=== PATIENT | male | born 1975 | race Caucasian/White ===

== ENCOUNTER 2021-03-22 12:50 | Inpatient (IN) | payer OTHER, SELFPAY ==
[2021-03-22 13:01] VITALS: BP 116/84; PULSE 70; RESP 18; TEMP 36.8; O2SAT 96; BMI 23.6
--- NOTE | 2021-03-22 13:16 | ED_ITS ---
HPI - Psych General Chief Complaint: Psychiatric Symptoms Stated Complaint: crisis Time Seen by Provider: 03/22/21 13:16 Source: patient Mode of arrival: ambulatory Limitations: no limitations History of Present Illness MD complaint: suicidal ideation and feels depressed Onset (ago): week(s) (1) Duration: constant History of same: Yes Relieving factors: none Exacerbating factors: drug use Context: recent drug abuse and significant life stressor Associated psychiatric symptoms: depression and suicidal ideation Associated symptoms: denies other symptoms Treatments prior to arrival: none If self harm: admits thoughts of self harm Related Data Home Medications Medication Instructions Recorded Confirmed No Known Home Meds 03/22/21 03/22/21 Allergies Allergy/AdvReac Type Severity Reaction Status Date / Time trazodone Allergy Rash Verified 03/22/21 13:31 Review of Systems Review of Systems: Constitutional : No Fever, No Chills ENT/Mouth : No Ear Pain, No Nasal Congestion, No sore throat Eyes: No Eye Pain, No Swelling, No Redness Cardiovascular : No Chest Pain, No SOB Respiratory : No Cough, No Sputum, No Dyspnea Gastrointestinal : No Nausea, No Vomiting, No Diarrhea, No Hematochezia, No Melena Genitourinary : No Dysuria, No Urinary Frequency, No Hematuria Musculoskeletal : No Myalgias Skin : No Skin Lesions, No rash Neuro : No Weakness, No Numbness, No Paresthesias, No Dizziness, No Headache Psych : positive Anxiety, positive Depression, positive SI no HI Heme/Lymph: No Lymphadenopathy Endocrine : No Polyuria, No Polydipsia All other systems reviewed and are negative FOR[facility]LY [facility], [facility] Past Medical History Attestation statement: The following information was validated with the patient. Medical History Bipolar 1 disorder Depression PTSD (post-traumatic stress disorder) Surgical History S/P hernia surgery Social History Social History Alcohol intake: current Alcohol intake frequency: 3 or more drinks per day Alcohol type: beer Patient Tobacco Use Status: Current everyday Tobacco user Smoked in Last 30 Days: Yes Use of substances other than those prescribed or required for medical reasons: Yes Substance Use Type: Crack/Cocaine, Heroin and Marijuana Substance Use Frequency: Chronic Longstanding Last Used Substance: Days (ago) Advance Directives: No Advance Directives Information Provided: No Physical Exam Vital Signs: Vital Signs: Last Vital Signs Temp 97.6 F 03/22/21 13:35 Pulse 62 03/22/21 13:35 Resp 16 03/22/21 13:35 BP 129/72 03/22/21 13:35 Pulse Ox 99 03/22/21 13:35 Body Mass Index 23.6 Appearance: Alert. Oriented X3. No acute distress. Eyes: Pupils equal, round and reactive to light. ENT: Pharynx normal. Neck: Normal inspection. Neck supple. CVS: Normal heart rate and rhythm. Pulses normal. Respiratory: No respiratory distress. Breath sounds normal. Abdomen: Soft and nontender. Skin: Skin warm and dry. Normal skin color. Normal skin turgor. Extremities: No lower extremity edema. No calf ttp Neuro: Oriented X 3. No motor deficit. No sensory deficit. CN2-12 intact Psych: Pos anxiety and depression, Pos SI, withdrawn Course Course Course Narrative: Physician observation started at 406pm. Patient placed in physician observation because the patient is pending placement per [facility] for SI. At the time observation was started the patient's vitals were stable, patient is alert and oriented but slightly anxious, Neuro: nonfocal, CV RRR, Lungs clear MDM - Psych MDM Narrative Medical decision making narrative: 46 yo male with bipolar and substance abuse with SI - here with depression and SI - labs and N consult Lab Data Result diagrams: 03/22/21 14:06 03/22/21 14:06 Labs: Lab Results 03/22/21 03/22/21 03/22/21 Range/Units 13:45 13:45 14:06 WBC 10.0 (4.8-10.8) X10*3/uL RBC 4.44 L (4.60-5.80) X10*6/uL Hgb 14.0 (14.0-18.0) g/dl Hct 42.1 (42-52) % MCV 94.8 (80-98) fL MCH 31.5 (27.0-33.0) pg MCHC 33.3 (31.0-36.0) g/dl RDW 12.6 (11.0-16.0) % Plt Count 222 (160-400) X10*3/uL MPV 10.1 (9.4-12.4) fL Immature Gran % (Auto) 0.3 (0.0-0.4) % Neut % (Auto) 73.5 H (45-73) % Lymph % (Auto) 20.4 (20-40) % [place] % (Auto) 5.0 (2-11) % Eos % (Auto) 0.5 (0-4) % Baso % (Auto) 0.3 (0-2) % Lymph # (Auto) 2.1 (1.2-4.9) X10*3/uL [place] # (Auto) 0.5 (0.1-1.2) X10*3/uL Eos # (Auto) 0.1 (0.0-0.4) X10*3/uL Baso # (Auto) 0.0 (0.0-0.2) X10*3/uL Abs Immat Gran (auto) 0.03 (0.00-0.03) X10*3/uL Absolute Neuts (auto) 7.4 (2.0-8.3) X10*3/uL Absolute Nucleated RBC 0.000 (0.0-0.012) X10*3/uL Nucleated RBC % (auto) 0.0 (0.0-0.2) /100WBC Sodium (135-145) mmol/L Potassium (3.3-5.1) mmol/L Chloride (96-108) mmol/L Carbon Dioxide (22-29) mmol/L Anion Gap (12-20) BUN (9-16) mg/dL Creatinine (0.5-1.4) mg/dL Estim Creat Clear Calc Estimated GFR Random Glucose (60-115) mg/dL Calcium (8.4-10.2) mg/dL Total Bilirubin (0.0-1.0) mg/dL Direct Bilirubin (0.0-0.5) mg/dL AST (5-37) U/L ALT (0-40) U/L Alkaline Phosphatase (39-117) U/L Total Protein (6.5-8.0) g/dL Albumin (3.5-5.0) g/dL Urine Opiates Screen POSITIVE H (Not Detect) Urine Fentanyl Screen POSITIVE H (Not Detect) Ur Barbiturates Screen Not Detected (Not Detect) Ur Phencyclidine Scrn Not Detected (Not Detect) Ur Amphetamines Screen Not Detected (Not Detect) U Benzodiazepines Scrn Not Detected (Not Detect) Urine Cocaine Screen POSITIVE H (Not Detect) U Marijuana (THC) Screen POSITIVE H (Not Detect) Ethyl Alcohol mg/dL COVID-19 (WILL) Negative (Negative) COVID-19 Clin Com See Note 03/22/21 03/22/21 Range/Units 14:06 14:06 WBC (4.8-10.8) X10*3/uL RBC (4.60-5.80) X10*6/uL Hgb (14.0-18.0) g/dl Hct (42-52) % MCV (80-98) fL MCH (27.0-33.0) pg MCHC (31.0-36.0) g/dl RDW (11.0-16.0) % Plt Count (160-400) X10*3/uL MPV (9.4-12.4) fL Immature Gran % (Auto) (0.0-0.4) % Neut % (Auto) (45-73) % Lymph % (Auto) (20-40) % [place] % (Auto) (2-11) % Eos % (Auto) (0-4) % Baso % (Auto) (0-2) % Lymph # (Auto) (1.2-4.9) X10*3/uL [place] # (Auto) (0.1-1.2) X10*3/uL Eos # (Auto) (0.0-0.4) X10*3/uL Baso # (Auto) (0.0-0.2) X10*3/uL Abs Immat Gran (auto) (0.00-0.03) X10*3/uL Absolute Neuts (auto) (2.0-8.3) X10*3/uL Absolute Nucleated RBC (0.0-0.012) X10*3/uL Nucleated RBC % (auto) (0.0-0.2) /100WBC Sodium 144 (135-145) mmol/L Potassium 4.3 (3.3-5.1) mmol/L Chloride 109 H (96-108) mmol/L Carbon Dioxide 30 H (22-29) mmol/L Anion Gap 9 L (12-20) BUN 13 (9-16) mg/dL Creatinine 0.98 (0.5-1.4) mg/dL Estim Creat Clear Calc 98.2 Estimated GFR > 60 Random Glucose 105 (60-115) mg/dL Calcium 9.4 (8.4-10.2) mg/dL Total Bilirubin 0.4 (0.0-1.0) mg/dL Direct Bilirubin 0.2 (0.0-0.5) mg/dL AST 18 (5-37) U/L ALT 23 (0-40) U/L Alkaline Phosphatase 51 (39-117) U/L Total Protein 6.9 (6.5-8.0) g/dL Albumin 4.1 (3.5-5.0) g/dL Urine Opiates Screen (Not Detect) Urine Fentanyl Screen (Not Detect) Ur Barbiturates Screen (Not Detect) Ur Phencyclidine Scrn (Not Detect) Ur Amphetamines Screen (Not Detect) U Benzodiazepines Scrn (Not Detect) Urine Cocaine Screen (Not Detect) U Marijuana (THC) Screen (Not Detect) Ethyl Alcohol < 10 mg/dL COVID-19 (WILL) (Negative) COVID-19 Clin Com Discharge Plan Discharge Clinical Impression: Active substance abuse, Suicidal ideation Prescriptions: No Action No Known Home Meds RF: 0
[2021-03-22 13:35] VITALS: BP 129/72; PULSE 62; RESP 16; TEMP 36.4; O2SAT 99
[2021-03-22 14:10] LABS: COVID-19 Test Negative (Negative)
[2021-03-22 14:13] LABS: MANUAL DIFF FLAG NO
[2021-03-22 14:14] LABS: Basophils Percent Auto 0.3 % (0-2); Eosinophils Absolute Auto 0.1 X10*3/uL (0.0-0.4); Eosinophils Percent Auto 0.5 % (0-4); Hematocrit 42.1 % (42-52); Imm Gran Abs Auto 0.03 X10*3/uL (0.00-0.03); Imm Gran Pct Auto 0.3 % (0.0-0.4); Lymphocytes Absolute Auto 2.1 X10*3/uL (1.2-4.9); Lymphocytes Percent Auto 20.4 % (20-40); Mean Corpuscular HGB Conc 33.3 g/dl (31.0-36.0); Mean Corpuscular Hemoglobin 31.5 pg (27.0-33.0); Mean Corpuscular Volume 94.8 fL (80-98); Mean Platelet Volume 10.1 fL (9.4-12.4); Monocytes Absolute Auto 0.5 X10*3/uL (0.1-1.2); Neutrophils Absolute Auto 7.4 X10*3/uL (2.0-8.3); Neutrophils Percent Auto 73.5 % (45-73); Platelet Count 222 X10*3/uL (160-400); Red Blood Count 4.44 X10*6/uL (4.60-5.80); Red Cell Distribution Width 12.6 % (11.0-16.0)
[2021-03-22 14:28] LABS: Amphetamine Screen Urine Not Detected (Not Detect); Barbiturates, Urine Not Detected (Not Detect); Benzodiazepines Screen Urine Not Detected (Not Detect); Cannabinoid Screen Urine POSITIVE (Not Detect); Cocaine Screen Urine POSITIVE (Not Detect); Fentanyl, urine POSITIVE (Not Detect); Opiate Screen Urine POSITIVE (Not Detect); Phencyclidine Screen Urine Not Detected (Not Detect)
[2021-03-22 14:34] LABS: Ethanol < 10 mg/dL
[2021-03-22 14:38] LABS: Alanine Aminotransferase 23 U/L (0-40); Albumin Level 4.1 g/dL (3.5-5.0); Alkaline Phosphatase 51 U/L (39-117); Anion Gap 9 (12-20); Aspartate Amino Transferase 18 U/L (5-37); Bilirubin Direct 0.2 mg/dL (0.0-0.5); Bilirubin Total 0.4 mg/dL (0.0-1.0); Blood Urea Nitrogen 13 mg/dL (9-16); Calcium 9.4 mg/dL (8.4-10.2); Carbon Dioxide 30 mmol/L (22-29); Chloride 109 mmol/L (96-108); Creatinine Clr Calc Pharmacy 98.2; Estimated Glomerular Filt Rate > 60; Glucose Random 105 mg/dL (60-115); Potassium 4.3 mmol/L (3.3-5.1); Sodium 144 mmol/L (135-145); Total Protein 6.9 g/dL (6.5-8.0)
--- NOTE | 2021-03-22 14:47 | PHA.MEDREC ---
Pharmacy Consult ? Medication Reconciliation Pharmacy has completed the medication reconciliation. Patient reports that he does not take medications at home. Previously his last medications were filled at [facility] in December 2020. Dali Tidwell, MelvinD
--- NOTE | 2021-03-22 17:47 | ECG_ITS ---
Test Reason : MEDCLEARANCE Blood Pressure : / mmHG Vent. Rate : 065 BPM Atrial Rate : 065 BPM P-R Int : 132 ms QRS Dur : 094 ms QT Int : 402 ms P-R-T Axes : 076 080 076 degrees QTc Int : 418 ms Normal sinus rhythm Normal ECG No previous ECGs available Referred By: Diana Barth Electronically Signed By:ALEJANDRA MOODY
[2021-03-22 22:30] VITALS: BP 140/84; PULSE 65; RESP 18; TEMP 36.4
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
[2021-03-23 08:00] VITALS: BP 125/89; PULSE 88; RESP 16; TEMP 36.6; O2SAT 98
[2021-03-23] MEDS: LORazepam 1 MG TABLET PO ×4 (09:17→21:30)
--- NOTE | 2021-03-23 09:19 | PC.NURSE ---
Nils declined offers for nicotine replacement therapy on 03/23/2021.
[2021-03-23] MEDS: methADONE HCl 20 MG/2 ML ORAL.CONC 30 MG PO (09:41)
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
[2021-03-23 13:43] VITALS: BP 145/76; PULSE 62
[2021-03-23] MEDS: cloNIDine HCL 0.1 MG TABLET PO (13:43)
[2021-03-23] MEDS: Loperamide HCl 2 MG CAPSULE PO (15:29)
[2021-03-23] MEDS: Gabapentin 300 MG CAPSULE PO ×2 (15:29→21:30)
[2021-03-23 20:00] VITALS: RESP 16; TEMP 36.3; O2SAT 99
[2021-03-23 21:30] VITALS: BP 111/74; PULSE 66
[2021-03-23] MEDS: Prazosin HCL 1 MG CAPSULE PO (21:30)
[2021-03-24] MEDS: LORazepam 1 MG TABLET PO ×3 (08:37→20:46)
[2021-03-24] MEDS: Gabapentin 300 MG CAPSULE PO ×3 (08:37→20:46)
[2021-03-24] MEDS: Escitalopram Oxalate 10 MG TABLET PO (08:37)
[2021-03-24] MEDS: Miconazole 2 % Extra Thick Cr 56.7 Gm Tube 1 APPL TOPICAL ×2 (09:10→20:46)
--- NOTE | 2021-03-24 17:07 | HO.PSYCHPN ---
Subjective Subjective Date of Service: 03/25/21 Reason For Visit: depression si Interim History: pt seen on 03/24 pt lying on bed, fully under blanket; he pokes his head out to see flex o writer operator, but then recovers himself. He has little to say and answers with fw words; pt reports that he is feeling withdrawal symptoms but that it's not yet bad enough to start suboxone. He says SI remains resolved and denies medication side-effects. Gas Plant Technician met with patient again, later in day and he reported having significant w/drawal and wanted to try suboxone, understanding risks of precipitated withdrawal. Pt received 8/2mg to good effect. Review of Systems Review of Systems Pt is alert and oriented; behavior is marginally cooperative; patient under covers; full, long reyes and with adequate hygiene; mood is described as depressed and affect congruent, downcast; eye contact appropriate avoidant; Speech is soft and with few words; not pressured; psychomotor retardation present; thought process is organized and goal directed. Thought content is on getting treatment; otherwise TC relevant to pertinent topics and without any delusional content, paranoid ideations or grandiosity; denies any SI/HI. There is no evidence of perceptual disturbance. ?Patients insight and judgment appear impaired. Diagnostics Vital Signs (24Hr): Vital Signs - 24 hr 03/23/21 20:00 03/23/21 21:30 Temperature 97.4 F Pulse Rate 66 Respiratory Rate 16 Blood Pressure 111/74 Pulse Oximetry 99 Body Mass Index 23.6 Labs Results: 03/22/21 14:06 03/22/21 14:06 Medications Medications Current Medications Generic Name Dose Route Start Last Admin Trade Name Zarina PRN Reason Stop Dose Admin Acetaminophen 650 mg 03/22/21 22:00 Acetaminophen 325 Mg Tablet PO Q6H PRN Headache/Pain Mild Scale (1-3) Al Hydroxide/Mg Hydroxide 30 ml 03/22/21 22:00 Magnesium Hydrox/Alum Hydrox 30 Ml Oral.Susp PO Q6H PRN Heartburn/Nausea Buprenorphine/Naloxone 1 film 03/24/21 17:03 Buprenorphine/Naloxone 8/2 Mg Film SUBLINGUAL 03/24/21 17:04 ONCE ONE Clonidine HCl 0.1 mg 03/22/21 21:00 03/23/21 13:43 Clonidine Hcl 0.1 Mg Tablet PO 0.1 mg Q4H PRN Administration Opiate Withdrawal Protocol Cyclobenzaprine HCl 10 mg 03/23/21 15:04 Cyclobenzaprine Hcl 10 Mg Tablet PO TID PRN muscle cramps Dicyclomine HCl 10 mg 03/23/21 15:04 Dicyclomine Hcl 10 Mg Capsule PO TID PRN abdominal cramps Escitalopram Oxalate 10 mg 03/24/21 09:00 03/24/21 08:37 Escitalopram Oxalate 10 Mg Tablet PO 10 mg DAILY YI Administration Gabapentin 300 mg 03/23/21 15:00 03/24/21 14:06 Gabapentin 300 Mg Capsule PO 300 mg TID YI Administration Loperamide HCl 2 mg 03/23/21 14:49 Loperamide Hcl 2 Mg Capsule PO Q4H PRN Loose Stool Lorazepam 1 mg 03/23/21 15:00 03/24/21 14:06 Lorazepam 1 Mg Tablet PO 1 mg TID YI Administration Magnesium Hydroxide 30 ml 03/22/21 22:00 Milk Of Magnesia 30 Ml Oral.Susp PO DAILY PRN Constipation Miconazole Nitrate 1 appl 03/23/21 21:00 03/24/21 09:10 Miconazole 2 % Extra Thick Cr 56.7 Gm Tube TOPICAL 1 appl BID YI Administration Protocol Pharmacy Consult 1 each 03/22/21 13:16 Consult Rx Perform Med Rec MISCELLANE ONCE PRN Consult order Prazosin HCl 1 mg 03/23/21 21:00 03/23/21 21:30 Prazosin Hcl 1 Mg Capsule PO 1 mg BEDTIME YI Administration Protocol Quetiapine Fumarate 50 mg 03/23/21 15:02 Quetiapine Fumarate 50 Mg Tablet PO BID PRN anxiety/insomnia Allergies Allergies Allergy/AdvReac Type Severity Reaction Status Date / Time trazodone Allergy Rash Verified 03/22/21 13:31 Assessment & Plan Assessment & Plan (1) MDD (major depressive disorder), recurrent severe, without psychosis: Status: Acute Code(s): F33.2 - Major depressive disorder, recurrent severe without psychotic features (2) Chronic post-traumatic stress disorder (PTSD): Status: Acute Code(s): F43.12 - Post-traumatic stress disorder, chronic (3) Opioid dependence on agonist therapy: Status: Acute Code(s): F11.20 - Opioid dependence, uncomplicated (4) Cocaine use disorder: Status: Acute Code(s): F14.10 - Cocaine abuse, uncomplicated (5) Alcohol use disorder, moderate, in early remission, dependence: Status: Acute Code(s): F10.21 - Alcohol dependence, in remission Assessment and Plan: IMPRESSION: Patient is a 46-year-old male with history of depression, PTSD and chronic substance abuse, currently in withdrawal from alcohol cocaine and opiates who presents for worsening depression and suicidal ideation in the face of marital strife, his having left him with the kids due to his relapse.? Patient currently in opioid, alcohol and cocaine withdrawal.? Patient remains depressed but says suicidal ideation has resolved and he has hope of getting treatment and reuniting with and children.? Patient has history of doing well on citalopram and agrees to start escitalopram instead since that is what is on formulary here at the hospital.? Patient reports he has had success on Suboxone and wants to get on this medication instead of methadone since he works and Suboxone is easier to navigate with work schedule.? He agrees to stop methadone and get on Suboxone.? Patient also wants to restart prazosin for nightmares.? Patient meets criteria for MDD, PTSD; he does not report history of manic type episodes or behaviors outside of cocaine binges and though he carries a diagnosis of bipolar disorder, this seems much less likely as he has done well on an SSRI.? Will admit patient for safety, medication management and treatment for withdrawal. opioid withdrawal successfully treated with suboxone; pt off methadone SI remains resolved, but depression continues, likely worsened by withdrawal symptoms PLAN: Patient on CV Q 15 minutes checks suboxne 8/2mg one time suboxone 4/1mg prn for withdawal symptoms will start Subxone 12/3mg daily and assess whether to titrate further Ativan and gabapentin scheduled for alcohol withdrawal; will convert to taper? Discontinue methadone; once patient starts experiencing an increase in withdrawal will start Suboxone; patient educated and understands about precipitated withdrawal and agrees to this plan Start escitalopram 10 mg daily for depression and PTSD Start prazosin 1 mg at bedtime for PTSD related sleep problems/nightmares Start Seroquel p.r.n. for anxiety since patient has a history of abusing his medication to good effect Greater than 50% of the session was spent on counseling and/or coordination of care Reason for contiued inpatient stay Substantial Risk for: rapid decompensation
[2021-03-24] MEDS: Buprenorphine/Naloxone 8/2 mg FILM 1 FILM SUBLINGUAL (17:20)
[2021-03-24 20:00] VITALS: BP 128/76; PULSE 87; TEMP 37
[2021-03-24 20:46] VITALS: BP 113/79; PULSE 84
[2021-03-24] MEDS: Prazosin HCL 1 MG CAPSULE PO (20:46)
[2021-03-25 05:56] VITALS: BP 139/78; PULSE 110; RESP 18; TEMP 36.4; O2SAT 98
[2021-03-25] MEDS: Buprenorphine/Naloxone 12/3 mg FILM 1 FILM SUBLINGUAL (06:02)
[2021-03-25 08:00] VITALS: BP 115/80; PULSE 95; RESP 16
[2021-03-25] MEDS: Gabapentin 300 MG CAPSULE PO ×3 (08:14→20:13)
[2021-03-25] MEDS: LORazepam 1 MG TABLET PO ×3 (08:14→20:13)
[2021-03-25] MEDS: Escitalopram Oxalate 10 MG TABLET PO (08:15)
--- NOTE | 2021-03-25 09:27 | PC.NURSE ---
PT SIGNED A 3 DAY NOTICE 03/25 THAT IS UP ON 03/30
[2021-03-25] MEDS: Buprenorphine/Naloxone 8/2 mg FILM 1 FILM SUBLINGUAL (14:10)
[2021-03-25 14:20] VITALS: BP 125/85; PULSE 86; RESP 18
[2021-03-25 16:00] VITALS: BP 133/80; PULSE 77; TEMP 36.3
--- NOTE | 2021-03-25 16:35 | P.PNPSI_ITS ---
Subjective Subjective Date of Service: 03/27/21 Reason For Visit: depression si Interim History: pt reports feeling better; tolerating suboxone well; asks if it could be increased to 12/3mg Qam and then 8/2mg at about 2pm which is what he was taking before and says worked well; pt says this dosing helps with both addiction and chronic back pain. Butcherette agreed with plan. Pt says he has talked with and is working on reconciling. Pt says mood is better and denies any SI. He asks about Gabapentin which he says he was on in past, but travel writer explained concern about this med when combined with substance abuse and that it will be best to defer to outpt provider; pt agreed. He says he feels he'll be ready to go home by Sunday. Mental Status Exam Mental Status Exam Narrative: Pt is alert and oriented; behavior is cooperative; dressed in casual attire, full, long reyes and with adequate hygiene; mood is described as better and affect congruent, no longer downcast or tearful; eye contact appropriate; Speech is normal rate, volume and prosody and not pressured;no psychomotor agitation or retardation; thought process is organized, linear and goal directed. Thought content is on getting treatment and getting back with /kids ; otherwise TC relevant to pertinent topics and without any delusional content, paranoid ideations or grandiosity; denies any SI/HI. There is no evide nce of perceptual disturbance. ?Patients insight and judgment appear intact. Diagnostics Vital Signs (24Hr): Vital Signs - 24 hr 03/24/21 20:00 03/24/21 20:46 03/25/21 05:56 Temperature 98.6 F 97.5 F Pulse Rate 87 84 110 H Respiratory Rate 18 Blood Pressure 128/76 113/79 139/78 Pulse Oximetry 98 03/25/21 08:00 03/25/21 14:20 Temperature Pulse Rate 95 86 Respiratory Rate 16 18 Blood Pressure 115/80 125/85 Pulse Oximetry Body Mass Index 23.6 Labs Results: 03/22/21 14:06 03/22/21 14:06 Medications Medications Current Medications Generic Name Dose Route Start Last Admin Trade Name Freq PRN Reason Stop Dose Admin Acetaminophen 650 mg 03/22/21 22:00 Acetaminophen 325 Mg Tablet PO Q6H PRN Headache/Pain Mild Scale (1-3) Al Hydroxide/Mg Hydroxide 30 ml 03/22/21 22:00 Magnesium Hydrox/Alum Hydrox 30 Ml Oral.Susp PO Q6H PRN Heartburn/Nausea Buprenorphine/Naloxone 1 film 03/25/21 09:00 03/25/21 06:02 Buprenorphine/Naloxone 12/3 Mg Film SUBLINGUAL 1 film DAILY YI Administration Buprenorphine/Naloxone 1 film 03/24/21 22:00 Buprenorphine/Naloxone 4/1 Mg Film SUBLINGUAL ONCE@2200 PRN SYMPTOMS OF WITHDRAWL Buprenorphine/Naloxone 1 film 03/25/21 14:00 03/25/21 14:10 Buprenorphine/Naloxone 8/2 Mg Film SUBLINGUAL 1 film DAILY@1400 YI Administration Clonidine HCl 0.1 mg 03/22/21 21:00 03/23/21 13:43 Clonidine Hcl 0.1 Mg Tablet PO 0.1 mg Q4H PRN Administration Opiate Withdrawal Protocol Escitalopram Oxalate 10 mg 03/24/21 09:00 03/25/21 08:15 Escitalopram Oxalate 10 Mg Tablet PO 10 mg DAILY YI Administration Gabapentin 300 mg 03/23/21 15:00 03/25/21 14:09 Gabapentin 300 Mg Capsule PO 03/25/21 23:59 300 mg TID YI Administration Gabapentin 300 mg 03/26/21 09:00 Gabapentin 300 Mg Capsule PO 03/26/21 23:59 BID YI Gabapentin 300 mg 03/27/21 09:00 Gabapentin 300 Mg Capsule PO 03/28/21 23:59 DAILY [facility] Loperamide HCl 2 mg 03/23/21 14:49 Loperamide Hcl 2 Mg Capsule PO Q4H PRN Loose Stool Lorazepam 1 mg 03/23/21 15:00 03/25/21 14:09 Lorazepam 1 Mg Tablet PO 03/25/21 23:59 1 mg TID YI Administration Lorazepam 1 mg 03/26/21 21:00 Lorazepam 1 Mg Tablet PO 03/27/21 23:59 BID [facility] Lorazepam 1 mg 03/28/21 09:00 Lorazepam 1 Mg Tablet PO DAILY [facility] Magnesium Hydroxide 30 ml 03/22/21 22:00 Milk Of Magnesia 30 Ml Oral.Susp PO DAILY PRN Constipation Miconazole Nitrate 1 appl 03/23/21 21:00 03/25/21 10:34 Miconazole 2 % Extra Thick Cr 56.7 Gm Tube TOPICAL Not Given BID [facility] Protocol Pharmacy Consult 1 each 03/22/21 13:16 Consult Rx Perform Med Rec MISCELLANE ONCE PRN Consult order Prazosin HCl 1 mg 03/23/21 21:00 03/24/21 20:46 Prazosin Hcl 1 Mg Capsule PO 1 mg BEDTIME YI Administration Protocol Quetiapine Fumarate 25 mg 03/25/21 16:34 Quetiapine Fumarate 25 Mg Tablet PO BID PRN Anxiety Quetiapine Fumarate 50 mg 03/25/21 16:28 Quetiapine Fumarate 50 Mg Tablet PO BEDTIME PRN insomnia Allergies Allergies Allergy/AdvReac Type Severity Reaction Status Date / Time trazodone Allergy Rash Verified 03/22/21 13:31 Assessment & Plan Assessment & Plan (1) MDD (major depressive disorder), recurrent severe, without psychosis: Status: Acute Code(s): F33.2 - Major depressive disorder, recurrent severe without psychotic features (2) Chronic post-traumatic stress disorder (PTSD): Status: Acute Code(s): F43.12 - Post-traumatic stress disorder, chronic (3) Opioid dependence on agonist therapy: Status: Acute Code(s): F11.20 - Opioid dependence, uncomplicated (4) Cocaine use disorder: Status: Acute Code(s): F14.10 - Cocaine abuse, uncomplicated (5) Alcohol use disorder, moderate, in early remission, dependence: Status: Acute Code(s): F10.21 - Alcohol dependence, in remission Assessment and Plan: IMPRESSION: Patient is a 46-year-old male with history of depression, PTSD and chronic substance abuse, currently in withdrawal from alcohol cocaine and opiates who presents for worsening depression and suicidal ideation in the face of marital strife, his having left him with the kids due to his relapse.? Patient currently in opioid, alcohol and cocaine withdrawal.? Patient remains depressed but says suicidal ideation has resolved and he has hope of getting treatment and reuniting with and children.? Patient has history of doing well on citalopram and agrees to start escitalopram instead since that is what is on formulary here at the hospital.? Patient reports he has had success on Suboxone and wants to get on this medication instead of methadone since he works and Suboxone is easier to navigate with work schedule.? He agrees to stop methadone and get on Suboxone.? Patient also wants to restart prazosin for nightmares.? Patient meets criteria for MDD, PTSD; he does not report history of manic type episodes or behaviors outside of cocaine binges and though he carries a diagnosis of bipolar disorder, this seems much less likely as he has done well on an SSRI.? Admitted patient for safety, medication management and treatment for withdrawal. opioid withdrawal successfully treated with suboxone; pt off methadone mood better, SI resolved, no nightmares on Pazosin, feeling better PLAN: Patient on CV Q 15 minutes checks suboxone 12/3mg qAM suboxne 8/2mg at 2pm Prazosin 1mg at bed for nightmares Ativan and gabapentin tapered and will be dc'd Discontinued methadone and converted to Subxone continue escitalopram 10 mg daily for depression and PTSD continue prazosin 1 mg at bedtime for PTSD related sleep problems/nightmares continue Seroquel p.r.n. for anxiety at for insomnia; since patient has a history of using his medication to good effect Greater than 50% of the session was spent on counseling and/or coordination of care Reason for contiued inpatient stay Substantial Risk for: med/psych decompensation
[2021-03-25] MEDS: QUEtiapine Fumarate 25 MG TABLET PO (17:23)
[2021-03-25 20:00] VITALS: BP 121/73; PULSE 76; TEMP 36.7
[2021-03-25 20:13] VITALS: BP 121/73; PULSE 76
[2021-03-25] MEDS: Prazosin HCL 1 MG CAPSULE PO (20:13)
[2021-03-26] MEDS: Escitalopram Oxalate 10 MG TABLET PO (08:37)
[2021-03-26] MEDS: Gabapentin 300 MG CAPSULE PO ×2 (08:37→20:11)
[2021-03-26] MEDS: Buprenorphine/Naloxone 12/3 mg FILM 1 FILM SUBLINGUAL (08:37)
[2021-03-26] MEDS: QUEtiapine Fumarate 25 MG TABLET PO ×2 (11:52→14:57)
[2021-03-26] MEDS: Buprenorphine/Naloxone 8/2 mg FILM 1 FILM SUBLINGUAL (14:55)
[2021-03-26 19:45] VITALS: BP 127/75; PULSE 77; RESP 18; TEMP 36.7; O2SAT 96
[2021-03-26 20:11] VITALS: BP 127/75; PULSE 77
[2021-03-26] MEDS: LORazepam 1 MG TABLET PO (20:11)
[2021-03-26] MEDS: Acetaminophen 325 MG TABLET 650 MG PO (20:11)
[2021-03-26] MEDS: Prazosin HCL 1 MG CAPSULE PO (20:11)
--- NOTE | 2021-03-26 20:28 | P.PNPSI_ITS ---
Subjective Subjective Date of Service: 03/26/21 Reason For Visit: depression si Subjective Notes: Conditional Voluntary and 3 Day (03/30/21) Healthcare Proxy: No Guardianship: No Medical Problems Affecting Mental Status: No Interim History: TDN filed to on 03/30/21. Pt reports no sx, no med side effects, no current concerns. He is engaged with peers in the milieu. Medication Compliance: Yes Side effects from medications: No Attending Groups: No Review of Systems Acute medical concerns: No Medical Review of Systems: unchanged Review of Systems Psychiatric: Reports no additional psychiatric complaints Mental Status Exam Mental Status Exam Patient Appearance: Appropriate Patient Orientation: Person, Place, Time and Situation Level of Consciousness: Awake and Alert Patient Behavior: Appropriate, Talkative, Cooperative and Good Eye Contact Mood Description: Blunted Affect Description: Blunted Patient Cognition Impaired: No Ability to Follow Directions: Good Speech Pattern: Spontaneous Speech Memory Description: Intact Hallucinations: None Delusions: Not Present Thought Process: Goal Oriented Thought Content: positive for Goal Oriented and positive for Suicidal Ideation ( denies) Judgement: Fair Diagnostics Vital Signs (24Hr): Vital Signs - 24 hr 03/26/21 19:45 03/26/21 20:11 Temperature 98.1 F Pulse Rate 77 77 Respiratory Rate 18 Blood Pressure 127/75 127/75 Pulse Oximetry 96 Body Mass Index 23.6 Labs Results: 03/22/21 14:06 03/22/21 14:06 Medications Medications Current Medications Generic Name Dose Route Start Last Admin Trade Name Freq PRN Reason Stop Dose Admin Acetaminophen 650 mg 03/22/21 22:00 03/26/21 20:11 Acetaminophen 325 Mg Tablet PO 650 mg Q6H PRN Administration Headache/Pain Mild Scale (1-3) Al Hydroxide/Mg Hydroxide 30 ml 03/22/21 22:00 Magnesium Hydrox/Alum Hydrox 30 Ml Oral.Susp PO Q6H PRN Heartburn/Nausea Buprenorphine/Naloxone 1 film 03/25/21 09:00 03/26/21 08:37 Buprenorphine/Naloxone 12/3 Mg Film SUBLINGUAL 1 film DAILY YI Administration Buprenorphine/Naloxone 1 film 03/24/21 22:00 Buprenorphine/Naloxone 4/1 Mg Film SUBLINGUAL ONCE@2200 PRN SYMPTOMS OF WITHDRAWL Buprenorphine/Naloxone 1 film 03/25/21 14:00 03/26/21 14:55 Buprenorphine/Naloxone 8/2 Mg Film SUBLINGUAL 1 film DAILY@1400 YI Administration Escitalopram Oxalate 10 mg 03/24/21 09:00 03/26/21 08:37 Escitalopram Oxalate 10 Mg Tablet PO 10 mg DAILY YI Administration Gabapentin 300 mg 03/26/21 09:00 03/26/21 20:11 Gabapentin 300 Mg Capsule PO 03/26/21 23:59 300 mg BID YI Administration Gabapentin 300 mg 03/27/21 09:00 Gabapentin 300 Mg Capsule PO 03/28/21 23:59 DAILY YI Loperamide HCl 2 mg 03/23/21 14:49 Loperamide Hcl 2 Mg Capsule PO Q4H PRN Loose Stool Lorazepam 1 mg 03/26/21 21:00 03/26/21 20:11 Lorazepam 1 Mg Tablet PO 03/27/21 23:59 1 mg BID [facility] Administration Lorazepam 1 mg 03/28/21 09:00 Lorazepam 1 Mg Tablet PO DAILY YI Magnesium Hydroxide 30 ml 03/22/21 22:00 Milk Of Magnesia 30 Ml Oral.Susp PO DAILY PRN Constipation Miconazole Nitrate 1 appl 03/23/21 21:00 03/26/21 16:14 Miconazole 2 % Extra Thick Cr 56.7 Gm Tube TOPICAL Not Given BID [facility] Protocol Prazosin HCl 1 mg 03/23/21 21:00 03/26/21 20:11 Prazosin Hcl 1 Mg Capsule PO 1 mg BEDTIME [facility] Administration Protocol Quetiapine Fumarate 25 mg 03/25/21 16:34 03/26/21 14:57 Quetiapine Fumarate 25 Mg Tablet PO 25 mg BID PRN Administration Anxiety Quetiapine Fumarate 50 mg 03/25/21 16:28 Quetiapine Fumarate 50 Mg Tablet PO BEDTIME PRN insomnia Allergies Allergies Allergy/AdvReac Type Severity Reaction Status Date / Time trazodone Allergy Rash Verified 03/22/21 13:31 Assessment & Plan Assessment & Plan (1) MDD (major depressive disorder), recurrent severe, without psychosis: Status: Acute Code(s): F33.2 - Major depressive disorder, recurrent severe without psychotic features (2) Chronic post-traumatic stress disorder (PTSD): Status: Acute Code(s): F43.12 - Post-traumatic stress disorder, chronic (3) Opioid dependence on agonist therapy: Status: Acute Code(s): F11.20 - Opioid dependence, uncomplicated (4) Cocaine use disorder: Status: Acute Code(s): F14.10 - Cocaine abuse, uncomplicated (5) Alcohol use disorder, moderate, in early remission, dependence: Status: Acute Code(s): F10.21 - Alcohol dependence, in remission Assessment and Plan: IMPRESSION: Patient is a 46-year-old male with history of depression, PTSD and chronic substance abuse, currently in withdrawal from alcohol cocaine and opiates who presents for worsening depression and suicidal ideation in the face of marital strife, his having left him with the kids due to his relapse.? Patient currently in opioid, alcohol and cocaine withdrawal.? Patient remains depressed but says suicidal ideation has resolved and he has hope of getting treatment and reuniting with and children.? Patient has history of doing well on citalopram and agrees to start escitalopram instead since that is what is on formulary here at the hospital.? Patient reports he has had success on Suboxone and wants to get on this medication instead of methadone since he works and Suboxone is easier to navigate with work schedule.? He agrees to stop methadone and get on Suboxone.? Patient also wants to restart prazosin for nightmares.? Patient meets criteria for MDD, PTSD; he does not report history of manic type episodes or behaviors outside of cocaine binges and though he carries a diagnosis of bipolar disorder, this seems much less likely as he has done well on an SSRI.? Will admit patient for safety, medication management and treatment for withdrawal. opioid withdrawal successfully treated with suboxone; pt off methadone SI remains resolved, but depression continues, likely worsened by withdrawal symptoms PLAN: Patient on CV Q 15 minutes checks suboxne 8/2mg one time suboxone 4/1mg prn for withdawal symptoms will start Subxone 12/3mg daily and assess whether to titrate further Ativan and gabapentin scheduled for alcohol withdrawal; will convert to taper? Discontinue methadone; once patient starts experiencing an increase in withdrawal will start Suboxone; patient educated and understands about precipitated withdrawal and agrees to this plan Start escitalopram 10 mg daily for depression and PTSD Start prazosin 1 mg at bedtime for PTSD related sleep problems/nightmares Start Seroquel p.r.n. for anxiety since patient has a history of abusing his medication to good effect 03/26/21: Pt has signed a TDN to 03/30. Continue current plan of care. Greater than 50% of the session was spent on counseling and/or coordination of care Reason for contiued inpatient stay Substantial Risk for: inability to function and rapid decompensation
[2021-03-26] MEDS: Miconazole 2 % Extra Thick Cr 56.7 Gm Tube 1 APPL TOPICAL (20:57)
[2021-03-27 08:00] VITALS: BP 121/76; PULSE 84; TEMP 36.2; O2SAT 98
[2021-03-27] MEDS: Gabapentin 300 MG CAPSULE PO (08:12)
[2021-03-27] MEDS: Escitalopram Oxalate 10 MG TABLET PO (08:12)
[2021-03-27] MEDS: LORazepam 1 MG TABLET PO ×2 (08:12→20:04)
[2021-03-27] MEDS: Buprenorphine/Naloxone 12/3 mg FILM 1 FILM SUBLINGUAL (08:12)
[2021-03-27] MEDS: Miconazole 2 % Extra Thick Cr 56.7 Gm Tube 1 APPL TOPICAL (08:58)
[2021-03-27 12:00] VITALS: BP 122/84; PULSE 92; O2SAT 96
[2021-03-27] MEDS: QUEtiapine Fumarate 25 MG TABLET PO (13:37)
[2021-03-27] MEDS: Buprenorphine/Naloxone 8/2 mg FILM 1 FILM SUBLINGUAL (13:37)
--- NOTE | 2021-03-27 18:16 | HO.PSYCHPN ---
Subjective Subjective Date of Service: 03/27/21 Reason For Visit: depression si Interim History: Team reports pt reflecting upon events [employer]. Pt denies current issues with medications/SE. Medication Compliance: Yes Side effects from medications: No Review of Systems Acute medical concerns: No Medical Review of Systems: unchanged Review of Systems Psychiatric: Reports no additional psychiatric complaints Mental Status Exam Mental Status Exam Patient Appearance: Appropriate Patient Orientation: Person, Place, Time and Situation Level of Consciousness: Awake and Alert Patient Behavior: Appropriate, Talkative, Cooperative and Good Eye Contact Mood Description: Blunted Affect Description: Blunted Patient Cognition Impaired: No Ability to Follow Directions: Good Speech Pattern: Spontaneous Speech Memory Description: Intact Hallucinations: None Delusions: Not Present Thought Process: Goal Oriented Thought Content: positive for Goal Oriented and positive for Suicidal Ideation (denies) Judgement: Fair Diagnostics Vital Signs (24Hr): Vital Signs - 24 hr 03/26/21 19:45 03/26/21 20:11 03/27/21 08:00 Temperature 98.1 F 97.2 F Pulse Rate 77 77 84 Respiratory Rate 18 Blood Pressure 127/75 127/75 121/76 Pulse Oximetry 96 98 03/27/21 12:00 Temperature Pulse Rate 92 Respiratory Rate Blood Pressure 122/84 Pulse Oximetry 96 Body Mass Index 23.6 Labs Results: 03/22/21 14:06 03/22/21 14:06 Medications Medications Current Medications Generic Name Dose Route Start Last Admin Trade Name Freq PRN Reason Stop Dose Admin Acetaminophen 650 mg 03/22/21 22:00 03/26/21 20:11 Acetaminophen 325 Mg Tablet PO 650 mg Q6H PRN Administration Headache/Pain Mild Scale (1-3) Al Hydroxide/Mg Hydroxide 30 ml 03/22/21 22:00 Magnesium Hydrox/Alum Hydrox 30 Ml Oral.Susp PO Q6H PRN Heartburn/Nausea Buprenorphine/Naloxone 1 film 03/25/21 09:00 03/27/21 08:12 Buprenorphine/Naloxone 12/3 Mg Film SUBLINGUAL 1 film DAILY YI Administration Buprenorphine/Naloxone 1 film 03/24/21 22:00 Buprenorphine/Naloxone 4/1 Mg Film SUBLINGUAL ONCE@2200 PRN SYMPTOMS OF WITHDRAWL Buprenorphine/Naloxone 1 film 03/25/21 14:00 03/27/21 13:37 Buprenorphine/Naloxone 8/2 Mg Film SUBLINGUAL 1 film DAILY@1400 YI Administration Escitalopram Oxalate 10 mg 03/24/21 09:00 03/27/21 08:12 Escitalopram Oxalate 10 Mg Tablet PO 10 mg DAILY YI Administration Gabapentin 300 mg 03/27/21 09:00 03/27/21 08:12 Gabapentin 300 Mg Capsule PO 03/28/21 23:59 300 mg DAILY YI Administration Loperamide HCl 2 mg 03/23/21 14:49 Loperamide Hcl 2 Mg Capsule PO Q4H PRN Loose Stool Lorazepam 1 mg 03/26/21 21:00 03/27/21 08:12 Lorazepam 1 Mg Tablet PO 03/27/21 23:59 1 mg BID YI Administration Lorazepam 1 mg 03/28/21 09:00 Lorazepam 1 Mg Tablet PO DAILY YI Magnesium Hydroxide 30 ml 03/22/21 22:00 Milk Of Magnesia 30 Ml Oral.Susp PO DAILY PRN Constipation Miconazole Nitrate 1 appl 03/23/21 21:00 03/27/21 08:58 Miconazole 2 % Extra Thick Cr 56.7 Gm Tube TOPICAL 1 appl BID YI Administration Protocol Prazosin HCl 1 mg 03/23/21 21:00 03/26/21 20:11 Prazosin Hcl 1 Mg Capsule PO 1 mg BEDTIME YI Administration Protocol Quetiapine Fumarate 25 mg 03/25/21 16:34 03/27/21 13:37 Quetiapine Fumarate 25 Mg Tablet PO 25 mg BID PRN Administration Anxiety Quetiapine Fumarate 50 mg 03/25/21 16:28 Quetiapine Fumarate 50 Mg Tablet PO BEDTIME PRN insomnia Allergies Allergies Allergy/AdvReac Type Severity Reaction Status Date / Time trazodone Allergy Rash Verified 03/22/21 13:31 Assessment & Plan Assessment & Plan (1) MDD (major depressive disorder), recurrent severe, without psychosis: Status: Acute Code(s): F33.2 - Major depressive disorder, recurrent severe without psychotic features (2) Chronic post-traumatic stress disorder (PTSD): Status: Acute Code(s): F43.12 - Post-traumatic stress disorder, chronic (3) Opioid dependence on agonist therapy: Status: Acute Code(s): F11.20 - Opioid dependence, uncomplicated (4) Cocaine use disorder: Status: Acute Code(s): F14.10 - Cocaine abuse, uncomplicated (5) Alcohol use disorder, moderate, in early remission, dependence: Status: Acute Code(s): F10.21 - Alcohol dependence, in remission Assessment and Plan: IMPRESSION: Patient is a 46-year-old male with history of depression, PTSD and chronic substance abuse, currently in withdrawal from alcohol cocaine and opiates who presents for worsening depression and suicidal ideation in the face of marital strife, his having left him with the kids due to his relapse.? Patient currently in opioid, alcohol and cocaine withdrawal.? Patient remains depressed but says suicidal ideation has resolved and he has hope of getting treatment and reuniting with and children.? Patient has history of doing well on citalopram and agrees to start escitalopram instead since that is what is on formulary here at the hospital.? Patient reports he has had success on Suboxone and wants to get on this medication instead of methadone since he works and Suboxone is easier to navigate with work schedule.? He agrees to stop methadone and get on Suboxone.? Patient also wants to restart prazosin for nightmares.? Patient meets criteria for MDD, PTSD; he does not report history of manic type episodes or behaviors outside of cocaine binges and though he carries a diagnosis of bipolar disorder, this seems much less likely as he has done well on an SSRI.? Will admit patient for safety, medication management and treatment for withdrawal. opioid withdrawal successfully treated with suboxone; pt off methadone SI remains resolved, but depression continues, likely worsened by withdrawal symptoms PLAN: Patient on CV Q 15 minutes checks suboxne 8/2mg one time suboxone 4/1mg prn for withdawal symptoms will start Subxone 12/3mg daily and assess whether to titrate further Ativan and gabapentin scheduled for alcohol withdrawal; will convert to taper? Discontinue methadone; once patient starts experiencing an increase in withdrawal will start Suboxone; patient educated and understands about precipitated withdrawal and agrees to this plan Start escitalopram 10 mg daily for depression and PTSD Start prazosin 1 mg at bedtime for PTSD related sleep problems/nightmares Start Seroquel p.r.n. for anxiety since patient has a history of abusing his medication to good effect 03/26/21: Pt has signed a TDN to 03/30. Continue current plan of care. 03/27/21: Continue current plan of care. Greater than 50% of the session was spent on counseling and/or coordination of care Reason for contiued inpatient stay Substantial Risk for: rapid decompensation
[2021-03-27 20:00] VITALS: BP 125/82; PULSE 82; RESP 19
[2021-03-27 20:04] VITALS: BP 125/82; PULSE 82
[2021-03-27] MEDS: Prazosin HCL 1 MG CAPSULE PO (20:04)
[2021-03-27] MEDS: QUEtiapine Fumarate 50 MG TABLET PO (20:04)
[2021-03-28] MEDS: QUEtiapine Fumarate 25 MG TABLET PO (01:27)
[2021-03-28 08:00] VITALS: BP 129/81; PULSE 98
[2021-03-28] MEDS: LORazepam 1 MG TABLET PO (08:54)
[2021-03-28] MEDS: Escitalopram Oxalate 10 MG TABLET PO (08:54)
[2021-03-28] MEDS: Buprenorphine/Naloxone 12/3 mg FILM 1 FILM SUBLINGUAL (08:54)
[2021-03-28] MEDS: Gabapentin 300 MG CAPSULE PO (08:54)
[2021-03-28] MEDS: Acetaminophen 325 MG TABLET 650 MG PO (08:57)
[2021-03-28] MEDS: Miconazole 2 % Extra Thick Cr 56.7 Gm Tube 1 APPL TOPICAL (10:11)
--- NOTE | 2021-03-28 10:32 | PM.PSYDC ---
DS: Providers Provider Date of Service: 03/28/21 Date of admission: 03/22/21 21:00 Date of discharge: 03/28/21 Primary care physician: Unknown Physician Attending physician on admission: Loki Nelson Attending physician on discharge: Loki Nelson DS: Diagnosis Discharge Diagnosis (1) MDD (major depressive disorder), recurrent severe, without psychosis: Status: Chronic (2) Chronic post-traumatic stress disorder (PTSD): Status: Chronic (3) Opioid dependence on agonist therapy: Status: Chronic (4) Cocaine use disorder: Status: Chronic (5) Alcohol use disorder, moderate, in early remission, dependence: Status: Chronic DS: Medications Discharge Medications Home Medications: Home Medications Medication Instructions Recorded Confirmed No Known Home Meds 03/22/21 03/22/21 Mental Status Exam Mental Status Exam Narrative: Patient Appearance:?Appropriate, adequately groomed Patient Orientation:?Person, Place, Time and Situation Level of Consciousness:?Awake and Alert Patient Behavior:?Appropriate, calm, Cooperative and Good Eye Contact Mood Description:? good Affect Description:?congruent, bright Patient Cognition Impaired:?No Ability to Follow Directions:?Good Speech Pattern:?Spontaneous Speech Memory Description:?Intact Hallucinations:?None Delusions:?Not Present Thought Process:?Goal Oriented Thought Content:?on treatment, staying sober; denies any SI or HI Judgement:?Fair Data Data Completed and Pending Completed studies during hospitalization [Text1]: 03/22/21 03/22/21 03/22/21 13:45 13:45 14:06 WBC 10.0 RBC 4.44 L Hgb 14.0 Hct 42.1 MCV 94.8 MCH 31.5 MCHC 33.3 RDW 12.6 Plt Count 222 MPV 10.1 Immature Gran % (Auto) 0.3 Neut % (Auto) 73.5 H Lymph % (Auto) 20.4 [place] % (Auto) 5.0 Eos % (Auto) 0.5 Baso % (Auto) 0.3 Lymph # (Auto) 2.1 [place] # (Auto) 0.5 Eos # (Auto) 0.1 Baso # (Auto) 0.0 Abs Immat Gran (auto) 0.03 Absolute Neuts (auto) 7.4 Absolute Nucleated RBC 0.000 Nucleated RBC % (auto) 0.0 Sodium Potassium Chloride Carbon Dioxide Anion Gap BUN Creatinine Estim Creat Clear Calc Estimated GFR Random Glucose Calcium Total Bilirubin Direct Bilirubin AST ALT Alkaline Phosphatase Total Protein Albumin Urine Opiates Screen POSITIVE H Urine Fentanyl Screen POSITIVE H Ur Barbiturates Screen Not Detected Ur Phencyclidine Scrn Not Detected Ur Amphetamines Screen Not Detected U Benzodiazepines Scrn Not Detected Urine Cocaine Screen POSITIVE H U Marijuana (THC) Screen POSITIVE H Ethyl Alcohol COVID-19 (WILL) Negative COVID-19 Clin Com See Note 03/22/21 03/22/21 14:06 14:06 WBC RBC Hgb Hct MCV MCH MCHC RDW Plt Count MPV Immature Gran % (Auto) Neut % (Auto) Lymph % (Auto) [place] % (Auto) Eos % (Auto) Baso % (Auto) Lymph # (Auto) [place] # (Auto) Eos # (Auto) Baso # (Auto) Abs Immat Gran (auto) Absolute Neuts (auto) Absolute Nucleated RBC Nucleated RBC % (auto) Sodium 144 Potassium 4.3 Chloride 109 H Carbon Dioxide 30 H Anion Gap 9 L BUN 13 Creatinine 0.98 Estim Creat Clear Calc 98.2 Estimated GFR > 60 Random Glucose 105 Calcium 9.4 Total Bilirubin 0.4 Direct Bilirubin 0.2 AST 18 ALT 23 Alkaline Phosphatase 51 Total Protein 6.9 Albumin 4.1 Urine Opiates Screen Urine Fentanyl Screen Ur Barbiturates Screen Ur Phencyclidine Scrn Ur Amphetamines Screen U Benzodiazepines Scrn Urine Cocaine Screen U Marijuana (THC) Screen Ethyl Alcohol < 10 COVID-19 (WILL) COVID-19 Clin Com DS: Summary Hospital Course Hospital Course: Patient is a 46-year-old male with history of depression, PTSD and chronic substance abuse, currently in withdrawal from alcohol cocaine and opiates who presents for worsening depression and suicidal ideation in the face of marital strife, his having left him with the kids due to his relapse.? Patient admitted with opioid, alcohol and cocaine withdrawal and successfully treated with ativan, gabapentin taper; was converted from methadone to Subxone to good effect. On admission, patient reported SI had fully resolved but he was depressed and regretful. Patient was forthcoming during interview and wanted to get back on previous medications that he said had helped before which included escitalopram (being substituted for citalopram), low-dose Seroquel for insomnia and anxiety, prazosin for nightmares and as mentioned Suboxone which was dosed at 12/3 mg q.a.m. and 8/to mg to p.m. patient was irritable while in withdrawal however his mood significantly improved and affect became brighter as he emerged from withdrawal symptoms. Patient reported being in a good mood throughout the rest of his admission and was without any SI which remained fully resolved. Patient was future oriented, having reconnected and reconciled with his and kids. Patient was also able to get a job through his sister which she was looking forward to. Patient was optimistic about staying sober and felt grateful for the chance to go through treatment and address his anxiety and depression. Patient talked about getting back on gabapentin however he agreed to discuss this with his outpatient provider. Patient also shared how his chronic back pain and his history of inguinal hernia which has remained uncomfortable for years a triggers for relapse, however he hopes being on Suboxone will prevented this and will continue discuss medical issues further with his outpatient provider. Patient and social media coordinator established aftercare plan and patient agrees to engage in a partial program. By the end of admission patient remained in good mood, reporting depression resolved, anxiety under control and feeling ready to go home to his family. Patient was not in imminent risk for harm to self or others and his request for discharge honored. Time spent discussing smoking cessation with patient: 3 to 10 minutes Status at Discharge Functional status at discharge: independent ambulation Overall status at discharge: patient is back to baseline Time Spent with Patient Time attestation: Total time spent providing and/or coordinating discharge services: Discharge Plan Discharge Patient Disposition: Home, Self-Care Discharge Diagnosis: MDD, recurrent, severe w/out psychosis, in full remission Referrals: Suboxone: [facility] Outpatient Treatment Program (OTP) [Other] - 03/30/21 2:45 pm (At office/In person) [facility] [Other] - 1 Week (LEFT MESSAGE TO CALL US BACK) Therapist: Elaine Bhagat ([facility]) [Other] - 03/31/21 1:00 pm (In office/in person You must attend this appointment or your appointments for psych/meds will be canceled. ) Psych Prescriber: Ivy Romano ([facility]) [Other] - 04/27/21 9:00 am (Telehealth/Virtual, you will get a link sent to your email) Psych Prescriber: Ivy Romano ([facility]) [Other] - 05/27/21 8:30 am (*Telehealth/Virtual, you will be sent a link to your email) Discharge Medications: New prazosin 1 mg Capsule 1 mg PO BEDTIME 30 Days Qty: 30 RF: 0 escitalopram oxalate 10 mg Tablet 10 mg PO DAILY 30 Days Qty: 30 RF: 0 quetiapine 100 mg Tablet See Rx Instructions .ROUTE .COMPLEX PRN (Reason: insomnia) Qty: 60 RF: 0 miconazole nitrate [Inzo Antifungal] 2 % Cream 1 appl topical BID 7 Days Qty: 14 RF: 0 buprenorphine-naloxone [Suboxone] 8-2 mg film See Rx Instructions .ROUTE .COMPLEX Qty: 9 RF: 0 Discharge Orders: Discharge Order (Routine); Ordered 03/28/21 Ordered By: Loki Nelson Diet: regular diet Activity on Discharge: As tolerated Stand Alone Forms: Patient Portal Discharge page, Community Support Care Plan Goals: Maintain mood and safe behaviors Take medications as prescribed Continue to pursue sobriety Practice coping skills Continue with outpatient providers and reach out to them as needed ? Health Concerns: Mood stability and behaviors Sobriety Chronic back pain Plan of Treatment: Follow up with your PCP and psychiatric provider regarding above concerns Take medications as prescribed Assessment: Risk assessment at time of discharge:? Patient was interviewed prior to discharge and found to be fully oriented and without any SI or HI. Patient has insight and demonstrates good judgment in terms of wanting to pursue treatment. Patient is not in imminent risk of harm to self or others and has a safety plan that includes presenting to the closest ER or calling 911 if feeling unsafe.? Patient has been observed closely by nursing and unit staff throughout admission; patient has not engaged in any behaviors that suggest dangerousness to self or others and has demonstrated appropriate behaviors and impulse control. Discharge Date/Time: 03/28/21 13:40
[2021-03-28] MEDS: Buprenorphine/Naloxone 8/2 mg FILM 1 FILM SUBLINGUAL (13:26)
[2021-03-28] MEDS: Naloxone HCl Nasal TAKE HOME 4 MG SPRAY NOSTRILALT (13:26)
== END 2021-03-28 13:40 | disposition home or self-care (01) | DRG 751 ==
LOC: HO.ED 18:55 → HO.PM5 21:31
PROVIDERS: Admitting Provider Psychiatry & Neurology Psychiatry; Emergency Provider Emergency Medicine; Visit Provider Psychiatry & Neurology Psychiatry
DX: F33.2 Major depressive disorder, recurrent severe without psychotic features (principal); R45.851 Suicidal ideations; Z20.822 Contact with and (suspected) exposure to COVID-19; F43.12 Post-traumatic stress disorder, chronic; F11.23 Opioid dependence with withdrawal; F10.239 Alcohol dependence with withdrawal, unspecified; F14.13 Cocaine abuse, unspecified with withdrawal; F17.210 Nicotine dependence, cigarettes, uncomplicated; Z71.6 Tobacco abuse counseling; Z79.899 Other long term (current) drug therapy
CPT/HCPCS: 36415; 80048; 80076; 80307; 82077; 85025; 87635; 93005; 99285

== ENCOUNTER 2021-04-25 16:21 | Emergency (ER) | payer OTHER, SELFPAY ==
[2021-04-25 18:01] VITALS: BP 154/96; PULSE 73; RESP 18; TEMP 37.2; O2SAT 97; BMI 23.6
[2021-04-25] MEDS: Ibuprofen 600 MG TABLET PO (18:05)
--- NOTE | 2021-04-25 19:55 | ED_ITS ---
HPI - Dental/Oral General Chief complaint: Dental/Oral Stated complaint: tooth pain Time Seen by Provider: 04/25/21 19:55 Source: patient Mode of arrival: ambulatory Limitations: no limitations History of Present Illness HPI Narrative: Dental pain MD Complaint: tooth pain Teeth map: 1. Extensive decay Severity: moderate Relieving factors: nothing Exacerbating factors: nothing Context: history of dental caries Treatment prior to arrival: none Related Data Previous Rx's Medication Instructions Recorded escitalopram oxalate 10 mg tablet 10 mg PO DAILY 30 Days #30 tab 03/28/21 miconazole nitrate 2 % topical 1 appl TOPICAL BID 7 Days #14 g 03/28/21 cream (Inzo Antifungal) prazosin 1 mg capsule 1 mg PO BEDTIME 30 Days #30 cap 03/28/21 quetiapine 100 mg tablet See Rx Instructions .ROUTE 03/28/21 .COMPLEX PRN #60 tab buprenorphine 12 mg-naloxone 3 mg 1 film BUCCAL DAILY 2 Days #2 ea 03/29/21 sublingual film (Suboxone) buprenorphine 8 mg-naloxone 2 mg 1 film BUCCAL .Afternoon 2 Days #2 03/29/21 sublingual film (Suboxone) ea ibuprofen 800 mg tablet 800 mg PO Q8H PRN #30 tab 04/25/21 penicillin V potassium 500 mg 1,000 mg PO BID 10 Days #40 tab 04/25/21 tablet Allergies Allergy/AdvReac Type Severity Reaction Status Date / Time trazodone Allergy Rash Verified 03/22/21 13:31 Review of Systems Review of Systems: Constitutional: No Weight loss, No Fever, No Chills, No Night Sweats, No Fatigue, No Malaise ENT/Mouth: No Hearing loss, No Ear Pain, No Nasal Congestion, No Sinus Pain, No Hoarseness, No sore throat, No Rhinorrhea, No Swallowing Difficulty Eyes: No Eye Pain, No Swelling, No Redness, No Foreign Body, No Discharge, No Vision Changes Cardiovascular: No Chest Pain, No SOB, No Dyspnea on Exertion, No Orthopnea, No Edema, No Palpitations Respiratory: No Cough, No Sputum, No Wheezing, No Smoke Exposure, No Dyspnea Gastrointestinal: No Nausea, No Vomiting, No Diarrhea, No Constipation, No abdominal Pain, No Hematochezia, No Melena Genitourinary: no irregular bleeding, No Dysuria, No Urinary Frequency, No Hematuria, No Urinary Incontinence, No Urgency, No Flank Pain, No Urinary Flow Changes, No Hesitancy Musculoskeletal: No joint pain, No Myalgias, No Joint Swelling Skin: No Skin Lesions, No rash Neuro: No Weakness, No Numbness, No Paresthesias, No Loss of Consciousness, No Dizziness, No Headache Psych: No Social Issues Heme/Lymph: No Bruising, No Bleeding,No Lymphadenopathy Endocrine: No Polyuria, No Polydipsia, No Temperature Intolerance Yes all other systems are reviewed and are negative [facility] Past Medical History Medical History (Updated 04/26/21 @ 00:01 by Lorie Guzman) Alcohol use disorder, moderate, in early remission, dependence Bipolar 1 disorder Chronic post-traumatic stress disorder (PTSD) Cocaine use disorder Depression MDD (major depressive disorder), recurrent severe, without psychosis Opioid dependence on agonist therapy PTSD (post-traumatic stress disorder) Surgical History S/P hernia surgery Social History Social History Household Members: Family Housing: Unknown / Unable to assess Do you presently have visiting nurse or other home services: No Unable to assess alcohol history related to: Unknown Alcohol intake: current Alcohol intake frequency: 3 or more drinks per day Alcohol type: beer Patient Tobacco Use Status: Current everyday Tobacco user Tobacco use type: Cigarette Cigarette Packs Per Day: 1 Cigarettes Per Day: 20.0 Second Hand Smoke Exposure: Yes Substance Use Type: Crack/Cocaine, Marijuana, Opiates and Painkillers Advance Directives: No Advance Directives Information Provided: No service: No Sexual orientation: Straight/Heterosexual Physical Exam Vital Signs: Vital Signs: Last Vital Signs Temp 98.9 F 04/25/21 18:01 Pulse 73 04/25/21 18:01 Resp 18 04/25/21 18:01 BP 154/96 H 04/25/21 18:01 Pulse Ox 97 04/25/21 18:01 Body Mass Index 23.6 Const: General: cooperative and healthy appearing; No acute distress or intoxicated appearing Nutritional Appearance: average body habitus Orientation/consciousness: patient oriented x3 HENMT: Head: Yes normal to inspection Ears: hearing grossly normal bilaterally Eyes: General: appearance normal, both eyes and all related structures Visual Ramos: normal visual ramos by confrontation Neck: Neck: Yes normal visual inspection, No positive Brudzinski's sign, No positive Kernig's sign and No tender Thyroid: Thyroid normal Chest: Chest palpation & inspection: normal inspection of the chest Resp: Effort & Inspection: normal respiratory effort Cardio: Jugular venous distension: no JVD GI: Inspection: Yes normal to inspection Percussion: Yes normal to percussion Auscultation: normal bowel sounds : General: Yes no CVA tenderness Back/Spine/Pelvis: Back: no CVA tenderness Skin: General skin exam: no rashes or lesions noted Neuro: General: patient oriented x3 Extrem: General: Yes normal to inspection Discharge Plan Discharge Clinical Impression: Toothache Patient Disposition: Home, Self-Care Additional Instructions: Salt water gargle Throat lozenges Take medication as prescribed Return if any concerns or worsening symptoms Follow-up with dentist in the next 3-7 days Thank you Prescriptions: New penicillin V potassium 500 mg tablet 1,000 mg PO BID 10 Days Qty: 40 RF: 0 ibuprofen 800 mg tablet 800 mg PO Q8H PRN (Reason: pain) Qty: 30 RF: 0 No Action prazosin 1 mg Capsule 1 mg PO BEDTIME 30 Days Qty: 30 RF: 0 escitalopram oxalate 10 mg Tablet 10 mg PO DAILY 30 Days Qty: 30 RF: 0 quetiapine 100 mg Tablet See Rx Instructions .ROUTE .COMPLEX PRN (Reason: insomnia) Qty: 60 RF: 0 miconazole nitrate [Inzo Antifungal] 2 % Cream 1 appl topical BID 7 Days Qty: 14 RF: 0 buprenorphine-naloxone [Suboxone] 12-3 mg film 1 film buccal DAILY 2 Days Qty: 2 RF: 0 buprenorphine-naloxone [Suboxone] 8-2 mg film 1 film buccal .Afternoon 2 Days Qty: 2 RF: 0 Interventions: ED Discharge Assessment Last Done: 04/25/21 20:21 Discharge Date/Time: 04/25/21 20:23
== END 2021-04-25 20:23 | disposition home or self-care (01) ==
PROVIDERS: Emergency Provider Emergency Medicine
DX: K08.89 Other specified disorders of teeth and supporting structures (principal); F17.210 Nicotine dependence, cigarettes, uncomplicated; Z71.6 Tobacco abuse counseling; Z79.899 Other long term (current) drug therapy
CPT/HCPCS: 99283

== ENCOUNTER 2022-01-08 01:34 | Inpatient (IN) | payer OTHER, SELFPAY ==
[2022-01-08 01:48] VITALS: BP 127/78; PULSE 66; RESP 18; TEMP 37; O2SAT 98; BMI 22.7
[2022-01-08 02:24] LABS: COVID-19 Test Negative (Negative)
[2022-01-08 02:25] LABS: Alanine Aminotransferase 24 U/L (0-40); Albumin Level 4.3 g/dL (3.5-5.0); Alkaline Phosphatase 59 U/L (39-117); Anion Gap 14 (12-20); Aspartate Amino Transferase 18 U/L (5-37); Bilirubin Total 0.4 mg/dL (0.0-1.0); Blood Urea Nitrogen 15 mg/dL (9-16); Calcium 8.8 mg/dL (8.4-10.2); Carbon Dioxide 25 mmol/L (22-29); Chloride 108 mmol/L (96-108); Estimated Glomerular Filt Rate > 60; Glucose Random 95 mg/dL (60-115); Potassium 3.7 mmol/L (3.3-5.1); Sodium 143 mmol/L (135-145); Total Protein 7.5 g/dL (6.5-8.0)
--- NOTE | 2022-01-08 02:37 | PC.NURSE ---
Patient was brought in from waiting room, alert and oriented x4, per triage note patient is having self harm ideation, patient is compliant with change lead process, currently in chair in front of NS charging his GPS REGGIE downs referral completed/confirmed/pending ETA, med rec completed/pending provider's approval, will continue to monitor.
[2022-01-08 02:52] LABS: Appearance Urine CLEAR; Color Urine DK YELLOW; Glucose Urine UA NEG (NEG); Leukocyte Esterase Urine NEG (NEG); Nitrite Urine NEG (NEG); PH 5.5 (5.0-8.0); Specific Gravity - Urine >= 1.030 (1.005-1.025); Urine Blood NEG (NEG); Urine Ketones NEG (NEG); Urine Protein NEG (NEG-TRACE)
[2022-01-08 03:04] LABS: Amphetamine Screen Urine Not Detected (Not Detect); Barbiturates, Urine Not Detected (Not Detect); Benzodiazepines Screen Urine Not Detected (Not Detect); Cannabinoid Screen Urine POSITIVE (Not Detect); Cocaine Screen Urine POSITIVE (Not Detect); Fentanyl, urine POSITIVE (Not Detect); Opiate Screen Urine POSITIVE (Not Detect); Phencyclidine Screen Urine Not Detected (Not Detect)
--- NOTE | 2022-01-08 03:20 | ED_ITS ---
HPI - Psych General Chief Complaint: Psychiatric Symptoms Stated Complaint: SI/Depressed Time Seen by Provider: 01/08/22 03:17 History of Present Illness HPI Narrative: Patient is a 46-year-old male with a history of polysubstance abuse history of depression history PTSD presented today with having suicidal and homicidal thoughts. Patient decided cut himself. Patient asking for help presented to the emergency department. Admits to using cocaine. Admits to using heroin. Denies any allergies. No physical complaints. Patient denies any specific plans of how to kill himself and kill others. Related Data Home Medications Medication Instructions Recorded Confirmed buprenorphine 8 mg-naloxone 2 mg 1 film buccal TID 01/08/22 01/08/22 sublingual film (Suboxone) nicotine 7 mg/24 hr daily 1 patch topical DAILY 01/08/22 01/08/22 transdermal patch quetiapine 100 mg tablet 100 mg PO TID PRN Anxiety 01/08/22 01/08/22 Previous Rx's Medication Instructions Recorded escitalopram oxalate 10 mg tablet 10 mg PO DAILY 30 days #30 tabs 03/28/21 prazosin 1 mg capsule 1 mg PO BEDTIME 30 days #30 caps 03/28/21 ibuprofen 800 mg tablet 800 mg PO Q8H PRN pain #30 tabs 04/25/21 Allergies Allergy/AdvReac Type Severity Reaction Status Date / Time trazodone Allergy Rash Verified 03/22/21 13:31 Review of Systems Review of Systems: Positive SI and HI Yes all other systems are reviewed and are negative PMFSH Past Medical History Attestation statement: The following information was validated with the patient. Medical History Alcohol use disorder, moderate, in early remission, dependence Bipolar 1 disorder Chronic post-traumatic stress disorder (PTSD) Cocaine use disorder Depression MDD (major depressive disorder), recurrent severe, without psychosis Opioid dependence on agonist therapy PTSD (post-traumatic stress disorder) Surgical History S/P hernia surgery Social History Social History Household Members: Family Housing: Unknown / Unable to assess Do you presently have visiting nurse or other home services: No Unable to assess alcohol history related to: Unknown Alcohol intake: current Alcohol intake frequency: 3 or more drinks per day Alcohol type: beer Patient Tobacco Use Status: Current everyday Tobacco user Tobacco use type: Cigarette Cigarette Packs Per Day: 1 Cigarettes Per Day: 20.0 Second Hand Smoke Exposure: Yes Substance Use Type: Crack/Cocaine, Marijuana, Opiates and Painkillers Advance Directives: No service: No Sexual orientation: Straight/Heterosexual Physical Exam Vital Signs: Vital Signs: Last Vital Signs Temp 98.6 F 01/08/22 01:48 Pulse 66 01/08/22 01:48 Resp 18 01/08/22 01:48 BP 127/78 01/08/22 01:48 Pulse Ox 98 01/08/22 01:48 O2 Del Method 01/08/22 01:48 BMI result Body Mass Index 22.7 Appearance: Alert. Oriented X3. No acute distress. Eyes: Pupils equal, round and reactive to light. ENT: Pharynx normal. Neck: Normal inspection. Neck supple. No lymph nodes noted. No crepitus CVS: Normal heart rate and rhythm. Pulses normal. Normal S1 and S2 Respiratory: No respiratory distress. Breath sounds normal. No Wheezing. No rales Abdomen: Soft and nontender. No rigidity. No distention. good BS x4 Skin: Multiple superficial abrasion noted in the bilateral forearm. Extremities: No lower extremity edema. Neurovascular intact to all extremities. No Lacerations. No Rash Neuro: Oriented X 3. No motor deficit. No sensory deficit. Moving all extermities. No slurred speech. Cranial nerves grossly intact MDM - Psych MDM Narrative Medical decision making narrative: Positive SI, HI. Will get PH can not evaluate patient. Patient's tox screen were positive for cocaine positive for opiates. COVID test was negative. Electrolytes labs were done. In stable condition. Medical Records Attestation: I reviewed the patient's medical records. Lab Data Attestation: I reviewed the patient's lab results. Result diagrams: 01/08/22 01:54 Labs: Lab Results 01/08/22 01/08/22 01/08/22 Range/Units 01:54 02:01 02:35 Sodium 143 (135-145) mmol/L Potassium 3.7 (3.3-5.1) mmol/L Chloride 108 (96-108) mmol/L Carbon Dioxide 25 (22-29) mmol/L Anion Gap 14 (12-20) BUN 15 (9-16) mg/dL Creatinine 1.00 (0.5-1.4) mg/dL Estim Creat Clear Calc 95.0 Estimated GFR > 60 Random Glucose 95 (60-115) mg/dL Calcium 8.8 D (8.4-10.2) mg/dL Total Bilirubin 0.4 (0.0-1.0) mg/dL AST 18 (5-37) U/L ALT 24 (0-40) U/L Alkaline Phosphatase 59 (39-117) U/L Total Protein 7.5 (6.5-8.0) g/dL Albumin 4.3 (3.5-5.0) g/dL Urine Color Urine Appearance Urine pH (5.0-8.0) Ur Specific [place] (1.005-1.025) Urine Protein (NEG-TRACE) MG/DL Urine Glucose (UA) (NEG) MG/DL Urine Ketones (NEG) MG/DL Urine Blood (NEG) Urine Nitrite (NEG) Ur Leukocyte Esterase (NEG) Urine Opiates Screen POSITIVE H (Not Detect) Urine Fentanyl Screen POSITIVE H (Not Detect) Ur Barbiturates Screen Not Detected (Not Detect) Ur Phencyclidine Scrn Not Detected (Not Detect) Ur Amphetamines Screen Not Detected (Not Detect) U Benzodiazepines Scrn Not Detected (Not Detect) Urine Cocaine Screen POSITIVE H (Not Detect) U Marijuana (THC) Screen POSITIVE H (Not Detect) COVID-19 (WILL) Negative (Negative) COVID-19 Clin Com See Note 01/08/22 Range/Units 02:35 Sodium (135-145) mmol/L Potassium (3.3-5.1) mmol/L Chloride (96-108) mmol/L Carbon Dioxide (22-29) mmol/L Anion Gap (12-20) BUN (9-16) mg/dL Creatinine (0.5-1.4) mg/dL Estim Creat Clear Calc Estimated GFR Random Glucose (60-115) mg/dL Calcium (8.4-10.2) mg/dL Total Bilirubin (0.0-1.0) mg/dL AST (5-37) U/L ALT (0-40) U/L Alkaline Phosphatase (39-117) U/L Total Protein (6.5-8.0) g/dL Albumin (3.5-5.0) g/dL Urine Color DK YELLOW Urine Appearance CLEAR Urine pH 5.5 (5.0-8.0) Ur Specific [place] >= 1.030 H (1.005-1.025) Urine Protein NEG (NEG-TRACE) MG/DL Urine Glucose (UA) NEG (NEG) MG/DL Urine Ketones NEG (NEG) MG/DL Urine Blood NEG (NEG) Urine Nitrite NEG (NEG) Ur Leukocyte Esterase NEG (NEG) Urine Opiates Screen (Not Detect) Urine Fentanyl Screen (Not Detect) Ur Barbiturates Screen (Not Detect) Ur Phencyclidine Scrn (Not Detect) Ur Amphetamines Screen (Not Detect) U Benzodiazepines Scrn (Not Detect) Urine Cocaine Screen (Not Detect) U Marijuana (THC) Screen (Not Detect) COVID-19 (WILL) (Negative) COVID-19 Clin Com Discharge Plan Discharge Clinical Impression: Cocaine use disorder, Opioid abuse, Suicidal ideation Patient Disposition: Still a Patient Prescriptions: No Action prazosin 1 mg Capsule 1 mg PO BEDTIME 30 Days Qty: 30 0RF Protocol: Hold for SBP< HOLD for SBP < : 90 escitalopram oxalate 10 mg Tablet 10 mg PO DAILY 30 Days Qty: 30 0RF ibuprofen 800 mg tablet 800 mg PO Q8H PRN (Reason: pain) Qty: 30 0RF buprenorphine-naloxone [Suboxone] 8-2 mg film 1 film buccal TID quetiapine 100 mg tablet 100 mg PO TID PRN (Reason: Anxiety) nicotine 7 mg/24 hr patch 24 hour 1 patch topical DAILY
[2022-01-08] MEDS: LORazepam 1 MG TABLET 2 MG PO (03:22)
--- NOTE | 2022-01-08 03:23 | PC.NURSE ---
Patient got increasingly agitated over not getting his phone on time to answer the canine enforcement officer's call. MHT tried her best to get the phone as quick as she can since the phone was in locker per facility protocol it took time and phone ring stopped. Patient verbally threatened the staff however this press writer attempted to deescalate, notified provider to speak with patient, Ativan 2 mg PO administered/pending effect, will continue to monitor.
--- NOTE | 2022-01-08 09:31 | PC.NURSE ---
BHN at bedside to evaluate pt
[2022-01-08 09:49] VITALS: RESP 16
--- NOTE | 2022-01-08 09:50 | PC.NURSE ---
pt refused to have vitals taken
--- NOTE | 2022-01-08 14:32 | PC.NURSE ---
pt refusing all care, including vitals, verbal interactions and columbia scale not completed as pt refusing to repsond. pt to be re-evaluated tomorrow by Adelaide as he also refused to communicate with them this morning.
[2022-01-08 16:10] VITALS: RESP 14
[2022-01-08 19:41] VITALS: PULSE 75
[2022-01-08 19:45] VITALS: BP 118/76; PULSE 80; RESP 14; TEMP 36.8; O2SAT 95
[2022-01-08] MEDS: methADONE HCl 20 MG/2 ML ORAL.CONC PO (19:55)
--- NOTE | 2022-01-08 23:37 | PC.NURSE ---
Patient in bed appears sleeping, med rec was completed this morning however it is yet to be approved by the provider, [facility] called and spoke with Jessica/notified that patient refused to talk to [facility] clinician today mostly due to his behavior, Adelaide will come tomorrow to evaluate the patient, will continue to monitor.
--- NOTE | 2022-01-09 | ECG_ITS ---
Test Reason : MED CLEARANCE Blood Pressure : / mmHG Vent. Rate : 059 BPM Atrial Rate : 059 BPM P-R Int : 130 ms QRS Dur : 094 ms QT Int : 402 ms P-R-T Axes : 078 068 070 degrees QTc Int : 397 ms Sinus bradycardia Otherwise normal ECG When compared with ECG of 22-MAR-2021 18:55, No significant change was found Referred By: Charito Avila Electronically Signed By:Jacinto Blackwood
--- NOTE | 2022-01-09 07:13 | PC.NURSE ---
patient appears to remain asleep at present respirations are even and unlabored patient appears in no distress
[2022-01-09 08:24] VITALS: BP 130/80; PULSE 77; RESP 18; TEMP 36.4; O2SAT 98
--- NOTE | 2022-01-09 10:40 | MHC.RECOVSUP ---
Recovery Support note: Patient is a 46 year old Maltese speaking male who presented to [facility] due to self harming behaviors. This narrative writer met with patient at the request of his RN to clarify his goals regarding his Suboxone treatment. Patient is currently awaiting an inpatient psychiatric bed. Patient presented to [facility] on 01/08 and reported last using heroin on 01/07 around 1700. Patient informed this narrative writer on 01/09 that he was previously taking 3, 8mg Suboxone films and that he last took Suboxone four days ago. Patient was given 20mg of methadone on 01/08 due to withdrawal symptoms. Patient reports he was using 20-25 bags of heroin a day prior to coming to the hospital. Patient reports to this narrative writer and ED provider that he wants to get off everything, but that he doesn't want to stop the medications abruptly. Patient is interested in a methadone taper. Discussed case with patient's RN and Renetta Alva [employer] [facility]. Plan for Renetta to follow up and provide recommendations.
[2022-01-09 14:00] VITALS: BP 132/72; PULSE 69; RESP 18; TEMP 36.6; O2SAT 97
[2022-01-09] MEDS: methADONE HCl 20 MG/2 ML ORAL.CONC 35 MG PO (14:10)
--- NOTE | 2022-01-09 15:26 | HO.ADDICT_ITS ---
History of Present Illness Date of Service: 01/09/2022 Chief Complaint: SI/Depressed Reason for Consult: opioid withdrawal Requesting physician: Charito Avila Discussed with referring provider: Yes Sources of Information: patient interviewed and chart reviewed HPI Narrative: patient is a 46 year old Turkmen speaking male in area of ED awaiting admission to unit for suicidal ideation. Consult requested as patient reporting opioid withdrawal sx. Prior to being seen by this telegraphic typewriter mechanic, patient received methadone 20mg X1 on 01/08. Patient seen in area of ED, awake, alert, laying on couch. Noted to be restless, yawning. Patient reporting nausea, body aches and irritability. Has been using approx 25 bags of heroin/fentanyl IN daily. Last use prior to ED admission. States he had been on Suboxone for some time, but does not wish to resume. At this time he is requesting methadone taper with plan to discontinue. Past Psychiatric History: Psychiatric hospitalization 1 time in 2012 for bad depression History of affective antidepressant citalopram Review of Systems Constitutional: Reports as per HPI Diagnostics Vital Signs (24Hr): Vital Signs - 24 hr 01/08/22 16:10 01/08/22 19:45 01/09/22 08:24 Temperature 98.3 F 97.5 F Pulse Rate 80 77 Respiratory Rate 14 14 18 Blood Pressure 118/76 130/80 Pulse Oximetry 95 98 Oxygen Delivery Method Room Air Room Air BMI result Body Mass Index 22.7 Labs Results: 01/08/22 01:54 Labs: Laboratory Results - last 48 hr 01/08/22 01/08/22 01/08/22 01:54 02:01 02:35 Sodium 143 Potassium 3.7 Chloride 108 Carbon Dioxide 25 Anion Gap 14 BUN 15 Creatinine 1.00 Estim Creat Clear Calc 95.0 Estimated GFR > 60 Random Glucose 95 Calcium 8.8 D Total Bilirubin 0.4 AST 18 ALT 24 Alkaline Phosphatase 59 Total Protein 7.5 Albumin 4.3 Urine Color Urine Appearance Urine pH Ur Specific [place] Urine Protein Urine Glucose (UA) Urine Ketones Urine Blood Urine Nitrite Ur Leukocyte Esterase Urine Opiates Screen POSITIVE H Urine Fentanyl Screen POSITIVE H Ur Barbiturates Screen Not Detected Ur Phencyclidine Scrn Not Detected Ur Amphetamines Screen Not Detected U Benzodiazepines Scrn Not Detected Urine Cocaine Screen POSITIVE H U Marijuana (THC) Screen POSITIVE H COVID-19 (WILL) Negative COVID-19 Clin Com See Note 01/08/22 02:35 Sodium Potassium Chloride Carbon Dioxide Anion Gap BUN Creatinine Estim Creat Clear Calc Estimated GFR Random Glucose Calcium Total Bilirubin AST ALT Alkaline Phosphatase Total Protein Albumin Urine Color DK YELLOW Urine Appearance CLEAR Urine pH 5.5 Ur Specific [place] >= 1.030 H Urine Protein NEG Urine Glucose (UA) NEG Urine Ketones NEG Urine Blood NEG Urine Nitrite NEG Ur Leukocyte Esterase NEG Urine Opiates Screen Urine Fentanyl Screen Ur Barbiturates Screen Ur Phencyclidine Scrn Ur Amphetamines Screen U Benzodiazepines Scrn Urine Cocaine Screen U Marijuana (THC) Screen COVID-19 (WILL) COVID-19 Clin Com Mental Status Exam Mental Status Exam Patient Appearance: Appropriate Level of Consciousness: Awake, Appropriate and Restless Patient Behavior: Cooperative Mood Description: Blunted Medications Medications Current Medications Escitalopram Oxalate (Escitalopram Oxalate 10 Mg Tablet) 10 mg PO DAILY [facility] Last Admin: 01/09/22 11:10 Dose: Not Given Methadone HCl (Methadone Hcl 20 Mg/2 Ml Oral.Conc) 30 mg PO ONCE ONE Stop: 01/10/22 09:01 Nicotine (Nicotine 7 Mg Patch.Td24) 7 mg TRANSDERMA DAILY YI Last Admin: 01/09/22 11:10 Dose: Not Given Ondansetron HCl (Ondansetron Odt 4 Mg Tab.Rapdis) 4 mg TRANSLINGU Q8H PRN PRN Reason: Nausea Prazosin HCl (Prazosin Hcl 1 Mg Capsule) 1 mg PO BEDTIME YI; Protocol Quetiapine Fumarate (Quetiapine Fumarate 100 Mg Tablet) 100 mg PO TID PRN PRN Reason: Anxiety Allergies Allergies Allergy/AdvReac Type Severity Reaction Status Date / Time trazodone Allergy Rash Verified 03/22/21 13:31 Assessment & Plan Assessment & Plan (1) Opioid withdrawal: Status: Acute Code(s): F11.23 - Opioid dependence with withdrawal Assessment and Plan: * methadone 35mg X1 ordered * methadone 30mg tomorrow, with plan to continue taper * follow up tmrw I spent __20____ minutes with the patient and/or on the patient floor today, greater than?50% of which was spent counseling/coordinating care. PMFSH Past Medical History Medical History Alcohol use disorder, moderate, in early remission, dependence Bipolar 1 disorder Chronic post-traumatic stress disorder (PTSD) Cocaine use disorder Depression MDD (major depressive disorder), recurrent severe, without psychosis Opioid dependence on agonist therapy PTSD (post-traumatic stress disorder) Surgical History Surgical History S/P hernia surgery Social History Social History Household Members: Family Housing: Unknown / Unable to assess Do you presently have visiting nurse or other home services: No Unable to assess alcohol history related to: Unknown Alcohol intake: current Alcohol intake frequency: 3 or more drinks per day Alcohol type: beer Patient Tobacco Use Status: Current everyday Tobacco user Tobacco use type: Cigarette Cigarette Packs Per Day: 1 Cigarettes Per Day: 20.0 Second Hand Smoke Exposure: Yes Substance Use Type: Crack/Cocaine, Marijuana, Opiates and Painkillers Advance Directives: No service: No Sexual orientation: Straight/Heterosexual
--- NOTE | 2022-01-09 16:15 | PC.NURSE ---
pt spoke with [facility], re admission and ankle monitor. RN spoke armani Guerin @ [facility], court needs proof of admission faxed over to them, verbal consent given by pt. Phone #: [phone] Fax#: [phone] CARE team notified.
--- NOTE | 2022-01-09 16:46 | MHC.CARE ---
ELIE called by POD on behalf of pt who was asking for the ED to provide documentation for his GPS monitor. CARE placed a call to the [facility] [phone] to provide verbal confirmation that pt was located in the ED awaiting placement on the unit later today. Due to no answer at caseworkers number ELIE left a voicemail for the power and recovery supervisor there at [phone] for Елена Alcaraz to ensure the info is passed along. Once admitted to [facility] pt can obtain written letter of admission or follow up. CARE presented pt with CV and he signed as voluntary placement. CV placed in pts chart.
--- NOTE | 2022-01-09 17:45 | PC.NURSE ---
pt has been calm and cooperative, noted to be slightly tearful when talking to family court services. pt requested food and drink and seemed to relax. RN-RN report given.
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
[2022-01-09] MEDS: LORazepam 1 MG TABLET PO (21:25)
[2022-01-09] MEDS: cloNIDine HCL 0.1 MG TABLET PO (21:25)
[2022-01-09 22:00] VITALS: BP 132/82; PULSE 64; RESP 18; TEMP 36.9; O2SAT 96
[2022-01-09] MEDS: Gabapentin 300 MG CAPSULE PO (22:34)
[2022-01-10 08:00] VITALS: PULSE 70
[2022-01-10 08:07] VITALS: BP 124/84; PULSE 70; RESP 17; TEMP 36.4; O2SAT 97
[2022-01-10] MEDS: methADONE HCl 20 MG/2 ML ORAL.CONC 30 MG PO (08:16)
[2022-01-10] MEDS: Escitalopram Oxalate 10 MG TABLET PO (08:17)
[2022-01-10] MEDS: Gabapentin 300 MG CAPSULE PO (08:17)
[2022-01-10 09:10] LABS: Estimated Average Glucose 120 mg/dL; Hemoglobin A1c % 5.8 %
[2022-01-10 09:36] LABS: Cholesterol 143 mg/dL; HDL Cholesterol 60 mg/dL; LDL Cholesterol Calculated 71 mg/dl; Magnesium 2.1 mg/dL (1.6-2.6); Triglycerides 63 mg/dL
[2022-01-10 09:47] LABS: Free T4 (Free Thyroxine) 1.04 ng/dL (0.71-1.85)
[2022-01-10 09:59] LABS: Folate 9.5 ng/mL (> or = 4.0); Vitamin B12 384 pg/mL (200-900)
[2022-01-10] MEDS: Acetaminophen 325 MG TABLET 650 MG PO (10:11)
[2022-01-10] MEDS: LORazepam 1 MG TABLET 2 MG PO (10:15)
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
[2022-01-10] MEDS: QUEtiapine Fumarate 50 MG TABLET PO (15:43)
[2022-01-10] MEDS: Gabapentin 300 MG CAPSULE 600 MG PO (15:43)
[2022-01-10 16:00] VITALS: PULSE 76
[2022-01-10 21:10] VITALS: BP 118/70; PULSE 65; RESP 18; TEMP 36.7; O2SAT 97
[2022-01-11] VITALS: PULSE 65
[2022-01-11 08:00] VITALS: BP 137/76; PULSE 84; RESP 17; TEMP 36.5; O2SAT 97
[2022-01-11] MEDS: methADONE HCl 20 MG/2 ML ORAL.CONC 25 MG PO (08:34)
[2022-01-11] MEDS: Gabapentin 300 MG CAPSULE 600 MG PO ×3 (08:35→20:02)
[2022-01-11] MEDS: QUEtiapine Fumarate 50 MG TABLET PO ×2 (08:36→20:02)
[2022-01-11] MEDS: LORazepam 1 MG TABLET 2 MG PO (08:36)
[2022-01-11] MEDS: Escitalopram Oxalate 10 MG TABLET PO (08:36)
--- NOTE | 2022-01-11 10:33 | P.PNADD_ITS ---
Subjective Subjective Date of Service: 01/11/22 Reason For Visit: SI, HI, polysubstance Interim History: patient seen in follow up for methadone taper. received 25mg today. patient irritable, unwilling to wake up and speak to this expert medical writer (it was 1015am). Was able to state that taper was fine , this expert medical writer informed patient that taper would continue. Review of Systems Review of Systems Yes Other (patient refusing ) Mental Status Exam Mental Status Exam Patient Behavior: Uncooperative Diagnostics Vital Signs (24Hr): Vital Signs - 24 hr 01/10/22 21:10 01/11/22 08:00 Temperature 98.1 F 97.7 F Pulse Rate 65 84 Respiratory Rate 18 17 Blood Pressure 118/70 137/76 Pulse Oximetry 97 97 Oxygen Delivery Method Room Air Room Air BMI result Body Mass Index 22.7 Labs Results: 01/08/22 01:54 Labs: Laboratory Results - last 48 hr 01/10/22 01/10/22 01/10/22 08:39 08:39 08:39 Estimat Average Glucose 120 Hemoglobin A1c % 5.8 Magnesium 2.1 Triglycerides 63 Cholesterol 143 LDL Cholesterol, Calc 71 HDL Cholesterol 60 Vitamin B12 384 Folate 9.5 TSH 1.20 Free T4 1.04 Medications Medications Current Medications Acetaminophen (Acetaminophen 325 Mg Tablet) 650 mg PO Q6H PRN PRN Reason: Headache/Pain Mild Scale (1-3) Last Admin: 01/10/22 10:11 Dose: 650 mg Al Hydroxide/Mg Hydroxide (Magnesium Hydrox/Alum Hydrox 30 Ml Oral.Susp) 30 ml PO Q6H PRN PRN Reason: Heartburn/Nausea Clonidine HCl (Clonidine Hcl 0.1 Mg Tablet) 0.1 mg PO TID PRN; Protocol PRN Reason: hyperarousal, anxiety Last Admin: 01/09/22 21:25 Dose: 0.1 mg Escitalopram Oxalate (Escitalopram Oxalate 10 Mg Tablet) 10 mg PO DAILY [facility]I Last Admin: 01/11/22 08:36 Dose: 10 mg Gabapentin (Gabapentin 300 Mg Capsule) 600 mg PO TID YI Last Admin: 01/11/22 08:35 Dose: 600 mg Hydroxyzine HCl (Hydroxyzine Hcl 25 Mg Tablet) 25 mg PO Q6H PRN PRN Reason: Anxiety Magnesium Hydroxide (Milk Of Magnesia 30 Ml Oral.Susp) 30 ml PO DAILY PRN PRN Reason: Constipation Melatonin (Melatonin 3 Mg Tablet) 6 mg PO BEDTIME PRN PRN Reason: insomnia Methadone HCl (Methadone Hcl 20 Mg/2 Ml Oral.Conc) 20 mg PO ONCE ONE Stop: 01/12/22 09:01 Methadone HCl (Methadone Hcl 20 Mg/2 Ml Oral.Conc) 15 mg PO ONCE ONE Stop: 01/13/22 09:01 Nicotine (Nicotine 7 Mg Patch.Td24) 7 mg TRANSDERMA DAILY YI Last Admin: 01/11/22 08:37 Dose: Not Given Ondansetron HCl (Ondansetron Odt 4 Mg Tab.Rapdis) 4 mg TRANSLINGU Q8H PRN PRN Reason: Nausea Prazosin HCl (Prazosin Hcl 1 Mg Capsule) 2 mg PO BEDTIME PRN; Protocol PRN Reason: nightmares Quetiapine Fumarate (Quetiapine Fumarate 50 Mg Tablet) 50 mg PO TID PRN PRN Reason: Anxiety Last Admin: 01/11/22 08:36 Dose: 50 mg Allergies Allergies Allergy/AdvReac Type Severity Reaction Status Date / Time trazodone Allergy Rash Verified 03/22/21 13:31 Assessment & Plan Assessment & Plan (1) Opioid use disorder: Status: Acute Code(s): F11.90 - Opioid use, unspecified, uncomplicated Assessment and Plan: * continue taper 5mg per day. Taper should not hold up discharge. * Will have recovery manager support services check in later to provide overdose prevention education, as risk for OD after discharge will be much higher I spent ___15___ minutes with the patient and/or on the patient floor today, greater than?50% of which was spent counseling/coordinating care.
--- NOTE | 2022-01-11 14:11 | P.PNPSI_ITS ---
Subjective Subjective Date of Service: 01/11/22 Reason For Visit: SI, HI, polysubstance Interim History: pt calm and cooperative. sleeping late. appears down, says he had difficulty sleeping. meds reviewed, prazosin and seroquel scheduled at HS moving forward. pt asks if anything more can be done about his depression, suggests increase lexapro to 20 mg, which is done. also T/C wellbutrin for augmentation. pt asks for help with dental pain/infection as well as onychomycosis. per staff, sad about . flat, withdrawn. no AVH/SI/HI. eves asking for ensure. refused HS ativan. slept well. had ativan 2 mg this morning. Mental Status Exam Mental Status Exam Narrative: A&O. Somewhat unkempt, casual attire, thin frame, poor eye contact, attentive. No Tics or Tremors. No abnormal involuntary movements. Calm, voluble. Non- pressured speech, somewhat slowed, soft, but increased in amount. No prolonged speech latency or dysarthria. Mood is ?depressed,? affect is dysphoric, downcast. no SI/HI/AVH expressed. Thoughts are wandering, over-inclusive of detail. No known cognitive or memory impairment. Insight/ Judgment impaired. Diagnostics Vital Signs (24Hr): Vital Signs - 24 hr 01/10/22 21:10 01/11/22 08:00 Temperature 98.1 F 97.7 F Pulse Rate 65 84 Respiratory Rate 18 17 Blood Pressure 118/70 137/76 Pulse Oximetry 97 97 Oxygen Delivery Method Room Air Room Air BMI result Body Mass Index 22.7 Labs Results: 01/08/22 01:54 Labs: Laboratory Results - last 48 hr 01/10/22 01/10/22 01/10/22 08:39 08:39 08:39 Estimat Average Glucose 120 Hemoglobin A1c % 5.8 Magnesium 2.1 Triglycerides 63 Cholesterol 143 LDL Cholesterol, Calc 71 HDL Cholesterol 60 Vitamin B12 384 Folate 9.5 TSH 1.20 Free T4 1.04 Medications Medications Current Medications Acetaminophen (Acetaminophen 325 Mg Tablet) 650 mg PO Q6H PRN PRN Reason: Headache/Pain Mild Scale (1-3) Last Admin: 01/10/22 10:11 Dose: 650 mg Al Hydroxide/Mg Hydroxide (Magnesium Hydrox/Alum Hydrox 30 Ml Oral.Susp) 30 ml PO Q6H PRN PRN Reason: Heartburn/Nausea Clonidine HCl (Clonidine Hcl 0.1 Mg Tablet) 0.1 mg PO TID PRN; Protocol PRN Reason: hyperarousal, anxiety Last Admin: 01/09/22 21:25 Dose: 0.1 mg Escitalopram Oxalate (Escitalopram Oxalate 20 Mg Tablet) 20 mg PO DAILY [facility] Gabapentin (Gabapentin 300 Mg Capsule) 600 mg PO TID YI Last Admin: 01/11/22 08:35 Dose: 600 mg Hydroxyzine HCl (Hydroxyzine Hcl 25 Mg Tablet) 25 mg PO Q6H PRN PRN Reason: Anxiety Magnesium Hydroxide (Milk Of Magnesia 30 Ml Oral.Susp) 30 ml PO DAILY PRN PRN Reason: Constipation Melatonin (Melatonin 3 Mg Tablet) 6 mg PO BEDTIME PRN PRN Reason: insomnia Methadone HCl (Methadone Hcl 20 Mg/2 Ml Oral.Conc) 20 mg PO ONCE ONE Stop: 01/12/22 09:01 Methadone HCl (Methadone Hcl 20 Mg/2 Ml Oral.Conc) 15 mg PO ONCE ONE Stop: 01/13/22 09:01 Methadone HCl (Methadone Hcl 20 Mg/2 Ml Oral.Conc) 10 mg PO ONCE ONE Stop: 01/14/22 09:01 Nicotine (Nicotine 7 Mg Patch.Td24) 7 mg TRANSDERMA DAILY [facility] Last Admin: 01/11/22 08:37 Dose: Not Given Ondansetron HCl (Ondansetron Odt 4 Mg Tab.Rapdis) 4 mg TRANSLINGU Q8H PRN PRN Reason: Nausea Prazosin HCl (Prazosin Hcl 1 Mg Capsule) 2 mg PO BEDTIME [facility]; Protocol Quetiapine Fumarate (Quetiapine Fumarate 50 Mg Tablet) 50 mg PO TID PRN PRN Reason: Anxiety Last Admin: 01/11/22 08:36 Dose: 50 mg Quetiapine Fumarate (Quetiapine Fumarate 50 Mg Tablet) 50 mg PO BEDTIME [facility] Allergies Allergies Allergy/AdvReac Type Severity Reaction Status Date / Time trazodone Allergy Rash Verified 03/22/21 13:31 Assessment & Plan Assessment & Plan (1) Opioid use disorder: Status: Acute Code(s): F11.90 - Opioid use, unspecified, uncomplicated Assessment and Plan: * continue taper 5mg per day. Taper should not hold up discharge. * Will have recovery product support specialist check in later to provide overdose prevention education, as risk for OD after discharge will be much higher (2) MDD (major depressive disorder), recurrent severe, without psychosis: Status: Chronic Code(s): F33.2 - Major depressive disorder, recurrent severe without psychotic features (3) Chronic post-traumatic stress disorder (PTSD): Status: Chronic Code(s): F43.12 - Post-traumatic stress disorder, chronic (4) Cocaine use disorder: Status: Chronic Code(s): F14.10 - Cocaine abuse, uncomplicated (5) Alcohol use disorder, moderate, in early remission, dependence: Status: Chronic Code(s): F10.21 - Alcohol dependence, in remission Plan Nils is a 46 y.o. male who carries a dx of polysubstance abuse, Bipolar II DO, and PTSD. He presented to [facility] on 01/08/22 due to SI with plan to overdose; and vague HI without plan or person identified. Hx of superficial cutting. Utox positive for opiates, fentanyl, cocaine, and cannabis. Heavy daily drinking. Pt has an ankle monitor for violating a restraining order put on him by his , she left him in 08/2021. Pt was seen by transportation maintenance specialist, Renetta Alva NP on 01/09/22, requesting methadone taper with plan to discontinue. Plan: 01/09: Will continue COWs, DASHAWN, given ativan 2 mg Q8HR RPN for alcohol withdrawal protocol. Pt will have f/u with transportation maintenance specialist for methadone taper. Pt asks to re-start gabapentin, will initiate at 300 mg TID, had been on 600 mg TID in the past. Pt reports past benefit on home med regimen celexa (changed to lexapro), gabapentin, prazosin PRN, melatonin PRN, and seroquel PRN. 01/10: gabapentin increased from 300 TID to 600 TID.? dysphoric, tired appearing. 01/11: methadone taper continues at 5 mg daily. lexapro increased to 20 mg daily. prazosin and seroquel scheduled for HS. hospitalist consult for dental situation and onychomycosis. nutrition consult as pt is asking for ensure. I spent ___35___ minutes with the patient and/or on the patient floor today, greater than?50% of which was spent counseling/coordinating care. Reason for contiued inpatient stay Substantial Risk for: harm to self, inability to function and rapid decompensation
--- NOTE | 2022-01-11 14:14 | PC.NURSE ---
This RN faxed letter to [facility] court stating pt was currently admitted, received confirmation receipt.
[2022-01-11] MEDS: Amoxicillin/Potassium Clav 875 MG TABLET PO (14:47)
--- NOTE | 2022-01-11 15:05 | MHC.CLN ---
NUTRITION CONSULT FOR NUTRITIONAL SUPPLEMENT. PATIENT STATED THAT HE HAS LOST WEIGHT BUT DID NOT QUANTIFY AMOUNT/TIMEFRAME. REQUESTING ENSURE TID. RD IN AGREEMENT THAT PATIENT COULD BENEFIT FROM INCREASED NUTRITION DUE TO HX DRUG USE. ADDING ENSURE TID. PROVIDES ADDITIONAL 1050 KCALS, 60 G PROTEIN.
[2022-01-11 16:00] VITALS: PULSE 84
[2022-01-11] MEDS: hydrOXYzine HCL 25 MG TABLET PO (16:29)
[2022-01-11] MEDS: cloNIDine HCL 0.1 MG TABLET PO (16:29)
[2022-01-11 16:30] VITALS: BP 125/84; PULSE 105
[2022-01-11 16:32] VITALS: BMI 23.1
[2022-01-11 19:59] VITALS: BP 141/92; PULSE 78; RESP 18; TEMP 36.4; O2SAT 98
[2022-01-11] MEDS: Prazosin HCL 1 MG CAPSULE 2 MG PO (20:02)
[2022-01-12 06:00] VITALS: BP 137/75; PULSE 92; RESP 18; TEMP 36.3; O2SAT 98
[2022-01-12] MEDS: Gabapentin 300 MG CAPSULE 600 MG PO ×3 (08:44→20:47)
[2022-01-12] MEDS: Amoxicillin/Potassium Clav 875 MG TABLET PO ×2 (08:44→20:47)
[2022-01-12] MEDS: Escitalopram Oxalate 20 MG TABLET PO (08:45)
[2022-01-12] MEDS: methADONE HCl 20 MG/2 ML ORAL.CONC PO (08:46)
[2022-01-12] MEDS: cloNIDine HCL 0.1 MG TABLET PO (12:23)
[2022-01-12] MEDS: QUEtiapine Fumarate 50 MG TABLET PO ×2 (12:23→20:47)
[2022-01-12] MEDS: hydrOXYzine HCL 25 MG TABLET PO (12:23)
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
[2022-01-12] MEDS: Magnesium Hydrox/Alum Hydrox 30 ML ORAL.SUSP PO (18:41)
[2022-01-12] MEDS: Prazosin HCL 1 MG CAPSULE 2 MG PO (20:47)
[2022-01-12 20:52] VITALS: BP 122/78; PULSE 89; RESP 18; TEMP 36.3; O2SAT 96
[2022-01-13 08:19] VITALS: BP 124/78; PULSE 73; RESP 17; TEMP 36.8; O2SAT 97
[2022-01-13] MEDS: methADONE HCl 20 MG/2 ML ORAL.CONC 15 MG PO (08:20)
[2022-01-13] MEDS: Escitalopram Oxalate 20 MG TABLET PO (08:21)
[2022-01-13] MEDS: Gabapentin 300 MG CAPSULE 600 MG PO ×3 (08:21→20:55)
[2022-01-13] MEDS: QUEtiapine Fumarate 50 MG TABLET PO (08:26)
[2022-01-13] MEDS: buPROPion HCl XL 150 MG TAB.ER.24H PO (11:56)
[2022-01-13] MEDS: QUEtiapine Fumarate 100 MG TABLET PO ×2 (12:47→20:55)
--- NOTE | 2022-01-13 13:23 | P.PNPSI_ITS ---
Subjective Subjective Date of Service: 01/13/22 Reason For Visit: SI, HI, polysubstance Interim History: pt calm, cooperative. noted to be lightly punching window in common area. blunted expression, poor eye contact. discuss planned discharge today, go through meds and opaioids taper. pt calm and cooperative. he then builds into an anger and states that before he came in here he was in the parking lot for 5 hours deciding whether to go in the hanks and hang himself or come into the hospital. he contiues to have self-talk telling him his family would be better off without him and he should just kill himself. he states he has SI now and doesn't know what he would do if he were to be discharged from the hospital. he builds into a rage directed at staff, accusing staff of never having asked him once since admission about SI, which he finds unconscionable. he says he is a very quiet and private person and he doesn't feel comfortable talking to people in general. here he has not found himself sufficiently comfortable with any staff so as to confide in them about his feelings. he discusses his mother's Dx of schizophrenia and that she was in the hospital for 5 years and indicates he doesn't have the same illness but withholds his symptoms bcse he does not want to be labelled as she was. informs pt that in light of his SI and ongoing Sx, remaining in the hospital over the w/e may be best. will continue methadone taper. c/o poor sleep and anxiety, seroquel at HS and PRNs throughout the day increased. wellbutrin added for anti-depressant augmentation. R/B discussed, incl activation and insomnia. per staff, not attending groups. edgy. depressed and anxious. feels he is not getting the help he needs here. rude and dismissive to VIDHI kim yesterday, not taking responsibility for his own treatment. disrupted sleep overnight. Mental Status Exam Mental Status Exam Narrative: A&O. Somewhat unkempt, casual attire, thin frame, poor eye contact, attentive. No Tics or Tremors. No abnormal involuntary movements. Calm initially, voluble. ultimately somewhat agitated with elevated voice and strong facial expressions of anger. Non-pressured speech, somewhat slowed, soft, but increased in amount (see above as well). No prolonged speech latency or dysarthria. Mood is ?depressed,? affect is dysphoric, downcast. mod-labile. + SI. no AH. no H I/VH expressed. Thoughts are wandering, over-inclusive of detail. No known cognitive or memory impairment. Insight/ Judgment impaired. Diagnostics Vital Signs (24Hr): Vital Signs - 24 hr 01/12/22 20:52 01/13/22 08:19 Temperature 97.3 F 98.3 F Pulse Rate 89 73 Respiratory Rate 18 17 Blood Pressure 122/78 124/78 Pulse Oximetry 96 97 Oxygen Delivery Method Room Air Room Air BMI result Body Mass Index 23.1 Labs Results: 01/08/22 01:54 Medications Medications Current Medications Acetaminophen (Acetaminophen 325 Mg Tablet) 650 mg PO Q6H PRN PRN Reason: Headache/Pain Mild Scale (1-3) Last Admin: 01/10/22 10:11 Dose: 650 mg Al Hydroxide/Mg Hydroxide (Magnesium Hydrox/Alum Hydrox 30 Ml Oral.Susp) 30 ml PO Q6H PRN PRN Reason: Heartburn/Nausea Last Admin: 01/12/22 18:41 Dose: 30 ml Amoxicillin/Clavulanate Potassium (Amoxicillin/Potassium Clav 875 Mg Tablet) 875 mg PO Q12H YI Stop: 01/19/22 09:00 Last Admin: 01/13/22 09:39 Dose: Not Given Bupropion HCl (Bupropion Hcl Xl 150 Mg Tab.Er.24h) 150 mg PO DAILY [facility] Last Admin: 01/13/22 11:56 Dose: 150 mg Clonidine HCl (Clonidine Hcl 0.1 Mg Tablet) 0.1 mg PO TID PRN; Protocol PRN Reason: hyperarousal, anxiety Last Admin: 01/12/22 12:23 Dose: 0.1 mg Escitalopram Oxalate (Escitalopram Oxalate 20 Mg Tablet) 20 mg PO DAILY YI Last Admin: 01/13/22 08:21 Dose: 20 mg Gabapentin (Gabapentin 300 Mg Capsule) 600 mg PO TID YI Last Admin: 01/13/22 08:21 Dose: 600 mg Hydroxyzine HCl (Hydroxyzine Hcl 25 Mg Tablet) 25 mg PO Q6H PRN PRN Reason: Anxiety Last Admin: 01/12/22 12:23 Dose: 25 mg Magnesium Hydroxide (Milk Of Magnesia 30 Ml Oral.Susp) 30 ml PO DAILY PRN PRN Reason: Constipation Melatonin (Melatonin 3 Mg Tablet) 6 mg PO BEDTIME PRN PRN Reason: insomnia Methadone HCl (Methadone Hcl 20 Mg/2 Ml Oral.Conc) 10 mg PO ONCE ONE Stop: 01/14/22 09:01 Nicotine (Nicotine 7 Mg Patch.Td24) 7 mg TRANSDERMA DAILY YI Last Admin: 01/13/22 09:39 Dose: Not Given Ondansetron HCl (Ondansetron Odt 4 Mg Tab.Rapdis) 4 mg TRANSLINGU Q8H PRN PRN Reason: Nausea Prazosin HCl (Prazosin Hcl 1 Mg Capsule) 2 mg PO BEDTIME YI; Protocol Last Admin: 01/12/22 20:47 Dose: 2 mg Quetiapine Fumarate (Quetiapine Fumarate 100 Mg Tablet) 100 mg PO BEDTIME YI Quetiapine Fumarate (Quetiapine Fumarate 100 Mg Tablet) 100 mg PO TID PRN PRN Reason: Anxiety Last Admin: 01/13/22 12:47 Dose: 100 mg Allergies Allergies Allergy/AdvReac Type Severity Reaction Status Date / Time trazodone Allergy Rash Verified 03/22/21 13:31 Assessment & Plan Assessment & Plan (1) Opioid use disorder: Status: Acute Code(s): F11.90 - Opioid use, unspecified, uncomplicated Assessment and Plan: * continue taper at 5mg per day. Taper should not hold up discharge. * Will have recovery user support analyst supervisor check in later to provide overdose prevention education, as risk for OD after discharge will be much higher (2) MDD (major depressive disorder), recurrent severe, without psychosis: Status: Chronic Code(s): F33.2 - Major depressive disorder, recurrent severe without psychotic features (3) Chronic post-traumatic stress disorder (PTSD): Status: Chronic Code(s): F43.12 - Post-traumatic stress disorder, chronic (4) Cocaine use disorder: Status: Chronic Code(s): F14.10 - Cocaine abuse, uncomplicated (5) Alcohol use disorder, moderate, in early remission, dependence: Status: Chronic Code(s): F10.21 - Alcohol dependence, in remission Plan Nils is a 46 y.o. male who carries a dx of polysubstance abuse, Bipolar II DO, and PTSD. He presented to [facility] on 01/08/22 due to SI with plan to overdose; and vague HI without plan or person identified. Hx of superficial cutting. Utox positive for opiates, fentanyl, cocaine, and cannabis. Heavy daily drinking. Pt has an ankle monitor for violating a restraining order put on him by his , she left him in 08/2021. Pt was seen by addiction counselor, Renetta Alva NP on 01/09/22, requesting methadone taper with plan to discontinue. Plan: 01/09: Will continue DASHAWN Bernardo, given ativan 2 mg Q8HR RPN for alcohol withdrawal protocol. Pt will have f/u with addiction counselor for methadone taper. Pt asks to re-start gabapentin, will initiate at 300 mg TID, had been on 600 mg TID in the past. Pt reports past benefit on home med regimen celexa (changed to lexapro), gabapentin, prazosin PRN, melatonin PRN, and seroquel PRN. 01/10: gabapentin increased from 300 TID to 600 TID.? dysphoric, tired appearing. 01/11: methadone taper continues at 5 mg per day. lexapro increased to 20 mg daily. prazosin and seroquel scheduled for HS. hospitalist consult for dental situation and onychomycosis. nutrition consult as pt is asking for ensure. 01/12: anti-bx started for dental probs. nutrition recommending ensure. otherwise no change to regimen. on being informed no CSS beds in the near future, wadded up application and dropped it in the lap of . 01/13: DC antibx as pt refusing, c/o diarrhea. increase seroquel at HS to 100 mg, increase PRNs to 100 mg. start wellbutrin 150 mg daily. strongly endorses SI, expresses self with anger/rage, which is concerning for increased risk of acting on statements. I spent ___45___ minutes with the patient and/or on the patient floor today, greater than?50% of which was spent counseling/coordinating care. Reason for contiued inpatient stay Substantial Risk for: harm to self, inability to function and rapid decompensation
[2022-01-13 19:13] VITALS: BP 131/80; PULSE 84
[2022-01-13] MEDS: cloNIDine HCL 0.1 MG TABLET PO (19:14)
[2022-01-13] MEDS: Ondansetron ODT 4 MG TAB.RAPDIS TRANSLINGU (20:55)
[2022-01-14] MEDS: Gabapentin 300 MG CAPSULE 600 MG PO ×2 (09:35→14:57)
[2022-01-14] MEDS: buPROPion HCl XL 150 MG TAB.ER.24H PO (09:35)
[2022-01-14] MEDS: Escitalopram Oxalate 20 MG TABLET PO (09:35)
[2022-01-14] MEDS: methADONE HCl 20 MG/2 ML ORAL.CONC 10 MG PO (09:36)
[2022-01-14 09:37] VITALS: BP 111/75; PULSE 87; RESP 16; TEMP 36.9; O2SAT 97
[2022-01-14] MEDS: QUEtiapine Fumarate 100 MG TABLET PO ×2 (12:20→14:54)
[2022-01-14] MEDS: Acetaminophen 325 MG TABLET 650 MG PO (14:11)
[2022-01-14] MEDS: cloNIDine HCL 0.1 MG TABLET PO (14:12)
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
[2022-01-14 20:00] VITALS: BP 131/77; PULSE 83; RESP 16; TEMP 36.8; O2SAT 95
[2022-01-14] MEDS: QUEtiapine Fumarate 200 MG TABLET PO (20:37)
[2022-01-14] MEDS: Gabapentin 400 MG CAPSULE 800 MG PO (20:37)
[2022-01-14 22:27] VITALS: BMI 24.5
--- NOTE | 2022-01-14 23:33 | PC.NURSE ---
AT 2130 Nurse requested portable phone back from patient as he had been utilizing it for more than 30 minutes and other patients had requested to use it. Patient demanded to know which patients wanted to use the phone. This nurse told patient that his time was up and needed to turn the phone back in. Patient continued to use the phone for 5 minuted more and then turned it in.
[2022-01-15 06:00] VITALS: BP 125/60; PULSE 92; RESP 18; TEMP 36.4; O2SAT 97
[2022-01-15] MEDS: Escitalopram Oxalate 20 MG TABLET PO (08:46)
[2022-01-15] MEDS: buPROPion HCl XL 150 MG TAB.ER.24H PO (08:46)
[2022-01-15] MEDS: QUEtiapine Fumarate 100 MG TABLET PO (08:46)
[2022-01-15] MEDS: Gabapentin 400 MG CAPSULE 800 MG PO ×3 (08:46→20:56)
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
[2022-01-15] MEDS: QUEtiapine Fumarate 200 MG TABLET PO (20:56)
--- NOTE | 2022-01-15 22:08 | PC.NURSE ---
Pt started on seroquel 100 mg BID, with 2nd dose scheduled at HS. However, pt is already on seroquel 200 mg HS. MD progress note reviewed, provider on-call (Tracie Richards NP) consulted; advised to hold 100 mg tonight until clarified tomorrow. Pt administered only 200 mg of seroquel.
[2022-01-15 22:42] VITALS: BP 108/72; PULSE 93; RESP 18; TEMP 36.6; O2SAT 95
[2022-01-15] MEDS: Loperamide HCl 2 MG CAPSULE 4 MG PO (22:52)
[2022-01-15] MEDS: cloNIDine HCL 0.1 MG TABLET PO (22:53)
[2022-01-15] MEDS: QUEtiapine Fumarate 50 MG TABLET PO (22:53)
[2022-01-15] MEDS: Melatonin 3 MG TABLET 6 MG PO (22:53)
[2022-01-16] MEDS: buPROPion HCl XL 150 MG TAB.ER.24H PO (09:13)
[2022-01-16] MEDS: QUEtiapine Fumarate 100 MG TABLET PO (09:13)
[2022-01-16] MEDS: Gabapentin 400 MG CAPSULE 800 MG PO (09:13)
[2022-01-16] MEDS: Escitalopram Oxalate 20 MG TABLET PO (09:13)
--- NOTE | 2022-01-16 11:09 | PC.NURSE ---
Patient discharged at 10:22. Patient became agitated in morning demanding that staff charge his ankle bracelet. Patient escalated to kicking and lifting chairs then kicked and threw a trash can. Patient continued yelling around unit. Code assist was called. Security arrived on unit to assist. Provider aware. Patient informed of discharge as planned and ordered. Patient declined to go over or sign discharge instructions. Patient escorted off unit with security.
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
== END 2022-01-16 10:22 | disposition home health service (06) | DRG 751 ==
LOC: HO.ED 03:26 → HO.PADLT16 01-09 19:59
PROVIDERS: Registered Nurse; Admitting Provider Psychiatry & Neurology Psychiatry; Emergency Provider Emergency Medicine Emergency Medical Services; Visit Provider Psychiatry & Neurology Psychiatry
DX: F33.2 Major depressive disorder, recurrent severe without psychotic features (principal); R45.851 Suicidal ideations; R45.850 Homicidal ideations; F11.23 Opioid dependence with withdrawal; B35.1 Tinea unguium; F14.10 Cocaine abuse, uncomplicated; F17.210 Nicotine dependence, cigarettes, uncomplicated; Z71.6 Tobacco abuse counseling; F43.12 Post-traumatic stress disorder, chronic; Z20.822 Contact with and (suspected) exposure to COVID-19; Z62.810 Personal history of physical and sexual abuse in childhood; Z79.899 Other long term (current) drug therapy
CPT/HCPCS: 36415; 80053; 80061; 80307; 81003; 82607; 82746; 83036; 83735; 84439; 84443; 87635; 93005; 99285

== ENCOUNTER 2022-02-20 05:12 | Inpatient (IN) | payer OTHER, SELFPAY ==
[2022-02-20 05:25] VITALS: BP 118/71; PULSE 78; RESP 16; TEMP 36.9; O2SAT 96; BMI 24.2
[2022-02-20 05:54] VITALS: RESP 16
[2022-02-20 05:57] LABS: COVID-19 Test Negative (Negative)
--- NOTE | 2022-02-20 05:57 | PC.NURSE ---
pt refusing blood work at this time,
--- NOTE | 2022-02-20 06:18 | PC.NURSE ---
pt refusing blood work at this time
--- NOTE | 2022-02-20 06:20 | ED.PSYCH ---
HPI - Psych General Chief Complaint: Psychiatric Symptoms Stated Complaint: SI Time Seen by Provider: 02/20/22 06:14 Source: patient Mode of arrival: ambulatory Limitations: no limitations History of Present Illness HPI Narrative: 46-year-old male who presents emergency department for evaluation of depression and suicidal ideation. Patient states the ran out of his medications approximately 2 weeks prior. He states that he has been healing depressed over the past several days. He states that he has been thinking killing himself but does not have a clear plan at this time. He states that in the past he has tried to cut himself, he has overdosed on pills these tried to hang himself. He does have a history of heroin and cocaine use. He states that he is in a Suboxone clinic this time and has not used recently. He denied fever, chills, rhinorrhea, sore throat, cough, chest pain, shortness of breath, dyspnea on exertion, nausea, vomiting or diarrhea. MD complaint: suicidal ideation and feels depressed Onset (ago): day(s) (3) Duration: constant History of same: Yes Relieving factors: none Exacerbating factors: other (Ran out of medications 2 weeks prior) Context: not taking psychiatric medications Associated psychiatric symptoms: depression and suicidal ideation Treatments prior to arrival: none If self harm: admits thoughts of self harm Related Data Previous Rx's Medication Instructions Recorded bupropion HCl 150 mg 24 hr tablet, 150 mg PO DAILY #14 tabs 01/16/22 extended release clonidine HCl 0.1 mg tablet 0.1 mg PO TID PRN hyperarousal, 01/16/22 anxiety #45 tabs escitalopram oxalate 20 mg tablet 20 mg PO DAILY #30 tabs 01/16/22 gabapentin 400 mg capsule 800 mg PO TID #20 caps 01/16/22 naloxone 4 mg/actuation nasal 4 mg intranasal Q2M PRN opioid 01/16/22 spray (Narcan) overdose #2 ea quetiapine 100 mg tablet 100 mg PO BID #30 tabs 01/16/22 quetiapine 200 mg tablet 200 mg PO BEDTIME #30 tabs 01/16/22 quetiapine 50 mg tablet 50 mg PO TID PRN Anxiety #20 tabs 01/16/22 bupropion HCl 150 mg 24 hr tablet, 150 mg PO QAM #30 tabs 06/23/22 extended release (Wellbutrin XL) gabapentin 800 mg tablet 800 mg PO TID #90 tabs 01/19/22 quetiapine 100 mg tablet (Seroquel) 100 mg PO DAILY #30 tabs 01/19/22 quetiapine 300 mg tablet (Seroquel) 300 mg PO BEDTIME #30 tabs 01/19/22 Allergies Allergy/AdvReac Type Severity Reaction Status Date / Time trazodone Allergy Rash Verified 02/20/22 05:27 Review of Systems Review of Systems: Yes all other systems are reviewed and are negative [facility] Past Medical History Medical History Alcohol use disorder, moderate, in early remission, dependence Bipolar 1 disorder Chronic post-traumatic stress disorder (PTSD) Cocaine use disorder Depression MDD (major depressive disorder), recurrent severe, without psychosis Opioid abuse Opioid dependence on agonist therapy PTSD (post-traumatic stress disorder) Surgical History S/P hernia surgery Social History Social History Household Members: Spouse Housing: Unknown / Unable to assess Do you presently have visiting nurse or other home services: No Unable to assess alcohol history related to: Unknown Alcohol intake: current Alcohol intake frequency: 0-2 drinks per day Alcohol type: beer Patient Tobacco Use Status: Current everyday Tobacco user Tobacco use type: Cigarette Cigarette Packs Per Day: 0.5 Cigarettes Per Day: 10.0 e-Cigarette/Vaping Use: Never Used Second Hand Smoke Exposure: No Use of substances other than those prescribed or required for medical reasons: Yes Substance Use Type: Marijuana and Sedatives Advance Directives: No Advance Directives Information Provided: No service: No Sexual orientation: Straight/Heterosexual Physical Exam Vital Signs: Vital Signs: Last Vital Signs Temp 98.5 F 02/20/22 05:25 Pulse 78 02/20/22 05:25 Resp 16 02/20/22 05:54 BP 118/71 02/20/22 05:25 Pulse Ox 96 02/20/22 05:25 O2 Del Method 02/20/22 05:25 BMI result Body Mass Index 24.2 Const: General: cooperative and no acute distress Orientation/consciousness: oriented to person and oriented to place Limitations: no limitations HEENT: Head: Yes normal to inspection, Yes normocephalic and Yes atraumatic Ears: external ears normal General nose exam: Normal external nose present Face and sinus: Yes normal facial exam Mouth: Normal oral and palatal mucosa present Throat: Yes posterior oropharynx normal Eyes: General: appearance normal, both eyes and all related structures Pupils: Equal, round and reactive pupils present Neck: Neck: Yes normal visual inspection, Yes no lymphadenopathy, Yes trachea midline and Yes supple Chest: Chest palpation & inspection: normal inspection of the chest and normal palpation of entire chest wall Resp: Effort & Inspection: normal respiratory effort and able to speak in complete sentences Auscultation: clear to auscultation bilaterally Cardio: Rate: regular rate Rhythm: regular rhythm Heart sounds: S1 normal heart sound present, S2 normal heart sound present and no murmurs GI: Inspection: Yes normal to inspection Palpation (GI): Soft to palpation, nontender and no guarding Auscultation: normal bowel sounds : General: Yes no CVA tenderness Back/Spine/Pelvis: Back: no CVA tenderness Skin: General skin exam: no rashes or lesions noted Neuro: General: oriented to person and oriented to place Cranial nerves: Yes CN's II-XII intact bilaterally and Yes Equal, round and reactive pupils present Cognition (Neuro): normal cognition Motor exam (neuro): 5/5 motor strength present throughout Extrem: General: Yes normal to inspection Psych: Appearance: grossly normal Mental Status: mental status grossly normal Speech and movement: Normal speech and movement present Affect: Sad affect present Attitude: cooperative Thought process: Normal thought process present Thought content: Suicidality present and no homicidality Course Course Course Narrative: 46-year-old male who presents emergency department for evaluation of depression and suicidal ideation. Patient ran out of his psychiatric medications 2 weeks prior, he has been depressed for the past 3 days and has had suicidal ideation with no clear plan. He states that he has tried to hurt himself in the past by cutting himself, overdosing on drugs and hanging himself. Patient has a history of heroin and cocaine use disorder but is currently in a Suboxone treatment program and states he has not used recently. He states that he does continue to drink alcohol every other day. His examination was unremarkable. I ordered a COVID-19, alcohol and urine drug screen. 0631: Start physician observation: Patient's COVID-19 test was negative. Alcohol and urine drug screen are pending. The patient was placed on one-to-one observation. I did fill out a Section 12 on the patient Patient will be kept in the emergency department until he can be evaluated by our crisis team and a disposition can be determined. At the end of my shift, I turned the patient's care over to my colleague, Dr. Pastrana. MDM - Psych Lab Data Labs: Lab Results 02/20/22 Range/Units 05:38 COVID-19 (WILL) Negative (Negative) COVID-19 Clin Com See Note Discharge Plan Discharge Clinical Impression: Depression with suicidal ideation Patient Disposition: Still a Patient Prescriptions: No Action clonidine HCl 0.1 mg Tablet 0.1 mg PO TID PRN (Reason: hyperarousal, anxiety) Qty: 45 0RF Protocol: Hold for SBP< HOLD for SBP < : 90 gabapentin 400 mg Capsule 800 mg PO TID Qty: 20 0RF quetiapine 200 mg Tablet 200 mg PO BEDTIME Qty: 30 0RF quetiapine 100 mg Tablet 100 mg PO BID Qty: 30 0RF escitalopram oxalate 20 mg Tablet 20 mg PO DAILY Qty: 30 0RF bupropion HCl 150 mg Tablet Extended Release 24 Hr 150 mg PO DAILY Qty: 14 0RF quetiapine 50 mg Tablet 50 mg PO TID PRN (Reason: Anxiety) Qty: 20 0RF naloxone [Narcan] 4 mg/actuation spray,non-aerosol 4 mg intranasal Q2M PRN (Reason: opioid overdose) Qty: 2 0RF Rx Instructions: spray 1 dose into ONE nostril; alternate nostrils w each dose until help arrives bupropion HCl [Wellbutrin XL] 150 mg tablet extended release 24 hr 150 mg PO QAM Qty: 30 0RF gabapentin 800 mg tablet 800 mg PO TID Qty: 90 0RF quetiapine [Seroquel] 100 mg tablet 100 mg PO DAILY Qty: 30 0RF quetiapine [Seroquel] 300 mg tablet 300 mg PO BEDTIME Qty: 30 0RF
[2022-02-20 10:08] VITALS: BP 105/56; PULSE 73; RESP 18; O2SAT 95
--- NOTE | 2022-02-20 12:59 | PC.NURSE ---
per Dr. Pastrana patient is medically cleared faxed[facility] states it will be a few hours. patient sleeping. awakens easily to verbal stimuli. ambulates w/ steady gait.
[2022-02-20 14:35] LABS: Ethanol < 10 mg/dL
[2022-02-20] MEDS: clonazePAM 1 MG TABLET PO (16:21)
--- NOTE | 2022-02-20 17:33 | PC.NURSE ---
THIS ACADEMIC DEAN ASSUMED CARE OF THIS PT AT 1630. PT ALERT AND ORIENTED, HE DENIES PAIN. ANKLE BRACELET ARTS MANAGER PLACED IN LOCKER WITH PT'S BELONGINGS. PT CURRENTLY IN ROOM SLEEPING.
--- NOTE | 2022-02-21 | ECG_ITS ---
Test Reason : MED CLEARANCE Blood Pressure : / mmHG Vent. Rate : 051 BPM Atrial Rate : 051 BPM P-R Int : 104 ms QRS Dur : 080 ms QT Int : 428 ms P-R-T Axes : 079 066 072 degrees QTc Int : 394 ms Sinus bradycardia Otherwise normal ECG When compared with ECG of 09-JAN-2022 16:41, No significant change was found Referred By: Rosalia Dooley Electronically Signed By:KERRI PLATA
--- NOTE | 2022-02-21 05:51 | PC.NURSE ---
Patient slept whole evening and night, no distress observed/reported, med rec completed/pending provider's approval, patient has ankle bracelet on, behavior unpredictable, disposition per [facility] is section 12 inpatient bed search, pending LOVE, will continue to monitor.
[2022-02-21 06:46] VITALS: BP 142/82; PULSE 77; RESP 16; TEMP 36.9; O2SAT 98
[2022-02-21] MEDS: Buprenorphine/Naloxone 8/2 mg FILM 1 FILM SUBLINGUAL ×3 (06:53→20:06)
--- NOTE | 2022-02-21 07:36 | PC.NURSE ---
patient appears to remain asleep at present respirations are even and unlabored patient appears in no distress
[2022-02-21] MEDS: Escitalopram Oxalate 20 MG TABLET PO (09:50)
[2022-02-21] MEDS: buPROPion HCl XL 150 MG TAB.ER.24H PO (09:50)
[2022-02-21] MEDS: QUEtiapine Fumarate 100 MG TABLET PO (09:51)
[2022-02-21] MEDS: Nicotine 7 MG PATCH.TD24 TRANSDERMA (09:51)
[2022-02-21] MEDS: Gabapentin 400 MG CAPSULE 800 MG PO ×3 (09:51→20:06)
--- NOTE | 2022-02-21 13:32 | PC.NURSE ---
patient discovered staring into storage closet: declined to tell staff what hes looking for.
[2022-02-21 13:59] LABS: MANUAL DIFF FLAG NO
[2022-02-21 14:04] LABS: Basophils Percent Auto 0.6 % (0-2); Eosinophils Absolute Auto 0.1 X10*3/uL (0.0-0.4); Eosinophils Percent Auto 1.2 % (0-4); Hematocrit 46.2 % (42.0-52.0); Hemoglobin 15.8 g/dl (14.0-18.0); Imm Gran Abs Auto 0.01 X10*3/uL (0.00-0.03); Imm Gran Pct Auto 0.1 % (0.0-0.4); Lymphocytes Absolute Auto 2.4 X10*3/uL (1.2-4.9); Lymphocytes Percent Auto 35.1 % (20-40); Mean Corpuscular HGB Conc 34.2 g/dl (31.0-36.0); Mean Corpuscular Hemoglobin 31.6 pg (27.0-33.0); Mean Corpuscular Volume 92.4 fL (80.0-98.0); Mean Platelet Volume 9.7 fL (9.4-12.4); Monocytes Absolute Auto 0.4 X10*3/uL (0.1-1.2); Monocytes Percent Auto 5.6 % (2-11); Neutrophils Absolute Auto 3.9 x10*3/uL (2.0-8.3); Neutrophils Percent Auto 57.4 % (45-73); Platelet Count 225 X10*3/uL (160-400); Red Cell Distribution Width 13.2 % (11.0-16.0); White Blood Count 6.8 X10*3/uL (4.8-10.8)
[2022-02-21 14:17] LABS: COVID-19 Test Negative (Negative); IDNOW Serial# 55D5AD1C
--- NOTE | 2022-02-21 14:27 | PC.NURSE ---
Pt seen this date for individual OT tx session. Pt presents anxious/agitated however agreeable to engage in conversation with this principal technical writer. Pt is provided with simple OT intervention activities coloring pages, word finds, independent reading and sensory item. Pt is appreciative and engages in use of sensory tool at completion of OT tx.
--- NOTE | 2022-02-21 14:45 | PC.NURSE ---
patient made claims patient is due for seroquel at this time, pacing unit eventually yelling vulgarity at this proposal writer, calling t/w B.... and whatnot. called patient modified behavior. upon review it appears seroquel may be modified from dc paperwork...
[2022-02-21 15:45] LABS: Alanine Aminotransferase 23 U/L (0-40); Albumin Level 4.3 g/dL (3.5-5.0); Alkaline Phosphatase 63 U/L (39-117); Anion Gap 11 (12-20); Aspartate Amino Transferase 19 U/L (5-37); Bilirubin Total 0.6 mg/dL (0.0-1.0); Blood Urea Nitrogen 15 mg/dL (9-16); Calcium 9.2 mg/dL (8.4-10.2); Carbon Dioxide 26 mmol/L (22-29); Chloride 106 mmol/L (96-108); Creatinine Clr Calc Pharmacy 90.5; Estimated Glomerular Filt Rate > 60; Glucose Fasting 224 mg/dL (60-99); Potassium 4.3 mmol/L (3.3-5.1); Sodium 139 mmol/L (135-145); Total Protein 7.3 g/dL (6.5-8.0)
[2022-02-21 16:42] LABS: Amphetamine Screen Urine Not Detected (Not Detect); Barbiturates, Urine Not Detected (Not Detect); Benzodiazepines Screen Urine Not Detected (Not Detect); Cannabinoid Screen Urine POSITIVE (Not Detect); Cocaine Screen Urine POSITIVE (Not Detect); Fentanyl, urine POSITIVE (Not Detect); Opiate Screen Urine POSITIVE (Not Detect); Phencyclidine Screen Urine Not Detected (Not Detect)
[2022-02-21] MEDS: QUEtiapine Fumarate 300 MG TABLET PO (20:05)
[2022-02-22 04:48] VITALS: BP 122/67; PULSE 68; RESP 16; TEMP 36.9; O2SAT 98
--- NOTE | 2022-02-22 06:39 | PC.NURSE ---
Patient slept through the night, no distress observed/reported, medication compliant, patient has ankle bracelet on, behavior unpredictable but in good control during overnight shift, disposition per N is section 12 inpatient bed search, pending M5 admission, VSS, will continue to monitor.
--- NOTE | 2022-02-22 07:06 | PC.NURSE ---
patient appears to remain asleep at present respirations are even and unlabored patient appears in no distress
[2022-02-22] MEDS: QUEtiapine Fumarate 100 MG TABLET PO (10:08)
[2022-02-22] MEDS: Escitalopram Oxalate 20 MG TABLET PO (10:08)
[2022-02-22] MEDS: buPROPion HCl XL 150 MG TAB.ER.24H PO (10:08)
[2022-02-22] MEDS: Buprenorphine/Naloxone 8/2 mg FILM 1 FILM SUBLINGUAL ×3 (10:08→20:31)
[2022-02-22] MEDS: Gabapentin 400 MG CAPSULE 800 MG PO ×3 (10:08→20:28)
[2022-02-22 10:43] VITALS: BP 113/63; PULSE 86; RESP 18; TEMP 36.3; O2SAT 97
[2022-02-22] MEDS: QUEtiapine Fumarate 50 MG TABLET PO (13:38)
[2022-02-22 20:21] VITALS: BP 136/82; PULSE 76; TEMP 37.2
[2022-02-22] MEDS: QUEtiapine Fumarate 200 MG TABLET PO (21:43)
[2022-02-23 07:00] VITALS: BMI 24.0
[2022-02-23 08:45] VITALS: BP 122/67; PULSE 57; RESP 18; TEMP 36.2; O2SAT 97
[2022-02-23] MEDS: buPROPion HCl XL 150 MG TAB.ER.24H PO (09:52)
[2022-02-23] MEDS: Gabapentin 400 MG CAPSULE 800 MG PO ×3 (09:52→20:43)
[2022-02-23] MEDS: Buprenorphine/Naloxone 8/2 mg FILM 1 FILM SUBLINGUAL ×3 (09:53→20:43)
[2022-02-23] MEDS: QUEtiapine Fumarate 100 MG TABLET PO (09:53)
[2022-02-23] MEDS: Escitalopram Oxalate 20 MG TABLET PO (09:53)
[2022-02-23] MEDS: QUEtiapine Fumarate 50 MG TABLET PO (14:24)
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
--- NOTE | 2022-02-23 18:25 | MHC.RECOVSUP ---
? Reason for consult:Recovery Support o Current location:[phone] o Identified substance use concern:Heroin and cocaine - Support ? Intervention: o MAT started or to be started o Community resources provided o Harm reduction discussion ? Plan: o Referral to [facility] o Follow up tomorrow o Patient to follow up with [facility] after discharge ? Additional information: Patient still SI, patient states he's depressed and would like to go to a dual dx program. Suggested a CSS and his continued use of MAT (suboxone), referred him to [facility] for a wellness coach. Referred him to [facility].
[2022-02-23 20:42] VITALS: BP 117/78; PULSE 82; TEMP 36.8
[2022-02-23] MEDS: cloNIDine HCL 0.1 MG TABLET PO (20:43)
[2022-02-23] MEDS: QUEtiapine Fumarate 200 MG TABLET PO (21:44)
[2022-02-24 06:00] VITALS: BP 119/76; PULSE 79; RESP 16; TEMP 36.7; O2SAT 98
[2022-02-24] MEDS: Gabapentin 400 MG CAPSULE 800 MG PO ×3 (08:56→20:23)
[2022-02-24] MEDS: buPROPion HCl XL 150 MG TAB.ER.24H PO (08:56)
[2022-02-24] MEDS: Escitalopram Oxalate 20 MG TABLET PO (08:56)
[2022-02-24] MEDS: Buprenorphine/Naloxone 8/2 mg FILM 1 FILM SUBLINGUAL ×3 (08:56→20:23)
[2022-02-24 09:07] LABS: HBS Num1 1.53 mIU/mL (0-7.99); HBc Num1 0.08 S/CO (0.00-0.79); HBsAGNum1 0.18 S/CO (0.00-0.99); HIV AB/AG Nonreactive (Nonreactive); HIV Num 1 0.07 S/CO (0.00-0.99); Hepatitis A Antibody IgM 0.13 Index (0-0.79); Hepatitis B Core Antibody Nonreactive (Nonreactive); Hepatitis B Surface Antigen Negative (Negative); ~HepC Num1 0.15 S/CO (0.00-0.79); ~Hepatitis A Antibody IgM Nonreactive (Nonreactive); ~Hepatitis B Surface Antibody NONREACTIVE (Nonreactive); ~Hepatitis C Antibody Nonreactive (Nonreactive)
[2022-02-24] MEDS: QUEtiapine Fumarate 100 MG TABLET PO (10:38)
--- NOTE | 2022-02-24 16:19 | PM.CNGS ---
History of Present Illness Consult details Consult date: 02/24/22 Narrative: 46-year-old male referred for an inguinal hernia. He was admitted to the psych unit yesterday because of depression with suicidal ideations. He says that he has a lot of problems with his among others at this time. He does have a long history of bipolar disorder. He also has a history of alcohol abuse as well as multi substance abuse. He describes chronic pain on both the left and the right groin. He said he had a laparoscopic repair of inguinal hernias in [place] in 2001. Says that since then, he has been having pain on both sides. He says that he had felt a small mass on the groin for several years. I had actually seen him in the office in 2017 for right inguinal hernia and he was scheduled for surgery then but he did not show up and says that he was very anxious about that. Review of Systems Constitutional: Constitutional: Denies chills and Denies fever(s) Cardiovascular: Cardiovascular: Denies chest pain, Denies dyspnea and Denies dyspnea on exertion Respiratory: Respiratory: Denies cough, Denies dyspnea and Denies dyspnea on exertion Gastrointestinal: Gastrointestinal: Denies hematochezia and Denies change in bowel habits Genitourinary: Genitourinary: Denies hematuria and Denies difficulty urinating Musculoskeletal: Musculoskeletal: Denies back pain and Denies limited range of motion Neurologic: Denies focal weakness and Denies convulsions Psychiatric: Psychiatric: Reports depression, Denies mood swings and Reports suicidal ideation PMFSH Past Medical History Medical History (Updated 02/24/22 @ 16:22 by Bob Cabello MD) Alcohol use disorder, moderate, in early remission, dependence Bipolar 1 disorder Chronic post-traumatic stress disorder (PTSD) Cocaine use disorder Depression MDD (major depressive disorder), recurrent severe, without psychosis Opioid abuse Opioid dependence on agonist therapy PTSD (post-traumatic stress disorder) Right inguinal hernia Surgical History Surgical History S/P hernia surgery Social History Social History Household Members: Family Housing: Apartment Do you presently have visiting nurse or other home services: No Unable to assess alcohol history related to: Unknown Alcohol intake: current Alcohol intake frequency: 0-2 drinks per day Alcohol type: beer Patient Tobacco Use Status: Current everyday Tobacco user Tobacco use type: Cigarette Cigarette Packs Per Day: 0.5 Cigarettes Per Day: 5 Years Smoked: 27 Smoked in Last 30 Days: Yes e-Cigarette/Vaping Use: Never Used Patient Interested in Nicotine Replacement: No Patient Given Instructions on How to Stop Smoking: Yes Date Education Initiated: 02/22/22 Second Hand Smoke Exposure: Yes Use of substances other than those prescribed or required for medical reasons: Yes Substance Use Type: Crack/Cocaine, Marijuana and Opiates Substance Use Frequency: Daily Last Used Substance: Days (ago) Currently Displaying Signs/Symptoms of Drug Intoxication Withdrawal: No Any prior treatment program specific to substance use: Yes Have you been hit, kicked, punched, or otherwise hurt by someone within the past year? If so, by whom?: No Do you feel safe in your current relationship?: Yes Is there a partner from a previous relationship who is making you feel unsafe now?: No Are you made to feel afraid or neglected: No [facility] Practices: [facility] Advance Directives: No Advance Directives Information Provided: No Do you have thoughts of harming others: None Do you have a plan to hurt others: No Plan Recently lost weight without trying: Yes How much weight loss: 14-23 pounds Eating poorly because of decreased appetite: No Nutrition screen score: 4 Nutrition Risks: Dental problems and Difficulty chewing Poor oral hygiene: Yes service: No Sexual orientation: Straight/Heterosexual Meds Allergies Allergy/AdvReac Type Severity Reaction Status Date / Time trazodone Allergy Rash Verified 02/20/22 05:27 Active Medications: Current Medications Al Hydroxide/Mg Hydroxide (Magnesium Hydrox/Alum Hydrox 30 Ml Oral.Susp) 30 ml PO Q6H PRN PRN Reason: Heartburn/Nausea Buprenorphine/Naloxone (Buprenorphine/Naloxone 8/2 Mg Film) 1 film SUBLINGUAL TID [facility] Last Admin: 02/24/22 14:35 Dose: 1 film Bupropion HCl (Bupropion Hcl Xl 300 Mg Tab.Er.24h) 300 mg PO DAILY [facility] Escitalopram Oxalate (Escitalopram Oxalate 20 Mg Tablet) 20 mg PO DAILY [facility] Last Admin: 02/24/22 08:56 Dose: 20 mg Gabapentin (Gabapentin 400 Mg Capsule) 800 mg PO TID [facility] Last Admin: 02/24/22 14:34 Dose: 800 mg Hydroxyzine HCl (Hydroxyzine Hcl 25 Mg Tablet) 25 mg PO Q6H PRN PRN Reason: Anxiety Magnesium Hydroxide (Milk Of Magnesia 30 Ml Oral.Susp) 30 ml PO DAILY PRN PRN Reason: Constipation Nicotine (Nicotine 21 Mg Patch.Td24) 21 mg TRANSDERMA DAILY [facility] Last Admin: 02/24/22 10:37 Dose: Not Given Nicotine Polacrilex (Nicotine Polacrilex 2 Mg Gum) 4 mg BUCCAL Q2H PRN PRN Reason: Nicotine Cravings Quetiapine Fumarate (Quetiapine Fumarate 100 Mg Tablet) 100 mg PO DAILY [facility] Last Admin: 02/24/22 10:38 Dose: 100 mg Quetiapine Fumarate (Quetiapine Fumarate 50 Mg Tablet) 50 mg PO TID PRN PRN Reason: anxiety Last Admin: 02/23/22 14:24 Dose: 50 mg Quetiapine Fumarate (Quetiapine Fumarate 200 Mg Tablet) 200 mg PO BEDTIME [facility] Last Admin: 02/23/22 21:44 Dose: 200 mg Risperidone (Risperidone 0.5 Mg Tablet) 0.5 mg PO BEDTIME PRN PRN Reason: voices Home Medications Medication Instructions Recorded Confirmed Last Taken Type buprenorphine 8 mg-naloxone 2 mg 1 strip sublingual TID 02/21/22 02/21/22 Unknown History sublingual film (Suboxone) bupropion HCl 150 mg 24 hr tablet, 1 tab PO DAILY 02/21/22 02/22/22 Unknown History extended release escitalopram oxalate 20 mg tablet 1 tab PO DAILY 02/21/22 02/21/22 Unknown History gabapentin 800 mg tablet 1 tab PO TID 02/21/22 02/21/22 Unknown History ibuprofen 600 mg tablet 1 tab PO TID PRN pain 02/21/22 02/21/22 Unknown History nicotine 7 mg/24 hr daily 1 patch topical DAILY 02/21/22 02/21/22 Unknown History transdermal patch quetiapine 300 mg tablet 1 tab PO BEDTIME 02/21/22 02/21/22 Unknown History quetiapine 50 mg tablet 1 tab PO TID PRN anxiety 02/21/22 02/21/22 Unknown History quetiapine 100 mg tablet 1 tab PO DAILY 02/22/22 02/22/22 Unknown History Physical Exam Vital Signs: Vital Signs: Last Vital Signs Temp 98.0 F 02/24/22 06:00 Pulse 79 02/24/22 06:00 Resp 16 02/24/22 06:00 BP 119/76 02/24/22 06:00 Pulse Ox 98 02/24/22 06:00 O2 Del Method 02/23/22 08:45 BMI result Body Mass Index 24.0 Const: General: comfortable and no acute distress Orientation/consciousness: patient oriented x3 Neck: Neck: Yes no lymphadenopathy Resp: Auscultation: clear to auscultation bilaterally Cardio: Rhythm: regular rhythm GI: Other: Very vague small prominence on the right groin with Valsalva, no acute tenderness at this time Palpation (GI): Soft to palpation, nontender and no guarding Neuro: General: patient oriented x3 Results Labs Result diagrams: 02/21/22 13:53 02/21/22 13:53 Labs: All other labs normal. Assessment and Plan (1) Right inguinal hernia: Status: Acute He describes on both left and right inguinal areas after laparoscopic inguinal hernia repair, bilateral in 2001 in [place]. He seems to have a vague protuberance on the right groin with Valsalva that is suggestive of a right inguinal hernia. I had seen him in 2017 for this. He had canceled his surgery at that time. I told him that once he is ready for the procedure, we will reschedule him again. He is currently in psych unit for acute issues with depression along with suicidal ideations. I told him that once he is discharged and he is ready, I can see him in the office for a follow-up to discuss possible repair. He says he understands and is comfortable with this. There is no eveidence of acute incarceration at this time. Procedures Date of Service Date of Service: 02/24/22
[2022-02-24 18:00] VITALS: BP 119/79; PULSE 75; RESP 18; TEMP 36.8; O2SAT 97
--- NOTE | 2022-02-24 19:09 | HO.PSYCHPN ---
Subjective Subjective Date of Service: 02/24/22 Reason For Visit: depressed Subjective Notes: Conditional Voluntary Healthcare Proxy: No Guardianship: No Medical Problems Affecting Mental Status: No Interim History: Nils met with Dr. Cabello and is very relieved with his consultation. (Consultation much appreciated). Discussed increase in depressive sx and ongoing nightmares/night terrors, probable exacerbation of PTSD sx. Medication Compliance: Yes Side effects from medications: No Attending Groups: Intermittent Review of Systems Acute medical concerns: No Medical Review of Systems: unchanged Review of Systems Gastrointestinal: Reports other (hernia sx. pt states he had surgery and it recurred ~4 days post op.) Reports behavioral changes Psychiatric: Reports anxiety, Reports behavioral changes, Reports depression, Reports difficulty concentrating, Reports hopelessness, Reports irritability, Reports anhedonia, Reports mood swings, Reports paranoia and Reports suicidal ideation Mental Status Exam Mental Status Exam Patient Appearance: Appropriate Patient Orientation: Person, Place, Time and Situation Level of Consciousness: Awake and Alert Patient Behavior: Appropriate, Talkative, Cooperative, Anxious, Fatigued, Distractible and Good Eye Contact Mood Description: Depressed Affect Description: Flat Patient Cognition Impaired: No Ability to Follow Directions: Good Speech Pattern: Spontaneous Speech Memory Description: Episodic Impaired Perceptual Disturbances: Depersonalization and Derealization Thought Process: Distracted and Rumination Thought Content: positive for Circumstantial, positive for Goal Oriented, positive for Perseveration and positive for Suicidal Ideation Depressive Symptoms: Increased Anxiety, Diff. Making Decisions, Increased Irritability, Loss of Int. in Activity, Isolating-Friends/Family, Unhappiness, Increased Fatigue, Thoughts of /Suicide, Low Self Esteem, Loss of Energy and Difficulty Concentrating Abnormal Motor Activity Signs and Symptoms: Restlessness Judgement: Fair Diagnostics Vital Signs (24Hr): Vital Signs - 24 hr 02/23/22 20:42 02/24/22 06:00 Temperature 98.2 F 98.0 F Pulse Rate 82 79 Respiratory Rate 16 Blood Pressure 117/78 119/76 Pulse Oximetry 98 BMI result Body Mass Index 24.0 Labs Results: 02/21/22 13:53 02/21/22 13:53 Labs: Laboratory Results - last 48 hr 02/24/22 08:09 Hepatitis A IgM Ab Nonreactive Hep Bs Antigen Negative Hep Bs Antibody NONREACTIVE Hep B Core Total Ab Nonreactive Hepatitis C Ab (EIA) Nonreactive HIV 1&2 Ab/P24 Ag 4thGn Nonreactive Medications Medications Current Medications Al Hydroxide/Mg Hydroxide (Magnesium Hydrox/Alum Hydrox 30 Ml Oral.Susp) 30 ml PO Q6H PRN PRN Reason: Heartburn/Nausea Buprenorphine/Naloxone (Buprenorphine/Naloxone 8/2 Mg Film) 1 film SUBLINGUAL TID [facility] Last Admin: 02/24/22 14:35 Dose: 1 film Bupropion HCl (Bupropion Hcl Xl 300 Mg Tab.Er.24h) 300 mg PO DAILY [facility] Escitalopram Oxalate (Escitalopram Oxalate 20 Mg Tablet) 20 mg PO DAILY [facility] Last Admin: 02/24/22 08:56 Dose: 20 mg Gabapentin (Gabapentin 400 Mg Capsule) 800 mg PO TID [facility] Last Admin: 02/24/22 14:34 Dose: 800 mg Hydroxyzine HCl (Hydroxyzine Hcl 25 Mg Tablet) 25 mg PO Q6H PRN PRN Reason: Anxiety Magnesium Hydroxide (Milk Of Magnesia 30 Ml Oral.Susp) 30 ml PO DAILY PRN PRN Reason: Constipation Nicotine (Nicotine 21 Mg Patch.Td24) 21 mg TRANSDERMA DAILY [facility] Last Admin: 02/24/22 10:37 Dose: Not Given Nicotine Polacrilex (Nicotine Polacrilex 2 Mg Gum) 4 mg BUCCAL Q2H PRN PRN Reason: Nicotine Cravings Quetiapine Fumarate (Quetiapine Fumarate 100 Mg Tablet) 100 mg PO DAILY [facility] Last Admin: 02/24/22 10:38 Dose: 100 mg Quetiapine Fumarate (Quetiapine Fumarate 50 Mg Tablet) 50 mg PO TID PRN PRN Reason: anxiety Last Admin: 02/23/22 14:24 Dose: 50 mg Quetiapine Fumarate (Quetiapine Fumarate 200 Mg Tablet) 200 mg PO BEDTIME [facility] Last Admin: 02/23/22 21:44 Dose: 200 mg Risperidone (Risperidone 0.5 Mg Tablet) 0.5 mg PO BEDTIME PRN PRN Reason: voices Allergies Allergies Allergy/AdvReac Type Severity Reaction Status Date / Time trazodone Allergy Rash Verified 02/20/22 05:27 Assessment & Plan Assessment & Plan (1) Bipolar II disorder: Status: Acute Code(s): F31.81 - Bipolar II disorder (2) Opioid use disorder: Status: Acute Code(s): F11.90 - Opioid use, unspecified, uncomplicated (3) Chronic post-traumatic stress disorder (PTSD): Status: Chronic Code(s): F43.12 - Post-traumatic stress disorder, chronic (4) Cocaine use disorder: Status: Chronic Code(s): F14.10 - Cocaine abuse, uncomplicated (5) Alcohol use disorder, moderate, in early remission, dependence: Status: Chronic Code(s): F10.21 - Alcohol dependence, in remission (6) Right inguinal hernia: Status: Acute Code(s): K40.90 - Unilateral inguinal hernia, without obstruction or gangrene, not specified as recurrent Plan 46 yo male, bipolar disorder, PTSD, polysubstance use disorder-opiates, cocaine, alcohol presents s/p relapse, stopping medications and therapy with resulting marital conflict resulting in restraining order, inability to see his children, homelessness and an increase in depression with SI with several plans. Plan: Medications reviewed. Will allow current regime to re-establish as pt reports by history it has been helpful. Adjust as needed. Clonidine 0.1 mg hs trial for nightmares. 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 Discontinue Clonidine-not helpful for pt sx. Risperdal 0.5 mg HS prn I spent minutes with the patient and/or on the patient floor today, greater than?50% of which was spent counseling/coordinating care. Patient educated on: medication risk/benefits and therapeutic strategies Informed Consent: understands and further education needed Reason for contiued inpatient stay Substantial Risk for: harm to self, inability to function and rapid decompensation
[2022-02-24] MEDS: QUEtiapine Fumarate 200 MG TABLET PO (20:23)
[2022-02-24] MEDS: risperiDONE 0.5 MG TABLET PO (20:23)
[2022-02-25] MEDS: Gabapentin 400 MG CAPSULE 800 MG PO ×3 (09:28→20:38)
[2022-02-25] MEDS: Escitalopram Oxalate 20 MG TABLET PO (09:29)
[2022-02-25] MEDS: Nicotine 21 MG PATCH.TD24 TRANSDERMA (09:29)
[2022-02-25] MEDS: buPROPion HCl XL 300 MG TAB.ER.24H PO (09:29)
[2022-02-25] MEDS: QUEtiapine Fumarate 100 MG TABLET PO (09:29)
[2022-02-25] MEDS: Buprenorphine/Naloxone 8/2 mg FILM 1 FILM SUBLINGUAL ×3 (09:29→20:39)
[2022-02-25 09:30] VITALS: BP 118/68; PULSE 89; TEMP 36.6
[2022-02-25] MEDS: QUEtiapine Fumarate 50 MG TABLET PO (14:26)
[2022-02-25 18:00] VITALS: BP 119/78; PULSE 101; RESP 16; TEMP 36.6; O2SAT 99
[2022-02-25] MEDS: Mirtazapine 7.5 MG TABLET PO (20:38)
[2022-02-25] MEDS: QUEtiapine Fumarate 200 MG TABLET PO (20:38)
--- NOTE | 2022-02-25 23:20 | HO.PSYCHPN ---
Subjective Subjective Date of Service: 02/25/22 Reason For Visit: depressed Subjective Notes: Joaquin Warning and Conditional Voluntary Healthcare Proxy: No Guardianship: No Medical Problems Affecting Mental Status: No Interim History: Patient seen and discussed with team. Patient evaluated today and upon interview he reports he is miserable. Feels agitated, triggered, and depressed. Says he is not sleeping well, didnt sleep last night. Says the seroquel helped me to calm me. Denies sedation on seroquel.? Discussed his past childhood trauma and his recent trauma of not getting to see his kids due to strained relationship with their mom. Says he has been on his Lexparo 20 mg since 2018, prior to that he was on celexa. Denies benefit, says it only stops me from crying but I still feel the pain. Says he is crying all the time. Can walk and cam down, therefore doesnt think he has bipolar.? In the milieu, patient is safe and appropriate in behavior. Denies SI/SIB/HI upon inquiry. Denies irritability or assaultive ideation. Says he feels safe. Mental Status Exam Mental Status Exam Narrative: Patient Appearance: Appropriate Patient Orientation: Person, Place, Time and Situation Level of Consciousness: Awake and Alert Patient Behavior: Appropriate, Talkative, Cooperative, Anxious, Fatigued, Distractible and Good Eye Contact Mood Description: Depressed Affect Description: Flat Patient Cognition Impaired: No Ability to Follow Directions: Good Speech Pattern: Spontaneous Speech Memory Description: Episodic Impaired Perceptual Disturbances: Depersonalization and Derealization Thought Process: Distracted and Rumination Thought Content: positive for Circumstantial, positive for Goal Oriented, positive for Perseveration and positive for Suicidal Ideation Depressive Symptoms: Increased Anxiety, Diff. Making Decisions, Increased Irritability, Loss of Int. in Activity, Isolating-Friends/Family, Unhappiness, Increased Fatigue, Thoughts of /Suicide, Low Self Esteem, Loss of Energy and Difficulty Concentrating Abnormal Motor Activity Signs and Symptoms: Restlessness Judgement: Fair Diagnostics Vital Signs (24Hr): Vital Signs - 24 hr 02/25/22 18:00 02/26/22 06:00 Temperature 97.8 F 97.9 F Pulse Rate 101 H 67 Respiratory Rate 16 16 Blood Pressure 119/78 118/88 Pulse Oximetry 99 99 Oxygen Delivery Method Room Air Room Air BMI result Body Mass Index 24.0 Labs Results: 02/21/22 13:53 02/21/22 13:53 Medications Medications Current Medications Al Hydroxide/Mg Hydroxide (Magnesium Hydrox/Alum Hydrox 30 Ml Oral.Susp) 30 ml PO Q6H PRN PRN Reason: Heartburn/Nausea Buprenorphine/Naloxone (Buprenorphine/Naloxone 8/2 Mg Film) 1 film SUBLINGUAL TID [facility] Last Admin: 02/26/22 09:27 Dose: 1 film Bupropion HCl (Bupropion Hcl Xl 150 Mg Tab.Er.24h) 150 mg PO DAILY [facility] Last Admin: 02/26/22 09:24 Dose: 150 mg Escitalopram Oxalate (Escitalopram Oxalate 20 Mg Tablet) 20 mg PO DAILY [facility] Last Admin: 02/26/22 09:24 Dose: 20 mg Gabapentin (Gabapentin 400 Mg Capsule) 800 mg PO TID [facility] Last Admin: 02/26/22 09:25 Dose: 800 mg Hydroxyzine HCl (Hydroxyzine Hcl 25 Mg Tablet) 25 mg PO Q6H PRN PRN Reason: Anxiety Magnesium Hydroxide (Milk Of Magnesia 30 Ml Oral.Susp) 30 ml PO DAILY PRN PRN Reason: Constipation Mirtazapine (Mirtazapine 7.5 Mg Tablet) 7.5 mg PO BEDTIME [facility] Last Admin: 02/25/22 20:38 Dose: 7.5 mg Nicotine Polacrilex (Nicotine Polacrilex 2 Mg Gum) 4 mg BUCCAL Q2H PRN PRN Reason: Nicotine Cravings Quetiapine Fumarate (Quetiapine Fumarate 50 Mg Tablet) 50 mg PO TID PRN PRN Reason: anxiety Last Admin: 02/25/22 14:26 Dose: 50 mg Quetiapine Fumarate (Quetiapine Fumarate 200 Mg Tablet) 200 mg PO BEDTIME [facility] Last Admin: 02/25/22 20:38 Dose: 200 mg Quetiapine Fumarate (Quetiapine Fumarate 100 Mg Tablet) 100 mg PO BID@0800,1200 [facility] Last Admin: 02/26/22 09:24 Dose: 100 mg Venlafaxine HCl (Venlafaxine Hcl Er 150 Mg Cap.Er.24h) 150 mg PO DAILY [facility] Last Admin: 02/26/22 09:25 Dose: 150 mg Allergies Allergies Allergy/AdvReac Type Severity Reaction Status Date / Time trazodone Allergy Rash Verified 02/20/22 05:27 Assessment & Plan Assessment & Plan (1) Bipolar II disorder: Status: Acute Code(s): F31.81 - Bipolar II disorder (2) Opioid use disorder: Status: Acute Code(s): F11.90 - Opioid use, unspecified, uncomplicated (3) Chronic post-traumatic stress disorder (PTSD): Status: Chronic Code(s): F43.12 - Post-traumatic stress disorder, chronic (4) Cocaine use disorder: Status: Chronic Code(s): F14.10 - Cocaine abuse, uncomplicated (5) Alcohol use disorder, moderate, in early remission, dependence: Status: Chronic Code(s): F10.21 - Alcohol dependence, in remission (6) Right inguinal hernia: Status: Acute Code(s): K40.90 - Unilateral inguinal hernia, without obstruction or gangrene, not specified as recurrent Plan 46 yo male, bipolar disorder, PTSD, polysubstance use disorder-opiates, cocaine, alcohol presents s/p relapse, stopping medications and therapy with resulting marital conflict resulting in restraining order, inability to see his children, homelessness and an increase in depression with SI with several plans. Plan: Medications reviewed. Will allow current regime to re-establish as pt reports by history it has been helpful. Adjust as needed. Clonidine 0.1 mg hs trial for nightmares. 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 Discontinue Clonidine-not helpful for pt sx. Risperdal 0.5 mg HS prn 02/25/22: decrease wellbutrin XL to 150 mg due to possible agitation. Will switch lexapro to effexor 150 mg and start remeron 7.5 mg QHS for sx of poor sleep, depression, anxiety, and PTSD. I spent minutes with the patient and/or on the patient floor today, greater than?50% of which was spent counseling/coordinating care. Patient educated on: diagnosis, medication risk/benefits and therapeutic strategies Reason for contiued inpatient stay Substantial Risk for: harm to self, rapid decompensation and med/psych decompensation
[2022-02-26 06:00] VITALS: BP 118/88; PULSE 67; RESP 16; TEMP 36.6; O2SAT 99
[2022-02-26] MEDS: buPROPion HCl XL 150 MG TAB.ER.24H PO (09:24)
[2022-02-26] MEDS: Escitalopram Oxalate 20 MG TABLET PO (09:24)
[2022-02-26] MEDS: QUEtiapine Fumarate 100 MG TABLET PO ×2 (09:24→14:56)
[2022-02-26] MEDS: Gabapentin 400 MG CAPSULE 800 MG PO ×3 (09:25→20:15)
[2022-02-26] MEDS: Venlafaxine HCl ER 150 MG CAP.ER.24H PO (09:25)
[2022-02-26] MEDS: Buprenorphine/Naloxone 8/2 mg FILM 1 FILM SUBLINGUAL ×3 (09:27→20:15)
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
[2022-02-26 18:00] VITALS: BP 119/77; PULSE 109; TEMP 36.6; O2SAT 95
[2022-02-26] MEDS: docosanoL 10 % Cream 2 GM TUBE 1 APPL TOPICAL (19:04)
[2022-02-26] MEDS: Mirtazapine 7.5 MG TABLET PO (20:15)
[2022-02-26] MEDS: QUEtiapine Fumarate 200 MG TABLET PO (20:15)
[2022-02-27 06:00] VITALS: BP 118/72; PULSE 100; TEMP 36.2; O2SAT 96
[2022-02-27] MEDS: QUEtiapine Fumarate 100 MG TABLET PO ×2 (08:42→13:13)
[2022-02-27] MEDS: Escitalopram Oxalate 20 MG TABLET PO (08:42)
[2022-02-27] MEDS: buPROPion HCl XL 150 MG TAB.ER.24H PO (08:42)
[2022-02-27] MEDS: Venlafaxine HCl ER 150 MG CAP.ER.24H PO (08:42)
[2022-02-27] MEDS: Gabapentin 400 MG CAPSULE 800 MG PO ×3 (08:42→20:29)
[2022-02-27] MEDS: Buprenorphine/Naloxone 8/2 mg FILM 1 FILM SUBLINGUAL ×3 (08:43→20:30)
[2022-02-27] MEDS: docosanoL 10 % Cream 2 GM TUBE 1 APPL TOPICAL ×3 (09:17→23:10)
--- NOTE | 2022-02-27 16:40 | P.PNPSI_ITS ---
Subjective Subjective Date of Service: 02/27/22 Reason For Visit: depressed Subjective Notes: Conditional Voluntary Healthcare Proxy: No Guardianship: No Medical Problems Affecting Mental Status: No Interim History: Discussed racing of thoughts, worry about his family, children, dog. Appropriate medication questions. Review of regime. Pt asks to make Remeron prn as he felt too sedate during the day and with heavy feelings in his legs. Lexapro discontinued as it was replaced with Venlafaxine. Discussed mgt of stress/anxiety by history and in moving forward. Review of triggers and mgt of feelings associated with triggers. Medication Compliance: Yes Side effects from medications: No Attending Groups: Intermittent Review of Systems Acute medical concerns: No Medical Review of Systems: unchanged Review of Systems Psychiatric: Reports abnormal sleep pattern, Reports anxiety, Reports depression and Reports irritability Mental Status Exam Mental Status Exam Patient Appearance: Appropriate Patient Orientation: Person, Place, Time and Situation Level of Consciousness: Alert Patient Behavior: Talkative and Good Eye Contact Mood Description: Depressed, Anxious and Sad Affect Description: Flat Patient Cognition Impaired: No Ability to Follow Directions: Good Speech Pattern: Spontaneous Speech Memory Description: Intact Hallucinations: None Delusions: Not Present Perceptual Disturbances: Depersonalization and Derealization Thought Process: Rumination and Goal Oriented Thought Content: positive for [place] and positive for Circumstantial Depressive Symptoms: Increased Anxiety and Difficulty Sleeping Abnormal Motor Activity Signs and Symptoms: Restlessness Judgement: Good Diagnostics Vital Signs (24Hr): Vital Signs - 24 hr 02/26/22 18:00 02/27/22 06:00 Temperature 97.9 F 97.2 F Pulse Rate 109 H 100 Blood Pressure 119/77 118/72 Pulse Oximetry 95 96 Oxygen Delivery Method Room Air Room Air BMI result Body Mass Index 24.0 Labs Results: 02/21/22 13:53 02/21/22 13:53 Medications Medications Current Medications Al Hydroxide/Mg Hydroxide (Magnesium Hydrox/Alum Hydrox 30 Ml Oral.Susp) 30 ml PO Q6H PRN PRN Reason: Heartburn/Nausea Buprenorphine/Naloxone (Buprenorphine/Naloxone 8/2 Mg Film) 1 film SUBLINGUAL TID [facility] Last Admin: 02/27/22 14:32 Dose: 1 film Bupropion HCl (Bupropion Hcl Xl 150 Mg Tab.Er.24h) 150 mg PO DAILY [facility] Last Admin: 02/27/22 08:42 Dose: 150 mg Docosanol (Docosanol 10 % Cream 2 Gm Tube) 1 appl TOPICAL 5XD [facility] Last Admin: 02/27/22 15:05 Dose: Not Given Gabapentin (Gabapentin 400 Mg Capsule) 800 mg PO TID [facility] Last Admin: 02/27/22 14:32 Dose: 800 mg Hydroxyzine HCl (Hydroxyzine Hcl 25 Mg Tablet) 25 mg PO Q6H PRN PRN Reason: Anxiety Magnesium Hydroxide (Milk Of Magnesia 30 Ml Oral.Susp) 30 ml PO DAILY PRN PRN Reason: Constipation Mirtazapine (Mirtazapine 7.5 Mg Tablet) 7.5 mg PO BEDTIME PRN PRN Reason: insomnia Nicotine Polacrilex (Nicotine Polacrilex 2 Mg Gum) 4 mg BUCCAL Q2H PRN PRN Reason: Nicotine Cravings Quetiapine Fumarate (Quetiapine Fumarate 50 Mg Tablet) 50 mg PO TID PRN PRN Reason: anxiety Last Admin: 02/25/22 14:26 Dose: 50 mg Quetiapine Fumarate (Quetiapine Fumarate 200 Mg Tablet) 200 mg PO BEDTIME [facility] Last Admin: 02/26/22 20:15 Dose: 200 mg Quetiapine Fumarate (Quetiapine Fumarate 100 Mg Tablet) 100 mg PO BID@0800,1200 [facility] Last Admin: 02/27/22 13:13 Dose: 100 mg Venlafaxine HCl (Venlafaxine Hcl Er 150 Mg Cap.Er.24h) 150 mg PO DAILY [facility] Last Admin: 02/27/22 08:42 Dose: 150 mg Allergies Allergies Allergy/AdvReac Type Severity Reaction Status Date / Time trazodone Allergy Rash Verified 02/20/22 05:27 Assessment & Plan Assessment & Plan (1) Bipolar II disorder: Status: Acute Code(s): F31.81 - Bipolar II disorder (2) Opioid use disorder: Status: Acute Code(s): F11.90 - Opioid use, unspecified, uncomplicated (3) Chronic post-traumatic stress disorder (PTSD): Status: Chronic Code(s): F43.12 - Post-traumatic stress disorder, chronic (4) Cocaine use disorder: Status: Chronic Code(s): F14.10 - Cocaine abuse, uncomplicated (5) Alcohol use disorder, moderate, in early remission, dependence: Status: Chronic Code(s): F10.21 - Alcohol dependence, in remission (6) Right inguinal hernia: Status: Acute Code(s): K40.90 - Unilateral inguinal hernia, without obstruction or gangrene, not specified as recurrent Plan 46 yo male, bipolar disorder, PTSD, polysubstance use disorder-opiates, cocaine, alcohol presents s/p relapse, stopping medications and therapy with resulting marital conflict resulting in restraining order, inability to see his children, homelessness and an increase in depression with SI with several plans. Plan: Medications reviewed. Will allow current regime to re-establish as pt reports by history it has been helpful. Adjust as needed. Clonidine 0.1 mg hs trial for nightmares. Pt is interested in longer term addictions treatment programs [facility] therapy swimming coach requested Surgical consult for hernia Hepatitis Panel/ HIV 02/24/22 Increase Wellbutrin XL to 300 mg a.m. Discontinue Clonidine-not helpful for pt sx. Risperdal 0.5 mg HS prn 02/27/22 Change Remeron to prn Discontinue Lexapro I spent minutes with the patient and/or on the patient floor today, greater than?50% of which was spent counseling/coordinating care. Patient educated on: medication risk/benefits and therapeutic strategies Informed Consent: understands and further education needed Reason for contiued inpatient stay Substantial Risk for: harm to self, inability to function and rapid decompensation
[2022-02-27 18:00] VITALS: BP 116/68; PULSE 76; TEMP 36.6
[2022-02-27] MEDS: QUEtiapine Fumarate 200 MG TABLET PO (20:30)
[2022-02-27 23:25] LABS: Amphetamine Screen Urine Not Detected (Not Detect); Barbiturates, Urine Not Detected (Not Detect); Benzodiazepines Screen Urine Not Detected (Not Detect); Cannabinoid Screen Urine Not Detected (Not Detect); Cocaine Screen Urine Not Detected (Not Detect); Fentanyl, urine POSITIVE (Not Detect); Opiate Screen Urine Not Detected (Not Detect); Phencyclidine Screen Urine Not Detected (Not Detect)
[2022-02-28 06:00] VITALS: BP 117/74; PULSE 103; RESP 18; TEMP 36.6; O2SAT 97
[2022-02-28] MEDS: docosanoL 10 % Cream 2 GM TUBE 1 APPL TOPICAL ×4 (06:43→21:39)
[2022-02-28] MEDS: Buprenorphine/Naloxone 8/2 mg FILM 1 FILM SUBLINGUAL ×3 (08:17→21:28)
[2022-02-28] MEDS: buPROPion HCl XL 150 MG TAB.ER.24H PO (08:17)
[2022-02-28] MEDS: QUEtiapine Fumarate 100 MG TABLET PO ×2 (08:18→13:26)
[2022-02-28] MEDS: Venlafaxine HCl ER 150 MG CAP.ER.24H PO (08:18)
[2022-02-28] MEDS: Gabapentin 400 MG CAPSULE 800 MG PO ×3 (08:18→21:28)
--- NOTE | 2022-02-28 17:00 | P.PNPSI_ITS ---
Subjective Subjective Date of Service: 02/28/22 Reason For Visit: depressed Subjective Notes: Conditional Voluntary Healthcare Proxy: No Guardianship: No Medical Problems Affecting Mental Status: No Interim History: Reports sleep is up and down , but no more bad dreams . Attempting to connect with his children. States depressive sx are the same . Unsure about Remeron with previous SE-will keep as prn- I may try it again tonight. Medication Compliance: Yes Side effects from medications: No Attending Groups: Intermittent Review of Systems Acute medical concerns: No Medical Review of Systems: unchanged Review of Systems Psychiatric: Reports anxiety, Reports depression, Reports irritability and Reports suicidal ideation Mental Status Exam Mental Status Exam Patient Appearance: Appropriate Patient Orientation: Person, Place, Time and Situation Level of Consciousness: Alert Patient Behavior: Talkative and Good Eye Contact Mood Description: Depressed, Anxious and Sad Affect Description: Flat Patient Cognition Impaired: No Ability to Follow Directions: Good Speech Pattern: Spontaneous Speech Memory Description: Intact Hallucinations: None Delusions: Not Present Perceptual Disturbances: Depersonalization and Derealization Thought Process: Rumination and Goal Oriented Thought Content: positive for [place], positive for Circumstantial and positive for Suicidal Ideation Depressive Symptoms: Increased Anxiety, Difficulty Sleeping and Thoughts of /Suicide Abnormal Motor Activity Signs and Symptoms: Restlessness Judgement: Good Diagnostics Vital Signs (24Hr): Vital Signs - 24 hr 02/27/22 18:00 02/28/22 06:00 Temperature 97.8 F 97.9 F Pulse Rate 76 103 H Respiratory Rate 18 Blood Pressure 116/68 117/74 Pulse Oximetry 97 BMI result Body Mass Index 24.0 Labs Results: 02/21/22 13:53 02/21/22 13:53 Labs: Laboratory Results - last 48 hr 02/27/22 22:51 Urine Opiates Screen Not Detected Urine Fentanyl Screen POSITIVE H Ur Barbiturates Screen Not Detected Ur Phencyclidine Scrn Not Detected Ur Amphetamines Screen Not Detected U Benzodiazepines Scrn Not Detected Urine Cocaine Screen Not Detected U Marijuana (THC) Screen Not Detected Medications Medications Current Medications Al Hydroxide/Mg Hydroxide (Magnesium Hydrox/Alum Hydrox 30 Ml Oral.Susp) 30 ml PO Q6H PRN PRN Reason: Heartburn/Nausea Buprenorphine/Naloxone (Buprenorphine/Naloxone 8/2 Mg Film) 1 film SUBLINGUAL TID [facility] Last Admin: 02/28/22 15:47 Dose: 1 film Bupropion HCl (Bupropion Hcl Xl 150 Mg Tab.Er.24h) 150 mg PO DAILY [facility] Last Admin: 02/28/22 08:17 Dose: 150 mg Docosanol (Docosanol 10 % Cream 2 Gm Tube) 1 appl TOPICAL 5XD [facility] Last Admin: 02/28/22 12:06 Dose: 1 appl Gabapentin (Gabapentin 400 Mg Capsule) 800 mg PO TID [facility] Last Admin: 02/28/22 15:47 Dose: 800 mg Hydroxyzine HCl (Hydroxyzine Hcl 25 Mg Tablet) 25 mg PO Q6H PRN PRN Reason: Anxiety Magnesium Hydroxide (Milk Of Magnesia 30 Ml Oral.Susp) 30 ml PO DAILY PRN PRN Reason: Constipation Mirtazapine (Mirtazapine 7.5 Mg Tablet) 7.5 mg PO BEDTIME PRN PRN Reason: insomnia Nicotine Polacrilex (Nicotine Polacrilex 2 Mg Gum) 4 mg BUCCAL Q2H PRN PRN Reason: Nicotine Cravings Quetiapine Fumarate (Quetiapine Fumarate 50 Mg Tablet) 50 mg PO TID PRN PRN Reason: anxiety Last Admin: 02/25/22 14:26 Dose: 50 mg Quetiapine Fumarate (Quetiapine Fumarate 200 Mg Tablet) 200 mg PO BEDTIME [facility] Last Admin: 02/27/22 20:30 Dose: 200 mg Quetiapine Fumarate (Quetiapine Fumarate 100 Mg Tablet) 100 mg PO BID@0800,1200 [facility] Last Admin: 02/28/22 13:26 Dose: 100 mg Venlafaxine HCl (Venlafaxine Hcl Er 150 Mg Cap.Er.24h) 150 mg PO DAILY [facility] Last Admin: 02/28/22 08:18 Dose: 150 mg Allergies Allergies Allergy/AdvReac Type Severity Reaction Status Date / Time trazodone Allergy Rash Verified 02/20/22 05:27 Assessment & Plan Assessment & Plan (1) Bipolar II disorder: Status: Acute Code(s): F31.81 - Bipolar II disorder (2) Opioid use disorder: Status: Acute Code(s): F11.90 - Opioid use, unspecified, uncomplicated (3) Chronic post-traumatic stress disorder (PTSD): Status: Chronic Code(s): F43.12 - Post-traumatic stress disorder, chronic (4) Cocaine use disorder: Status: Chronic Code(s): F14.10 - Cocaine abuse, uncomplicated (5) Alcohol use disorder, moderate, in early remission, dependence: Status: Chronic Code(s): F10.21 - Alcohol dependence, in remission (6) Right inguinal hernia: Status: Acute Code(s): K40.90 - Unilateral inguinal hernia, without obstruction or gangrene, not specified as recurrent Plan 46 yo male, bipolar disorder, PTSD, polysubstance use disorder-opiates, cocaine, alcohol presents s/p relapse, stopping medications and therapy with resulting marital conflict resulting in restraining order, inability to see his children, homelessness and an increase in depression with SI with several plans. Plan: Medications reviewed. Will allow current regime to re-establish as pt reports by history it has been helpful. Adjust as needed. Clonidine 0.1 mg hs trial for nightmares. Pt is interested in longer term addictions treatment programs [facility] therapy golf coach requested Surgical consult for hernia Hepatitis Panel/ HIV 02/24/22 Increase Wellbutrin XL to 300 mg a.m. Discontinue Clonidine-not helpful for pt sx. Risperdal 0.5 mg HS prn 02/25/22: increase seroquel to 100 mg QAM, Qnoon for agitation 02/26/22: decrease wellbutrin XL to 150 mg due to possible agitation. Will switch lexapro to effexor 150 mg and start remeron 7.5 mg QHS for sx of poor sleep, depression, anxiety, and PTSD. 02/28/22 Continue current regime-will trial Remeron prn most likely this evening. I spent minutes with the patient and/or on the patient floor today, gre ater than?50% of which was spent counseling/coordinating care. Patient educated on: medication risk/benefits and therapeutic strategies Informed Consent: understands and further education needed Reason for contiued inpatient stay Substantial Risk for: harm to self, inability to function and rapid decompensation
[2022-02-28] MEDS: QUEtiapine Fumarate 200 MG TABLET PO (21:28)
[2022-02-28 21:30] VITALS: BP 120/79; PULSE 84; TEMP 36.6; O2SAT 96
[2022-03-01 06:00] VITALS: BP 120/67; PULSE 72; RESP 18; TEMP 37; O2SAT 97
[2022-03-01] MEDS: Gabapentin 400 MG CAPSULE 800 MG PO ×3 (08:43→20:40)
[2022-03-01] MEDS: Buprenorphine/Naloxone 8/2 mg FILM 1 FILM SUBLINGUAL ×3 (08:43→20:39)
[2022-03-01] MEDS: buPROPion HCl XL 150 MG TAB.ER.24H PO (08:43)
[2022-03-01] MEDS: Venlafaxine HCl ER 150 MG CAP.ER.24H PO (08:43)
[2022-03-01] MEDS: QUEtiapine Fumarate 100 MG TABLET PO ×2 (08:43→12:37)
[2022-03-01] MEDS: docosanoL 10 % Cream 2 GM TUBE 1 APPL TOPICAL ×2 (09:39→20:58)
[2022-03-01 18:00] VITALS: BP 118/70; PULSE 80; RESP 18; TEMP 36.5; O2SAT 98
[2022-03-01] MEDS: Milk of Magnesia 30 ML ORAL.SUSP PO (20:39)
[2022-03-01] MEDS: Mirtazapine 7.5 MG TABLET PO (20:40)
[2022-03-01] MEDS: QUEtiapine Fumarate 200 MG TABLET PO (20:40)
--- NOTE | 2022-03-01 21:19 | HO.PSYCHPN ---
Subjective Subjective Date of Service: 03/01/22 Reason For Visit: depressed Subjective Notes: Conditional Voluntary Healthcare Proxy: No Guardianship: No Medical Problems Affecting Mental Status: No Interim History: Asks to make Remeron standing again-reports less SE, more positive effects. Discussed family, relationships with sister, children, difficulties in managing some of the more chaotic family moments and supporting family in their perspectives and how he is feeling supported at times but not at critical times by the family. Discussed the relationship with his children, comparing to his relationship with his father and the hard feelings for father that seem impossible to resolve given father's actions. Medication Compliance: Yes Side effects from medications: No (improved tolerance of Remeron) Attending Groups: Intermittent Review of Systems Acute medical concerns: No Medical Review of Systems: unchanged Review of Systems Psychiatric: Reports anxiety, Reports depression and Reports mood swings Mental Status Exam Mental Status Exam Patient Appearance: Appropriate Patient Orientation: Person, Place, Time and Situation Level of Consciousness: Alert Patient Behavior: Talkative and Good Eye Contact Mood Description: Depressed, Anxious and Sad Affect Description: Flat Patient Cognition Impaired: No Ability to Follow Directions: Good Speech Pattern: Spontaneous Speech Memory Description: Intact Hallucinations: None Delusions: Not Present Perceptual Disturbances: Depersonalization and Derealization Thought Process: Rumination and Goal Oriented Thought Content: positive for [place] and positive for Circumstantial Depressive Symptoms: Increased Anxiety and Difficulty Sleeping Abnormal Motor Activity Signs and Symptoms: Restlessness Judgement: Good Diagnostics Vital Signs (24Hr): Vital Signs - 24 hr 02/28/22 21:30 03/01/22 06:00 03/01/22 18:00 Temperature 97.8 F 98.6 F 97.7 F Pulse Rate 84 72 80 Respiratory Rate 18 18 Blood Pressure 120/79 120/67 118/70 Pulse Oximetry 96 97 98 Oxygen Delivery Method Room Air Room Air Room Air BMI result Body Mass Index 24.0 Labs Results: 02/21/22 13:53 02/21/22 13:53 Labs: Laboratory Results - last 48 hr 02/27/22 22:51 Urine Opiates Screen Not Detected Urine Fentanyl Screen POSITIVE H Ur Barbiturates Screen Not Detected Ur Phencyclidine Scrn Not Detected Ur Amphetamines Screen Not Detected U Benzodiazepines Scrn Not Detected Urine Cocaine Screen Not Detected U Marijuana (THC) Screen Not Detected Medications Medications Current Medications Al Hydroxide/Mg Hydroxide (Magnesium Hydrox/Alum Hydrox 30 Ml Oral.Susp) 30 ml PO Q6H PRN PRN Reason: Heartburn/Nausea Buprenorphine/Naloxone (Buprenorphine/Naloxone 8/2 Mg Film) 1 film SUBLINGUAL TID [facility] Last Admin: 03/01/22 20:39 Dose: 1 film Bupropion HCl (Bupropion Hcl Xl 150 Mg Tab.Er.24h) 150 mg PO DAILY [facility] Last Admin: 03/01/22 08:43 Dose: 150 mg Docosanol (Docosanol 10 % Cream 2 Gm Tube) 1 appl TOPICAL 5XD [facility] Last Admin: 03/01/22 20:58 Dose: 1 appl Gabapentin (Gabapentin 400 Mg Capsule) 800 mg PO TID [facility] Last Admin: 03/01/22 20:40 Dose: 800 mg Hydroxyzine HCl (Hydroxyzine Hcl 25 Mg Tablet) 25 mg PO Q6H PRN PRN Reason: Anxiety Magnesium Hydroxide (Milk Of Magnesia 30 Ml Oral.Susp) 30 ml PO DAILY PRN PRN Reason: Constipation Last Admin: 03/01/22 20:39 Dose: 30 ml Mirtazapine (Mirtazapine 7.5 Mg Tablet) 7.5 mg PO BEDTIME [facility] Last Admin: 03/01/22 20:40 Dose: 7.5 mg Nicotine Polacrilex (Nicotine Polacrilex 2 Mg Gum) 4 mg BUCCAL Q2H PRN PRN Reason: Nicotine Cravings Quetiapine Fumarate (Quetiapine Fumarate 50 Mg Tablet) 50 mg PO TID PRN PRN Reason: anxiety Last Admin: 02/25/22 14:26 Dose: 50 mg Quetiapine Fumarate (Quetiapine Fumarate 200 Mg Tablet) 200 mg PO BEDTIME [facility] Last Admin: 03/01/22 20:40 Dose: 200 mg Quetiapine Fumarate (Quetiapine Fumarate 100 Mg Tablet) 100 mg PO BID@0800,1200 [facility] Last Admin: 03/01/22 12:37 Dose: 100 mg Venlafaxine HCl (Venlafaxine Hcl Er 150 Mg Cap.Er.24h) 150 mg PO DAILY [facility] Last Admin: 03/01/22 08:43 Dose: 150 mg Allergies Allergies Allergy/AdvReac Type Severity Reaction Status Date / Time trazodone Allergy Rash Verified 02/20/22 05:27 Assessment & Plan Assessment & Plan (1) Bipolar II disorder: Status: Acute Code(s): F31.81 - Bipolar II disorder (2) Opioid use disorder: Status: Acute Code(s): F11.90 - Opioid use, unspecified, uncomplicated (3) Chronic post-traumatic stress disorder (PTSD): Status: Chronic Code(s): F43.12 - Post-traumatic stress disorder, chronic (4) Cocaine use disorder: Status: Chronic Code(s): F14.10 - Cocaine abuse, uncomplicated (5) Alcohol use disorder, moderate, in early remission, dependence: Status: Chronic Code(s): F10.21 - Alcohol dependence, in remission (6) Right inguinal hernia: Status: Acute Code(s): K40.90 - Unilateral inguinal hernia, without obstruction or gangrene, not specified as recurrent Plan 46 yo male, bipolar disorder, PTSD, polysubstance use disorder-opiates, cocaine, alcohol presents s/p relapse, stopping medications and therapy with resulting marital conflict resulting in restraining order, inability to see his children, homelessness and an increase in depression with SI with several plans. Plan: Medications reviewed. Will allow current regime to re-establish as pt reports by history it has been helpful. Adjust as needed. Clonidine 0.1 mg hs trial for nightmares. Pt is interested in longer term addictions treatment programs [employer] therapy life skills coach requested Surgical consult for hernia Hepatitis Panel/ HIV 02/24/22 Increase Wellbutrin XL to 300 mg a.m. Discontinue Clonidine-not helpful for pt sx. Risperdal 0.5 mg HS prn 02/25/22: increase seroquel to 100 mg QAM, Qnoon for agitation 02/26/22: decrease wellbutrin XL to 150 mg due to possible agitation. Will switch lexapro to effexor 150 mg and start remeron 7.5 mg QHS for sx of poor sleep, depression, anxiety, and PTSD. 03/01/22. Remeron will be standing dose currently. I spent minutes with the patient and/or on the patient floor today, greater than?50% of which was spent counseling/coordinating care. Patient educated on: medication risk/benefits and therapeutic strategies Informed Consent: understands and further education needed Reason for contiued inpatient stay Substantial Risk for: harm to self, inability to function and rapid decompensation
[2022-03-02 06:00] VITALS: BP 107/73; PULSE 75; RESP 16; TEMP 36.4; O2SAT 97
[2022-03-02 07:00] VITALS: BMI 25.9
[2022-03-02] MEDS: Venlafaxine HCl ER 150 MG CAP.ER.24H PO (09:04)
[2022-03-02] MEDS: buPROPion HCl XL 150 MG TAB.ER.24H PO (09:04)
[2022-03-02] MEDS: QUEtiapine Fumarate 100 MG TABLET PO ×2 (09:04→12:37)
[2022-03-02] MEDS: Buprenorphine/Naloxone 8/2 mg FILM 1 FILM SUBLINGUAL ×3 (09:04→20:24)
[2022-03-02] MEDS: Gabapentin 400 MG CAPSULE 800 MG PO ×3 (09:04→20:24)
--- NOTE | 2022-03-02 13:03 | HO.PSYCHPN ---
Subjective Subjective Date of Service: 03/02/22 Reason For Visit: depressed Subjective Notes: Conditional Voluntary Healthcare Proxy: No Guardianship: No Medical Problems Affecting Mental Status: No Interim History: Talked of his mother, her illness (psychosis, trauma, dx- schizophrenia ) and how her illness was presented to him by other family members, not giving her a chance to share her perspective, yet being degraded by others who did not understand. Review of his perception of how her care has been managed, which reflects upon him, his symptoms, and his reluctance to have care at times. Looking ahead, he questions if he can address these misperceptions so his children will not need to manage this internal conflict if they have these health issues in the future. Discussed how he is working on this in his current treatment here. Discussed how this history at times prevents him from getting the treatment he needs. Medication Compliance: Yes Side effects from medications: No Attending Groups: Intermittent Review of Systems Acute medical concerns: No Medical Review of Systems: unchanged Review of Systems Psychiatric: Reports anxiety and Reports depression Mental Status Exam Mental Status Exam Patient Appearance: Appropriate Patient Orientation: Person, Place, Time and Situation Level of Consciousness: Alert Patient Behavior: Talkative and Good Eye Contact Mood Description: Depressed, Anxious and Sad Affect Description: Flat Patient Cognition Impaired: No Ability to Follow Directions: Good Speech Pattern: Spontaneous Speech Memory Description: Intact Hallucinations: None Delusions: Not Present Perceptual Disturbances: Depersonalization and Derealization Thought Process: Rumination and Goal Oriented Thought Content: positive for [place] and positive for Circumstantial Depressive Symptoms: Increased Anxiety and Difficulty Sleeping Abnormal Motor Activity Signs and Symptoms: Restlessness Judgement: Good Diagnostics Vital Signs (24Hr): Vital Signs - 24 hr 03/01/22 18:00 03/02/22 06:00 Temperature 97.7 F 97.5 F Pulse Rate 80 75 Respiratory Rate 18 16 Blood Pressure 118/70 107/73 Pulse Oximetry 98 97 Oxygen Delivery Method Room Air Room Air BMI result Body Mass Index 25.9 Labs Results: 02/21/22 13:53 02/21/22 13:53 Medications Medications Current Medications Al Hydroxide/Mg Hydroxide (Magnesium Hydrox/Alum Hydrox 30 Ml Oral.Susp) 30 ml PO Q6H PRN PRN Reason: Heartburn/Nausea Buprenorphine/Naloxone (Buprenorphine/Naloxone 8/2 Mg Film) 1 film SUBLINGUAL TID [facility] Last Admin: 03/02/22 09:04 Dose: 1 film Bupropion HCl (Bupropion Hcl Xl 150 Mg Tab.Er.24h) 150 mg PO DAILY [facility] Last Admin: 03/02/22 09:04 Dose: 150 mg Docosanol (Docosanol 10 % Cream 2 Gm Tube) 1 appl TOPICAL 5XD [facility] Last Admin: 03/02/22 10:05 Dose: Not Given Gabapentin (Gabapentin 400 Mg Capsule) 800 mg PO TID [facility] Last Admin: 03/02/22 09:04 Dose: 800 mg Hydroxyzine HCl (Hydroxyzine Hcl 25 Mg Tablet) 25 mg PO Q6H PRN PRN Reason: Anxiety Magnesium Hydroxide (Milk Of Magnesia 30 Ml Oral.Susp) 30 ml PO DAILY PRN PRN Reason: Constipation Last Admin: 03/01/22 20:39 Dose: 30 ml Mirtazapine (Mirtazapine 7.5 Mg Tablet) 7.5 mg PO BEDTIME [facility] Last Admin: 03/01/22 20:40 Dose: 7.5 mg Nicotine Polacrilex (Nicotine Polacrilex 2 Mg Gum) 4 mg BUCCAL Q2H PRN PRN Reason: Nicotine Cravings Quetiapine Fumarate (Quetiapine Fumarate 50 Mg Tablet) 50 mg PO TID PRN PRN Reason: anxiety Last Admin: 02/25/22 14:26 Dose: 50 mg Quetiapine Fumarate (Quetiapine Fumarate 200 Mg Tablet) 200 mg PO BEDTIME [facility] Last Admin: 03/01/22 20:40 Dose: 200 mg Quetiapine Fumarate (Quetiapine Fumarate 100 Mg Tablet) 100 mg PO BID@0800,1200 [facility] Last Admin: 03/02/22 12:37 Dose: 100 mg Venlafaxine HCl (Venlafaxine Hcl Er 150 Mg Cap.Er.24h) 150 mg PO DAILY [facility] Last Admin: 03/02/22 09:04 Dose: 150 mg Allergies Allergies Allergy/AdvReac Type Severity Reaction Status Date / Time trazodone Allergy Rash Verified 02/20/22 05:27 Assessment & Plan Assessment & Plan (1) Bipolar II disorder: Status: Acute Code(s): F31.81 - Bipolar II disorder (2) Opioid use disorder: Status: Acute Code(s): F11.90 - Opioid use, unspecified, uncomplicated (3) Chronic post-traumatic stress disorder (PTSD): Status: Chronic Code(s): F43.12 - Post-traumatic stress disorder, chronic (4) Cocaine use disorder: Status: Chronic Code(s): F14.10 - Cocaine abuse, uncomplicated (5) Alcohol use disorder, moderate, in early remission, dependence: Status: Chronic Code(s): F10.21 - Alcohol dependence, in remission (6) Right inguinal hernia: Status: Acute Code(s): K40.90 - Unilateral inguinal hernia, without obstruction or gangrene, not specified as recurrent Plan 46 yo male, bipolar disorder, PTSD, polysubstance use disorder-opiates, cocaine, alcohol presents s/p relapse, stopping medications and therapy with resulting marital conflict resulting in restraining order, inability to see his children, homelessness and an increase in depression with SI with several plans. Plan: Medications reviewed. Will allow current regime to re-establish as pt reports by history it has been helpful. Adjust as needed. Clonidine 0.1 mg hs trial for nightmares. Pt is interested in longer term addictions treatment programs [employer] therapy sustainability coach requested Surgical consult for hernia Hepatitis Panel/ HIV 02/24/22 Increase Wellbutrin XL to 300 mg a.m. Discontinue Clonidine-not helpful for pt sx. Risperdal 0.5 mg HS prn 02/27/22 Change Remeron to prn Discontinue Lexapro 03/02/22 Continue current regime I spent minutes with the patient and/or on the patient floor today, greater than?50% of which was spent counseling/coordinating care. Patient educated on: therapeutic strategies Informed Consent: understands Reason for contiued inpatient stay Substantial Risk for: harm to self, inability to function and rapid decompensation
[2022-03-02] MEDS: docosanoL 10 % Cream 2 GM TUBE 1 APPL TOPICAL ×2 (14:35→16:27)
[2022-03-02 16:56] VITALS: BP 110/64; PULSE 75; RESP 16; TEMP 35.9; O2SAT 96
[2022-03-02] MEDS: Mirtazapine 7.5 MG TABLET PO (20:24)
[2022-03-02] MEDS: QUEtiapine Fumarate 200 MG TABLET PO (20:24)
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
[2022-03-03] MEDS: Venlafaxine HCl ER 150 MG CAP.ER.24H PO (09:31)
[2022-03-03] MEDS: buPROPion HCl XL 150 MG TAB.ER.24H PO (09:31)
[2022-03-03] MEDS: Buprenorphine/Naloxone 8/2 mg FILM 1 FILM SUBLINGUAL ×3 (09:31→19:46)
[2022-03-03] MEDS: QUEtiapine Fumarate 100 MG TABLET PO ×2 (09:31→11:38)
[2022-03-03] MEDS: Gabapentin 400 MG CAPSULE 800 MG PO ×3 (09:31→19:46)
[2022-03-03 09:33] VITALS: BP 125/72; PULSE 104; RESP 20; TEMP 36.3; O2SAT 98
[2022-03-03] MEDS: Divalproex Sodium 250 MG TABLET.DR PO ×2 (11:38→19:46)
[2022-03-03] MEDS: Miconazole 2 % Extra Thick Cr 56.7 Gm Tube 1 APPL TOPICAL ×2 (14:14→19:48)
[2022-03-03 16:11] VITALS: BP 140/78; PULSE 90; TEMP 37; O2SAT 95
[2022-03-03] MEDS: docosanoL 10 % Cream 2 GM TUBE 1 APPL TOPICAL ×2 (16:17→19:55)
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
[2022-03-03] MEDS: Mirtazapine 7.5 MG TABLET PO (19:46)
[2022-03-03] MEDS: QUEtiapine Fumarate 200 MG TABLET PO (19:46)
[2022-03-04 06:00] VITALS: BP 111/66; PULSE 72; RESP 16; TEMP 36.3; O2SAT 97
[2022-03-04] MEDS: Miconazole 2 % Extra Thick Cr 56.7 Gm Tube 1 APPL TOPICAL ×2 (08:26→20:24)
[2022-03-04] MEDS: Gabapentin 400 MG CAPSULE 800 MG PO ×3 (08:27→20:18)
[2022-03-04] MEDS: Buprenorphine/Naloxone 8/2 mg FILM 1 FILM SUBLINGUAL ×3 (08:27→20:19)
[2022-03-04] MEDS: buPROPion HCl XL 150 MG TAB.ER.24H PO (08:27)
[2022-03-04] MEDS: QUEtiapine Fumarate 100 MG TABLET PO ×2 (08:27→11:43)
[2022-03-04] MEDS: Divalproex Sodium 250 MG TABLET.DR PO ×2 (08:27→20:18)
[2022-03-04] MEDS: Venlafaxine HCl ER 150 MG CAP.ER.24H PO (08:27)
[2022-03-04 16:24] VITALS: BP 103/61; PULSE 80; RESP 16; TEMP 36; O2SAT 97
[2022-03-04] MEDS: Mirtazapine 7.5 MG TABLET PO (20:18)
[2022-03-04] MEDS: QUEtiapine Fumarate 200 MG TABLET PO (20:19)
--- NOTE | 2022-03-04 23:24 | HO.PSYCHPN ---
Subjective Subjective Date of Service: 03/04/22 Reason For Visit: depressed Subjective Notes: Joaquin Warning and Conditional Voluntary Healthcare Proxy: No Guardianship: No Medical Problems Affecting Mental Status: No Interim History: Patient seen and discussed with team. Patient evaluated today and upon interview he reports im okay, had a nightmare last night, woke up at 4am. Wants to talk to his kids today. Discussed his trauma. Pt is insightful, does not want med changes In the milieu, patient is safe and appropriate in behavior. Says he feels safe. Medication Compliance: Yes Side effects from medications: No Attending Groups: Yes Review of Systems Acute medical concerns: No Medical Review of Systems: unchanged Mental Status Exam Mental Status Exam Narrative: Patient Appearance: Appropriate Patient Orientation: Person, Place, Time and Situation Level of Consciousness: Alert Patient Behavior: Talkative and Good Eye Contact Mood Description: Depressed, Anxious and Sad Affect Description: Flat Patient Cognition Impaired: No Ability to Follow Directions: Good Speech Pattern: Spontaneous Speech Memory Description: Intact Hallucinations: None Delusions: Not Present Perceptual Disturbances: Depersonalization and Derealization Thought Process: Rumination and Goal Oriented Thought Content: positive for [place] and positive for Circumstantial Depressive Symptoms: Increased Anxiety and Difficulty Sleeping Abnormal Motor Activity Signs and Symptoms: Restlessness Judgement: Good Diagnostics Vital Signs (24Hr): Vital Signs - 24 hr 03/05/22 06:00 Temperature 97.4 F Pulse Rate 76 Blood Pressure 109/62 Pulse Oximetry 97 Oxygen Delivery Method Room Air BMI result Body Mass Index 25.9 Labs Results: 02/21/22 13:53 02/21/22 13:53 Medications Medications Current Medications Al Hydroxide/Mg Hydroxide (Magnesium Hydrox/Alum Hydrox 30 Ml Oral.Susp) 30 ml PO Q6H PRN PRN Reason: Heartburn/Nausea Buprenorphine/Naloxone (Buprenorphine/Naloxone 8/2 Mg Film) 1 film SUBLINGUAL TID [facility] Last Admin: 03/05/22 14:39 Dose: 1 film Bupropion HCl (Bupropion Hcl Xl 150 Mg Tab.Er.24h) 150 mg PO DAILY [facility] Last Admin: 03/05/22 08:49 Dose: 150 mg Divalproex Sodium (Divalproex Sodium 250 Mg Tablet.Dr) 250 mg PO BID [facility] Last Admin: 03/05/22 08:49 Dose: 250 mg Docosanol (Docosanol 10 % Cream 2 Gm Tube) 1 appl TOPICAL 5XD PRN PRN Reason: cold sore Gabapentin (Gabapentin 400 Mg Capsule) 800 mg PO TID [facility] Last Admin: 03/05/22 14:39 Dose: 800 mg Hydroxyzine HCl (Hydroxyzine Hcl 25 Mg Tablet) 25 mg PO Q6H PRN PRN Reason: Anxiety Magnesium Hydroxide (Milk Of Magnesia 30 Ml Oral.Susp) 30 ml PO DAILY PRN PRN Reason: Constipation Last Admin: 03/01/22 20:39 Dose: 30 ml Miconazole Nitrate (Miconazole 2 % Extra Thick Cr 56.7 Gm Tube) 1 appl TOPICAL BID [facility]; Protocol Last Admin: 03/05/22 08:51 Dose: Not Given Mirtazapine (Mirtazapine 7.5 Mg Tablet) 7.5 mg PO BEDTIME [facility] Last Admin: 03/04/22 20:18 Dose: 7.5 mg Nicotine Polacrilex (Nicotine Polacrilex 2 Mg Gum) 4 mg BUCCAL Q2H PRN PRN Reason: Nicotine Cravings Quetiapine Fumarate (Quetiapine Fumarate 50 Mg Tablet) 50 mg PO TID PRN PRN Reason: anxiety Last Admin: 03/05/22 16:11 Dose: 50 mg Quetiapine Fumarate (Quetiapine Fumarate 200 Mg Tablet) 200 mg PO BEDTIME [facility] Last Admin: 03/04/22 20:19 Dose: 200 mg Quetiapine Fumarate (Quetiapine Fumarate 100 Mg Tablet) 100 mg PO BID@0800,1200 [facility] Last Admin: 03/05/22 11:30 Dose: 100 mg Venlafaxine HCl (Venlafaxine Hcl Er 150 Mg Cap.Er.24h) 150 mg PO DAILY [facility] Last Admin: 03/05/22 08:49 Dose: 150 mg Allergies Allergies Allergy/AdvReac Type Severity Reaction Status Date / Time trazodone Allergy Rash Verified 02/20/22 05:27 Assessment & Plan Assessment & Plan (1) Bipolar II disorder: Status: Acute Code(s): F31.81 - Bipolar II disorder (2) Opioid use disorder: Status: Acute Code(s): F11.90 - Opioid use, unspecified, uncomplicated (3) Chronic post-traumatic stress disorder (PTSD): Status: Chronic Code(s): F43.12 - Post-traumatic stress disorder, chronic (4) Cocaine use disorder: Status: Chronic Code(s): F14.10 - Cocaine abuse, uncomplicated (5) Alcohol use disorder, moderate, in early remission, dependence: Status: Chronic Code(s): F10.21 - Alcohol dependence, in remission (6) Right inguinal hernia: Status: Acute Code(s): K40.90 - Unilateral inguinal hernia, without obstruction or gangrene, not specified as recurrent Plan 46 yo male, bipolar disorder, PTSD, polysubstance use disorder-opiates, cocaine, alcohol presents s/p relapse, stopping medications and therapy with resulting marital conflict resulting in restraining order, inability to see his children, homelessness and an increase in depression with SI with several plans. Plan: Medications reviewed. Will allow current regime to re-establish as pt reports by history it has been helpful. Adjust as needed. ? Clonidine 0.1 mg hs trial for nightmares. ? Pt is interested in longer term addictions treatment programs ? Milieu therapy ? basketball coach requested ? Surgical consult for hernia ? Hepatitis Panel/ HIV 02/24/22 Increase Wellbutrin XL to 300 mg a.m. Discontinue Clonidine-not helpful for pt sx. Risperdal 0.5 mg HS prn 02/27/22 Change Remeron to prn Discontinue Lexapro 03/03/22: Depakote 250 mg bid Miconazole cream for athletes foot If Depakote is tolerated, consider stopping Wellbutrin next week 03/04/22: No med changes I spent minutes with the patient and/or on the patient floor today, greater than?50% of which was spent counseling/coordinating care. Patient educated on: diagnosis, medication risk/benefits and therapeutic strategies Reason for contiued inpatient stay Substantial Risk for: med/psych decompensation
[2022-03-05 06:00] VITALS: BP 109/62; PULSE 76; TEMP 36.3; O2SAT 97
[2022-03-05] MEDS: QUEtiapine Fumarate 100 MG TABLET PO ×2 (08:49→11:30)
[2022-03-05] MEDS: buPROPion HCl XL 150 MG TAB.ER.24H PO (08:49)
[2022-03-05] MEDS: Buprenorphine/Naloxone 8/2 mg FILM 1 FILM SUBLINGUAL ×3 (08:49→21:58)
[2022-03-05] MEDS: Divalproex Sodium 250 MG TABLET.DR PO ×2 (08:49→21:58)
[2022-03-05] MEDS: Gabapentin 400 MG CAPSULE 800 MG PO ×3 (08:49→21:57)
[2022-03-05] MEDS: Venlafaxine HCl ER 150 MG CAP.ER.24H PO (08:49)
--- NOTE | 2022-03-05 14:11 | HO.PSYCHPN ---
Subjective Subjective Date of Service: 03/05/22 Reason For Visit: depressed Subjective Notes: Conditional Voluntary Interim History: Chart reviewed and discussed with nursing. Overall patient reports feeling safe and stable. Sleep has been okay. Has spent a lot of time in his room. Is pleasant on engagement. Hopeful regarding substance programming. Medication Compliance: Yes Side effects from medications: No Attending Groups: Intermittent Review of Systems Acute medical concerns: No Review of Systems Review of Systems Unremarkable Mental Status Exam Mental Status Exam Narrative: Pleasant. Engage. Organized. Largely euthymic. No SI. No HI. No agitation or psychosis. Insight and judgment good Diagnostics Vital Signs (24Hr): Vital Signs - 24 hr 03/04/22 16:24 03/05/22 06:00 Temperature 96.8 F 97.4 F Pulse Rate 80 76 Respiratory Rate 16 Blood Pressure 103/61 109/62 Pulse Oximetry 97 97 Oxygen Delivery Method Room Air Room Air BMI result Body Mass Index 25.9 Labs Results: 02/21/22 13:53 02/21/22 13:53 Medications Medications Current Medications Al Hydroxide/Mg Hydroxide (Magnesium Hydrox/Alum Hydrox 30 Ml Oral.Susp) 30 ml PO Q6H PRN PRN Reason: Heartburn/Nausea Buprenorphine/Naloxone (Buprenorphine/Naloxone 8/2 Mg Film) 1 film SUBLINGUAL [facility]ID [facility] Last Admin: 03/05/22 08:49 Dose: 1 film Bupropion HCl (Bupropion Hcl Xl 150 Mg Tab.Er.24h) 150 mg PO DAILY [facility] Last Admin: 03/05/22 08:49 Dose: 150 mg Divalproex Sodium (Divalproex Sodium 250 Mg Tablet.) 250 mg PO BID [facility] Last Admin: 03/05/22 08:49 Dose: 250 mg Docosanol (Docosanol 10 % Cream 2 Gm Tube) 1 appl TOPICAL 5XD PRN PRN Reason: cold sore Gabapentin (Gabapentin 400 Mg Capsule) 800 mg PO TID [facility] Last Admin: 03/05/22 08:49 Dose: 800 mg Hydroxyzine HCl (Hydroxyzine Hcl 25 Mg Tablet) 25 mg PO Q6H PRN PRN Reason: Anxiety Magnesium Hydroxide (Milk Of Magnesia 30 Ml Oral.Susp) 30 ml PO DAILY PRN PRN Reason: Constipation Last Admin: 03/01/22 20:39 Dose: 30 ml Miconazole Nitrate (Miconazole 2 % Extra Thick Cr 56.7 Gm Tube) 1 appl TOPICAL BID [facility]; Protocol Last Admin: 03/05/22 08:51 Dose: Not Given Mirtazapine (Mirtazapine 7.5 Mg Tablet) 7.5 mg PO BEDTIME [facility] Last Admin: 03/04/22 20:18 Dose: 7.5 mg Nicotine Polacrilex (Nicotine Polacrilex 2 Mg Gum) 4 mg BUCCAL Q2H PRN PRN Reason: Nicotine Cravings Quetiapine Fumarate (Quetiapine Fumarate 50 Mg Tablet) 50 mg PO TID PRN PRN Reason: anxiety Last Admin: 02/25/22 14:26 Dose: 50 mg Quetiapine Fumarate (Quetiapine Fumarate 200 Mg Tablet) 200 mg PO BEDTIME [facility] Last Admin: 03/04/22 20:19 Dose: 200 mg Quetiapine Fumarate (Quetiapine Fumarate 100 Mg Tablet) 100 mg PO BID@0800,1200 [facility] Last Admin: 03/05/22 11:30 Dose: 100 mg Venlafaxine HCl (Venlafaxine Hcl Er 150 Mg Cap.Er.24h) 150 mg PO DAILY [facility] Last Admin: 03/05/22 08:49 Dose: 150 mg Allergies Allergies Allergy/AdvReac Type Severity Reaction Status Date / Time trazodone Allergy Rash Verified 02/20/22 05:27 Assessment & Plan Assessment & Plan (1) Bipolar II disorder: Status: Acute Code(s): F31.81 - Bipolar II disorder (2) Opioid use disorder: Status: Acute Code(s): F11.90 - Opioid use, unspecified, uncomplicated (3) Chronic post-traumatic stress disorder (PTSD): Status: Chronic Code(s): F43.12 - Post-traumatic stress disorder, chronic (4) Cocaine use disorder: Status: Chronic Code(s): F14.10 - Cocaine abuse, uncomplicated (5) Alcohol use disorder, moderate, in early remission, dependence: Status: Chronic Code(s): F10.21 - Alcohol dependence, in remission (6) Right inguinal hernia: Status: Acute Code(s): K40.90 - Unilateral inguinal hernia, without obstruction or gangrene, not specified as recurrent Plan 46 yo male, bipolar disorder, PTSD, polysubstance use disorder-opiates, cocaine, alcohol presents s/p relapse, stopping medications and therapy with resulting marital conflict resulting in restraining order, inability to see his children, homelessness and an increase in depression with SI with several plans. Plan: Medications reviewed. Will allow current regime to re-establish as pt reports by history it has been helpful. Adjust as needed. Clonidine 0.1 mg hs trial for nightmares. Pt is interested in longer term addictions treatment programs Milieu therapy men's swim coach requested Surgical consult for hernia Hepatitis Panel/ HIV 02/24/22 Increase Wellbutrin XL to 300 mg a.m. Discontinue Clonidine-not helpful for pt sx. Risperdal 0.5 mg HS prn 02/27/22 Change Remeron to prn Discontinue Lexapro 03/03/22: Depakote 250 mg bid Miconazole cream for athletes foot If Depakote is tolerated, consider stopping Wellbutrin next week 03/05/2022: No changes to current regimen. I spent minutes with the patient and/or on the patient floor today, greater than?50% of which was spent counseling/coordinating care. Reason for contiued inpatient stay Substantial Risk for: rapid decompensation
[2022-03-05] MEDS: QUEtiapine Fumarate 50 MG TABLET PO (16:11)
[2022-03-05] MEDS: Mirtazapine 7.5 MG TABLET PO (21:55)
[2022-03-05] MEDS: QUEtiapine Fumarate 200 MG TABLET PO (21:58)
[2022-03-05] MEDS: Milk of Magnesia 30 ML ORAL.SUSP PO (22:00)
[2022-03-05 22:55] VITALS: BP 126/70; PULSE 80; TEMP 36
[2022-03-05] MEDS: Miconazole 2 % Extra Thick Cr 56.7 Gm Tube 1 APPL TOPICAL (23:18)
[2022-03-06 06:00] VITALS: BP 110/76; PULSE 76; TEMP 36.6; O2SAT 98
[2022-03-06] MEDS: Gabapentin 400 MG CAPSULE 800 MG PO ×3 (08:38→22:04)
[2022-03-06] MEDS: Venlafaxine HCl ER 150 MG CAP.ER.24H PO (08:38)
[2022-03-06] MEDS: Divalproex Sodium 250 MG TABLET.DR PO ×2 (08:38→22:04)
[2022-03-06] MEDS: QUEtiapine Fumarate 100 MG TABLET PO ×2 (08:38→12:39)
[2022-03-06] MEDS: Buprenorphine/Naloxone 8/2 mg FILM 1 FILM SUBLINGUAL ×3 (08:38→22:05)
[2022-03-06] MEDS: buPROPion HCl XL 150 MG TAB.ER.24H PO (08:38)
[2022-03-06] MEDS: Miconazole 2 % Extra Thick Cr 56.7 Gm Tube 1 APPL TOPICAL (08:43)
[2022-03-06 16:55] VITALS: BP 108/70; PULSE 94; TEMP 36.4
--- NOTE | 2022-03-06 17:42 | HO.PSYCHPN ---
Subjective Subjective Date of Service: 03/06/22 Reason For Visit: depressed Subjective Notes: Conditional Voluntary Healthcare Proxy: No Guardianship: No Medical Problems Affecting Mental Status: No Interim History: Reports ability to sleep, with some dreams of floating . Discussed his children and his relationship with the children. Wanting to strengthen this. Discussed his thoughts on how he feels others perceive him and his actions. Reports overall relief of symptoms, looks forward to the next step in his recovery. Medication Compliance: Yes Side effects from medications: No Attending Groups: Yes Review of Systems Acute medical concerns: No Medical Review of Systems: unchanged Review of Systems Psychiatric: Reports no additional psychiatric complaints Mental Status Exam Mental Status Exam Patient Appearance: Appropriate Patient Orientation: Person, Place, Time and Situation Level of Consciousness: Alert Patient Behavior: Appropriate, Talkative, Cooperative and Good Eye Contact Mood Description: Apprehensive Affect Description: Apprehensive Patient Cognition Impaired: No Ability to Follow Directions: Good Speech Pattern: Spontaneous Speech Memory Description: Intact Hallucinations: None Delusions: Not Present Perceptual Disturbances: Depersonalization and Derealization Thought Process: Intact and Goal Oriented Thought Content: positive for Intact, positive for Goal Oriented and positive for Suicidal Ideation (denies) Depressive Symptoms: Increased Anxiety and Low Self Esteem Judgement: Good Diagnostics Vital Signs (24Hr): Vital Signs - 24 hr 03/05/22 22:55 03/06/22 06:00 03/06/22 16:55 Temperature 96.8 F 97.8 F 97.6 F Pulse Rate 80 76 94 Blood Pressure 126/70 110/76 108/70 Pulse Oximetry 98 Oxygen Delivery Method Room Air BMI result Body Mass Index 25.9 Labs Results: 02/21/22 13:53 02/21/22 13:53 Medications Medications Current Medications Al Hydroxide/Mg Hydroxide (Magnesium Hydrox/Alum Hydrox 30 Ml Oral.Susp) 30 ml PO Q6H PRN PRN Reason: Heartburn/Nausea Buprenorphine/Naloxone (Buprenorphine/Naloxone 8/2 Mg Film) 1 film SUBLINGUAL TID [facility] Last Admin: 03/06/22 14:40 Dose: 1 film Bupropion HCl (Bupropion Hcl Xl 150 Mg Tab.Er.24h) 150 mg PO DAILY [facility] Last Admin: 03/06/22 08:38 Dose: 150 mg Divalproex Sodium (Divalproex Sodium 250 Mg Tablet.Dr) 250 mg PO BID [facility] Last Admin: 03/06/22 08:38 Dose: 250 mg Docosanol (Docosanol 10 % Cream 2 Gm Tube) 1 appl TOPICAL 5XD PRN PRN Reason: cold sore Gabapentin (Gabapentin 400 Mg Capsule) 800 mg PO TID [facility] Last Admin: 03/06/22 14:40 Dose: 800 mg Hydroxyzine HCl (Hydroxyzine Hcl 25 Mg Tablet) 25 mg PO Q6H PRN PRN Reason: Anxiety Magnesium Hydroxide (Milk Of Magnesia 30 Ml Oral.Susp) 30 ml PO DAILY PRN PRN Reason: Constipation Last Admin: 03/05/22 22:00 Dose: 30 ml Miconazole Nitrate (Miconazole 2 % Extra Thick Cr 56.7 Gm Tube) 1 appl TOPICAL BID [facility]; Protocol Last Admin: 03/06/22 08:43 Dose: 1 appl Mirtazapine (Mirtazapine 7.5 Mg Tablet) 7.5 mg PO BEDTIME [facility] Last Admin: 03/05/22 21:55 Dose: 7.5 mg Nicotine Polacrilex (Nicotine Polacrilex 2 Mg Gum) 4 mg BUCCAL Q2H PRN PRN Reason: Nicotine Cravings Quetiapine Fumarate (Quetiapine Fumarate 50 Mg Tablet) 50 mg PO TID PRN PRN Reason: anxiety Last Admin: 03/05/22 16:11 Dose: 50 mg Quetiapine Fumarate (Quetiapine Fumarate 200 Mg Tablet) 200 mg PO BEDTIME [facility] Last Admin: 03/05/22 21:58 Dose: 200 mg Quetiapine Fumarate (Quetiapine Fumarate 100 Mg Tablet) 100 mg PO BID@0800,1200 [facility] Last Admin: 03/06/22 12:39 Dose: 100 mg Venlafaxine HCl (Venlafaxine Hcl Er 150 Mg Cap.Er.24h) 150 mg PO DAILY [facility] Last Admin: 03/06/22 08:38 Dose: 150 mg Allergies Allergies Allergy/AdvReac Type Severity Reaction Status Date / Time trazodone Allergy Rash Verified 02/20/22 05:27 Assessment & Plan Assessment & Plan (1) Bipolar II disorder: Status: Acute Code(s): F31.81 - Bipolar II disorder (2) Opioid use disorder: Status: Acute Code(s): F11.90 - Opioid use, unspecified, uncomplicated (3) Chronic post-traumatic stress disorder (PTSD): Status: Chronic Code(s): F43.12 - Post-traumatic stress disorder, chronic (4) Cocaine use disorder: Status: Chronic Code(s): F14.10 - Cocaine abuse, uncomplicated (5) Alcohol use disorder, moderate, in early remission, dependence: Status: Chronic Code(s): F10.21 - Alcohol dependence, in remission (6) Right inguinal hernia: Status: Acute Code(s): K40.90 - Unilateral inguinal hernia, without obstruction or gangrene, not specified as recurrent Plan 46 yo male, bipolar disorder, PTSD, polysubstance use disorder-opiates, cocaine, alcohol presents s/p relapse, stopping medications and therapy with resulting marital conflict resulting in restraining order, inability to see his children, homelessness and an increase in depression with SI with several plans. Plan: Medications reviewed. Will allow current regime to re-establish as pt reports by history it has been helpful. Adjust as needed. ? Clonidine 0.1 mg hs trial for nightmares. ? Pt is interested in longer term addictions treatment programs ? Milieu therapy ? coach operator requested ? Surgical consult for hernia ? Hepatitis Panel/ HIV 02/24/22 Increase Wellbutrin XL to 300 mg a.m. Discontinue Clonidine-not helpful for pt sx. Risperdal 0.5 mg HS prn 02/27/22 Change Remeron to prn Discontinue Lexapro 03/03/22: Depakote 250 mg bid Miconazole cream for athletes foot If Depakote is tolerated, consider stopping Wellbutrin next week 03/04/22: No med changes 03/06/22: Continue current plan I spent minutes with the patient and/or on the patient floor today, greater than?50% of which was spent counseling/coordinating care. Patient educated on: therapeutic strategies Informed Consent: understands Reason for contiued inpatient stay Substantial Risk for: stable for discharge
[2022-03-06] MEDS: Mirtazapine 7.5 MG TABLET PO (22:05)
[2022-03-06] MEDS: QUEtiapine Fumarate 200 MG TABLET PO (22:05)
[2022-03-07 06:00] VITALS: BP 125/69; PULSE 67; RESP 17; TEMP 36.3; O2SAT 98
[2022-03-07] MEDS: Venlafaxine HCl ER 150 MG CAP.ER.24H PO (09:22)
[2022-03-07] MEDS: Divalproex Sodium 250 MG TABLET.DR PO ×2 (09:22→20:08)
[2022-03-07] MEDS: QUEtiapine Fumarate 100 MG TABLET PO ×2 (09:22→12:42)
[2022-03-07] MEDS: buPROPion HCl XL 150 MG TAB.ER.24H PO (09:22)
[2022-03-07] MEDS: Gabapentin 400 MG CAPSULE 800 MG PO ×3 (09:22→20:08)
[2022-03-07] MEDS: Buprenorphine/Naloxone 8/2 mg FILM 1 FILM SUBLINGUAL ×3 (09:24→20:08)
[2022-03-07] MEDS: Miconazole 2 % Extra Thick Cr 56.7 Gm Tube 1 APPL TOPICAL (09:25)
[2022-03-07 11:55] LABS: COVID-19 Test Negative (Negative)
--- NOTE | 2022-03-07 15:52 | P.PNPSI_ITS ---
Subjective Subjective Date of Service: 03/07/22 Reason For Visit: depressed Subjective Notes: Conditional Voluntary Healthcare Proxy: No Guardianship: No Interim History: Discussed that this week are his children's birthdays, along with his birthday. Reviewed relationship issues with and the disconnect he feels as they are in process of divorce and she still treats him well, talks with him about the children and is connected. Discussed co-parenting. Plans to attend [facility] and is hopeful it will be helpful. Sleep is still intact, however, he does report a type of out of body feeling intermittently where he leaves his body and goes to do other things-he believes this perception may have been pre cipitated by a film he watched on the unit with peers over the weekend. Medication Compliance: No Side effects from medications: No Attending Groups: No Review of Systems Acute medical concerns: No Medical Review of Systems: unchanged Review of Systems Psychiatric: Reports no additional psychiatric complaints Mental Status Exam Mental Status Exam Patient Appearance: Appropriate Patient Orientation: Person, Place, Time and Situation Level of Consciousness: Alert Patient Behavior: Appropriate, Talkative, Cooperative and Good Eye Contact Mood Description: Apprehensive Affect Description: Apprehensive Patient Cognition Impaired: No Ability to Follow Directions: Good Speech Pattern: Spontaneous Speech Memory Description: Intact Hallucinations: None Delusions: Not Present Perceptual Disturbances: Depersonalization and Derealization Thought Process: Intact and Goal Oriented Thought Content: positive for Intact, positive for Goal Oriented and positive for Suicidal Ideation (denies) Depressive Symptoms: Increased Anxiety and Low Self Esteem Judgement: Good Diagnostics Vital Signs (24Hr): Vital Signs - 24 hr 03/06/22 16:55 03/07/22 06:00 Temperature 97.6 F 97.4 F Pulse Rate 94 67 Respiratory Rate 17 Blood Pressure 108/70 125/69 Pulse Oximetry 98 Oxygen Delivery Method Room Air BMI result Body Mass Index 25.9 Labs Results: 02/21/22 13:53 02/21/22 13:53 Labs: Laboratory Results - last 48 hr 03/07/22 11:30 COVID-19 ([facility]) Negative COVID-19 Clin Com See Note Medications Medications Current Medications Al Hydroxide/Mg Hydroxide (Magnesium Hydrox/Alum Hydrox 30 Ml Oral.Susp) 30 ml PO Q6H PRN PRN Reason: Heartburn/Nausea Buprenorphine/Naloxone (Buprenorphine/Naloxone 8/2 Mg Film) 1 film SUBLINGUAL TID [facility] Last Admin: 03/07/22 14:34 Dose: 1 film Bupropion HCl (Bupropion Hcl Xl 150 Mg Tab.Er.24h) 150 mg PO DAILY [facility] Last Admin: 03/07/22 09:22 Dose: 150 mg Divalproex Sodium (Divalproex Sodium 250 Mg Tablet.Dr) 250 mg PO BID [facility] Last Admin: 03/07/22 09:22 Dose: 250 mg Docosanol (Docosanol 10 % Cream 2 Gm Tube) 1 appl TOPICAL 5XD PRN PRN Reason: cold sore Gabapentin (Gabapentin 400 Mg Capsule) 800 mg PO TID [facility] Last Admin: 03/07/22 14:34 Dose: 800 mg Hydroxyzine HCl (Hydroxyzine Hcl 25 Mg Tablet) 25 mg PO Q6H PRN PRN Reason: Anxiety Magnesium Hydroxide (Milk Of Magnesia 30 Ml Oral.Susp) 30 ml PO DAILY PRN PRN Reason: Constipation Last Admin: 03/05/22 22:00 Dose: 30 ml Miconazole Nitrate (Miconazole 2 % Extra Thick Cr 56.7 Gm Tube) 1 appl TOPICAL BID [facility]; Protocol Last Admin: 03/07/22 09:25 Dose: 1 appl Mirtazapine (Mirtazapine 7.5 Mg Tablet) 7.5 mg PO BEDTIME [facility] Last Admin: 03/06/22 22:05 Dose: 7.5 mg Nicotine Polacrilex (Nicotine Polacrilex 2 Mg Gum) 4 mg BUCCAL Q2H PRN PRN Reason: Nicotine Cravings Quetiapine Fumarate (Quetiapine Fumarate 50 Mg Tablet) 50 mg PO TID PRN PRN Reason: anxiety Last Admin: 03/05/22 16:11 Dose: 50 mg Quetiapine Fumarate (Quetiapine Fumarate 200 Mg Tablet) 200 mg PO BEDTIME [facility] Last Admin: 03/06/22 22:05 Dose: 200 mg Quetiapine Fumarate (Quetiapine Fumarate 100 Mg Tablet) 100 mg PO BID@0800,1200 [facility] Last Admin: 03/07/22 12:42 Dose: 100 mg Venlafaxine HCl (Venlafaxine Hcl Er 150 Mg Cap.Er.24h) 150 mg PO DAILY [facility] Last Admin: 03/07/22 09:22 Dose: 150 mg Allergies Allergies Allergy/AdvReac Type Severity Reaction Status Date / Time trazodone Allergy Rash Verified 02/20/22 05:27 Assessment & Plan Assessment & Plan (1) Bipolar II disorder: Status: Acute Code(s): F31.81 - Bipolar II disorder (2) Opioid use disorder: Status: Acute Code(s): F11.90 - Opioid use, unspecified, uncomplicated (3) Chronic post-traumatic stress disorder (PTSD): Status: Chronic Code(s): F43.12 - Post-traumatic stress disorder, chronic (4) Cocaine use disorder: Status: Chronic Code(s): F14.10 - Cocaine abuse, uncomplicated (5) Alcohol use disorder, moderate, in early remission, dependence: Status: Chronic Code(s): F10.21 - Alcohol dependence, in remission (6) Right inguinal hernia: Status: Acute Code(s): K40.90 - Unilateral inguinal hernia, without obstruction or gangrene, not specified as recurrent Plan 46 yo male, bipolar disorder, PTSD, polysubstance use disorder-opiates, cocaine, alcohol presents s/p relapse, stopping medications and therapy with resulting marital conflict resulting in restraining order, inability to see his children, homelessness and an increase in depression with SI with several plans. Plan: Medications reviewed. Will allow current regime to re-establish as pt reports by history it has been helpful. Adjust as needed. ? Clonidine 0.1 mg hs trial for nightmares. ? Pt is interested in longer term addictions treatment programs ? Milieu therapy ? academic coach requested ? Surgical consult for hernia ? Hepatitis Panel/ HIV 02/24/22 Increase Wellbutrin XL to 300 mg a.m. Discontinue Clonidine-not helpful for pt sx. Risperdal 0.5 mg HS prn 02/27/22 Change Remeron to prn Discontinue Lexapro 03/03/22: Depakote 250 mg bid Miconazole cream for athletes foot If Depakote is tolerated, consider stopping Wellbutrin next week 03/04/22: No med changes 03/07/22 Discharge 03/08. Pt states he is prepared to go to the next step of recovery. I spent minutes with the patient and/or on the patient floor today, greater than?50% of which was spent counseling/coordinating care. Patient educated on: therapeutic strategies Informed Consent: understands Reason for contiued inpatient stay Substantial Risk for: stable for discharge
[2022-03-07 18:00] VITALS: BP 128/78; PULSE 99; RESP 16; TEMP 36.4; O2SAT 98
[2022-03-07] MEDS: Mirtazapine 7.5 MG TABLET PO (20:08)
[2022-03-07] MEDS: QUEtiapine Fumarate 200 MG TABLET PO (20:08)
[2022-03-08] MEDS: QUEtiapine Fumarate 100 MG TABLET PO ×2 (09:09→11:22)
[2022-03-08] MEDS: Divalproex Sodium 250 MG TABLET.DR PO (09:09)
[2022-03-08] MEDS: Gabapentin 400 MG CAPSULE 800 MG PO (09:09)
[2022-03-08] MEDS: buPROPion HCl XL 150 MG TAB.ER.24H PO (09:09)
[2022-03-08] MEDS: Miconazole 2 % Extra Thick Cr 56.7 Gm Tube 1 APPL TOPICAL (09:09)
[2022-03-08] MEDS: Venlafaxine HCl ER 150 MG CAP.ER.24H PO (09:09)
[2022-03-08 09:11] VITALS: BP 130/89; PULSE 89; RESP 20; TEMP 36.9; O2SAT 94
[2022-03-08] MEDS: Buprenorphine/Naloxone 8/2 mg FILM 1 FILM SUBLINGUAL (09:25)
--- NOTE | 2022-03-08 15:47 | P.DS_ITS ---
DS: Providers Provider Date of Service: 03/08/22 Date of admission: 02/22/22 09:32 Date of discharge: 03/08/22 Primary care physician: Kevin Physician Admitting clinician: Rena Morales Attending physician on admission: Sunday Toro Consults: 02/23/22 14:00 Addiction Medicine Routine Consulting Provider: Renetta Alva Reason for consultation: Pt would like a polo coach, thank you! Has provider been notified: No 02/23/22 18:11 Consult to General Surgery Routine Consulting Provider: Bob Cabello Reason for consultation: Pt reporting hernia with pain Has provider been notified: No Attending physician on discharge: Sunday Toro Discharging clinician: Rena Morales DS: Diagnosis Discharge Diagnosis (1) Bipolar II disorder: Status: Acute (2) Opioid use disorder: Status: Acute (3) Chronic post-traumatic stress disorder (PTSD): Status: Chronic (4) Cocaine use disorder: Status: Chronic (5) Alcohol use disorder, moderate, in early remission, dependence: Status: Chronic DS: Medications Discharge Medications Home Medications: Previous Rx's Medication Instructions Recorded buprenorphine 8 mg-naloxone 2 mg 1 strip sublingual TID 7 days #21 03/07/22 sublingual film (Suboxone) film bupropion HCl 150 mg 24 hr tablet, 1 tab PO DAILY #30 tabs 03/07/22 extended release divalproex 250 mg tablet,delayed 250 mg PO BID #60 tabs 03/07/22 release docosanol 10 % topical cream 1 appl topical 5XD PRN cold sore 03/07/22 (Abreva) #1 applicator gabapentin 800 mg tablet 1 tab PO TID #90 tabs 03/07/22 ibuprofen 600 mg tablet 1 tab PO TID PRN pain #90 tabs 03/07/22 miconazole nitrate 2 % topical 1 appl topical BID #1 applicator 03/07/22 cream (Inzo Antifungal) mirtazapine 7.5 mg tablet 7.5 mg PO BEDTIME #30 tabs 03/07/22 nicotine (polacrilex) 2 mg gum 4 mg buccal Q2H PRN Nicotine 03/07/22 Cravings #60 ea nicotine 7 mg/24 hr daily 1 patch topical DAILY #30 ea 03/07/22 transdermal patch quetiapine 100 mg tablet 100 mg PO BID@0800,1200 #60 tabs 03/07/22 quetiapine 200 mg tablet 200 mg PO BEDTIME #30 tabs 03/07/22 quetiapine 50 mg tablet 1 tab PO TID PRN anxiety #90 tabs 03/07/22 venlafaxine 150 mg 150 mg PO DAILY #30 caps 03/07/22 capsule,extended release 24 hr Mental Status Exam Mental Status Exam Patient Appearance: Appropriate Patient Orientation: Person, Place, Time and Situation Level of Consciousness: Alert Patient Behavior: Appropriate, Talkative, Cooperative and Good Eye Contact Mood Description: Apprehensive Affect Description: Apprehensive Patient Cognition Impaired: No Ability to Follow Directions: Good Speech Pattern: Spontaneous Speech Memory Description: Intact Hallucinations: None Delusions: Not Present Perceptual Disturbances: Depersonalization and Derealization Thought Process: Intact and Goal Oriented Thought Content: positive for Intact, positive for Goal Oriented and positive for Suicidal Ideation (denies) Depressive Symptoms: Increased Anxiety and Low Self Esteem Judgement: Good Data Data Completed and Pending Completed studies during hospitalization [Text1]: 03/07/22 11:30 COVID-19 ([facility]ILL) Negative COVID-19 Clin Com See Note DS: Summary Hospital Course Hospital Course: Admission to adult psychiatry for exacerbation of symptoms of bipolar disorder, PTSD, Opiate, Cocaine, and Alcohol Use Disorder. Lexapro was stopped. Depakote, Venlafaxine, Remeron were initiated. Seroquel, Gabapentin and Bupropion dosages were adjusted. Pt reported abdominal pain. Seen for surgical consult-pt has a hernia and will follow up in out patient for surgical scheduling. Time spent discussing smoking cessation with patient: 3 to 10 minutes Status at Discharge Functional status at discharge: independent ambulation Overall status at discharge: patient is progressing back to baseline Time Spent with Patient Time attestation: Total time spent providing and/or coordinating discharge services: 45 Time spent: Greater than 30 minutes Discharge Plan Discharge Patient Disposition: Xfer Inpatient Rehab Fac Discharge Diagnosis: Bipolar Disorder PTSD Opiate Use Disorder, Cocaine Use Disorder, Alcohol Use Disorder Referrals: Lily ([facility]) [Other] - 03/08/22 3:00 pm (You have been accepted to [facility] for continued substance use treatment) Suboxone: [facility] [Other] - 03/14/22 11:00 am (This appointment is in- person. Please have your case management associate at [employer] contact [place] if you are unable to attend the appointment in-person. Please bring your photo ID to the appointment and arrive @ 10:30AM to complete new patient paperwork prior to your appointment) Rocio Monroy NP [Nurse Practitioner] - ( office will call you directly to schedule appointment. ) Discharge Medications: New docosanol [Abreva] 10 % Cream 1 appl topical 5XD PRN (Reason: cold sore) Qty: 1 0RF divalproex 250 mg Tablet,Delayed Release (Dr/Ec) 250 mg PO BID Qty: 60 0RF miconazole nitrate [Inzo Antifungal] 2 % Cream 1 appl topical BID Qty: 1 0RF Protocol: Apply to: Apply to: feet nicotine (polacrilex) 2 mg Gum 4 mg buccal Q2H PRN (Reason: Nicotine Cravings) Qty: 60 0RF quetiapine 200 mg Tablet 200 mg PO BEDTIME Qty: 30 0RF venlafaxine 150 mg Capsule,Extended Release 24hr 150 mg PO DAILY Qty: 30 0RF quetiapine 100 mg Tablet 100 mg PO BID@0800,1200 Qty: 60 0RF mirtazapine 7.5 mg Tablet 7.5 mg PO BEDTIME Qty: 30 0RF Continued gabapentin 800 mg tablet 1 tab PO TID Qty: 90 0RF ibuprofen 600 mg tablet 1 tab PO TID PRN (Reason: pain) Qty: 90 0RF nicotine 7 mg/24 hr patch 24 hour 1 patch topical DAILY Qty: 30 0RF bupropion HCl 150 mg tablet extended release 24 hr 1 tab PO DAILY Qty: 30 0RF quetiapine 50 mg tablet 1 tab PO TID PRN (Reason: anxiety) Qty: 90 0RF buprenorphine-naloxone [Suboxone] 8-2 mg film 1 strip sublingual TID 7 Days Qty: 21 0RF Discontinued quetiapine 300 mg tablet 1 tab PO BEDTIME escitalopram oxalate 20 mg tablet 1 tab PO DAILY quetiapine 100 mg tablet 1 tab PO DAILY Discharge Orders: Discharge Order (Routine); Ordered 03/08/22 Ordered By: Rena Morales Diet: Advance to usual diet Activity on Discharge: As tolerated Stand Alone Forms: Patient Portal Discharge page, Community Support Care Plan Goals: Mood Stabilization Work on Sobriety Health Concerns: Bipolar Disorder PTSD Opiate, Cocaine, Alcohol Use Disorder Plan of Treatment: Attend scheduled appointments Take medications as directed Assessment: non psychotic, non suicidal Discharge Date/Time: 03/08/22 12:29
== END 2022-03-08 12:29 | DRG 753 ==
LOC: HO.ED 16:39 → HO.PM5 02-22 09:41
PROVIDERS: Emergency Medicine; Registered Nurse; Admitting Provider Psychiatry & Neurology Psychiatry; Emergency Provider Emergency Medicine Emergency Medical Services; Visit Provider Clinical Nurse Specialist Psychiatric/Mental Health, Adult
DX: F31.81 Bipolar II disorder (principal); R45.851 Suicidal ideations; K40.91 Unilateral inguinal hernia, without obstruction or gangrene, recurrent; F43.12 Post-traumatic stress disorder, chronic; F14.10 Cocaine abuse, uncomplicated; F10.20 Alcohol dependence, uncomplicated; F11.20 Opioid dependence, uncomplicated; F17.210 Nicotine dependence, cigarettes, uncomplicated; Z71.6 Tobacco abuse counseling; Z59.02 Unsheltered homelessness; Z20.822 Contact with and (suspected) exposure to COVID-19; Z88.8 Allergy status to other drugs, medicaments and biological substances; Z79.899 Other long term (current) drug therapy
CPT/HCPCS: 36415; 80053; 80307; 82077; 85025; 86704; 86706; 86709; 86803; 87340; 87389; 87635; 93005; 99285

== ENCOUNTER 2022-04-16 02:32 | Inpatient (IN) | payer OTHER, SELFPAY ==
[2022-04-16 02:45] VITALS: BP 139/92; PULSE 82; RESP 20; TEMP 36.7; O2SAT 97; BMI 25.1
--- NOTE | 2022-04-16 02:53 | ED_ITS ---
HPI - Psych General Chief Complaint: Psychiatric Symptoms Stated Complaint: SI Time Seen by Provider: 04/16/22 02:42 Source: patient and old records reviewed Mode of arrival: ambulatory Limitations: no limitations History of Present Illness HPI Narrative: 47 yo male with hx of substance abuse, bipolar, MDD here with c/o SI off of his medications for 1 week, using heroin x 2 days. MD complaint: suicidal ideation, feels depressed and substance abuse Onset (ago): week(s) (1) Duration: getting worse History of same: Yes Relieving factors: none Exacerbating factors: drug use Context: recent drug abuse and not taking psychiatric medications Associated psychiatric symptoms: depression and suicidal ideation Associated symptoms: denies other symptoms Treatments prior to arrival: none Related Data Previous Rx's Medication Instructions Recorded buprenorphine 8 mg-naloxone 2 mg 1 strip sublingual TID 7 days #21 03/07/22 sublingual film (Suboxone) film bupropion HCl 150 mg 24 hr tablet, 1 tab PO DAILY #30 tabs 03/07/22 extended release divalproex 250 mg tablet,delayed 250 mg PO BID #60 tabs 03/07/22 release docosanol 10 % topical cream 1 appl topical 5XD PRN cold sore 03/07/22 (Abreva) #1 applicator gabapentin 800 mg tablet 1 tab PO TID #90 tabs 03/07/22 ibuprofen 600 mg tablet 1 tab PO TID PRN pain #90 tabs 03/07/22 miconazole nitrate 2 % topical 1 appl topical BID #1 applicator 03/07/22 cream (Inzo Antifungal) mirtazapine 7.5 mg tablet 7.5 mg PO BEDTIME #30 tabs 03/07/22 nicotine (polacrilex) 2 mg gum 4 mg buccal Q2H PRN Nicotine 03/07/22 Cravings #60 ea nicotine 7 mg/24 hr daily 1 patch topical DAILY #30 ea 03/07/22 transdermal patch quetiapine 100 mg tablet 100 mg PO BID@0800,1200 #60 tabs 03/07/22 quetiapine 200 mg tablet 200 mg PO BEDTIME #30 tabs 03/07/22 quetiapine 50 mg tablet 1 tab PO TID PRN anxiety #90 tabs 03/07/22 venlafaxine 150 mg 150 mg PO DAILY #30 caps 03/07/22 capsule,extended release 24 hr Allergies Allergy/AdvReac Type Severity Reaction Status Date / Time trazodone Allergy Rash Verified 04/16/22 02:45 Review of Systems Review of Systems: Constitutional : No Fever, No Chills ENT/Mouth : No Ear Pain, No Nasal Congestion, No sore throat Eyes: No Eye Pain, No Swelling, No Redness Cardiovascular : No Chest Pain, No SOB Respiratory : No Cough, No Sputum, No Dyspnea Gastrointestinal : No Nausea, No Vomiting, No Diarrhea, No Hematochezia, No Melena Genitourinary : No Dysuria, No Urinary Frequency, No Hematuria Musculoskeletal : No Myalgias Skin : No Skin Lesions, No rash Neuro : No Weakness, No Numbness, No Paresthesias, No Dizziness, No Headache Psych : positive Anxiety, positive Depression, positive SI no HI Heme/Lymph: No Lymphadenopathy Endocrine : No Polyuria, No Polydipsia All other systems reviewed and are negative [facility] Past Medical History Attestation statement: The following information was validated with the patient. Medical History Alcohol use disorder, moderate, in early remission, dependence Bipolar 1 disorder Chronic post-traumatic stress disorder (PTSD) Cocaine use disorder Depression MDD (major depressive disorder), recurrent severe, without psychosis Opioid abuse Opioid dependence on agonist therapy PTSD (post-traumatic stress disorder) Right inguinal hernia Surgical History S/P hernia surgery Social History Social History Household Members: Family Housing: Apartment Do you presently have visiting nurse or other home services: No Unable to assess alcohol history related to: Unknown Alcohol intake: current Alcohol intake frequency: 0-2 drinks per day Alcohol type: beer Patient Tobacco Use Status: Current everyday Tobacco user Tobacco use type: Cigarette Cigarette Packs Per Day: 0.5 Cigarettes Per Day: 5 Years Smoked: 27 e-Cigarette/Vaping Use: Never Used Second Hand Smoke Exposure: Yes Substance Use Type: Crack/Cocaine, Marijuana and Opiates Advance Directives: No service: No Sexual orientation: Straight/Heterosexual Physical Exam Vital Signs: Vital Signs: Last Vital Signs Temp 98.1 F 04/16/22 02:45 Pulse 82 04/16/22 02:45 Resp 20 04/16/22 02:45 BP 139/92 H 04/16/22 02:45 Pulse Ox 97 04/16/22 02:45 O2 Del Method 04/16/22 02:45 BMI result Body Mass Index 25.1 Appearance: Alert. Oriented X3. No acute distress. Eyes: Pupils equal, round and reactive to light. ENT: Pharynx normal. Neck: Normal inspection. Neck supple. CVS: Normal heart rate and rhythm. Pulses normal. Respiratory: No respiratory distress. Breath sounds normal. Abdomen: Soft and non-tender. Skin: Skin warm and dry. Normal skin color. Normal skin turgor. Extremities: No lower extremity edema. No calf ttp Neuro: Oriented X 3. No motor deficit. No sensory deficit. CN2-12 intact Course Course Course Narrative: Physician observation started at 306am. Patient placed in physician observation because the patient needed more time for BHN to assess the need for psych admission. At the time observation was started the patient's vitals were stable, patient is alert and oriented, Neuro: nonfocal, CV RRR, Lungs clear MDM - Psych MDM Narrative Medical decision making narrative: 47 yo male with hx of substance abuse, bipolar, MDD here with SI and off of his medications - at this time labs and BHN consult ordered. Dispo per results and findings. Lab Data Result diagrams: 04/16/22 02:48 04/16/22 02:48 Labs: Lab Results 04/16/22 04/16/22 04/16/22 Range/Units 02:48 02:48 02:48 WBC 10.7 (4.8-10.8) X10*3/uL RBC 4.34 L (4.60-5.80) X10*6/uL Hgb 13.5 L (14.0-18.0) g/dl Hct 40.3 L (42.0-52.0) % MCV 92.9 (80.0-98.0) fL MCH 31.1 (27.0-33.0) pg MCHC 33.5 (31.0-36.0) g/dl RDW 12.8 (11.0-16.0) % Plt Count 197 (160-400) X10*3/uL MPV 9.3 L (9.4-12.4) fL Immature Gran % (Auto) 0.2 (0.0-0.4) % Neut % (Auto) 66.9 (45-73) % Lymph % (Auto) 23.7 (20-40) % [place] % (Auto) 8.1 (2-11) % Eos % (Auto) 0.7 (0-4) % Baso % (Auto) 0.4 (0-2) % Lymph # (Auto) 2.6 (1.2-4.9) X10*3/uL [place] # (Auto) 0.9 (0.1-1.2) X10*3/uL Eos # (Auto) 0.1 (0.0-0.4) X10*3/uL Baso # (Auto) 0.0 (0.0-0.2) X10*3/uL Abs Immat Gran (auto) 0.02 (0.00-0.03) X10*3/uL Absolute Neuts (auto) 7.2 (2.0-8.3) x10*3/uL Absolute Nucleated RBC 0.000 (0.0-0.012) X10*3/uL Nucleated RBC % (auto) 0.0 (0.0-0.2) /100WBC Sodium 141 (135-145) mmol/L Potassium 3.8 (3.3-5.1) mmol/L Chloride 104 (96-108) mmol/L Carbon Dioxide 27 (22-29) mmol/L Anion Gap 14 (12-20) BUN 12 (9-16) mg/dL Creatinine 0.88 (0.5-1.4) mg/dL Estim Creat Clear Calc 108.3 Estimated GFR > 60 Random Glucose 87 (60-115) mg/dL Calcium 8.7 (8.4-10.2) mg/dL Magnesium 1.9 (1.6-2.6) mg/dL Total Bilirubin 0.4 (0.0-1.0) mg/dL Direct Bilirubin 0.2 (0.0-0.5) mg/dL AST 38 H D (5-37) U/L ALT 37 (0-40) U/L Alkaline Phosphatase 67 (39-117) U/L Total Protein 7.3 (6.5-8.0) g/dL Albumin 4.2 (3.5-5.0) g/dL Urine Opiates Screen (Not Detect) Urine Fentanyl Screen (Not Detect) Ur Barbiturates Screen (Not Detect) Ur Phencyclidine Scrn (Not Detect) Ur Amphetamines Screen (Not Detect) U Benzodiazepines Scrn (Not Detect) Urine Cocaine Screen (Not Detect) U Marijuana (THC) Screen (Not Detect) Ethyl Alcohol < 10 mg/dL COVID-19 (WILL) Negative (Negative) COVID-19 Clin Com See Note 04/16/22 Range/Units 03:19 WBC (4.8-10.8) X10*3/uL RBC (4.60-5.80) X10*6/uL Hgb (14.0-18.0) g/dl Hct (42.0-52.0) % MCV (80.0-98.0) fL MCH (27.0-33.0) pg MCHC (31.0-36.0) g/dl RDW (11.0-16.0) % Plt Count (160-400) X10*3/uL MPV (9.4-12.4) fL Immature Gran % (Auto) (0.0-0.4) % Neut % (Auto) (45-73) % Lymph % (Auto) (20-40) % [place] % (Auto) (2-11) % Eos % (Auto) (0-4) % Baso % (Auto) (0-2) % Lymph # (Auto) (1.2-4.9) X10*3/uL [place] # (Auto) (0.1-1.2) X10*3/uL Eos # (Auto) (0.0-0.4) X10*3/uL Baso # (Auto) (0.0-0.2) X10*3/uL Abs Immat Gran (auto) (0.00-0.03) X10*3/uL Absolute Neuts (auto) (2.0-8.3) x10*3/uL Absolute Nucleated RBC (0.0-0.012) X10*3/uL Nucleated RBC % (auto) (0.0-0.2) /100WBC Sodium (135-145) mmol/L Potassium (3.3-5.1) mmol/L Chloride (96-108) mmol/L Carbon Dioxide (22-29) mmol/L Anion Gap (12-20) BUN (9-16) mg/dL Creatinine (0.5-1.4) mg/dL Estim Creat Clear Calc Estimated GFR Random Glucose (60-115) mg/dL Calcium (8.4-10.2) mg/dL Magnesium (1.6-2.6) mg/dL Total Bilirubin (0.0-1.0) mg/dL Direct Bilirubin (0.0-0.5) mg/dL AST (5-37) U/L ALT (0-40) U/L Alkaline Phosphatase (39-117) U/L Total Protein (6.5-8.0) g/dL Albumin (3.5-5.0) g/dL Urine Opiates Screen Not Detected (Not Detect) Urine Fentanyl Screen POSITIVE H (Not Detect) Ur Barbiturates Screen Not Detected (Not Detect) Ur Phencyclidine Scrn POSITIVE H (Not Detect) Ur Amphetamines Screen Not Detected (Not Detect) U Benzodiazepines Scrn POSITIVE H (Not Detect) Urine Cocaine Screen POSITIVE H (Not Detect) U Marijuana (THC) Screen POSITIVE H (Not Detect) Ethyl Alcohol mg/dL COVID-19 (WILL) (Negative) COVID-19 Clin Com Discharge Plan Discharge Clinical Impression: Opioid use disorder, Suicidal ideation Patient Disposition: Still a Patient Prescriptions: No Action docosanol [Abreva] 10 % Cream 1 appl topical 5XD PRN (Reason: cold sore) Qty: 1 0RF divalproex 250 mg Tablet,Delayed Release (Dr/Ec) 250 mg PO BID Qty: 60 0RF miconazole nitrate [Inzo Antifungal] 2 % Cream 1 appl topical BID Qty: 1 0RF Protocol: Apply to: Apply to: feet nicotine (polacrilex) 2 mg Gum 4 mg buccal Q2H PRN (Reason: Nicotine Cravings) Qty: 60 0RF quetiapine 200 mg Tablet 200 mg PO BEDTIME Qty: 30 0RF venlafaxine 150 mg Capsule,Extended Release 24hr 150 mg PO DAILY Qty: 30 0RF quetiapine 100 mg Tablet 100 mg PO BID@0800,1200 Qty: 60 0RF mirtazapine 7.5 mg Tablet 7.5 mg PO BEDTIME Qty: 30 0RF gabapentin 800 mg tablet 1 tab PO TID Qty: 90 0RF ibuprofen 600 mg tablet 1 tab PO TID PRN (Reason: pain) Qty: 90 0RF nicotine 7 mg/24 hr patch 24 hour 1 patch topical DAILY Qty: 30 0RF bupropion HCl 150 mg tablet extended release 24 hr 1 tab PO DAILY Qty: 30 0RF quetiapine 50 mg tablet 1 tab PO TID PRN (Reason: anxiety) Qty: 90 0RF buprenorphine-naloxone [Suboxone] 8-2 mg film 1 strip sublingual TID 7 Days Qty: 21 0RF
[2022-04-16 02:54] LABS: MANUAL DIFF FLAG NO
[2022-04-16 02:55] LABS: Basophils Percent Auto 0.4 % (0-2); Eosinophils Absolute Auto 0.1 X10*3/uL (0.0-0.4); Eosinophils Percent Auto 0.7 % (0-4); Hematocrit 40.3 % (42.0-52.0); Hemoglobin 13.5 g/dl (14.0-18.0); Imm Gran Abs Auto 0.02 X10*3/uL (0.00-0.03); Imm Gran Pct Auto 0.2 % (0.0-0.4); Lymphocytes Absolute Auto 2.6 X10*3/uL (1.2-4.9); Lymphocytes Percent Auto 23.7 % (20-40); Mean Corpuscular HGB Conc 33.5 g/dl (31.0-36.0); Mean Corpuscular Hemoglobin 31.1 pg (27.0-33.0); Mean Corpuscular Volume 92.9 fL (80.0-98.0); Mean Platelet Volume 9.3 fL (9.4-12.4); Monocytes Absolute Auto 0.9 X10*3/uL (0.1-1.2); Monocytes Percent Auto 8.1 % (2-11); Neutrophils Absolute Auto 7.2 x10*3/uL (2.0-8.3); Neutrophils Percent Auto 66.9 % (45-73); Platelet Count 197 X10*3/uL (160-400); Red Blood Count 4.34 X10*6/uL (4.60-5.80); Red Cell Distribution Width 12.8 % (11.0-16.0); White Blood Count 10.7 X10*3/uL (4.8-10.8)
[2022-04-16 03:13] LABS: Alanine Aminotransferase 37 U/L (0-40); Albumin Level 4.2 g/dL (3.5-5.0); Alkaline Phosphatase 67 U/L (39-117); Anion Gap 14 (12-20); Aspartate Amino Transferase 38 U/L (5-37); Bilirubin Direct 0.2 mg/dL (0.0-0.5); Bilirubin Total 0.4 mg/dL (0.0-1.0); Blood Urea Nitrogen 12 mg/dL (9-16); Calcium 8.7 mg/dL (8.4-10.2); Carbon Dioxide 27 mmol/L (22-29); Chloride 104 mmol/L (96-108); Creatinine Clr Calc Pharmacy 108.3; Estimated Glomerular Filt Rate > 60; Ethanol < 10 mg/dL; Glucose Random 87 mg/dL (60-115); Magnesium 1.9 mg/dL (1.6-2.6); Potassium 3.8 mmol/L (3.3-5.1); Sodium 141 mmol/L (135-145); Total Protein 7.3 g/dL (6.5-8.0)
[2022-04-16 03:18] LABS: COVID-19 Test Negative (Negative)
[2022-04-16 03:39] LABS: Amphetamine Screen Urine Not Detected (Not Detect); Barbiturates, Urine Not Detected (Not Detect); Benzodiazepines Screen Urine POSITIVE (Not Detect); Cannabinoid Screen Urine POSITIVE (Not Detect); Cocaine Screen Urine POSITIVE (Not Detect); Fentanyl, urine POSITIVE (Not Detect); Opiate Screen Urine Not Detected (Not Detect); Phencyclidine Screen Urine POSITIVE (Not Detect)
[2022-04-16 06:19] VITALS: BP 120/69; PULSE 64; RESP 16; O2SAT 95
--- NOTE | 2022-04-16 07:18 | MHC.CARE ---
[employer]elaide Smart sheet submitted
[2022-04-16] MEDS: Buprenorphine/Naloxone 8/2 mg FILM 1 FILM SUBLINGUAL (16:25)
--- NOTE | 2022-04-16 17:41 | MHC.RECOVSUP ---
Recovery Support note: Patient is a 47 year old [place] speaking male who presented to [facility] due to being off his medications and having SI. RN informed this scientific writer that patient is requesting Suboxone. Patient reports he last used yesterday (04/15) in the morning. Patient reports he continues to take his Suboxone during his periods of use. Patient reports he takes 8mg TID with each meal. Discussed with ED physician. Plan for patient to get 8mg and for a medication reconciliation to be completed. Discussed with RN. Patient reported improvement in withdrawal symptoms and appeared to be resting comfortably after getting the Suboxone.
[2022-04-16] MEDS: Gabapentin 400 MG CAPSULE 800 MG PO (20:22)
[2022-04-16] MEDS: QUEtiapine Fumarate 200 MG TABLET PO (20:22)
[2022-04-16] MEDS: Divalproex Sodium 250 MG TABLET.DR PO (20:22)
[2022-04-16] MEDS: buPROPion HCl XL 150 MG TAB.ER.24H PO (20:22)
[2022-04-16] MEDS: Mirtazapine 7.5 MG TABLET PO (20:22)
[2022-04-16] MEDS: Venlafaxine HCl ER 150 MG CAP.ER.24H PO (20:22)
--- NOTE | 2022-04-17 05:54 | PC.NURSE ---
Patient slept through the night, no distress observed/reported, behavior appropriate but can be unpredictable, medication compliant, refused his HS Suboxone, disposition per [facility] is section 12 inpatient bed search, patient has ankle monitor which requires constant recharging, patient is closely observed for safety, VSS, will continue to monitor.
[2022-04-17 06:35] VITALS: RESP 17
--- NOTE | 2022-04-17 09:02 | PC.NURSE ---
PT CONTINUES SLEEPING
--- NOTE | 2022-04-17 09:37 | ECG_ITS ---
Test Reason : med clearance Blood Pressure : / mmHG Vent. Rate : 064 BPM Atrial Rate : 064 BPM P-R Int : 100 ms QRS Dur : 082 ms QT Int : 398 ms P-R-T Axes : 015 063 066 degrees QTc Int : 410 ms Sinus rhythm with short MS Otherwise normal ECG When compared with ECG of 21-FEB-2022 17:51, Heart rate has increased Referred By: Adrien Ansari Electronically Signed By:ALEJANDRA MOODY
[2022-04-17] MEDS: Venlafaxine HCl ER 150 MG CAP.ER.24H PO (09:49)
[2022-04-17] MEDS: Buprenorphine/Naloxone 8/2 mg FILM 1 FILM SUBLINGUAL ×3 (09:49→20:50)
[2022-04-17] MEDS: QUEtiapine Fumarate 100 MG TABLET PO ×2 (09:49→14:09)
[2022-04-17] MEDS: Divalproex Sodium 250 MG TABLET.DR PO ×2 (09:49→20:49)
[2022-04-17] MEDS: Gabapentin 400 MG CAPSULE 800 MG PO ×3 (09:49→20:49)
[2022-04-17] MEDS: buPROPion HCl XL 150 MG TAB.ER.24H PO (10:21)
--- NOTE | 2022-04-17 10:30 | PC.NURSE ---
PT WAS MEDICATED CHARTED, HE IS AGREEABLE TO ADMISSION TO [facility]. AWAITING TRANSFER
[2022-04-17 10:41] LABS: COVID-19 Test Negative (Negative)
--- NOTE | 2022-04-17 17:32 | PC.NURSE ---
Pt refused nicotine replacement at this time
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
[2022-04-17 18:00] VITALS: BP 114/72; PULSE 82; RESP 16; TEMP 36.3; O2SAT 96
[2022-04-17 20:43] VITALS: BP 137/85; PULSE 98; RESP 16; TEMP 36.6; O2SAT 97
[2022-04-17] MEDS: QUEtiapine Fumarate 200 MG TABLET PO (20:49)
[2022-04-17] MEDS: Mirtazapine 7.5 MG TABLET PO (20:49)
[2022-04-17] MEDS: Miconazole 2 % Extra Thick Cr 56.7 Gm Tube 1 APPL TOPICAL (21:46)
[2022-04-18 09:55] VITALS: BP 124/73; PULSE 76; RESP 16; TEMP 36.1; O2SAT 97
[2022-04-18] MEDS: Gabapentin 400 MG CAPSULE 800 MG PO ×3 (10:00→21:13)
[2022-04-18] MEDS: Buprenorphine/Naloxone 8/2 mg FILM 1 FILM SUBLINGUAL ×3 (10:00→21:13)
[2022-04-18] MEDS: Divalproex Sodium 250 MG TABLET.DR PO ×2 (10:01→21:13)
[2022-04-18] MEDS: buPROPion HCl XL 150 MG TAB.ER.24H PO (10:01)
[2022-04-18] MEDS: QUEtiapine Fumarate 100 MG TABLET PO ×2 (10:01→13:41)
[2022-04-18] MEDS: Venlafaxine HCl ER 150 MG CAP.ER.24H PO (10:02)
[2022-04-18] MEDS: QUEtiapine Fumarate 50 MG TABLET PO (11:34)
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
[2022-04-18 18:00] VITALS: BP 142/75; PULSE 82; RESP 16; TEMP 36.7; O2SAT 98
[2022-04-18] MEDS: QUEtiapine Fumarate 200 MG TABLET PO (21:13)
[2022-04-18] MEDS: Mirtazapine 7.5 MG TABLET PO (21:13)
[2022-04-19 09:28] VITALS: BP 114/63; PULSE 68; TEMP 36.3; O2SAT 98
[2022-04-19] MEDS: Divalproex Sodium 250 MG TABLET.DR PO ×2 (09:35→20:25)
[2022-04-19] MEDS: Gabapentin 400 MG CAPSULE 800 MG PO ×3 (09:35→20:26)
[2022-04-19] MEDS: buPROPion HCl XL 150 MG TAB.ER.24H PO (09:35)
[2022-04-19] MEDS: Venlafaxine HCl ER 150 MG CAP.ER.24H PO (09:35)
[2022-04-19] MEDS: QUEtiapine Fumarate 100 MG TABLET PO ×2 (09:35→13:22)
[2022-04-19] MEDS: Buprenorphine/Naloxone 8/2 mg FILM 1 FILM SUBLINGUAL ×3 (09:35→20:26)
--- NOTE | 2022-04-19 15:21 | HO.PSYCHPN ---
Subjective Subjective Date of Service: 04/19/22 Reason For Visit: SI Interim History: calm, cooperative. has had a boost today after having convinced his to drop the restraining order against him so he can see his son and daughter. feels things are going well here, no complaints or requests, getting along with peers. states he is attending groups. will continue to work on CSS options with SW. per staff, increased depression. says his smile doesn't mean he's happy. no SI/HI currently. calm, quiet. wants CSS. Mental Status Exam Mental Status Exam Narrative: A&O. adequately groomed, casual attire, thin frame, good eye contact, attentive. No Tics or Tremors. No abnormal involuntary movements. Calm, voluble. Non-pressured speech, somewhat rapid, normal loudness, but increased in amount. No prolonged speech latency or dysarthria. affect full range, normo-intense. no SI/HI/AVH expressed. Thoughts are wandering, over-inclusive of detail, circumstantial. No known cognitive or memory impairment. Insight/ Judgment impaired. Diagnostics Vital Signs (24Hr): Vital Signs - 24 hr 04/18/22 18:00 04/19/22 09:28 Temperature 98.1 F 97.4 F Pulse Rate 82 68 Respiratory Rate 16 Blood Pressure 142/75 H 114/63 Pulse Oximetry 98 98 Oxygen Delivery Method Room Air Room Air BMI result Body Mass Index 25.1 Labs Results: 04/16/22 02:48 04/16/22 02:48 Medications Medications Current Medications Acetaminophen (Acetaminophen 325 Mg Tablet) 650 mg PO Q6H PRN PRN Reason: Headache/Pain Mild Scale (1-3) Al Hydroxide/Mg Hydroxide (Magnesium Hydrox/Alum Hydrox 30 Ml Oral.Susp) 30 ml PO Q6H PRN PRN Reason: Heartburn/Nausea Buprenorphine/Naloxone (Buprenorphine/Naloxone 8/2 Mg Film) 1 film SUBLINGUAL TID [facility] Last Admin: 04/19/22 15:17 Dose: 1 film Bupropion HCl (Bupropion Hcl Xl 150 Mg Tab.Er.24h) 150 mg PO DAILY [facility] Last Admin: 04/19/22 09:35 Dose: 150 mg Divalproex Sodium (Divalproex Sodium 250 Mg Tablet.) 250 mg PO BID [facility] Last Admin: 04/19/22 09:35 Dose: 250 mg Docosanol (Docosanol 10 % Cream 2 Gm Tube) 1 appl TOPICAL 5XD PRN; Protocol PRN Reason: cold sore Gabapentin (Gabapentin 400 Mg Capsule) 800 mg PO TID [facility] Last Admin: 04/19/22 15:17 Dose: 800 mg Ibuprofen (Ibuprofen 600 Mg Tablet) 600 mg PO TID PRN PRN Reason: Pain, Moderate (Pain Scale 4-6 Magnesium Hydroxide (Milk Of Magnesia 30 Ml Oral.Susp) 30 ml PO DAILY PRN PRN Reason: Constipation Miconazole Nitrate (Miconazole 2 % Extra Thick Cr 56.7 Gm Tube) 1 appl TOPICAL BID [facility]; Protocol Last Admin: 04/19/22 09:38 Dose: Not Given Mirtazapine (Mirtazapine 7.5 Mg Tablet) 7.5 mg PO BEDTIME [facility] Last Admin: 04/18/22 21:13 Dose: 7.5 mg Nicotine (Nicotine 7 Mg Patch.Td24) 7 mg TRANSDERMA DAILY [facility] Last Admin: 04/19/22 09:38 Dose: Not Given Nicotine Polacrilex (Nicotine Polacrilex 2 Mg Gum) 4 mg BUCCAL Q2H PRN PRN Reason: Nicotine Cravings Quetiapine Fumarate (Quetiapine Fumarate 50 Mg Tablet) 50 mg PO TID PRN PRN Reason: anxiety Last Admin: 04/18/22 11:34 Dose: 50 mg Quetiapine Fumarate (Quetiapine Fumarate 100 Mg Tablet) 100 mg PO BID@0800,1200 [facility] Last Admin: 04/19/22 13:22 Dose: 100 mg Quetiapine Fumarate (Quetiapine Fumarate 200 Mg Tablet) 200 mg PO BEDTIME [facility] Last Admin: 04/18/22 21:13 Dose: 200 mg Venlafaxine HCl (Venlafaxine Hcl Er 150 Mg Cap.Er.24h) 150 mg PO DAILY [facility] Last Admin: 04/19/22 09:35 Dose: 150 mg Allergies Allergies Allergy/AdvReac Type Severity Reaction Status Date / Time trazodone Allergy Rash Verified 04/16/22 02:45 Assessment & Plan Assessment & Plan (1) Chronic post-traumatic stress disorder (PTSD): Status: Chronic Code(s): F43.12 - Post-traumatic stress disorder, chronic (2) Opioid use disorder: Status: Acute Code(s): F11.90 - Opioid use, unspecified, uncomplicated (3) Cocaine use disorder: Status: Chronic Code(s): F14.10 - Cocaine abuse, uncomplicated (4) Alcohol use disorder, moderate, in early remission, dependence: Status: Chronic Code(s): F10.21 - Alcohol dependence, in remission (5) PCP (phencyclidine) abuse: Status: Acute Code(s): F16.10 - Hallucinogen abuse, uncomplicated Plan restart prior meds regimen. refer to [facility]'. denies regular recent heavy use of any drug, so severe withdrawal is not of concern. 04/19: continue current mgmt. feeling better bcse he has convinced his wfe to drop the restraining order. working on getting into [facility] with SW. I spent __20____ minutes with the patient and/or on the patient floor today, greater than?50% of which was spent counseling/coordinating care. Reason for contiued inpatient stay Substantial Risk for: harm to self, inability to function and rapid decompensation
[2022-04-19 20:20] VITALS: BP 112/64; PULSE 95; RESP 18; TEMP 36.4; O2SAT 95
[2022-04-19] MEDS: Mirtazapine 7.5 MG TABLET PO (20:25)
[2022-04-19] MEDS: QUEtiapine Fumarate 200 MG TABLET PO (20:25)
[2022-04-19] MEDS: Miconazole 2 % Extra Thick Cr 56.7 Gm Tube 1 APPL TOPICAL (20:27)
[2022-04-20 07:00] VITALS: BMI 26.5
[2022-04-20] MEDS: Gabapentin 400 MG CAPSULE 800 MG PO ×3 (09:08→21:38)
[2022-04-20] MEDS: Divalproex Sodium 250 MG TABLET.DR PO ×2 (09:08→21:38)
[2022-04-20] MEDS: buPROPion HCl XL 150 MG TAB.ER.24H PO (09:08)
[2022-04-20] MEDS: Venlafaxine HCl ER 150 MG CAP.ER.24H PO (09:08)
[2022-04-20] MEDS: QUEtiapine Fumarate 100 MG TABLET PO ×2 (09:09→12:56)
[2022-04-20] MEDS: Buprenorphine/Naloxone 8/2 mg FILM 1 FILM SUBLINGUAL ×3 (09:10→21:38)
[2022-04-20 09:16] VITALS: BP 113/76; PULSE 84; TEMP 36.1; O2SAT 98
[2022-04-20] MEDS: QUEtiapine Fumarate 50 MG TABLET PO ×2 (13:44→21:38)
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
[2022-04-20 21:30] VITALS: BP 133/79; PULSE 101; RESP 18; TEMP 36.4; O2SAT 94
[2022-04-20] MEDS: QUEtiapine Fumarate 200 MG TABLET PO (21:38)
[2022-04-20] MEDS: Mirtazapine 7.5 MG TABLET PO (21:38)
[2022-04-21] MEDS: Gabapentin 400 MG CAPSULE 800 MG PO ×3 (08:29→21:04)
[2022-04-21] MEDS: Divalproex Sodium 250 MG TABLET.DR PO ×2 (08:29→21:04)
[2022-04-21] MEDS: QUEtiapine Fumarate 100 MG TABLET PO ×2 (08:29→13:40)
[2022-04-21] MEDS: Venlafaxine HCl ER 150 MG CAP.ER.24H PO (08:30)
[2022-04-21] MEDS: buPROPion HCl XL 150 MG TAB.ER.24H PO (08:30)
[2022-04-21] MEDS: Buprenorphine/Naloxone 8/2 mg FILM 1 FILM SUBLINGUAL ×3 (08:30→21:04)
[2022-04-21 09:00] VITALS: BP 126/76; PULSE 88; RESP 18; TEMP 36.8; O2SAT 98
[2022-04-21] MEDS: Amoxicillin 500 MG CAPSULE PO ×3 (11:01→21:04)
--- NOTE | 2022-04-21 15:51 | HO.PSYCHPN ---
Subjective Subjective Date of Service: 04/21/22 Reason For Visit: SI Interim History: calm, cooperative. states he is OK, but had a difficult day yesterday. he was ruminating on the challenges in his life at present, and it sounds like mostly at realizing the restraining order won't be lifted as soon or easily as he had hoped. c/o insomnia with nightmares, agrees to start clonidine 0.1 mg at HS with plan to titrate as indicated. per staff, not attending groups. pleasant. concerned about missing court. dep 9, anx 8 eves. appeared to have slept well. Mental Status Exam Mental Status Exam Narrative: A&O. adequately groomed, casual attire, thin frame, fair eye contact, attentive. No Tics or Tremors. No abnormal involuntary movements. Calm, voluble. Non-pressured speech, nml rate, normal loudness, but increased in amount. No prolonged speech latency or dysarthria. affect constricted, normo-intense. no SI/HI/AVH expressed. Thoughts are wandering, over-inclusive of detail, circumstantial. No known cognitive or memory impairment. Insight/ Judgment adequate. Diagnostics Vital Signs (24Hr): Vital Signs - 24 hr 04/20/22 21:30 Temperature 97.6 F Pulse Rate 101 H Respiratory Rate 18 Blood Pressure 133/79 Pulse Oximetry 94 Oxygen Delivery Method Room Air BMI result Body Mass Index 26.5 Labs Results: 04/16/22 02:48 04/16/22 02:48 Medications Medications Current Medications Acetaminophen (Acetaminophen 325 Mg Tablet) 650 mg PO Q6H PRN PRN Reason: Headache/Pain Mild Scale (1-3) Al Hydroxide/Mg Hydroxide (Magnesium Hydrox/Alum Hydrox 30 Ml Oral.Susp) 30 ml PO Q6H PRN PRN Reason: Heartburn/Nausea Amoxicillin (Amoxicillin 500 Mg Capsule) 500 mg PO TID [facility] Stop: 04/27/22 21:01 Last Admin: 04/21/22 15:14 Dose: 500 mg Buprenorphine/Naloxone (Buprenorphine/Naloxone 8/2 Mg Film) 1 film SUBLINGUAL TID [facility] Last Admin: 04/21/22 15:15 Dose: 1 film Bupropion HCl (Bupropion Hcl Xl 150 Mg Tab.Er.24h) 150 mg PO DAILY [facility] Last Admin: 04/21/22 08:30 Dose: 150 mg Clonidine HCl (Clonidine Hcl 0.1 Mg Tablet) 0.1 mg PO BEDTIME [facility]; Protocol Divalproex Sodium (Divalproex Sodium 250 Mg Tablet.Dr) 250 mg PO BID [facility] Last Admin: 04/21/22 08:29 Dose: 250 mg Docosanol (Docosanol 10 % Cream 2 Gm Tube) 1 appl TOPICAL 5XD PRN; Protocol PRN Reason: cold sore Gabapentin (Gabapentin 400 Mg Capsule) 800 mg PO TID [facility] Last Admin: 04/21/22 15:14 Dose: 800 mg Ibuprofen (Ibuprofen 600 Mg Tablet) 600 mg PO TID PRN PRN Reason: Pain, Moderate (Pain Scale 4-6 Magnesium Hydroxide (Milk Of Magnesia 30 Ml Oral.Susp) 30 ml PO DAILY PRN PRN Reason: Constipation Mirtazapine (Mirtazapine 7.5 Mg Tablet) 7.5 mg PO BEDTIME [facility] Last Admin: 04/20/22 21:38 Dose: 7.5 mg Nicotine (Nicotine 7 Mg Patch.Td24) 7 mg TRANSDERMA DAILY [facility] Last Admin: 04/21/22 10:55 Dose: Not Given Nicotine Polacrilex (Nicotine Polacrilex 2 Mg Gum) 4 mg BUCCAL Q2H PRN PRN Reason: Nicotine Cravings Quetiapine Fumarate (Quetiapine Fumarate 50 Mg Tablet) 50 mg PO TID PRN PRN Reason: anxiety Last Admin: 04/20/22 21:38 Dose: 50 mg Quetiapine Fumarate (Quetiapine Fumarate 100 Mg Tablet) 100 mg PO BID@0800,1200 [facility] Last Admin: 04/21/22 13:40 Dose: 100 mg Quetiapine Fumarate (Quetiapine Fumarate 200 Mg Tablet) 200 mg PO BEDTIME [facility] Last Admin: 04/20/22 21:38 Dose: 200 mg Venlafaxine HCl (Venlafaxine Hcl Er 150 Mg Cap.Er.24h) 150 mg PO DAILY [facility] Last Admin: 04/21/22 08:30 Dose: 150 mg Allergies Allergies Allergy/AdvReac Type Severity Reaction Status Date / Time trazodone Allergy Rash Verified 04/16/22 02:45 Assessment & Plan Assessment & Plan (1) Chronic post-traumatic stress disorder (PTSD): Status: Chronic Code(s): F43.12 - Post-traumatic stress disorder, chronic (2) Opioid use disorder: Status: Acute Code(s): F11.90 - Opioid use, unspecified, uncomplicated (3) Cocaine use disorder: Status: Chronic Code(s): F14.10 - Cocaine abuse, uncomplicated (4) Alcohol use disorder, moderate, in early remission, dependence: Status: Chronic Code(s): F10.21 - Alcohol dependence, in remission (5) PCP (phencyclidine) abuse: Status: Acute Code(s): F16.10 - Hallucinogen abuse, uncomplicated Plan restart prior meds regimen. refer to [facility]'. denies regular recent heavy use of any drug, so severe withdrawal is not of concern. 04/19: continue current mgmt. feeling better bcse he has convinced his wfe to drop the restraining order. working on getting into [facility] with SW. 04/20 continue current tx. 04/21: add clonidine 0.1 mg QHS for insomnia/nightmares. otherwise continue current mgmt. applying to [facility]'. I spent ___20___ minutes with the patient and/or on the patient floor today, greater than?50% of which was spent counseling/coordinating care. Reason for contiued inpatient stay Substantial Risk for: inability to function and rapid decompensation
[2022-04-21 18:00] VITALS: BP 126/76; PULSE 80; RESP 18; TEMP 36.7; O2SAT 96
[2022-04-21] MEDS: cloNIDine HCL 0.1 MG TABLET PO (21:04)
[2022-04-21] MEDS: QUEtiapine Fumarate 200 MG TABLET PO (21:05)
[2022-04-21] MEDS: Mirtazapine 7.5 MG TABLET PO (21:05)
--- NOTE | 2022-04-22 08:57 | P.PNPSI_ITS ---
Subjective Subjective Date of Service: 04/22/22 Reason For Visit: SI Subjective Notes: Conditional Voluntary Healthcare Proxy: No Guardianship: No Medical Problems Affecting Mental Status: No Interim History: Patient was seen and discussed in rounds today. He continues to have trouble sleeping. He did not go to sleep until 03:00. He denies side effects to the clonidine which was started and I will increase to 0.2 mg. He is being treated with an antibiotic for his tooth pain and problems. He continues to be anxious and preoccupied about his current situation and discharge plans. No SI. No auditory or visual hallucinations. No other changes were made Medication Compliance: Yes Side effects from medications: No Review of Systems Review of Systems Constitutional : No Fever, No Chills ENT/Mouth : No Ear Pain, No Nasal Congestion, No sore throat Eyes: No Eye Pain, No Swelling, No Redness Cardiovascular : No Chest Pain, No SOB Respiratory : No Cough, No Sputum, No Dyspnea Gastrointestinal : No Nausea, No Vomiting, No Diarrhea, No Hematochezia, No Melena Genitourinary : No Dysuria, No Urinary Frequency, No Hematuria Musculoskeletal : No Myalgias Skin : No Skin Lesions, No rash Neuro : No Weakness, No Numbness, No Paresthesias, No Dizziness, No Headache Psych : positive Anxiety, positive Depression, No SI no HI Heme/Lymph: No Lymphadenopathy Endocrine : No Polyuria, No Polydipsia All other systems reviewed and are negative Mental Status Exam Mental Status Exam Narrative: In today's visit he is alert, oriented and pleasant. Normal speech. Good eye contact. Affect is appropriate and subdued. No delusions. He denies any SI/HI. Cognitively intact. Judgment is intact Diagnostics Vital Signs (24Hr): Vital Signs - 24 hr 04/21/22 09:00 04/21/22 18:00 Temperature 98.3 F 98.0 F Pulse Rate 88 80 Respiratory Rate 18 18 Blood Pressure 126/76 126/76 Pulse Oximetry 98 96 Oxygen Delivery Method Room Air Room Air BMI result Body Mass Index 26.5 Labs Results: 04/16/22 02:48 04/16/22 02:48 Medications Medications Current Medications Acetaminophen (Acetaminophen 325 Mg Tablet) 650 mg PO Q6H PRN PRN Reason: Headache/Pain Mild Scale (1-3) Al Hydroxide/Mg Hydroxide (Magnesium Hydrox/Alum Hydrox 30 Ml Oral.Susp) 30 ml PO Q6H PRN PRN Reason: Heartburn/Nausea Amoxicillin (Amoxicillin 500 Mg Capsule) 500 mg PO TID [facility] Stop: 04/27/22 21:01 Last Admin: 04/21/22 21:04 Dose: 500 mg Buprenorphine/Naloxone (Buprenorphine/Naloxone 8/2 Mg Film) 1 film SUBLINGUAL TID [facility] Last Admin: 04/21/22 21:04 Dose: 1 film Bupropion HCl (Bupropion Hcl Xl 150 Mg Tab.Er.24h) 150 mg PO DAILY [facility] Last Admin: 04/21/22 08:30 Dose: 150 mg Clonidine HCl (Clonidine Hcl 0.1 Mg Tablet) 0.1 mg PO BEDTIME [facility]; Protocol Last Admin: 04/21/22 21:04 Dose: 0.1 mg Divalproex Sodium (Divalproex Sodium 250 Mg Tablet.Dr) 250 mg PO BID [facility] Last Admin: 04/21/22 21:04 Dose: 250 mg Docosanol (Docosanol 10 % Cream 2 Gm Tube) 1 appl TOPICAL 5XD PRN; Protocol PRN Reason: cold sore Gabapentin (Gabapentin 400 Mg Capsule) 800 mg PO TID [facility] Last Admin: 04/21/22 21:04 Dose: 800 mg Ibuprofen (Ibuprofen 600 Mg Tablet) 600 mg PO TID PRN PRN Reason: Pain, Moderate (Pain Scale 4-6 Magnesium Hydroxide (Milk Of Magnesia 30 Ml Oral.Susp) 30 ml PO DAILY PRN PRN Reason: Constipation Mirtazapine (Mirtazapine 7.5 Mg Tablet) 7.5 mg PO BEDTIME [facility] Last Admin: 04/21/22 21:05 Dose: 7.5 mg Nicotine (Nicotine 7 Mg Patch.Td24) 7 mg TRANSDERMA DAILY [facility] Last Admin: 04/21/22 10:55 Dose: Not Given Nicotine Polacrilex (Nicotine Polacrilex 2 Mg Gum) 4 mg BUCCAL Q2H PRN PRN Reason: Nicotine Cravings Quetiapine Fumarate (Quetiapine Fumarate 50 Mg Tablet) 50 mg PO TID PRN PRN Reason: anxiety Last Admin: 04/20/22 21:38 Dose: 50 mg Quetiapine Fumarate (Quetiapine Fumarate 100 Mg Tablet) 100 mg PO BID@0800,1200 [facility] Last Admin: 04/21/22 13:40 Dose: 100 mg Quetiapine Fumarate (Quetiapine Fumarate 200 Mg Tablet) 200 mg PO BEDTIME [facility] Last Admin: 04/21/22 21:05 Dose: 200 mg Venlafaxine HCl (Venlafaxine Hcl Er 150 Mg Cap.Er.24h) 150 mg PO DAILY [facility] Last Admin: 04/21/22 08:30 Dose: 150 mg Allergies Allergies Allergy/AdvReac Type Severity Reaction Status Date / Time trazodone Allergy Rash Verified 04/16/22 02:45 Assessment & Plan Assessment & Plan (1) Chronic post-traumatic stress disorder (PTSD): Status: Chronic Code(s): F43.12 - Post-traumatic stress disorder, chronic (2) Opioid use disorder: Status: Acute Code(s): F11.90 - Opioid use, unspecified, uncomplicated (3) Cocaine use disorder: Status: Chronic Code(s): F14.10 - Cocaine abuse, uncomplicated (4) Alcohol use disorder, moderate, in early remission, dependence: Status: Chronic Code(s): F10.21 - Alcohol dependence, in remission (5) PCP (phencyclidine) abuse: Status: Acute Code(s): F16.10 - Hallucinogen abuse, uncomplicated Plan restart prior meds regimen. refer to [facility]'. denies regular recent heavy use of any drug, so severe withdrawal is not of concern. 04/19: continue current mgmt. feeling better bcse he has convinced his wfe to drop the restraining order. working on getting into [facility] with SW. 04/20 continue current tx. 04/21: add clonidine 0.1 mg QHS for insomnia/nightmares. otherwise continue cur rent mgmt. applying to [facility]'. I spent minutes with the patient and/or on the patient floor today, greater than?50% of which was spent counseling/coordinating care. Reason for contiued inpatient stay Substantial Risk for: med/psych decompensation
--- NOTE | 2022-04-22 12:16 | PC.NURSE ---
Attempted to wake up patient at 0900, 1000 and 1200 for meds but pt remained asleep. Dr. Calderon authorized late administration of meds and to hold afternoon dose of gabapentin
[2022-04-22 13:00] VITALS: BP 128/86; PULSE 82; RESP 16; TEMP 36.4; O2SAT 98
[2022-04-22] MEDS: Gabapentin 400 MG CAPSULE 800 MG PO ×2 (13:07→21:29)
[2022-04-22] MEDS: buPROPion HCl XL 150 MG TAB.ER.24H PO (13:07)
[2022-04-22] MEDS: Buprenorphine/Naloxone 8/2 mg FILM 1 FILM SUBLINGUAL ×3 (13:08→21:30)
[2022-04-22] MEDS: Amoxicillin 500 MG CAPSULE PO ×3 (13:08→21:30)
[2022-04-22] MEDS: Divalproex Sodium 250 MG TABLET.DR PO ×2 (13:08→21:29)
[2022-04-22] MEDS: Venlafaxine HCl ER 150 MG CAP.ER.24H PO (13:08)
[2022-04-22] MEDS: QUEtiapine Fumarate 100 MG TABLET PO ×2 (13:08→13:09)
[2022-04-22 21:15] VITALS: BP 134/80; PULSE 93; RESP 16; TEMP 36.7; O2SAT 96
[2022-04-22] MEDS: cloNIDine HCL 0.2 MG TABLET PO (21:29)
[2022-04-22] MEDS: Mirtazapine 7.5 MG TABLET PO (21:29)
[2022-04-22] MEDS: QUEtiapine Fumarate 200 MG TABLET PO (21:30)
[2022-04-22] MEDS: QUEtiapine Fumarate 50 MG TABLET PO (23:12)
[2022-04-23] MEDS: Gabapentin 400 MG CAPSULE 800 MG PO ×3 (09:46→22:20)
[2022-04-23] MEDS: Buprenorphine/Naloxone 8/2 mg FILM 1 FILM SUBLINGUAL ×3 (09:46→22:22)
[2022-04-23] MEDS: buPROPion HCl XL 150 MG TAB.ER.24H PO (09:46)
[2022-04-23] MEDS: Amoxicillin 500 MG CAPSULE PO ×3 (09:46→22:20)
[2022-04-23] MEDS: QUEtiapine Fumarate 100 MG TABLET PO ×2 (09:47→11:50)
[2022-04-23] MEDS: Divalproex Sodium 250 MG TABLET.DR PO ×2 (09:47→22:19)
[2022-04-23] MEDS: Venlafaxine HCl ER 150 MG CAP.ER.24H PO (09:48)
[2022-04-23 09:49] VITALS: BP 123/72; PULSE 93; RESP 17; TEMP 36.7; O2SAT 96
--- NOTE | 2022-04-23 10:09 | HO.PSYCHPN ---
Subjective Subjective Date of Service: 04/22/22 Reason For Visit: SI Subjective Notes: Conditional Voluntary Healthcare Proxy: No Guardianship: No Medical Problems Affecting Mental Status: No Interim History: Patient was seen and discussed in rounds today. He continues to have trouble sleeping. He continues to be anxious and preoccupied with his current situation and stressors. He states that he is not able to sleep. I reviewed his medications and increase the Seroquel to 250 mg at night. We discussed other options but he states that he is allergic to trazodone. No SI. No auditory or visual hallucinations Medication Compliance: Yes Side effects from medications: No Review of Systems Review of Systems Constitutional : No Fever, No Chills ENT/Mouth : No Ear Pain, No Nasal Congestion, No sore throat Eyes: No Eye Pain, No Swelling, No Redness Cardiovascular : No Chest Pain, No SOB Respiratory : No Cough, No Sputum, No Dyspnea Gastrointestinal : No Nausea, No Vomiting, No Diarrhea, No Hematochezia, No Melena Genitourinary : No Dysuria, No Urinary Frequency, No Hematuria Musculoskeletal : No Myalgias Skin : No Skin Lesions, No rash Neuro : No Weakness, No Numbness, No Paresthesias, No Dizziness, No Headache Psych : positive Anxiety, positive Depression, No SI no HI Heme/Lymph: No Lymphadenopathy Endocrine : No Polyuria, No Polydipsia All other systems reviewed and are negative Diagnostics Vital Signs (24Hr): Vital Signs - 24 hr 04/22/22 13:00 04/22/22 21:15 04/23/22 09:49 Temperature 97.6 F 98.1 F 98.1 F Pulse Rate 82 93 93 Respiratory Rate 16 16 17 Blood Pressure 128/86 134/80 123/72 Pulse Oximetry 98 96 96 Oxygen Delivery Method Room Air Room Air Room Air BMI result Body Mass Index 26.5 Labs Results: 04/16/22 02:48 04/16/22 02:48 Medications Medications Current Medications Acetaminophen (Acetaminophen 325 Mg Tablet) 650 mg PO Q6H PRN PRN Reason: Headache/Pain Mild Scale (1-3) Al Hydroxide/Mg Hydroxide (Magnesium Hydrox/Alum Hydrox 30 Ml Oral.Susp) 30 ml PO Q6H PRN PRN Reason: Heartburn/Nausea Amoxicillin (Amoxicillin 500 Mg Capsule) 500 mg PO TID YI Stop: 04/27/22 21:01 Last Admin: 04/23/22 09:46 Dose: 500 mg Buprenorphine/Naloxone (Buprenorphine/Naloxone 8/2 Mg Film) 1 film SUBLINGUAL TID [facility] Last Admin: 04/23/22 09:46 Dose: 1 film Bupropion HCl (Bupropion Hcl Xl 150 Mg Tab.Er.24h) 150 mg PO DAILY [facility] Last Admin: 04/23/22 09:46 Dose: 150 mg Clonidine HCl (Clonidine Hcl 0.2 Mg Tablet) 0.2 mg PO BEDTIME YI; Protocol Last Admin: 04/22/22 21:29 Dose: 0.2 mg Divalproex Sodium (Divalproex Sodium 250 Mg Tablet.Dr) 250 mg PO BID [facility] Last Admin: 04/23/22 09:47 Dose: 250 mg Docosanol (Docosanol 10 % Cream 2 Gm Tube) 1 appl TOPICAL 5XD PRN; Protocol PRN Reason: cold sore Gabapentin (Gabapentin 400 Mg Capsule) 800 mg PO TID [facility] Last Admin: 04/23/22 09:46 Dose: 800 mg Ibuprofen (Ibuprofen 600 Mg Tablet) 600 mg PO TID PRN PRN Reason: Pain, Moderate (Pain Scale 4-6 Magnesium Hydroxide (Milk Of Magnesia 30 Ml Oral.Susp) 30 ml PO DAILY PRN PRN Reason: Constipation Mirtazapine (Mirtazapine 7.5 Mg Tablet) 7.5 mg PO BEDTIME [facility] Last Admin: 04/22/22 21:29 Dose: 7.5 mg Nicotine (Nicotine 7 Mg Patch.Td24) 7 mg TRANSDERMA DAILY [facility] Last Admin: 04/23/22 09:49 Dose: Not Given Nicotine Polacrilex (Nicotine Polacrilex 2 Mg Gum) 4 mg BUCCAL Q2H PRN PRN Reason: Nicotine Cravings Quetiapine Fumarate (Quetiapine Fumarate 50 Mg Tablet) 50 mg PO TID PRN PRN Reason: anxiety Last Admin: 04/22/22 23:12 Dose: 50 mg Quetiapine Fumarate (Quetiapine Fumarate 100 Mg Tablet) 100 mg PO BID@0800,1200 [facility] Last Admin: 04/23/22 09:47 Dose: 100 mg Quetiapine Fumarate (Quetiapine Fumarate 200 Mg Tablet) 200 mg PO BEDTIME [facility] Last Admin: 04/22/22 21:30 Dose: 200 mg Venlafaxine HCl (Venlafaxine Hcl Er 150 Mg Cap.Er.24h) 150 mg PO DAILY YI Last Admin: 04/23/22 09:48 Dose: 150 mg Allergies Allergies Allergy/AdvReac Type Severity Reaction Status Date / Time trazodone Allergy Rash Verified 04/16/22 02:45 Assessment & Plan Assessment & Plan (1) Chronic post-traumatic stress disorder (PTSD): Status: Chronic Code(s): F43.12 - Post-traumatic stress disorder, chronic (2) Opioid use disorder: Status: Acute Code(s): F11.90 - Opioid use, unspecified, uncomplicated (3) Cocaine use disorder: Status: Chronic Code(s): F14.10 - Cocaine abuse, uncomplicated (4) Alcohol use disorder, moderate, in early remission, dependence: Status: Chronic Code(s): F10.21 - Alcohol dependence, in remission (5) PCP (phencyclidine) abuse: Status: Acute Code(s): F16.10 - Hallucinogen abuse, uncomplicated Plan restart prior meds regimen. refer to [facility]'. denies regular recent heavy use of any drug, so severe withdrawal is not of concern. 04/19: continue current mgmt. feeling better bcse he has convinced his wfe to drop the restraining order. working on getting into [facility] with SW. 04/20 continue current tx. 04/21: add clonidine 0.1 mg QHS for insomnia/nightmares. otherwise continue current mgmt. applying to [facility]'. Nine and plans an increase q.h.s. Seroquel to 250 mg I spent minutes with the patient and/or on the patient floor today, greater than?50% of which was spent counseling/coordinating care. Reason for contiued inpatient stay Substantial Risk for: med/psych decompensation
[2022-04-23] MEDS: Acetaminophen 325 MG TABLET 650 MG PO (19:59)
[2022-04-23 22:18] VITALS: BP 143/86; PULSE 89; RESP 18; TEMP 36.4; O2SAT 90
[2022-04-23] MEDS: QUEtiapine Fumarate 50 MG TABLET 250 MG PO (22:19)
[2022-04-23] MEDS: Mirtazapine 7.5 MG TABLET PO (22:19)
[2022-04-23] MEDS: cloNIDine HCL 0.2 MG TABLET PO (22:20)
[2022-04-24] MEDS: buPROPion HCl XL 150 MG TAB.ER.24H PO (09:54)
[2022-04-24] MEDS: Gabapentin 400 MG CAPSULE 800 MG PO (09:54)
[2022-04-24] MEDS: Amoxicillin 500 MG CAPSULE PO (09:54)
[2022-04-24] MEDS: Buprenorphine/Naloxone 8/2 mg FILM 1 FILM SUBLINGUAL (09:55)
[2022-04-24] MEDS: QUEtiapine Fumarate 100 MG TABLET PO (09:55)
[2022-04-24] MEDS: Venlafaxine HCl ER 150 MG CAP.ER.24H PO (09:55)
[2022-04-24] MEDS: Divalproex Sodium 250 MG TABLET.DR PO (09:55)
[2022-04-24 09:56] VITALS: BP 153/68; PULSE 97; RESP 17; TEMP 36.8; O2SAT 96
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
--- NOTE | 2022-04-24 14:47 | PC.NURSE ---
Patient is alert and oriented x4. Patient is aware of discharge. Patient states when I leave I am going to kill myself. Dr. Avila knows that and he is still discharging me to the streets . Dr. Avila aware. discharge to continue as planned.
== END 2022-04-24 14:11 | disposition home or self-care (01) | DRG 753 ==
LOC: HO.ED 04-17 10:47 → HO.PADLT16 04-17 15:48
PROVIDERS: Emergency Medicine; Admitting Provider Psychiatry & Neurology Psychiatry; Emergency Provider Emergency Medicine Emergency Medical Services; Visit Provider Psychiatry & Neurology Psychiatry
DX: F31.9 Bipolar disorder, unspecified (principal); R45.851 Suicidal ideations; F14.10 Cocaine abuse, uncomplicated; F16.10 Hallucinogen abuse, uncomplicated; F10.21 Alcohol dependence, in remission; F11.20 Opioid dependence, uncomplicated; F43.12 Post-traumatic stress disorder, chronic; Z20.822 Contact with and (suspected) exposure to COVID-19; Z87.891 Personal history of nicotine dependence; Z79.899 Other long term (current) drug therapy
CPT/HCPCS: 80048; 80076; 80307; 82077; 83735; 85025; 87635; 93005; 99284; 99285

== ENCOUNTER 2024-03-26 19:23 | Inpatient (IN) | payer MEDICAID, OTHER, SELFPAY ==
--- NOTE | ~2024-03-26 | US_ITS ---
EXAMINATION: US TRIPLEX LOWER EXTREMITY, RIGHT CLINICAL INFORMATION: Concern for DVT; pain COMPARISON: None available. TECHNIQUE: Color-flow triplex imaging with spectral analysis and compression Doppler were performed on the right lower extremity. FINDINGS: Respiratory variation, normal compression and augmented flow are noted throughout the right lower extremity. The visualized common femoral vein, superficial femoral vein, profunda femoral vein, popliteal vein and midcalf peroneal and posterior tibial venous segments show no evidence of deep venous thrombosis. Within the popliteal fossa is a well-circumscribed anechoic collection measuring 3.3 x 1.1 x 2.1 cm consistent with a Clarke's cyst. US/US venous duplex LE RT IMPRESSION: 1. No evidence of deep venous thrombosis involving the right lower extremity. 2. Clarke's cyst 3.1 x 1.1 x 2.1 cm. Electronically signed by: Jules Sanchez DO 04/08/2024 05:14 PM EDT
--- NOTE | ~2024-03-26 | CT_ITS ---
EXAMINATION: CT ABDOMEN AND PELVIS WITHOUT CONTRAST CLINICAL INFORMATION: Left-sided abdominal pain. COMPARISON: None available.. TECHNIQUE: Multidetector volumetric imaging was performed from the lung bases to the pubic without contrast. Sagittal and coronal reformatted images were obtained on the technologist workstation. This CT examination was performed using dose optimization techniques as appropriate, variously including the following: *Automated exposure control. *Adjustment of mA and/or kV according to patient size (this includes techniques or standardized protocols for targeted exams where dose is matched to indication/reason for exam; i.e. extremities or head). *Use of iterative reconstruction technique. DLP: 409 mGy-cm FINDINGS: LUNG BASES: No abnormalities of the visualized lung bases. No demonstrated abnormalities of the visualized cardiac structures. ABDOMEN/PELVIS: Liver, Biliary Ducts, and Gallbladder: The unenhanced liver is normal in size and attenuation without focal hepatic lesions or biliary ductal dilatation. The gallbladder is physiologically distended without radiopaque gallstones, pericholecystic fluid, or significant gallbladder wall thickening. Pancreas: The pancreas is normal in appearance. Adrenal Glands: The adrenal glands are normal in appearance. Spleen: The spleen is normal in appearance. Kidneys and Ureters: The unenhanced kidneys are normal in size without evidence of nephrolithiasis or hydronephrosis. No ureterolithiasis or hydroureter. Urinary Bladder: The urinary bladder is partially distended without focal wall thickening. No bladder calculi are demonstrated. Gastrointestinal System: The stomach is decompressed and therefore not well evaluated on this exam. The small bowel is of normal caliber. The colon is normal in appearance without focal wall thickening or pericolonic inflammatory change. Normal appendix. Genitourinary: No demonstrated abnormalities of the prostate gland and seminal vesicles. Intra-abdominal and Retroperitoneal Spaces: No intra-abdominal free fluid collections or gas. No mesenteric, retroperitoneal, or inguinal lymphadenopathy. VASCULATURE: Abdominal aorta is of normal contour and caliber with mild calcific atherosclerotic disease. MUSCULOSKELETAL: Changes of prior anterior abdominal wall hernia repair. Moderate multilevel degenerative changes of the spine. Advanced degenerative disc disease at L1-L2 and L5-S1. Multifactorial degenerative changes appear to cause moderate to severe neural foraminal stenoses at L5-S1. No lytic or sclerotic osseous lesions demonstrated. No soft tissue masses demonstrated. CT/CT abdomen pelvis wo IV con IMPRESSION: 1. No demonstrated acute intra-abdominal abnormalities to explain the patient's symptoms. 2. Changes of prior anterior abdominal wall hernia repair. 3. Moderate multilevel degenerative spondyloarthropathy of the lumbar spine. Most notably, there appears to be moderate to severe neural foraminal stenoses at L5-S1. Electronically signed by: Rico Jansen DO 03/29/2024 01:04 PM EDT
[2024-03-26 19:42] VITALS: BP 149/87; PULSE 72; RESP 18; TEMP 36.4; O2SAT 97; BMI 22.7
--- NOTE | 2024-03-26 20:15 | ED_ITS ---
HPI - Psych General Chief Complaint: Psychiatric Symptoms Stated Complaint: crisis Time Seen by Provider: 03/26/24 20:07 Source: patient Mode of arrival: ambulatory Limitations: no limitations History of Present Illness ED Provider: Dr. Rosalia Dooley HPI Narrative: Patient comes to the emergency room complaining of worsening depression and anxiety. Patient states that he has suicidal thoughts, no plan. Patient states that he has not been taking his medications for almost 2 years. Patient very tearful, not willing to talk much. Still trying to answer questions but breaks out crying. Related Data Home Medications ?Medication ?Instructions ?Recorded ?Confirmed No Known Home Meds 03/26/24 03/26/24 Allergies Allergy/AdvReac Type Severity Reaction Status Date / Time trazodone Allergy Rash Verified 03/26/24 19:44 Review of Systems Review of Systems: Constitutional : No Weight loss, No Fever, No Chills, No Night Sweats, No Fatigue, No Malaise ENT/Mouth : No Hearing loss, No Ear Pain, No Nasal Congestion, No Sinus Pain, No Hoarseness, No sore throat, No Rhinorrhea, No Swallowing Difficulty Eyes: No Eye Pain, No Swelling, No Redness, No Foreign Body, No Discharge, No Vision Changes Cardiovascular : No Chest Pain, No SOB, No Dyspnea on Exertion, No Orthopnea, No Edema, No Palpitations Respiratory : No Cough, No Sputum, No Wheezing, No Smoke Exposure, No Dyspnea Gastrointestinal : No Nausea, No Vomiting, No Diarrhea, No Constipation, No abdominal Pain, No Hematochezia, No Melena Genitourinary : no irregular bleeding, No Dysuria, No Urinary Frequency, No Hematuria, No Urinary Incontinence, No Urgency, No Flank Pain, No Urinary Flow Changes, No Hesitancy Musculoskeletal : No joint pain, No Myalgias, No Joint Swelling Skin : No Skin Lesions, No rash Neuro : No Weakness, No Numbness, No Paresthesias, No Loss of Consciousness, No Dizziness, No Headache Psych : No Anxiety/Panic, complaining of depression, admits he has been off medications for almost 2 years Heme/Lymph: No Bruising, No Bleeding,No Lymphadenopathy Endocrine : No Polyuria, No Polydipsia, No Temperature Intolerance PMFSH Past Medical History Medical History Suicidal ideation Right inguinal hernia Opioid abuse Cocaine use disorder Alcohol use disorder, moderate, in early remission, dependence Opioid dependence on agonist therapy Chronic post-traumatic stress disorder (PTSD) MDD (major depressive disorder), recurrent severe, without psychosis Bipolar 1 disorder PTSD (post-traumatic stress disorder) Depression Surgical History S/P hernia surgery Social History Social History Household Members: Family Housing: House Do you presently have visiting nurse or other home services: No Unable to assess alcohol history related to: Unknown Alcohol intake: current Alcohol intake frequency: 0-2 drinks per day Alcohol type: beer Patient Tobacco Use Status: Former Tobacco user Tobacco use type: Cigarette Cigarette Packs Per Day: 0.5 Cigarettes Per Day: 5 Years Smoked: 27 e-Cigarette/Vaping Use: Never Used Second Hand Smoke Exposure: No Substance Use Type: Crack/Cocaine and Marijuana Do you have a plan to hurt others: No Plan service: No Sexual orientation: Straight/Heterosexual Physical Exam Vital Signs: Vital Signs: Last Vital Signs Temp 97.5 F 03/26/24 19:42 Pulse 72 03/26/24 19:42 Resp 18 03/26/24 19:42 BP 149/87 H 03/26/24 19:42 Pulse Ox 97 03/26/24 19:42 O2 Del Method Room Air 03/26/24 19:42 BMI result Body Mass Index 22.7 Const: Other: Appearance: Alert. Oriented X3. No acute distress. Eyes: Pupils equal, round and reactive to light. ENT: Pharynx normal. Neck: Normal inspection. Neck supple. No lymph nodes noted. No crepitus CVS: Normal heart rate and rhythm. Pulses normal. Normal S1 and S2 Respiratory: No respiratory distress. Breath sounds normal. No Wheezing. No rales Abdomen: Soft and nontender. No rigidity. No distention. Skin: Skin warm and dry. Normal skin color. Normal skin turgor. Extremities: No lower extremity edema. No Lacerations. No Rash Neuro: Oriented X 3. No motor deficit. No sensory deficit. Moving all extremities. No slurred speech. CN 2 through 12 grossly intact Psych: calm, cooperative, tearful Course Course Course Narrative: -all of patient's labs pending -patient looks significantly depressed. Section 12 has been started -care team consult pending -physician observation started at 20:30 Medical Decision Making Differential Diagnosis Differential Diagnoses: The differential diagnosis associated with the presentation includes (Anxiety, depression, polysubstance abuse) Admission/Observation Consideration of admission/observation: Escalation of care including admission/observation considered (Patient on a Section 12 waiting for the care team to evaluate the patient. Patient will likely need inpatient level of care) Critical Care Time Critical Care Time Critical Care Time: Yes Total Critical Care Time: 30 Attestation: I have personally provided critical care time. Time includes review of lab data, radiology results, discussion with consultants, and monitoring for potential decompensation. Intervention performed as documented. Discharge Plan Discharge Clinical Impression: Depression, Suicidal ideation Patient Disposition: Still a Patient Prescriptions: No Action No Known Home Meds Rx Instructions: Off his medication for almost two years Print Language: Hungarian
[2024-03-26 20:23] LABS: Appearance Urine Clear; Color Urine Dark Yellow; Glucose Urine UA Negative (Negative); Leukocyte Esterase Urine Trace (Negative); Nitrite Urine Negative (Negative); PH 5.5 (5.0-9.0); Specific Gravity - Urine >= 1.030 (1.005-1.025); UMIC TRIGGER UA YES; Urine Blood Negative (Negative); Urine Ketones 15 mg/dL (Negative); Urine Protein 30 (1+) mg/dL (Neg-Trace)
[2024-03-26 20:35] LABS: Bacteria Urine None Seen (None Seen); Calcium Oxalate Crystals Urine Present; RBC Urine 0-2 /HPF (0-2); Squamous Epithelial Cell Urine 0-2 /HPF (0-2); WBC Urine 0-5 /HPF (0-5)
[2024-03-26 20:47] LABS: MANUAL DIFF FLAG NO
[2024-03-26 20:50] LABS: Basophils Percent Auto 0.4 % (0-2); Eosinophils Percent Auto 0.2 % (0-4); Hemoglobin 14.4 g/dl (14.0-18.0); Imm Gran Abs Auto 0.01 X10*3/uL (0.00-0.03); Imm Gran Pct Auto 0.1 % (0.0-0.4); Lymphocytes Absolute Auto 2.9 X10*3/uL (1.2-4.9); Lymphocytes Percent Auto 30.7 % (20-40); Mean Corpuscular HGB Conc 34.3 g/dl (31.0-36.0); Mean Corpuscular Hemoglobin 31.6 pg (27.0-33.0); Mean Corpuscular Volume 92.1 fL (80.0-98.0); Mean Platelet Volume 10.1 fL (9.4-12.4); Monocytes Absolute Auto 0.9 X10*3/uL (0.1-1.2); Monocytes Percent Auto 9.3 % (2-11); Neutrophils Absolute Auto 5.5 x10*3/uL (2.0-8.3); Neutrophils Percent Auto 59.3 % (45-73); Platelet Count 201 X10*3/uL (160-400); Red Blood Count 4.56 X10*6/uL (4.60-5.80); Red Cell Distribution Width 13.2 % (11.0-16.0); White Blood Count 9.3 X10*3/uL (4.8-10.8)
[2024-03-26 21:08] LABS: COVID-19 Test Negative (Negative); IDNOW Serial# 152EDE1D
[2024-03-26 21:11] LABS: Alanine Aminotransferase 25 U/L (0-40); Albumin Level 4.6 g/dL (3.5-5.0); Alkaline Phosphatase 63 U/L (39-117); Anion Gap 15 (12-20); Aspartate Amino Transferase 21 U/L (5-37); Bilirubin Total 0.4 mg/dL (0.0-1.0); Blood Urea Nitrogen 14 mg/dL (9-16); Calcium 10.2 mg/dL (8.4-10.2); Carbon Dioxide 29 mmol/L (22-29); Chloride 102 mmol/L (96-108); Creatinine Clr Calc Pharmacy 65.1; Estimated Glomerular Filt Rate 59; Ethanol < 10 mg/dL; Glucose Random 75 mg/dL (60-115); Magnesium 2.2 mg/dL (1.6-2.6); Potassium 3.9 mmol/L (3.3-5.1); Sodium 142 mmol/L (135-145)
[2024-03-26 21:39] LABS: Valproate < 12.5 mcg/mL (50.0-100.0)
[2024-03-26 22:46] LABS: Amphetamine Screen Urine Not Detected (Not Detect); Barbiturates, Urine Not Detected (Not Detect); Benzodiazepines Screen Urine Not Detected (Not Detect); Buprenorphine Scr Not Detected (Not Detect); Cannabinoid Screen Urine POSITIVE (Not Detect); Cocaine Screen Urine POSITIVE (Not Detect); Fentanyl, urine POSITIVE (Not Detect); Methadone Screen, Urine Positive (Not Detect); Opiate Screen Urine POSITIVE (Not Detect); Oxycodone Screen Urine Not Detected (Not Detect); Phencyclidine Screen Urine Not Detected (Not Detect)
--- NOTE | 2024-03-27 | ECG_ITS ---
Test Reason : CHECKING QTC Blood Pressure : / mmHG Vent. Rate : 057 BPM Atrial Rate : 057 BPM P-R Int : 116 ms QRS Dur : 092 ms QT Int : 450 ms P-R-T Axes : 065 071 073 degrees QTc Int : 438 ms Sinus bradycardia Otherwise normal ECG When compared with ECG of 17-APR-2022 10:40, No significant change was found Referred By: Dilcia Montez Electronically Signed By:ALEJANDRA MOODY
--- NOTE | 2024-03-27 05:57 | PC.NURSE ---
Patient slept through the night, no distress observed/reported, med rec completed/currently not on any medication, disposition per care team is section 12 inpatient bed search, VSS, will continue to monitor
[2024-03-27 06:05] VITALS: BP 119/75; PULSE 55; RESP 16; TEMP 36.2; O2SAT 97
--- NOTE | 2024-03-27 07:32 | PC.NURSE ---
Assumed care of patient at 0645, patient appears to be sleeping, respirations even and unlabored, no apparent distress noted. Continue plan of care for inpatient bedsearch
--- NOTE | 2024-03-27 07:57 | HE.PHANOTE ---
Methadone Pt receives from [facility] ([phone]). Per Jessika at facility, pt last received 80mg on 03/26/24 @ [id number].
[2024-03-27] MEDS: methADONE HCl 20 MG/2 ML ORAL.CONC 80 MG PO (09:07)
[2024-03-27] MEDS: LORazepam 1 MG TABLET 2 MG PO (12:37)
--- NOTE | 2024-03-27 19:05 | PC.NURSE ---
patient appears to remain at rest presently, scheduled to go inpatient today, patient appears in no distress.
[2024-03-27 21:47] VITALS: BP 119/62; PULSE 57; RESP 18; TEMP 36.6; O2SAT 99
[2024-03-28] MEDS: QUEtiapine Fumarate 50 MG TABLET PO ×2 (00:35→21:39)
--- NOTE | 2024-03-28 03:29 | PCS.ADM ---
Nils is a 49 y/o male. He presented to [facility] ED with depression with + SI. He admits a long history of poly substance use. His U-tox was positive for opiates, Methadone, fentanyl, cocaine and marijuana. He states that he is homeless but is currently staying with his sister. His mood and affect are depressed. He avoided eye contact during the admission assessment. His speech is very low in volume and he appears to be thought blocking at times. He stated that he has been without any prescribed medications for his depression and mental illness for the past 2 years. He is currently endorsing suicidal ideation with an undisclosed plan. He does however admit a past history of suicide attempts by overdosing with street drugs. He also endorses current homicidal ideation with no plan. He does say I think the devil is just trying to get me to do something bad! His family history includes a father who had a history of depression and also poly-substance use and a mother who was diagnosed Schizophrenic. He is one of 12 children including one brother and eleven sisters. He was cooperative with the admission process. He agreed to spend the night in [facility] as there was no other appropriate male bed available. He was told that he would be moved to a semi-private room tomorrow as soon as an appropriate bed was available. He seemed agreeable to this at this time. Dr. Nelson was notified of patient's admission and of his request for Seroquel 50mg for sleep as he stated that this is what he usually has prescribed when he is in the hospital. Seroquel was ordered and patient was given a dose of same.
[2024-03-28] MEDS: methADONE HCl 20 MG/2 ML ORAL.CONC 80 MG PO (07:58)
[2024-03-28 08:00] VITALS: BP 118/62; PULSE 78; RESP 16; TEMP 36.4; O2SAT 96
[2024-03-28] MEDS: Multivitamin TABLET 1 TAB PO (08:33)
[2024-03-28] MEDS: Folic Acid 1 MG TABLET PO (08:33)
[2024-03-28] MEDS: Thiamine HCL 100 MG TABLET PO (08:33)
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
[2024-03-28 13:46] VITALS: BP 120/65; PULSE 61; RESP 16; TEMP 36.8; O2SAT 96
[2024-03-28] MEDS: Gabapentin 100 MG CAPSULE 200 MG PO ×2 (14:06→21:38)
[2024-03-28] MEDS: cloNIDine HCL 0.1 MG TABLET PO (14:06)
[2024-03-28 16:17] LABS: CT PCR NOT DETECTED (Not Detect.); NG PCR NOT DETECTED (Not Detect.)
--- NOTE | 2024-03-28 18:10 | PM.EVENT ---
Event Note Date of Service: 03/28/24 Event Note: Patient is a 49-year-old male with a PMH significant for opiate use disorder on methadone, anxiety, and depression who was admitted to for increasing anxiety and depression with vague, fleeting SI. Has not been compliant with medications for over 2 years. Hospitalist consult for evaluation of left lower quadrant pain. Patient reports that he has been experiencing intermittent sharp, stabbing left-sided abdominal pain for the past month. States that it feels like a ?spasm?. No known triggers. Reports pain can occur while sitting down, walking, or even sleeping. Also no known alleviating factors. Patient denies a history of IBD or IBS. Reports history of left inguinal hernia repair, but no abdominal surgeries. States he has never experienced a pain like this before. Reports normally has bowel movement every 3-4 days, but is uncertain of when his last bowel movement was. Physical exam reveals pain is relieved while pressing on it. Denies nausea, vomiting, diarrhea. Labs reviewed, grossly unremarkable. No leukocytosis. Hepatic and renal function baseline. Vital signs stable and WNL. No fever. Will get CT of abd/pelvis to r/o any acute abnormality. Will administer lidocaine patch over area for pain management. Will continue to follow for results. Time Spent With Patient Time: Total time managing care of this patient today ____ minutes.
[2024-03-28 20:00] VITALS: BP 117/67; PULSE 59; RESP 15; TEMP 36.4; O2SAT 97
[2024-03-28] MEDS: Lidocaine 4 % Patch ADH..PATCH 1 PATCH TRANSDERMA (21:39)
[2024-03-29] MEDS: methADONE HCl 20 MG/2 ML ORAL.CONC 80 MG PO (08:01)
[2024-03-29] MEDS: Gabapentin 100 MG CAPSULE 200 MG PO ×3 (08:44→21:06)
[2024-03-29] MEDS: Thiamine HCL 100 MG TABLET PO (08:44)
[2024-03-29] MEDS: Lidocaine 4 % Patch ADH..PATCH 1 PATCH TRANSDERMA (08:45)
[2024-03-29] MEDS: Folic Acid 1 MG TABLET PO (08:45)
[2024-03-29] MEDS: Multivitamin TABLET 1 TAB PO (08:45)
[2024-03-29] MEDS: buPROPion HCL 75 MG TABLET PO (08:45)
--- NOTE | 2024-03-29 08:45 | P.PNPSI_ITS ---
Subjective Subjective Date of Service: 03/29/24 Reason For Visit: PTSD, bipolar disorder, polysubstance use disorder Interim History: Pt isolative, reports depressive and angry feelings Full review of medications Medication Compliance: Yes Side effects from medications: No Attending Groups: No Review of Systems Acute medical concerns: No Medical Review of Systems: unchanged Review of Systems Review of Systems Yes all other systems are reviewed and are negative Mental Status Exam Mental Status Exam Patient Appearance: Fatigued Patient Orientation: Person, Place, Time and Situation Level of Consciousness: Alert Patient Behavior: Talkative and Crying Mood Description: Depressed and Angry Affect Description: Flat Patient Cognition Impaired: No Ability to Follow Directions: Good Speech Pattern: Spontaneous Speech Memory Description: Intact Hallucinations: None Delusions: Not Present Thought Process: Rumination Thought Content: positive for Perseveration and positive for Suicidal Ideation Depressive Symptoms: Difficulty Sleeping, Significant Weight Loss, Hopelessness, Unhappiness, Thoughts of /Suicide and Low Self Esteem Judgement: Fair Diagnostics Vital Signs (24Hr): Vital Signs - 24 hr 03/28/24 13:46 03/28/24 20:00 Temperature 98.2 F 97.5 F Pulse Rate 61 59 Respiratory Rate 16 15 Blood Pressure 120/65 117/67 Pulse Oximetry 96 97 Oxygen Delivery Method Room Air BMI result Body Mass Index 22.7 Labs 03/26/24 20:32 03/26/24 20:32 Labs: Laboratory Results - last 48 hr 03/28/24 14:05 Chlam trachomat DNA PCR NOT DETECTED N.gonorrhoeae DNA (PCR) NOT DETECTED Medications Medications Current Medications Acetaminophen (Acetaminophen 325 Mg Tablet) 650 mg PO Q6H PRN PRN Reason: Headache/Pain Mild Scale (1-3) Al Hydroxide/Mg Hydroxide (Magnesium Hydrox/Alum Hydrox 30 Ml Oral.Susp) 30 ml PO Q6H PRN PRN Reason: Heartburn/Nausea Bupropion HCl (Bupropion Hcl 75 Mg Tablet) 75 mg PO DAILY [facility] Clonidine HCl (Clonidine Hcl 0.1 Mg Tablet) 0.1 mg PO TID PRN; Protocol PRN Reason: anxiety, withdrawal sx Last Admin: 03/28/24 14:06 Dose: 0.1 mg Folic Acid (Folic Acid 1 Mg Tablet) 1 mg PO DAILY YI Last Admin: 03/28/24 08:33 Dose: 1 mg Gabapentin (Gabapentin 100 Mg Capsule) 200 mg PO TID YI Last Admin: 03/28/24 21:38 Dose: 200 mg Hydroxyzine HCl (Hydroxyzine Hcl 25 Mg Tablet) 25 mg PO Q6H PRN PRN Reason: Anxiety Lidocaine (Lidocaine 4 % Patch Adh..Patch) 1 patch TRANSDERMA DAILY [facility]; Protocol Last Admin: 03/28/24 21:39 Dose: 1 patch Magnesium Hydroxide (Milk Of Magnesia 30 Ml Oral.Susp) 30 ml PO DAILY PRN PRN Reason: Constipation Methadone HCl (Methadone Hcl 20 Mg/2 Ml Oral.Conc) 80 mg PO DAILY [facility] Last Admin: 03/29/24 08:01 Dose: 80 mg Mirtazapine (Mirtazapine 7.5 Mg Tablet) 7.5 mg PO BEDTIME PRN PRN Reason: insomnia Multivitamins/Vitamin C (Multivitamin Tablet) 1 tab PO DAILY [facility] Last Admin: 03/28/24 08:33 Dose: 1 tab Nicotine (Nicotine 21 Mg Patch.Td24) 21 mg TRANSDERMA DAILY PRN PRN Reason: nicotine cravings Nicotine Polacrilex (Nicotine Polacrilex 2 Mg Gum) 4 mg BUCCAL Q2H PRN PRN Reason: Nicotine Cravings Quetiapine Fumarate (Quetiapine Fumarate 50 Mg Tablet) 50 mg PO BEDTIME [facility] Last Admin: 03/28/24 21:39 Dose: 50 mg Quetiapine Fumarate (Quetiapine Fumarate 50 Mg Tablet) 50 mg PO TID PRN PRN Reason: agitation Thiamine HCl (Thiamine Hcl 100 Mg Tablet) 100 mg PO DAILY [facility] Last Admin: 03/28/24 08:33 Dose: 100 mg Allergies Allergies Allergy/AdvReac Type Severity Reaction Status Date / Time trazodone Allergy Rash Verified 03/26/24 19:44 Assessment & Plan Assessment & Plan (1) Bipolar II disorder: Status: Acute Code(s): F31.81 - Bipolar II disorder (2) Chronic post-traumatic stress disorder (PTSD): Status: Chronic Code(s): F43.12 - Post-traumatic stress disorder, chronic (3) Polysubstance use disorder: Status: Acute Code(s): F19.90 - Other psychoactive substance use, unspecified, uncomplicated Plan PTSD, Bipolar Disorder, Polysubstance Use Disorder. Plan: Admit, CV 15 minute checks Collateral contact Addiction consult Clonidine prn, Gabapentin 200 mg tid, Remeron prn, Seroquel prn, Wellbutrin 75 mg a.m. to re-start regime. Hospitalist consult, LMQ pain 03/29/24 Lorazepam 1 mg tid prn anxiety Seroquel 50 mg tid prn agitation, anxiety Increase Wellbutrin to XL 150 mg on 03/30. Reason for continued inpatient stay Substantial Risk for: rapid decompensation Time Spent With Patient Time: Total time managing care of this patient today ____ minutes.
[2024-03-29 08:50] VITALS: BP 106/61; PULSE 57; RESP 16; TEMP 36.9; O2SAT 98
[2024-03-29] MEDS: LORazepam 1 MG TABLET PO ×2 (11:30→15:42)
[2024-03-29] MEDS: risperiDONE 0.5 MG TABLET PO (13:36)
--- NOTE | 2024-03-29 16:55 | PM.EVENT ---
Event Note Date of Service: 03/29/24 Event Note: Addiction consult placed Patient requesting to discuss transition from methadone to buprenorphine Not urgent as patient is currently on methadone Patient will be seen 04/01 Time Spent With Patient Time: Total time managing care of this patient today ____ minutes.
[2024-03-29 20:00] VITALS: BP 132/80; PULSE 76; RESP 16; TEMP 36.4; O2SAT 99
[2024-03-29] MEDS: QUEtiapine Fumarate 50 MG TABLET PO (21:06)
[2024-03-29] MEDS: Acetaminophen 325 MG TABLET 650 MG PO (21:10)
[2024-03-30] MEDS: methADONE HCl 20 MG/2 ML ORAL.CONC 80 MG PO (07:43)
[2024-03-30] MEDS: Gabapentin 100 MG CAPSULE 200 MG PO ×3 (09:03→21:12)
[2024-03-30] MEDS: Multivitamin TABLET 1 TAB PO (09:03)
[2024-03-30] MEDS: Lidocaine 4 % Patch ADH..PATCH 1 PATCH TRANSDERMA (09:03)
[2024-03-30] MEDS: Thiamine HCL 100 MG TABLET PO (09:03)
[2024-03-30] MEDS: buPROPion HCl XL 150 MG TAB.ER.24H PO (09:03)
[2024-03-30] MEDS: Folic Acid 1 MG TABLET PO (09:03)
[2024-03-30] MEDS: LORazepam 1 MG TABLET PO ×2 (09:17→18:43)
[2024-03-30] MEDS: QUEtiapine Fumarate 50 MG TABLET PO ×2 (09:17→21:13)
[2024-03-30 09:24] VITALS: BP 131/60; PULSE 59; RESP 16; TEMP 36.6; O2SAT 97
--- NOTE | 2024-03-30 16:14 | P.PNPSI_ITS ---
Subjective Subjective Date of Service: 03/30/24 Reason For Visit: PTSD, bipolar disorder, polysubstance use disorder Interim History: Isolative, tearful, ?thought blocking, blunted and appears preoccupied in thought. Visable in milieu however with isolation Medication Compliance: Yes Side effects from medications: Yes Attending Groups: No Review of Systems Acute medical concerns: No Review of Systems Review of Systems Yes all other systems are reviewed and are negative Mental Status Exam Mental Status Exam Patient Appearance: Fatigued Patient Orientation: Person, Place, Time and Situation Level of Consciousness: Alert Patient Behavior: Talkative and Crying Mood Description: Depressed and Angry Affect Description: Flat Patient Cognition Impaired: No Ability to Follow Directions: Good Speech Pattern: Spontaneous Speech Memory Description: Intact Hallucinations: None Delusions: Not Present Thought Process: Rumination Thought Content: positive for Perseveration, positive for Thought Blocking (??) and positive for Suicidal Ideation Depressive Symptoms: Difficulty Sleeping, Significant Weight Loss, Hopelessness, Unhappiness, Thoughts of /Suicide and Low Self Esteem Judgement: Fair Diagnostics Vital Signs (24Hr): Vital Signs - 24 hr 03/29/24 20:00 03/30/24 09:24 Temperature 97.5 F 97.9 F Pulse Rate 76 59 Respiratory Rate 16 16 Blood Pressure 132/80 131/60 Pulse Oximetry 99 97 Oxygen Delivery Method Room Air Room Air BMI result Body Mass Index 22.7 Labs 03/26/24 20:32 03/26/24 20:32 Labs: Laboratory Results - last 48 hr 03/28/24 14:05 Chlam trachomat DNA PCR NOT DETECTED N.gonorrhoeae DNA (PCR) NOT DETECTED Imaging Radiology Impressions: ITS Impressions Abdomen/Pelvis CT 03/28/24 20:18 IMPRESSION: 1. No demonstrated acute intra-abdominal abnormalities to explain the patient's symptoms. 2. Changes of prior anterior abdominal wall hernia repair. 3. Moderate multilevel degenerative spondyloarthropathy of the lumbar spine. Most notably, there appears to be moderate to severe neural foraminal stenoses at L5-S1. Electronically signed by: Rico Jansen DO 03/29/2024 01:04 PM EDT Medications Medications Current Medications Acetaminophen (Acetaminophen 325 Mg Tablet) 650 mg PO Q6H PRN PRN Reason: Headache/Pain Mild Scale (1-3) Last Admin: 03/29/24 21:10 Dose: 650 mg Al Hydroxide/Mg Hydroxide (Magnesium Hydrox/Alum Hydrox 30 Ml Oral.Susp) 30 ml PO Q6H PRN PRN Reason: Heartburn/Nausea Bupropion HCl (Bupropion Hcl Xl 150 Mg Tab.Er.24h) 150 mg PO DAILY [facility] Last Admin: 03/30/24 09:03 Dose: 150 mg Clonidine HCl (Clonidine Hcl 0.1 Mg Tablet) 0.1 mg PO TID PRN; Protocol PRN Reason: anxiety, withdrawal sx Last Admin: 03/28/24 14:06 Dose: 0.1 mg Folic Acid (Folic Acid 1 Mg Tablet) 1 mg PO DAILY [facility] Last Admin: 03/30/24 09:03 Dose: 1 mg Gabapentin (Gabapentin 100 Mg Capsule) 200 mg PO TID [facility] Last Admin: 03/30/24 14:10 Dose: 200 mg Hydroxyzine HCl (Hydroxyzine Hcl 25 Mg Tablet) 25 mg PO Q6H PRN PRN Reason: Anxiety Lidocaine (Lidocaine 4 % Patch Adh..Patch) 1 patch TRANSDERMA DAILY [facility]; Protocol Last Admin: 03/30/24 09:03 Dose: 1 patch Lorazepam (Lorazepam 1 Mg Tablet) 1 mg PO TID PRN PRN Reason: anxiety, agitation Last Admin: 03/30/24 09:17 Dose: 1 mg Magnesium Hydroxide (Milk Of Magnesia 30 Ml Oral.Susp) 30 ml PO DAILY PRN PRN Reason: Constipation Methadone HCl (Methadone Hcl 20 Mg/2 Ml Oral.Conc) 80 mg PO DAILY [facility] Last Admin: 03/30/24 07:43 Dose: 80 mg Mirtazapine (Mirtazapine 7.5 Mg Tablet) 7.5 mg PO BEDTIME PRN PRN Reason: insomnia Multivitamins/Vitamin C (Multivitamin Tablet) 1 tab PO DAILY [facility] Last Admin: 03/30/24 09:03 Dose: 1 tab Nicotine (Nicotine 21 Mg Patch.Td24) 21 mg TRANSDERMA DAILY PRN PRN Reason: nicotine cravings Nicotine Polacrilex (Nicotine Polacrilex 2 Mg Gum) 4 mg BUCCAL Q2H PRN PRN Reason: Nicotine Cravings Quetiapine Fumarate (Quetiapine Fumarate 50 Mg Tablet) 50 mg PO BEDTIME [facility] Last Admin: 03/29/24 21:06 Dose: 50 mg Quetiapine Fumarate (Quetiapine Fumarate 50 Mg Tablet) 50 mg PO TID PRN PRN Reason: agitation Last Admin: 03/30/24 09:17 Dose: 50 mg Thiamine HCl (Thiamine Hcl 100 Mg Tablet) 100 mg PO DAILY YI Last Admin: 03/30/24 09:03 Dose: 100 mg Allergies Allergies Allergy/AdvReac Type Severity Reaction Status Date / Time trazodone Allergy Rash Verified 03/26/24 19:44 Assessment & Plan Assessment & Plan (1) Bipolar II disorder: Status: Acute Code(s): F31.81 - Bipolar II disorder (2) Chronic post-traumatic stress disorder (PTSD): Status: Chronic Code(s): F43.12 - Post-traumatic stress disorder, chronic (3) Polysubstance use disorder: Status: Acute Code(s): F19.90 - Other psychoactive substance use, unspecified, uncomplicated Plan PTSD, Bipolar Disorder, Polysubstance Use Disorder. Plan: Admit, CV 15 minute checks Collateral contact Addiction consult Clonidine prn, Gabapentin 200 mg tid, Remeron prn, Seroquel prn, Wellbutrin 75 mg a.m. to re-start regime. Hospitalist consult, LMQ pain 03/30/24-No further changes today-Wellbutrin increased, Lorazepam, Seroquel added prn Reason for continued inpatient stay Substantial Risk for: rapid decompensation Time Spent With Patient Time: Total time managing care of this patient today ____ minutes.
[2024-03-30 20:00] VITALS: BP 136/89; RESP 16; O2SAT 99
[2024-03-31 07:53] VITALS: BP 125/75; PULSE 63; RESP 16; TEMP 36.6; O2SAT 96
[2024-03-31] MEDS: methADONE HCl 20 MG/2 ML ORAL.CONC 80 MG PO (07:54)
[2024-03-31] MEDS: Thiamine HCL 100 MG TABLET PO (08:10)
[2024-03-31] MEDS: buPROPion HCl XL 150 MG TAB.ER.24H PO (08:10)
[2024-03-31] MEDS: Multivitamin TABLET 1 TAB PO (08:10)
[2024-03-31] MEDS: Gabapentin 100 MG CAPSULE 200 MG PO (08:10)
[2024-03-31] MEDS: Folic Acid 1 MG TABLET PO (08:10)
[2024-03-31] MEDS: LORazepam 1 MG TABLET PO ×2 (08:14→16:31)
--- NOTE | 2024-03-31 08:33 | P.PNPSI_ITS ---
Subjective Subjective Date of Service: 03/31/24 Reason For Visit: PTSD, bipolar disorder, polysubstance use disorder Subjective Notes: Conditional Voluntary Healthcare Proxy: No Guardianship: No Medical Problems Affecting Mental Status: No Interim History: Team reports pt is angry that Gabapentin has not been increased to 800 mg tid. As Wellbutrin, Seroquel and Lorazapam have been titrated between 03/29 and 03/30, Gabapentin will be titrated today. Pt with no eye contact and no response when approached. Silent, angry, depressed. Medication Compliance: Yes Side effects from medications: No Attending Groups: No Review of Systems Acute medical concerns: No Medical Review of Systems: unchanged Mental Status Exam Mental Status Exam Patient Appearance: Fatigued Patient Orientation: Person, Place, Time and Situation Level of Consciousness: Alert Patient Behavior: Talkative Mood Description: Depressed and Angry Affect Description: Flat Patient Cognition Impaired: No Ability to Follow Directions: Good Speech Pattern: Spontaneous Speech Memory Description: Intact Hallucinations: None Delusions: Not Present Thought Process: Rumination Thought Content: positive for Perseveration, positive for Thought Blocking (??) and positive for Suicidal Ideation Depressive Symptoms: Difficulty Sleeping, Significant Weight Loss, Hopelessness, Unhappiness, Thoughts of /Suicide and Low Self Esteem Judgement: Fair Diagnostics Vital Signs (24Hr): Vital Signs - 24 hr 03/30/24 09:24 03/30/24 20:00 03/31/24 07:53 Temperature 97.9 F 98 F Pulse Rate 59 63 Respiratory Rate 16 16 16 Blood Pressure 131/60 136/89 125/75 Pulse Oximetry 97 99 96 Oxygen Delivery Method Room Air Room Air Room Air BMI result Body Mass Index 22.7 Labs 03/26/24 20:32 03/26/24 20:32 Imaging Radiology Impressions: ITS Impressions Abdomen/Pelvis CT 03/28/24 20:18 IMPRESSION: 1. No demonstrated acute intra-abdominal abnormalities to explain the patient's symptoms. 2. Changes of prior anterior abdominal wall hernia repair. 3. Moderate multilevel degenerative spondyloarthropathy of the lumbar spine. Most notably, there appears to be moderate to severe neural foraminal stenoses at L5-S1. Electronically signed by: Rico Jansen DO 03/29/2024 01:04 PM EDT Medications Medications Current Medications Acetaminophen (Acetaminophen 325 Mg Tablet) 650 mg PO Q6H PRN PRN Reason: Headache/Pain Mild Scale (1-3) Last Admin: 03/29/24 21:10 Dose: 650 mg Al Hydroxide/Mg Hydroxide (Magnesium Hydrox/Alum Hydrox 30 Ml Oral.Susp) 30 ml PO Q6H PRN PRN Reason: Heartburn/Nausea Bupropion HCl (Bupropion Hcl Xl 150 Mg Tab.Er.24h) 150 mg PO DAILY [facility] Last Admin: 03/31/24 08:10 Dose: 150 mg Clonidine HCl (Clonidine Hcl 0.1 Mg Tablet) 0.1 mg PO TID PRN; Protocol PRN Reason: anxiety, withdrawal sx Last Admin: 03/28/24 14:06 Dose: 0.1 mg Folic Acid (Folic Acid 1 Mg Tablet) 1 mg PO DAILY [facility] Last Admin: 03/31/24 08:10 Dose: 1 mg Gabapentin (Gabapentin 100 Mg Capsule) 200 mg PO TID [facility] Last Admin: 03/31/24 08:10 Dose: 200 mg Hydroxyzine HCl (Hydroxyzine Hcl 25 Mg Tablet) 25 mg PO Q6H PRN PRN Reason: Anxiety Lidocaine (Lidocaine 4 % Patch Adh..Patch) 1 patch TRANSDERMA DAILY [facility]; Protocol Last Admin: 03/31/24 08:11 Dose: Not Given Lorazepam (Lorazepam 1 Mg Tablet) 1 mg PO TID PRN PRN Reason: anxiety, agitation Last Admin: 03/31/24 08:14 Dose: 1 mg Magnesium Hydroxide (Milk Of Magnesia 30 Ml Oral.Susp) 30 ml PO DAILY PRN PRN Reason: Constipation Methadone HCl (Methadone Hcl 20 Mg/2 Ml Oral.Conc) 80 mg PO DAILY [facility] Last Admin: 03/31/24 07:54 Dose: 80 mg Mirtazapine (Mirtazapine 7.5 Mg Tablet) 7.5 mg PO BEDTIME PRN PRN Reason: insomnia Multivitamins/Vitamin C (Multivitamin Tablet) 1 tab PO DAILY [facility] Last Admin: 03/31/24 08:10 Dose: 1 tab Nicotine (Nicotine 21 Mg Patch.Td24) 21 mg TRANSDERMA DAILY PRN PRN Reason: nicotine cravings Nicotine Polacrilex (Nicotine Polacrilex 2 Mg Gum) 4 mg BUCCAL Q2H PRN PRN Reason: Nicotine Cravings Quetiapine Fumarate (Quetiapine Fumarate 50 Mg Tablet) 50 mg PO BEDTIME [facility] Last Admin: 03/30/24 21:13 Dose: 50 mg Quetiapine Fumarate (Quetiapine Fumarate 50 Mg Tablet) 50 mg PO TID PRN PRN Reason: agitation Last Admin: 03/30/24 09:17 Dose: 50 mg Thiamine HCl (Thiamine Hcl 100 Mg Tablet) 100 mg PO DAILY [facility] Last Admin: 03/31/24 08:10 Dose: 100 mg Allergies Allergies Allergy/AdvReac Type Severity Reaction Status Date / Time trazodone Allergy Rash Verified 03/26/24 19:44 Assessment & Plan Assessment & Plan (1) Bipolar II disorder: Status: Acute Code(s): F31.81 - Bipolar II disorder (2) Chronic post-traumatic stress disorder (PTSD): Status: Chronic Code(s): F43.12 - Post-traumatic stress disorder, chronic (3) Polysubstance use disorder: Status: Acute Code(s): F19.90 - Other psychoactive substance use, unspecified, uncomplicated Plan PTSD, Bipolar Disorder, Polysubstance Use Disorder. Plan: Admit, CV 15 minute checks Collateral contact Addiction consult Clonidine prn, Gabapentin 200 mg tid, Remeron prn, Seroquel prn, Wellbutrin 75 mg a.m. to re-start regime. Hospitalist consult, LMQ pain 03/31/24: Increase Gabapentin to 800 mg tid Chlorpromazine 50 mg QID prn irritability, anxiety Reason for continued inpatient stay Substantial Risk for: rapid decompensation Time Spent With Patient Time: Total time managing care of this patient today ____ minutes.
[2024-03-31] MEDS: Lidocaine 4 % Patch ADH..PATCH 1 PATCH TRANSDERMA (11:20)
[2024-03-31] MEDS: chlorproMAZINE HCl 25 MG TABLET 50 MG PO ×2 (12:17→16:31)
[2024-03-31] MEDS: Gabapentin 400 MG CAPSULE 800 MG PO ×2 (14:10→20:38)
[2024-03-31] MEDS: Mirtazapine 7.5 MG TABLET PO (20:35)
[2024-03-31] MEDS: QUEtiapine Fumarate 50 MG TABLET PO (20:36)
[2024-03-31] MEDS: hydrOXYzine HCL 25 MG TABLET PO (20:38)
[2024-04-01] MEDS: methADONE HCl 20 MG/2 ML ORAL.CONC 80 MG PO (07:55)
[2024-04-01 08:00] VITALS: BP 106/55; PULSE 80; RESP 18; TEMP 36.6; O2SAT 98
[2024-04-01] MEDS: Gabapentin 400 MG CAPSULE 800 MG PO ×3 (08:34→21:25)
[2024-04-01] MEDS: Multivitamin TABLET 1 TAB PO (08:34)
[2024-04-01] MEDS: Folic Acid 1 MG TABLET PO (08:34)
[2024-04-01] MEDS: buPROPion HCl XL 150 MG TAB.ER.24H PO (08:34)
[2024-04-01] MEDS: Thiamine HCL 100 MG TABLET PO (08:35)
[2024-04-01] MEDS: LORazepam 1 MG TABLET PO ×3 (08:45→18:31)
[2024-04-01] MEDS: chlorproMAZINE HCl 25 MG TABLET 50 MG PO ×2 (08:45→18:31)
[2024-04-01] MEDS: Lidocaine 4 % Patch ADH..PATCH 1 PATCH TRANSDERMA (08:46)
--- NOTE | 2024-04-01 10:40 | PM.EVENT ---
Event Note Date of Service: 04/01/24 Event Note: Addiction consult placed as patient requested to transition from methadone to buprenorphine Chart reviewed over several days -- acute psychiatric symptoms, including thought blocking and overall not engaging with clinical staff. Does not seen appropriate to address patient request at this time as it not an acute issue and can be addressed when patient is more engaged in treatment or even outpatient. Time Spent With Patient Time: Total time managing care of this patient today ____ minutes.
--- NOTE | 2024-04-01 11:28 | HO.PSYCHPN ---
Subjective Subjective Date of Service: 04/01/24 Reason For Visit: PTSD, bipolar disorder, polysubstance use disorder Subjective Notes: Conditional Voluntary Interim History: Reviewed with Dr. Toro. Keeping to self. Guarded. Pt reports feeling anxious and depressed today; pt stated, every morning I wake up and I have thoughts to kill myself. Today I don't want to hurt anyone. Yesterday I did because he lied to me. He used me . Pt would not go into detail as to who he is referring to. Medication Compliance: Yes Side effects from medications: No Attending Groups: No Review of Systems Constitutional: Reports as per HPI Eyes: Reports as per HPI Reports as per HPI Cardiovascular: Reports as per HPI Respiratory: Reports as per HPI Gastrointestinal: Reports as per HPI Genitourinary: Reports as per HPI Musculoskeletal: Reports as per HPI Skin/Breast: Reports as per HPI Reports as per HPI Psychiatric: Reports as per HPI Endocrine: Reports as per HPI Hematologic/Lymphatic: Reports as per HPI Allergic/Immunologic: Reports as per HPI Mental Status Exam Mental Status Exam Patient Appearance: Disheveled Patient Orientation: Person, Place and Situation Level of Consciousness: Awake and Alert Patient Behavior: Guarded and Anxious Mood Description: Anxious and Apprehensive Affect Description: Blunted Ability to Follow Directions: Fair Speech Pattern: Clear and Appropriate Thought Process: Evasive Thought Content: positive for Suicidal Ideation and positive for Homicidal Ideation Judgement: Poor Diagnostics Vital Signs (24Hr): Vital Signs - 24 hr 04/01/24 08:00 Temperature 97.8 F Pulse Rate 80 Respiratory Rate 18 Blood Pressure 106/55 L Pulse Oximetry 98 Oxygen Delivery Method Room Air BMI result Body Mass Index 22.7 Labs 03/26/24 20:32 03/26/24 20:32 Imaging Radiology Impressions: ITS Impressions Abdomen/Pelvis CT 03/28/24 20:18 IMPRESSION: 1. No demonstrated acute intra-abdominal abnormalities to explain the patient's symptoms. 2. Changes of prior anterior abdominal wall hernia repair. 3. Moderate multilevel degenerative spondyloarthropathy of the lumbar spine. Most notably, there appears to be moderate to severe neural foraminal stenoses at L5-S1. Electronically signed by: Rico Jansen DO 03/29/2024 01:04 PM EDT Medications Medications Current Medications Acetaminophen (Acetaminophen 325 Mg Tablet) 650 mg PO Q6H PRN PRN Reason: Headache/Pain Mild Scale (1-3) Last Admin: 03/29/24 21:10 Dose: 650 mg Al Hydroxide/Mg Hydroxide (Magnesium Hydrox/Alum Hydrox 30 Ml Oral.Susp) 30 ml PO Q6H PRN PRN Reason: Heartburn/Nausea Bupropion HCl (Bupropion Hcl Xl 150 Mg Tab.Er.24h) 150 mg PO DAILY [facility] Last Admin: 04/01/24 08:34 Dose: 150 mg Chlorpromazine HCl (Chlorpromazine Hcl 25 Mg Tablet) 50 mg PO QID PRN PRN Reason: agitation, irritability Last Admin: 04/01/24 08:45 Dose: 50 mg Clonidine HCl (Clonidine Hcl 0.1 Mg Tablet) 0.1 mg PO TID PRN; Protocol PRN Reason: anxiety, withdrawal sx Last Admin: 03/28/24 14:06 Dose: 0.1 mg Folic Acid (Folic Acid 1 Mg Tablet) 1 mg PO DAILY [facility] Last Admin: 04/01/24 08:34 Dose: 1 mg Gabapentin (Gabapentin 400 Mg Capsule) 800 mg PO TID [facility] Last Admin: 04/01/24 08:34 Dose: 800 mg Hydroxyzine HCl (Hydroxyzine Hcl 25 Mg Tablet) 25 mg PO Q6H PRN PRN Reason: Anxiety Last Admin: 03/31/24 20:38 Dose: 25 mg Lidocaine (Lidocaine 4 % Patch Adh..Patch) 1 patch TRANSDERMA DAILY [facility]; Protocol Last Admin: 04/01/24 08:46 Dose: 1 patch Lorazepam (Lorazepam 1 Mg Tablet) 1 mg PO TID PRN PRN Reason: anxiety, agitation Last Admin: 04/01/24 08:45 Dose: 1 mg Magnesium Hydroxide (Milk Of Magnesia 30 Ml Oral.Susp) 30 ml PO DAILY PRN PRN Reason: Constipation Methadone HCl (Methadone Hcl 20 Mg/2 Ml Oral.Conc) 80 mg PO DAILY [facility] Last Admin: 04/01/24 07:55 Dose: 80 mg Mirtazapine (Mirtazapine 7.5 Mg Tablet) 7.5 mg PO BEDTIME PRN PRN Reason: insomnia Last Admin: 03/31/24 20:35 Dose: 7.5 mg Multivitamins/Vitamin C (Multivitamin Tablet) 1 tab PO DAILY [facility] Last Admin: 04/01/24 08:34 Dose: 1 tab Nicotine (Nicotine 21 Mg Patch.Td24) 21 mg TRANSDERMA DAILY PRN PRN Reason: nicotine cravings Nicotine Polacrilex (Nicotine Polacrilex 2 Mg Gum) 4 mg BUCCAL Q2H PRN PRN Reason: Nicotine Cravings Quetiapine Fumarate (Quetiapine Fumarate 50 Mg Tablet) 50 mg PO BEDTIME [facility] Last Admin: 03/31/24 20:36 Dose: 50 mg Quetiapine Fumarate (Quetiapine Fumarate 50 Mg Tablet) 50 mg PO TID PRN PRN Reason: agitation Last Admin: 03/30/24 09:17 Dose: 50 mg Thiamine HCl (Thiamine Hcl 100 Mg Tablet) 100 mg PO DAILY [facility] Last Admin: 04/01/24 08:35 Dose: 100 mg Allergies Allergies Allergy/AdvReac Type Severity Reaction Status Date / Time trazodone Allergy Rash Verified 03/26/24 19:44 Assessment & Plan Assessment & Plan (1) Bipolar II disorder: Status: Acute Code(s): F31.81 - Bipolar II disorder (2) Chronic post-traumatic stress disorder (PTSD): Status: Chronic Code(s): F43.12 - Post-traumatic stress disorder, chronic (3) Polysubstance use disorder: Status: Acute Code(s): F19.90 - Other psychoactive substance use, unspecified, uncomplicated Plan PTSD, Bipolar Disorder, Polysubstance Use Disorder. Plan: Admit, CV 15 minute checks Collateral contact Addiction consult Clonidine prn, Gabapentin 200 mg tid, Remeron prn, Seroquel prn, Wellbutrin 75 mg a.m. to re-start regime. Hospitalist consult, LMQ pain 03/31/24: Increase Gabapentin to 800 mg tid Chlorpromazine 50 mg QID prn irritability, anxiety 04/01: Keeping to self. Guarded. Pt reports feeling anxious and depressed today; pt stated, every morning I wake up and I have thoughts to kill myself. Today I don't want to hurt anyone. Yesterday I did because he lied to me. He used me . Pt would not go into detail as to who he is referring to. Continue current tx plan. Patient educated on: diagnosis and medication risk/benefits Reason for continued inpatient stay Substantial Risk for: harm to self, harm to others and med/psych decompensation Time Spent With Patient Time: Total time managing care of this patient today __20__ minutes.
[2024-04-01] MEDS: hydrOXYzine HCL 25 MG TABLET PO (15:35)
[2024-04-01 20:00] VITALS: BP 136/92; PULSE 116; RESP 18; TEMP 36.4; O2SAT 98
[2024-04-01 21:25] VITALS: BP 132/88
[2024-04-01] MEDS: cloNIDine HCL 0.1 MG TABLET PO (21:25)
[2024-04-01] MEDS: Mirtazapine 7.5 MG TABLET PO (21:25)
[2024-04-01] MEDS: QUEtiapine Fumarate 50 MG TABLET PO (21:29)
[2024-04-02] MEDS: methADONE HCl 20 MG/2 ML ORAL.CONC 80 MG PO (08:08)
[2024-04-02 08:51] VITALS: BP 119/68; PULSE 72; RESP 16; TEMP 37.1; O2SAT 98
[2024-04-02] MEDS: Gabapentin 400 MG CAPSULE 800 MG PO ×3 (09:14→20:57)
[2024-04-02] MEDS: Folic Acid 1 MG TABLET PO (09:15)
[2024-04-02] MEDS: Multivitamin TABLET 1 TAB PO (09:15)
[2024-04-02] MEDS: buPROPion HCl XL 150 MG TAB.ER.24H PO (09:15)
[2024-04-02] MEDS: Lidocaine 4 % Patch ADH..PATCH 1 PATCH TRANSDERMA (09:15)
[2024-04-02] MEDS: Thiamine HCL 100 MG TABLET PO (09:15)
[2024-04-02] MEDS: chlorproMAZINE HCl 25 MG TABLET 50 MG PO ×2 (09:45→20:58)
[2024-04-02] MEDS: cloNIDine HCL 0.1 MG TABLET PO ×2 (09:45→19:02)
--- NOTE | 2024-04-02 09:56 | P.PNPSI_ITS ---
Subjective Subjective Date of Service: 04/02/24 Reason For Visit: PTSD, bipolar disorder, polysubstance use disorder Subjective Notes: Conditional Voluntary Interim History: Reviewed with Dr. Toro. Keeping to self, guarded. Pt continues to report feeling anxious and depressed today; he reports sleeping well at night. Pt reports suicidal ideation that comes and goes . denies HI/VH/AH. Medication Compliance: Yes Side effects from medications: No Attending Groups: No Review of Systems Review of Systems LMQ pain Constitutional: Reports as per HPI Eyes: Reports as per HPI Reports as per HPI Cardiovascular: Reports as per HPI Respiratory: Reports as per HPI Gastrointestinal: Reports as per HPI Genitourinary: Reports as per HPI Musculoskeletal: Reports as per HPI Skin/Breast: Reports as per HPI Reports as per HPI Psychiatric: Reports as per HPI Endocrine: Reports as per HPI Hematologic/Lymphatic: Reports as per HPI Allergic/Immunologic: Reports as per HPI Mental Status Exam Mental Status Exam Patient Appearance: Disheveled Patient Orientation: Person, Place and Situation Level of Consciousness: Awake and Alert Patient Behavior: Guarded and Anxious Mood Description: Anxious and Apprehensive Affect Description: Blunted Patient Cognition Impaired: No Ability to Follow Directions: Fair Speech Pattern: Clear and Appropriate Memory Description: Intact Thought Content: positive for Suicidal Ideation Diagnostics Vital Signs (24Hr): Vital Signs - 24 hr 04/01/24 20:00 04/01/24 21:25 04/02/24 08:51 Temperature 97.6 F 98.7 F Pulse Rate 116 H 72 Respiratory Rate 18 16 Blood Pressure 136/92 H 132/88 119/68 Pulse Oximetry 98 98 Oxygen Delivery Method Room Air Room Air BMI result Body Mass Index 22.7 Labs 03/26/24 20:32 03/26/24 20:32 Imaging Radiology Impressions: ITS Impressions Abdomen/Pelvis CT 03/28/24 20:18 IMPRESSION: 1. No demonstrated acute intra-abdominal abnormalities to explain the patient's symptoms. 2. Changes of prior anterior abdominal wall hernia repair. 3. Moderate multilevel degenerative spondyloarthropathy of the lumbar spine. Most notably, there appears to be moderate to severe neural foraminal stenoses at L5-S1. Electronically signed by: Rico Jansen DO 03/29/2024 01:04 PM EDT Medications Medications Current Medications Acetaminophen (Acetaminophen 325 Mg Tablet) 650 mg PO Q6H PRN PRN Reason: Headache/Pain Mild Scale (1-3) Last Admin: 03/29/24 21:10 Dose: 650 mg Al Hydroxide/Mg Hydroxide (Magnesium Hydrox/Alum Hydrox 30 Ml Oral.Susp) 30 ml PO Q6H PRN PRN Reason: Heartburn/Nausea Bupropion HCl (Bupropion Hcl Xl 150 Mg Tab.Er.24h) 150 mg PO DAILY [facility] Last Admin: 04/02/24 09:15 Dose: 150 mg Chlorpromazine HCl (Chlorpromazine Hcl 25 Mg Tablet) 50 mg PO QID PRN PRN Reason: agitation, irritability Last Admin: 04/02/24 09:45 Dose: 50 mg Clonidine HCl (Clonidine Hcl 0.1 Mg Tablet) 0.1 mg PO TID PRN; Protocol PRN Reason: anxiety, withdrawal sx Last Admin: 04/02/24 09:45 Dose: 0.1 mg Folic Acid (Folic Acid 1 Mg Tablet) 1 mg PO DAILY [facility] Last Admin: 04/02/24 09:15 Dose: 1 mg Gabapentin (Gabapentin 400 Mg Capsule) 800 mg PO TID [facility] Last Admin: 04/02/24 09:14 Dose: 800 mg Hydroxyzine HCl (Hydroxyzine Hcl 25 Mg Tablet) 25 mg PO Q6H PRN PRN Reason: Anxiety Last Admin: 04/01/24 15:35 Dose: 25 mg Lidocaine (Lidocaine 4 % Patch Adh..Patch) 1 patch TRANSDERMA DAILY [facility]; Protocol Last Admin: 04/02/24 09:15 Dose: 1 patch Lorazepam (Lorazepam 1 Mg Tablet) 1 mg PO TID PRN PRN Reason: anxiety, agitation Last Admin: 04/01/24 18:31 Dose: 1 mg Magnesium Hydroxide (Milk Of Magnesia 30 Ml Oral.Susp) 30 ml PO DAILY PRN PRN Reason: Constipation Methadone HCl (Methadone Hcl 20 Mg/2 Ml Oral.Conc) 80 mg PO DAILY [facility] Last Admin: 04/02/24 08:08 Dose: 80 mg Mirtazapine (Mirtazapine 7.5 Mg Tablet) 7.5 mg PO BEDTIME PRN PRN Reason: insomnia Last Admin: 04/01/24 21:25 Dose: 7.5 mg Multivitamins/Vitamin C (Multivitamin Tablet) 1 tab PO DAILY [facility] Last Admin: 04/02/24 09:15 Dose: 1 tab Nicotine (Nicotine 21 Mg Patch.Td24) 21 mg TRANSDERMA DAILY PRN PRN Reason: nicotine cravings Nicotine Polacrilex (Nicotine Polacrilex 2 Mg Gum) 4 mg BUCCAL Q2H PRN PRN Reason: Nicotine Cravings Quetiapine Fumarate (Quetiapine Fumarate 50 Mg Tablet) 50 mg PO BEDTIME [facility]I Last Admin: 04/01/24 21:29 Dose: 50 mg Quetiapine Fumarate (Quetiapine Fumarate 50 Mg Tablet) 50 mg PO TID PRN PRN Reason: agitation Last Admin: 03/30/24 09:17 Dose: 50 mg Thiamine HCl (Thiamine Hcl 100 Mg Tablet) 100 mg PO DAILY [facility] Last Admin: 04/02/24 09:15 Dose: 100 mg Allergies Allergies Allergy/AdvReac Type Severity Reaction Status Date / Time trazodone Allergy Rash Verified 03/26/24 19:44 Assessment & Plan Assessment & Plan (1) Bipolar II disorder: Status: Acute Code(s): F31.81 - Bipolar II disorder (2) Chronic post-traumatic stress disorder (PTSD): Status: Chronic Code(s): F43.12 - Post-traumatic stress disorder, chronic (3) Polysubstance use disorder: Status: Acute Code(s): F19.90 - Other psychoactive substance use, unspecified, uncomplicated Plan PTSD, Bipolar Disorder, Polysubstance Use Disorder. Plan: Admit, CV 15 minute checks Collateral contact Addiction consult Clonidine prn, Gabapentin 200 mg tid, Remeron prn, Seroquel prn, Wellbutrin 75 mg a.m. to re-start regime. Hospitalist consult, LMQ pain 03/31/24: Increase Gabapentin to 800 mg tid Chlorpromazine 50 mg QID prn irritability, anxiety 04/01: Keeping to self. Guarded. Pt reports feeling anxious and depressed today; pt stated, every morning I wake up and I have thoughts to kill myself. Today I don't want to hurt anyone. Yesterday I did because he lied to me. He used me . Pt would not go into detail as to who he is referring to. Continue current tx plan. 04/02: Continue current tx plan. Patient educated on: diagnosis and medication risk/benefits Reason for continued inpatient stay Substantial Risk for: harm to self and med/psych decompensation Time Spent With Patient Time: Total time managing care of this patient today _20___ minutes.
--- NOTE | 2024-04-02 12:29 | PC.NURSE ---
Pt reports LLQ stabbing pain rated 7/10. He reports having a normal bowel movement 04/01/24. He states this pain has been occurring for at least a month maybe longer, but I was on a lot of drugs so maybe I didn't feel it so much before . Pt has utilized lidocaine patch and tylenol with a little bit of relief. Covering provider (HALLIE) notified via [place] [employer] and ibuprofen ordered. Pt had hospitalist consult and ultrasound which was unremarkable. Hospitalist report states the pain is most likely muscular in origin.
[2024-04-02] MEDS: Acetaminophen 325 MG TABLET 650 MG PO (12:48)
[2024-04-02] MEDS: Ibuprofen 600 MG TABLET PO (12:51)
[2024-04-02 19:02] VITALS: BP 112/68
[2024-04-02] MEDS: LORazepam 1 MG TABLET PO (19:02)
[2024-04-02 20:54] VITALS: BP 124/71; PULSE 94; RESP 16; TEMP 36.5; O2SAT 97
[2024-04-02] MEDS: QUEtiapine Fumarate 50 MG TABLET PO (20:57)
[2024-04-03] MEDS: Loperamide HCl 2 MG CAPSULE PO ×2 (07:03→15:10)
[2024-04-03] MEDS: methADONE HCl 20 MG/2 ML ORAL.CONC 80 MG PO (07:50)
[2024-04-03 08:41] VITALS: BP 118/58; PULSE 81; RESP 16; TEMP 37; O2SAT 97
[2024-04-03] MEDS: Folic Acid 1 MG TABLET PO (08:43)
[2024-04-03] MEDS: Thiamine HCL 100 MG TABLET PO (08:43)
[2024-04-03] MEDS: buPROPion HCl XL 150 MG TAB.ER.24H PO (08:43)
[2024-04-03] MEDS: Gabapentin 400 MG CAPSULE 800 MG PO ×3 (08:43→21:11)
[2024-04-03] MEDS: Multivitamin TABLET 1 TAB PO (08:43)
[2024-04-03] MEDS: QUEtiapine Fumarate 50 MG TABLET PO ×2 (09:22→21:11)
--- NOTE | 2024-04-03 12:31 | P.PNPSI_ITS ---
Subjective Subjective Date of Service: 04/03/24 Reason For Visit: PTSD, bipolar disorder, polysubstance use disorder Subjective Notes: Conditional Voluntary Healthcare Proxy: No Guardianship: No Medical Problems Affecting Mental Status: No Interim History: Review of regime. Pt asks to increase Wellbutrin and schedule Chlorpromazine Reports diarrhea-imodium ordered Discussed his concern that brother has a diagnosis of kidney disease-he fears he will get this as well. He has talked with the team about this. Discussed working with PCP for ongoing monitoring. Referrals are pending for ongoing treatment. Medication Compliance: Yes Side effects from medications: No Attending Groups: No Review of Systems Diarrhea Intermittent LUQ pain-seen by hospitalist team for eval. Medical Review of Systems: unchanged Review of Systems Review of Systems Diarrhea Denies abdominal pain currently. Mental Status Exam Mental Status Exam Patient Appearance: Appropriate Patient Orientation: Person, Place, Time and Situation Patient Behavior: Talkative and Good Eye Contact Mood Description: Depressed Affect Description: Flat Patient Cognition Impaired: No Ability to Follow Directions: Good Speech Pattern: Spontaneous Speech Memory Description: Intact Hallucinations: None (denies) Thought Process: Rumination Thought Content: positive for Perseveration Judgement: Fair Diagnostics Vital Signs (24Hr): Vital Signs - 24 hr 04/02/24 19:02 04/02/24 20:54 04/03/24 08:41 Temperature 97.7 F 98.6 F Pulse Rate 94 81 Respiratory Rate 16 16 Blood Pressure 112/68 124/71 118/58 L Pulse Oximetry 97 97 Oxygen Delivery Method Room Air BMI result Body Mass Index 22.7 Labs 03/26/24 20:32 03/26/24 20:32 Imaging Radiology Impressions: ITS Impressions Abdomen/Pelvis CT 03/28/24 20:18 IMPRESSION: 1. No demonstrated acute intra-abdominal abnormalities to explain the patient's symptoms. 2. Changes of prior anterior abdominal wall hernia repair. 3. Moderate multilevel degenerative spondyloarthropathy of the lumbar spine. Most notably, there appears to be moderate to severe neural foraminal stenoses at L5-S1. Electronically signed by: Rico Jansen DO 03/29/2024 01:04 PM EDT Medications Medications Current Medications Acetaminophen (Acetaminophen 325 Mg Tablet) 650 mg PO Q6H PRN PRN Reason: Headache/Pain Mild Scale (1-3) Last Admin: 04/02/24 12:48 Dose: 650 mg Al Hydroxide/Mg Hydroxide (Magnesium Hydrox/Alum Hydrox 30 Ml Oral.Susp) 30 ml PO Q6H PRN PRN Reason: Heartburn/Nausea Bupropion HCl (Bupropion Hcl Xl 150 Mg Tab.Er.24h) 150 mg PO DAILY [facility] Last Admin: 04/03/24 08:43 Dose: 150 mg Chlorpromazine HCl (Chlorpromazine Hcl 25 Mg Tablet) 50 mg PO QID PRN PRN Reason: agitation, irritability Last Admin: 04/02/24 20:58 Dose: 50 mg Clonidine HCl (Clonidine Hcl 0.1 Mg Tablet) 0.1 mg PO TID PRN; Protocol PRN Reason: anxiety, withdrawal sx Last Admin: 04/02/24 19:02 Dose: 0.1 mg Folic Acid (Folic Acid 1 Mg Tablet) 1 mg PO DAILY [facility] Last Admin: 04/03/24 08:43 Dose: 1 mg Gabapentin (Gabapentin 400 Mg Capsule) 800 mg PO TID [facility] Last Admin: 04/03/24 08:43 Dose: 800 mg Hydroxyzine HCl (Hydroxyzine Hcl 25 Mg Tablet) 25 mg PO Q6H PRN PRN Reason: Anxiety Last Admin: 04/01/24 15:35 Dose: 25 mg Ibuprofen (Ibuprofen 600 Mg Tablet) 600 mg PO Q8H PRN PRN Reason: Pain, Moderate(Pain Scale 4-6) Last Admin: 04/02/24 12:51 Dose: 600 mg Lidocaine (Lidocaine 4 % Patch Adh..Patch) 1 patch TRANSDERMA DAILY [facility]; Protocol Last Admin: 04/03/24 11:29 Dose: Not Given Loperamide HCl (Loperamide Hcl 2 Mg Capsule) 2 mg PO Q4H PRN PRN Reason: Diarrhea Last Admin: 04/03/24 07:03 Dose: 2 mg Lorazepam (Lorazepam 1 Mg Tablet) 1 mg PO TID PRN PRN Reason: anxiety, agitation Last Admin: 04/02/24 19:02 Dose: 1 mg Magnesium Hydroxide (Milk Of Magnesia 30 Ml Oral.Susp) 30 ml PO DAILY PRN PRN Reason: Constipation Methadone HCl (Methadone Hcl 20 Mg/2 Ml Oral.Conc) 80 mg PO DAILY [facility] Last Admin: 04/03/24 07:50 Dose: 80 mg Mirtazapine (Mirtazapine 7.5 Mg Tablet) 7.5 mg PO BEDTIME PRN PRN Reason: insomnia Last Admin: 04/01/24 21:25 Dose: 7.5 mg Multivitamins/Vitamin C (Multivitamin Tablet) 1 tab PO DAILY [facility] Last Admin: 04/03/24 08:43 Dose: 1 tab Nicotine (Nicotine 21 Mg Patch.Td24) 21 mg TRANSDERMA DAILY PRN PRN Reason: nicotine cravings Nicotine Polacrilex (Nicotine Polacrilex 2 Mg Gum) 4 mg BUCCAL Q2H PRN PRN Reason: Nicotine Cravings Quetiapine Fumarate (Quetiapine Fumarate 50 Mg Tablet) 50 mg PO BEDTIME [facility] Last Admin: 04/02/24 20:57 Dose: 50 mg Quetiapine Fumarate (Quetiapine Fumarate 50 Mg Tablet) 50 mg PO TID PRN PRN Reason: agitation Last Admin: 04/03/24 09:22 Dose: 50 mg Thiamine HCl (Thiamine Hcl 100 Mg Tablet) 100 mg PO DAILY [facility] Last Admin: 04/03/24 08:43 Dose: 100 mg Allergies Allergies Allergy/AdvReac Type Severity Reaction Status Date / Time trazodone Allergy Rash Verified 03/26/24 19:44 Assessment & Plan Assessment & Plan (1) Bipolar II disorder: Status: Acute Code(s): F31.81 - Bipolar II disorder (2) Chronic post-traumatic stress disorder (PTSD): Status: Chronic Code(s): F43.12 - Post-traumatic stress disorder, chronic (3) Polysubstance use disorder: Status: Acute Code(s): F19.90 - Other psychoactive substance use, unspecified, uncomplicated Plan PTSD, Bipolar Disorder, Polysubstance Use Disorder. Plan: Admit, CV 15 minute checks Collateral contact Addiction consult Clonidine prn, Gabapentin 200 mg tid, Remeron prn, Seroquel prn, Wellbutrin 75 mg a.m. to re-start regime. Hospitalist consult, LMQ pain 03/31/24: Increase Gabapentin to 800 mg tid Chlorpromazine 50 mg QID prn irritability, anxiety 04/01: Keeping to self. Guarded. Pt reports feeling anxious and depressed today; pt stated, every morning I wake up and I have thoughts to kill myself. Today I don't want to hurt anyone. Yesterday I did because he lied to me. He used me . Pt would not go into detail as to who he is referring to. Continue current tx plan. 04/02: Continue current tx plan. 04/03: Increase Wellbutrin to 300 mg daily Chlorpromazine 50 mg tid Imodium prn Reason for continued inpatient stay Substantial Risk for: rapid decompensation Time Spent With Patient Time: Total time managing care of this patient today ____ minutes.
[2024-04-03] MEDS: LORazepam 1 MG TABLET PO ×2 (13:19→21:10)
[2024-04-03] MEDS: chlorproMAZINE HCl 25 MG TABLET 50 MG PO ×3 (13:19→21:10)
[2024-04-03 20:00] VITALS: BP 144/67; PULSE 86; RESP 18; TEMP 36.7; O2SAT 96
[2024-04-03] MEDS: Loperamide HCl 2 MG CAPSULE 4 MG PO (21:12)
[2024-04-03] MEDS: Mirtazapine 7.5 MG TABLET PO (21:12)
[2024-04-04] MEDS: Loperamide HCl 2 MG CAPSULE 4 MG PO ×4 (01:56→21:45)
[2024-04-04 08:00] VITALS: BP 117/71; PULSE 84; RESP 16; TEMP 36.8; O2SAT 96
[2024-04-04] MEDS: methADONE HCl 20 MG/2 ML ORAL.CONC 80 MG PO (08:23)
[2024-04-04] MEDS: chlorproMAZINE HCl 25 MG TABLET 50 MG PO ×3 (08:25→21:44)
[2024-04-04] MEDS: buPROPion HCl XL 300 MG TAB.ER.24H PO (08:26)
[2024-04-04] MEDS: Multivitamin TABLET 1 TAB PO (08:26)
[2024-04-04] MEDS: Gabapentin 400 MG CAPSULE 800 MG PO ×3 (08:26→21:44)
[2024-04-04] MEDS: Thiamine HCL 100 MG TABLET PO (08:26)
[2024-04-04] MEDS: Folic Acid 1 MG TABLET PO (08:26)
--- NOTE | 2024-04-04 10:32 | HO.PSYCHPN ---
Subjective Subjective Date of Service: 04/04/24 Reason For Visit: PTSD, bipolar disorder, polysubstance use disorder Subjective Notes: Conditional Voluntary Healthcare Proxy: No Guardianship: No Medical Problems Affecting Mental Status: No Interim History: Reports some voices today. Diarrhea is now at night , approximately 4 episodes. Imodium does not effect it. Agrees to stool culture. Denies abdominal pain. Reports depressive sx, up and down however feels on an improved path for ongoing relief. Medication Compliance: Yes Side effects from medications: Yes (??) Attending Groups: No Review of Systems Acute medical concerns: No Medical Review of Systems: unchanged Review of Systems Review of Systems Diarrhea, at night, last evening ~4 episodes, not effected with imodium. Denies abdominal pain Mental Status Exam Mental Status Exam Patient Appearance: Appropriate Patient Orientation: Person, Place, Time and Situation Patient Behavior: Talkative and Good Eye Contact Mood Description: Depressed Affect Description: Flat Patient Cognition Impaired: No Ability to Follow Directions: Good Speech Pattern: Spontaneous Speech Memory Description: Intact Hallucinations: None (denies) Thought Process: Rumination Thought Content: positive for Perseveration Judgement: Fair Diagnostics Vital Signs (24Hr): Vital Signs - 24 hr 04/03/24 20:00 Temperature 98.0 F Pulse Rate 86 Respiratory Rate 18 Blood Pressure 144/67 H Pulse Oximetry 96 Oxygen Delivery Method Room Air BMI result Body Mass Index 22.7 Labs 03/26/24 20:32 03/26/24 20:32 Imaging Radiology Impressions: ITS Impressions Abdomen/Pelvis CT 03/28/24 20:18 IMPRESSION: 1. No demonstrated acute intra-abdominal abnormalities to explain the patient's symptoms. 2. Changes of prior anterior abdominal wall hernia repair. 3. Moderate multilevel degenerative spondyloarthropathy of the lumbar spine. Most notably, there appears to be moderate to severe neural foraminal stenoses at L5-S1. Electronically signed by: Rico Jansen DO 03/29/2024 01:04 PM EDT Medications Medications Current Medications Acetaminophen (Acetaminophen 325 Mg Tablet) 650 mg PO Q6H PRN PRN Reason: Headache/Pain Mild Scale (1-3) Last Admin: 04/02/24 12:48 Dose: 650 mg Al Hydroxide/Mg Hydroxide (Magnesium Hydrox/Alum Hydrox 30 Ml Oral.Susp) 30 ml PO Q6H PRN PRN Reason: Heartburn/Nausea Bupropion HCl (Bupropion Hcl Xl 300 Mg Tab.Er.24h) 300 mg PO DAILY [facility] Last Admin: 04/04/24 08:26 Dose: 300 mg Chlorpromazine HCl (Chlorpromazine Hcl 25 Mg Tablet) 50 mg PO QID PRN PRN Reason: agitation, irritability Last Admin: 04/03/24 13:19 Dose: 50 mg Chlorpromazine HCl (Chlorpromazine Hcl 25 Mg Tablet) 50 mg PO TID [facility] Last Admin: 04/04/24 08:25 Dose: 50 mg Clonidine HCl (Clonidine Hcl 0.1 Mg Tablet) 0.1 mg PO TID PRN; Protocol PRN Reason: anxiety, withdrawal sx Last Admin: 04/02/24 19:02 Dose: 0.1 mg Folic Acid (Folic Acid 1 Mg Tablet) 1 mg PO DAILY [facility] Last Admin: 04/04/24 08:26 Dose: 1 mg Gabapentin (Gabapentin 400 Mg Capsule) 800 mg PO TID [facility] Last Admin: 04/04/24 08:26 Dose: 800 mg Hydroxyzine HCl (Hydroxyzine Hcl 25 Mg Tablet) 25 mg PO Q6H PRN PRN Reason: Anxiety Last Admin: 04/01/24 15:35 Dose: 25 mg Ibuprofen (Ibuprofen 600 Mg Tablet) 600 mg PO Q8H PRN PRN Reason: Pain, Moderate(Pain Scale 4-6) Last Admin: 04/02/24 12:51 Dose: 600 mg Lidocaine (Lidocaine 4 % Patch Adh..Patch) 1 patch TRANSDERMA DAILY [facility]; Protocol Last Admin: 04/03/24 11:29 Dose: Not Given Loperamide HCl (Loperamide Hcl 2 Mg Capsule) 4 mg PO Q6H PRN PRN Reason: Diarrhea Last Admin: 04/04/24 08:25 Dose: 4 mg Lorazepam (Lorazepam 1 Mg Tablet) 1 mg PO TID PRN PRN Reason: anxiety, agitation Last Admin: 04/03/24 21:10 Dose: 1 mg Magnesium Hydroxide (Milk Of Magnesia 30 Ml Oral.Susp) 30 ml PO DAILY PRN PRN Reason: Constipation Methadone HCl (Methadone Hcl 20 Mg/2 Ml Oral.Conc) 80 mg PO DAILY [facility] Last Admin: 04/04/24 08:23 Dose: 80 mg Mirtazapine (Mirtazapine 7.5 Mg Tablet) 7.5 mg PO BEDTIME PRN PRN Reason: insomnia Last Admin: 04/03/24 21:12 Dose: 7.5 mg Multivitamins/Vitamin C (Multivitamin Tablet) 1 tab PO DAILY [facility] Last Admin: 04/04/24 08:26 Dose: 1 tab Nicotine (Nicotine 21 Mg Patch.Td24) 21 mg TRANSDERMA DAILY PRN PRN Reason: nicotine cravings Nicotine Polacrilex (Nicotine Polacrilex 2 Mg Gum) 4 mg BUCCAL Q2H PRN PRN Reason: Nicotine Cravings Quetiapine Fumarate (Quetiapine Fumarate 50 Mg Tablet) 50 mg PO BEDTIME [facility] Last Admin: 04/03/24 21:11 Dose: 50 mg Quetiapine Fumarate (Quetiapine Fumarate 50 Mg Tablet) 50 mg PO TID PRN PRN Reason: agitation Last Admin: 04/03/24 09:22 Dose: 50 mg Thiamine HCl (Thiamine Hcl 100 Mg Tablet) 100 mg PO DAILY [facility] Last Admin: 04/04/24 08:26 Dose: 100 mg Allergies Allergies Allergy/AdvReac Type Severity Reaction Status Date / Time trazodone Allergy Rash Verified 03/26/24 19:44 Assessment & Plan Assessment & Plan (1) Bipolar II disorder: Status: Acute Code(s): F31.81 - Bipolar II disorder (2) Chronic post-traumatic stress disorder (PTSD): Status: Chronic Code(s): F43.12 - Post-traumatic stress disorder, chronic (3) Polysubstance use disorder: Status: Acute Code(s): F19.90 - Other psychoactive substance use, unspecified, uncomplicated Plan PTSD, Bipolar Disorder, Polysubstance Use Disorder. Plan: Admit, CV 15 minute checks Collateral contact Addiction consult Clonidine prn, Gabapentin 200 mg tid, Remeron prn, Seroquel prn, Wellbutrin 75 mg a.m. to re-start regime. Hospitalist consult, LMQ pain 03/31/24: Increase Gabapentin to 800 mg tid Chlorpromazine 50 mg QID prn irritability, anxiety 04/01: Keeping to self. Guarded. Pt reports feeling anxious and depressed today; pt stated, every morning I wake up and I have thoughts to kill myself. Today I don't want to hurt anyone. Yesterday I did because he lied to me. He used me . Pt would not go into detail as to who he is referring to. Continue current tx plan. 04/02: Continue current tx plan. 04/04: Stool culture Patient educated on: medication risk/benefits and therapeutic strategies Reason for continued inpatient stay Substantial Risk for: rapid decompensation and med/psych decompensation Time Spent With Patient Time: Total time managing care of this patient today ____ minutes.
[2024-04-04] MEDS: LORazepam 1 MG TABLET PO ×2 (17:03→21:44)
[2024-04-04] MEDS: QUEtiapine Fumarate 50 MG TABLET PO ×2 (17:03→21:44)
[2024-04-04 20:00] VITALS: BP 118/73; PULSE 93; RESP 18; TEMP 36.9; O2SAT 95
[2024-04-04] MEDS: Mirtazapine 7.5 MG TABLET PO (21:45)
[2024-04-05 08:00] VITALS: BP 117/74; PULSE 74; RESP 16; TEMP 36.9; O2SAT 96
[2024-04-05] MEDS: methADONE HCl 20 MG/2 ML ORAL.CONC 80 MG PO (08:00)
[2024-04-05] MEDS: buPROPion HCl XL 300 MG TAB.ER.24H PO (08:39)
[2024-04-05] MEDS: Multivitamin TABLET 1 TAB PO (08:39)
[2024-04-05] MEDS: Gabapentin 400 MG CAPSULE 800 MG PO ×3 (08:39→21:46)
[2024-04-05] MEDS: chlorproMAZINE HCl 25 MG TABLET 50 MG PO ×3 (08:39→21:47)
[2024-04-05] MEDS: Folic Acid 1 MG TABLET PO (08:39)
[2024-04-05] MEDS: Thiamine HCL 100 MG TABLET PO (08:39)
[2024-04-05] MEDS: QUEtiapine Fumarate 50 MG TABLET PO ×3 (09:12→21:46)
[2024-04-05] MEDS: LORazepam 1 MG TABLET PO ×2 (09:13→21:46)
--- NOTE | 2024-04-05 11:55 | HO.PSYCHPN ---
Subjective Subjective Date of Service: 04/05/24 Reason For Visit: PTSD, bipolar disorder, polysubstance use disorder Subjective Notes: Conditional Voluntary Interim History: The nursing staff reported the patient had been feeling very shameful after he last relapse. He verbalized to the staff that his mood is much better but he looks extremely dysphoric he stated that he has lost weight he used to be over 200 and he was weight yesterday and he was waiting 171. On interview the patient was extremely sad and dysphoric he did not want to elaborate to match but he was able to contract for safety. Mental Status Exam Mental Status Exam Patient Appearance: Appropriate Patient Orientation: Person and Situation Level of Consciousness: Awake and Appropriate Patient Behavior: Guarded and Passive Mood Description: Withdrawn Affect Description: Blunted Ability to Follow Directions: Good Speech Pattern: Clear Hallucinations: None Delusions: Not Present Thought Process: Distracted and Slowed Thinking Thought Content: positive for [place] and positive for Circumstantial Judgement: Fair Diagnostics Vital Signs (24Hr): Vital Signs - 24 hr 04/04/24 20:00 04/05/24 08:00 Temperature 98.4 F 98.4 F Pulse Rate 93 74 Respiratory Rate 18 16 Blood Pressure 118/73 117/74 Pulse Oximetry 95 96 Oxygen Delivery Method Room Air Room Air BMI result Body Mass Index 22.7 Labs 03/26/24 20:32 03/26/24 20:32 Imaging Radiology Impressions: ITS Impressions Abdomen/Pelvis CT 03/28/24 20:18 IMPRESSION: 1. No demonstrated acute intra-abdominal abnormalities to explain the patient's symptoms. 2. Changes of prior anterior abdominal wall hernia repair. 3. Moderate multilevel degenerative spondyloarthropathy of the lumbar spine. Most notably, there appears to be moderate to severe neural foraminal stenoses at L5-S1. Electronically signed by: Rico Jansen DO 03/29/2024 01:04 PM EDT Medications Medications Current Medications Acetaminophen (Acetaminophen 325 Mg Tablet) 650 mg PO Q6H PRN PRN Reason: Headache/Pain Mild Scale (1-3) Last Admin: 04/02/24 12:48 Dose: 650 mg Al Hydroxide/Mg Hydroxide (Magnesium Hydrox/Alum Hydrox 30 Ml Oral.Susp) 30 ml PO Q6H PRN PRN Reason: Heartburn/Nausea Bupropion HCl (Bupropion Hcl Xl 300 Mg Tab.Er.24h) 300 mg PO DAILY [facility] Last Admin: 04/05/24 08:39 Dose: 300 mg Chlorpromazine HCl (Chlorpromazine Hcl 25 Mg Tablet) 50 mg PO QID PRN PRN Reason: agitation, irritability Last Admin: 04/03/24 13:19 Dose: 50 mg Chlorpromazine HCl (Chlorpromazine Hcl 25 Mg Tablet) 50 mg PO TID [facility] Last Admin: 04/05/24 08:39 Dose: 50 mg Clonidine HCl (Clonidine Hcl 0.1 Mg Tablet) 0.1 mg PO TID PRN; Protocol PRN Reason: anxiety, withdrawal sx Last Admin: 04/02/24 19:02 Dose: 0.1 mg Folic Acid (Folic Acid 1 Mg Tablet) 1 mg PO DAILY [facility] Last Admin: 04/05/24 08:39 Dose: 1 mg Gabapentin (Gabapentin 400 Mg Capsule) 800 mg PO TID [facility] Last Admin: 04/05/24 08:39 Dose: 800 mg Hydroxyzine HCl (Hydroxyzine Hcl 25 Mg Tablet) 25 mg PO Q6H PRN PRN Reason: Anxiety Last Admin: 04/01/24 15:35 Dose: 25 mg Ibuprofen (Ibuprofen 600 Mg Tablet) 600 mg PO Q8H PRN PRN Reason: Pain, Moderate(Pain Scale 4-6) Last Admin: 04/02/24 12:51 Dose: 600 mg Lidocaine (Lidocaine 4 % Patch Adh..Patch) 1 patch TRANSDERMA DAILY [facility]; Protocol Last Admin: 04/05/24 08:40 Dose: Not Given Loperamide HCl (Loperamide Hcl 2 Mg Capsule) 4 mg PO Q6H PRN PRN Reason: Diarrhea Last Admin: 04/04/24 21:45 Dose: 4 mg Lorazepam (Lorazepam 1 Mg Tablet) 1 mg PO TID PRN PRN Reason: anxiety, agitation Last Admin: 04/05/24 09:13 Dose: 1 mg Magnesium Hydroxide (Milk Of Magnesia 30 Ml Oral.Susp) 30 ml PO DAILY PRN PRN Reason: Constipation Methadone HCl (Methadone Hcl 20 Mg/2 Ml Oral.Conc) 80 mg PO DAILY [facility] Last Admin: 04/05/24 08:00 Dose: 80 mg Mirtazapine (Mirtazapine 7.5 Mg Tablet) 7.5 mg PO BEDTIME PRN PRN Reason: insomnia Last Admin: 04/04/24 21:45 Dose: 7.5 mg Multivitamins/Vitamin C (Multivitamin Tablet) 1 tab PO DAILY [facility] Last Admin: 04/05/24 08:39 Dose: 1 tab Nicotine (Nicotine 21 Mg Patch.Td24) 21 mg TRANSDERMA DAILY PRN PRN Reason: nicotine cravings Nicotine Polacrilex (Nicotine Polacrilex 2 Mg Gum) 4 mg BUCCAL Q2H PRN PRN Reason: Nicotine Cravings Quetiapine Fumarate (Quetiapine Fumarate 50 Mg Tablet) 50 mg PO BEDTIME [facility] Last Admin: 04/04/24 21:44 Dose: 50 mg Quetiapine Fumarate (Quetiapine Fumarate 50 Mg Tablet) 50 mg PO TID PRN PRN Reason: agitation Last Admin: 04/05/24 09:12 Dose: 50 mg Thiamine HCl (Thiamine Hcl 100 Mg Tablet) 100 mg PO DAILY [facility] Last Admin: 04/05/24 08:39 Dose: 100 mg Allergies Allergies Allergy/AdvReac Type Severity Reaction Status Date / Time trazodone Allergy Rash Verified 03/26/24 19:44 Assessment & Plan Assessment & Plan (1) Bipolar II disorder: Status: Acute Code(s): F31.81 - Bipolar II disorder (2) Chronic post-traumatic stress disorder (PTSD): Status: Chronic Code(s): F43.12 - Post-traumatic stress disorder, chronic (3) Polysubstance use disorder: Status: Acute Code(s): F19.90 - Other psychoactive substance use, unspecified, uncomplicated Plan PTSD, Bipolar Disorder, Polysubstance Use Disorder. Plan: Admit, CV 15 minute checks Collateral contact Addiction consult Clonidine prn, Gabapentin 200 mg tid, Remeron prn, Seroquel prn, Wellbutrin 75 mg a.m. to re-start regime. Hospitalist consult, LMQ pain 03/31/24: Increase Gabapentin to 800 mg tid Chlorpromazine 50 mg QID prn irritability, anxiety 04/01: Keeping to self. Guarded. Pt reports feeling anxious and depressed today; pt stated, every morning I wake up and I have thoughts to kill myself. Today I don't want to hurt anyone. Yesterday I did because he lied to me. He used me . Pt would not go into detail as to who he is referring to. Continue current tx plan. 04/02: Continue current tx plan. 04/04: Stool culture 04/05 keep same treatment Reason for continued inpatient stay Substantial Risk for: inability to function, rapid decompensation and med/psych decompensation Time Spent With Patient Time: Total time managing care of this patient today __20__ minutes.
[2024-04-05 15:57] VITALS: BP 125/67
[2024-04-05] MEDS: cloNIDine HCL 0.1 MG TABLET PO (15:57)
[2024-04-05] MEDS: hydrOXYzine HCL 25 MG TABLET PO ×2 (15:57→21:46)
[2024-04-05 20:00] VITALS: BP 117/57; PULSE 88; RESP 16; TEMP 37.1; O2SAT 96
[2024-04-05] MEDS: Mirtazapine 7.5 MG TABLET PO (21:46)
[2024-04-05] MEDS: Loperamide HCl 2 MG CAPSULE 4 MG PO (23:22)
[2024-04-06] MEDS: methADONE HCl 20 MG/2 ML ORAL.CONC 80 MG PO (07:45)
[2024-04-06 08:00] VITALS: BP 112/68; PULSE 88; RESP 18; TEMP 36.5; O2SAT 97
[2024-04-06] MEDS: Gabapentin 400 MG CAPSULE 800 MG PO ×3 (08:46→20:16)
[2024-04-06] MEDS: chlorproMAZINE HCl 25 MG TABLET 50 MG PO (08:46)
[2024-04-06] MEDS: Loperamide HCl 2 MG CAPSULE 4 MG PO (08:46)
[2024-04-06] MEDS: buPROPion HCl XL 300 MG TAB.ER.24H PO (08:47)
[2024-04-06] MEDS: Folic Acid 1 MG TABLET PO (08:47)
[2024-04-06] MEDS: Thiamine HCL 100 MG TABLET PO (08:47)
[2024-04-06] MEDS: QUEtiapine Fumarate 50 MG TABLET PO ×3 (08:47→20:16)
[2024-04-06] MEDS: Multivitamin TABLET 1 TAB PO (08:47)
[2024-04-06 10:42] LABS: Adenovirus F 40/41 Not Detected (Not Detect.); Astrovirus Not Detected (Not Detect.); Campylobacter Not Detected (Not Detect.); Cryptosporidium Not Detected (Not Detect.); Cyclospora cayetanensis Not Detected (Not Detect.); E. coli EAEC Not Detected (Not Detect.); E. coli EPEC Detected (Not Detect.); E. coli ETEC Not Detected (Not Detect.); E. coli STEC Not Detected (Not Detect.); Entamoeba histolytica Not Detected (Not Detect.); Giardia lamblia Not Detected (Not Detect.); Norovirus GI/GII Not Detected (Not Detect.); Plesiomonas shigelloides Not Detected (Not Detect.); Rotavirus A Not Detected (Not Detect.); Salmonella Not Detected (Not Detect.); Sapovirus Not Detected (Not Detect.); Shigella sp./EIEC Not Detected (Not Detect.); Vibrio Not Detected (Not Detect.); Vibrio Cholerae Not Detected (Not Detect.); Yersinia enterocolitica Not Detected (Not Detect.)
--- NOTE | 2024-04-06 13:42 | PM.EVENT ---
Event Note Date of Service: 04/06/24 Event Note: Patient is a 49-year-old male with a PMH significant for opiate use disorder on methadone, anxiety, and depression who was admitted to for increasing anxiety and depression with vague, fleeting SI. Hospitalist consult for infectious diarrhea positive for enteropathogenic E coli. Patient has been experiencing multiple episodes of watery, nonbloody diarrhea that has not responded to symptomatic treatment with loperamide 4 mg q.6. Patient has remained afebrile. Will check CBC for possible leukocytosis, and BMP for electrolytes and renal function. Given resistant to symptomatic treatment will treat patient with azithromycin 1g x 1 dose. Continue loperamide p.r.n. Encourage hand washing, personal hygiene, and p.o. fluid intake. Time Spent With Patient Time: Total time managing care of this patient today ____ minutes.
--- NOTE | 2024-04-06 13:53 | HO.PSYCHPN ---
Subjective Subjective Date of Service: 04/06/24 Reason For Visit: PTSD, bipolar disorder, polysubstance use disorder Subjective Notes: Conditional Voluntary Interim History: The nursing staff reported the patient had been very disorganized, he was wearing a sock on his head and he had been more hypoactive. Yesterday finally they did the test and he came positive to E coli. I am asking for a hospitalist consult for the possibility of antibiotic therapy. On interview the patient was sleepy very tired. Looks more psychotic so I am increasing Thorazine up to 75 p.o. t.i.d. Mental Status Exam Mental Status Exam Patient Appearance: Well Grooomed and Appropriate Patient Orientation: Person and Situation Level of Consciousness: Awake and Obtunded Patient Behavior: Guarded and Passive Mood Description: Withdrawn Affect Description: Blunted Patient Cognition Impaired: Yes Ability to Follow Directions: Poor Speech Pattern: Mumbled Hallucinations: Auditory Delusions: Paranoid Ideation Thought Process: Illogical and Distracted Thought Content: positive for [place] and positive for Poverty of Content Judgement: Poor Diagnostics Vital Signs (24Hr): Vital Signs - 24 hr 04/05/24 15:57 04/05/24 20:00 04/06/24 08:00 Temperature 98.7 F 97.7 F Pulse Rate 88 88 Respiratory Rate 16 18 Blood Pressure 125/67 117/57 L 112/68 Pulse Oximetry 96 97 Oxygen Delivery Method Room Air Room Air BMI result Body Mass Index 22.7 Labs 03/26/24 20:32 03/26/24 20:32 Labs: Laboratory Results - last 48 hr 04/05/24 15:53 Stl C. cayetanensis PCR Not Detected Stool Rotavirus A PCR Not Detected Stl Adenov F 40/41 PCR Not Detected Stool Astrovirus (PCR) Not Detected Stool Campylobacter PCR Not Detected Stool Cryptosporidium PCR Not Detected Stl Sh Tox Pr E STEC PCR Not Detected Stool E coli O157 PCR Not applicable Stl Enterotoxigenic E PCR Not Detected Stool EPEC (PCR) Detected A Stool EAEC (PCR) Not Detected Stl E. histolytica PCR Not Detected Stool Giardia Lamblia PCR Not Detected Stl P. shigelloides PCR Not Detected Stool Salmonella PCR Not Detected Stool Sapovirus (PCR) Not Detected Stl Shigella/EIEC PCR Not Detected St Y.enterocolitica PCR Not Detected Stool Vibrio (PCR) Not Detected Stl Vibrio cholerae PCR Not Detected Stl Norovirus GI/GII PCR Not Detected Imaging Radiology Impressions: ITS Impressions Abdomen/Pelvis CT 03/28/24 20:18 IMPRESSION: 1. No demonstrated acute intra-abdominal abnormalities to explain the patient's symptoms. 2. Changes of prior anterior abdominal wall hernia repair. 3. Moderate multilevel degenerative spondyloarthropathy of the lumbar spine. Most notably, there appears to be moderate to severe neural foraminal stenoses at L5-S1. Electronically signed by: Rico Jansen DO 03/29/2024 01:04 PM EDT Medications Medications Current Medications Acetaminophen (Acetaminophen 325 Mg Tablet) 650 mg PO Q6H PRN PRN Reason: Headache/Pain Mild Scale (1-3) Last Admin: 04/02/24 12:48 Dose: 650 mg Al Hydroxide/Mg Hydroxide (Magnesium Hydrox/Alum Hydrox 30 Ml Oral.Susp) 30 ml PO Q6H PRN PRN Reason: Heartburn/Nausea Bupropion HCl (Bupropion Hcl Xl 300 Mg Tab.Er.24h) 300 mg PO DAILY [facility] Last Admin: 04/06/24 08:47 Dose: 300 mg Chlorpromazine HCl (Chlorpromazine Hcl 25 Mg Tablet) 50 mg PO QID PRN PRN Reason: agitation, irritability Last Admin: 04/03/24 13:19 Dose: 50 mg Chlorpromazine HCl (Chlorpromazine Hcl 100 Mg Tablet) 100 mg PO TID [facility] Clonidine HCl (Clonidine Hcl 0.1 Mg Tablet) 0.1 mg PO TID PRN; Protocol PRN Reason: anxiety, withdrawal sx Last Admin: 04/05/24 15:57 Dose: 0.1 mg Folic Acid (Folic Acid 1 Mg Tablet) 1 mg PO DAILY [facility] Last Admin: 04/06/24 08:47 Dose: 1 mg Gabapentin (Gabapentin 400 Mg Capsule) 800 mg PO TID [facility] Last Admin: 04/06/24 08:46 Dose: 800 mg Hydroxyzine HCl (Hydroxyzine Hcl 25 Mg Tablet) 25 mg PO Q6H PRN PRN Reason: Anxiety Last Admin: 04/05/24 21:46 Dose: 25 mg Ibuprofen (Ibuprofen 600 Mg Tablet) 600 mg PO Q8H PRN PRN Reason: Pain, Moderate(Pain Scale 4-6) Last Admin: 09/04/24 12:51 Dose: 600 mg Lidocaine (Lidocaine 4 % Patch Adh..Patch) 1 patch TRANSDERMA DAILY [facility]; Protocol Last Admin: 04/06/24 08:47 Dose: Not Given Loperamide HCl (Loperamide Hcl 2 Mg Capsule) 4 mg PO Q6H PRN PRN Reason: Diarrhea Last Admin: 04/06/24 08:46 Dose: 4 mg Lorazepam (Lorazepam 1 Mg Tablet) 1 mg PO TID PRN PRN Reason: anxiety, agitation Last Admin: 04/05/24 21:46 Dose: 1 mg Magnesium Hydroxide (Milk Of Magnesia 30 Ml Oral.Susp) 30 ml PO DAILY PRN PRN Reason: Constipation Methadone HCl (Methadone Hcl 20 Mg/2 Ml Oral.Conc) 80 mg PO DAILY [facility] Last Admin: 04/06/24 07:45 Dose: 80 mg Mirtazapine (Mirtazapine 7.5 Mg Tablet) 7.5 mg PO BEDTIME PRN PRN Reason: insomnia Last Admin: 04/05/24 21:46 Dose: 7.5 mg Multivitamins/Vitamin C (Multivitamin Tablet) 1 tab PO DAILY [facility] Last Admin: 04/06/24 08:47 Dose: 1 tab Nicotine (Nicotine 21 Mg Patch.Td24) 21 mg TRANSDERMA DAILY PRN PRN Reason: nicotine cravings Nicotine Polacrilex (Nicotine Polacrilex 2 Mg Gum) 4 mg BUCCAL Q2H PRN PRN Reason: Nicotine Cravings Quetiapine Fumarate (Quetiapine Fumarate 50 Mg Tablet) 50 mg PO BEDTIME [facility] Last Admin: 04/05/24 21:46 Dose: 50 mg Quetiapine Fumarate (Quetiapine Fumarate 50 Mg Tablet) 50 mg PO TID PRN PRN Reason: agitation Last Admin: 04/06/24 08:47 Dose: 50 mg Thiamine HCl (Thiamine Hcl 100 Mg Tablet) 100 mg PO DAILY [facility] Last Admin: 04/06/24 08:47 Dose: 100 mg Allergies Allergies Allergy/AdvReac Type Severity Reaction Status Date / Time trazodone Allergy Rash Verified 03/26/24 19:44 Assessment & Plan Assessment & Plan (1) Bipolar II disorder: Status: Acute Code(s): F31.81 - Bipolar II disorder (2) Chronic post-traumatic stress disorder (PTSD): Status: Chronic Code(s): F43.12 - Post-traumatic stress disorder, chronic (3) Polysubstance use disorder: Status: Acute Code(s): F19.90 - Other psychoactive substance use, unspecified, uncomplicated Plan PTSD, Bipolar Disorder, Polysubstance Use Disorder. Plan: Admit, CV 15 minute checks Collateral contact Addiction consult Clonidine prn, Gabapentin 200 mg tid, Remeron prn, Seroquel prn, Wellbutrin 75 mg a.m. to re-start regime. Hospitalist consult, LMQ pain 03/31/24: Increase Gabapentin to 800 mg tid Chlorpromazine 50 mg QID prn irritability, anxiety 04/01: Keeping to self. Guarded. Pt reports feeling anxious and depressed today; pt stated, every morning I wake up and I have thoughts to kill myself. Today I don't want to hurt anyone. Yesterday I did because he lied to me. He used me . Pt would not go into detail as to who he is referring to. Continue current tx plan. 04/02: Continue current tx plan. 04/04: Stool culture 04/05 keep same treatment 04/06 the patient is more delirious, his stool culture came up positive and hospitalist consult disorder. I am increasing Thorazine since the patient is more delirious. Reason for continued inpatient stay Substantial Risk for: inability to function, rapid decompensation and med/psych decompensation Time Spent With Patient Time: Total time managing care of this patient today ___20_ minutes.
[2024-04-06] MEDS: Azithromycin 500 MG TABLET 1000 MG PO (14:04)
[2024-04-06] MEDS: chlorproMAZINE HCl 100 MG TABLET PO ×2 (14:04→20:16)
[2024-04-06 20:00] VITALS: BP 126/84; PULSE 76; RESP 20; TEMP 36.4; O2SAT 96
--- NOTE | 2024-04-06 20:02 | PC.NURSE ---
@2000 [facility] alerted RN that pt appeared to have sneakers with laces in room. Both RN and [facility] went to pt to ask about shoes. Blue sneakers found with what appears to be torn sheet or pillowcase that has been used to lace shoes. RN discussed safety and items allowed/not allowed on unit. Pt agreed to lace removal.
[2024-04-06] MEDS: hydrOXYzine HCL 25 MG TABLET PO (20:16)
[2024-04-07 08:00] VITALS: BP 125/79; PULSE 69; RESP 18; TEMP 36.3; O2SAT 98
[2024-04-07] MEDS: methADONE HCl 20 MG/2 ML ORAL.CONC 80 MG PO (08:16)
[2024-04-07 08:38] LABS: Hematocrit 46.9 % (42.0-52.0); Hemoglobin 15.6 g/dl (14.0-18.0); Mean Corpuscular HGB Conc 33.3 g/dl (31.0-36.0); Mean Corpuscular Hemoglobin 31.1 pg (27.0-33.0); Mean Corpuscular Volume 93.4 fL (80.0-98.0); Mean Platelet Volume 9.5 fL (9.4-12.4); Platelet Count 217 X10*3/uL (160-400); Red Blood Count 5.02 X10*6/uL (4.60-5.80); Red Cell Distribution Width 13.2 % (11.0-16.0); White Blood Count 6.8 X10*3/uL (4.8-10.8)
[2024-04-07 08:48] LABS: Anion Gap 15 (12-20); Blood Urea Nitrogen 13 mg/dL (9-16); Calcium 9.9 mg/dL (8.4-10.2); Carbon Dioxide 28 mmol/L (22-29); Chloride 104 mmol/L (96-108); Creatinine Clr Calc Pharmacy 96.5; Estimated Glomerular Filt Rate > 60; Glucose Random 92 mg/dL (60-115); Potassium 4.3 mmol/L (3.3-5.1); Sodium 143 mmol/L (135-145)
[2024-04-07] MEDS: Multivitamin TABLET 1 TAB PO (09:01)
[2024-04-07] MEDS: Gabapentin 400 MG CAPSULE 800 MG PO ×3 (09:01→22:45)
[2024-04-07] MEDS: chlorproMAZINE HCl 100 MG TABLET PO (09:01)
[2024-04-07] MEDS: buPROPion HCl XL 300 MG TAB.ER.24H PO (09:02)
[2024-04-07] MEDS: Thiamine HCL 100 MG TABLET PO (09:02)
[2024-04-07] MEDS: Folic Acid 1 MG TABLET PO (09:02)
[2024-04-07] MEDS: Lidocaine 4 % Patch ADH..PATCH 1 PATCH TRANSDERMA (09:02)
[2024-04-07] MEDS: QUEtiapine Fumarate 50 MG TABLET PO ×2 (11:45→15:55)
--- NOTE | 2024-04-07 17:31 | HO.PSYCHPN ---
Subjective Subjective Date of Service: 04/07/24 Reason For Visit: PTSD, bipolar disorder, polysubstance use disorder Subjective Notes: Conditional Voluntary Healthcare Proxy: No Guardianship: No Medical Problems Affecting Mental Status: No Interim History: Pt reports not feeling well. Review of concerns and sx. Discussed, when admitted, he reported previous regime on discharge was effective. Reviewed this regime. Will DC Chlorpromazine scheduled dose. Will increase HS Seroquel to 100 mg HS Will initiate Depakote 250 mg bid Reports some improvement of abdominal pain with antibiotic Medication Compliance: Yes Side effects from medications: Yes Attending Groups: No Review of Systems Acute medical concerns: Yes E Coli enteropathogenic Review of Systems: some reported decrease of abdominal pain Review of Systems Review of Systems depressed mood Mental Status Exam Mental Status Exam Patient Appearance: Appropriate Patient Orientation: Person, Place, Time and Situation Patient Behavior: Talkative and Good Eye Contact Mood Description: Depressed Affect Description: Flat Patient Cognition Impaired: No Ability to Follow Directions: Good Speech Pattern: Spontaneous Speech Memory Description: Intact Hallucinations: None (denies) Thought Process: Rumination Thought Content: positive for [place] Judgement: Fair Diagnostics Vital Signs (24Hr): Vital Signs - 24 hr 04/06/24 20:00 04/07/24 08:00 Temperature 97.6 F 97.3 F Pulse Rate 76 69 Respiratory Rate 20 18 Blood Pressure 126/84 125/79 Pulse Oximetry 96 98 Oxygen Delivery Method Room Air BMI result Body Mass Index 22.7 Labs 04/07/24 08:27 04/07/24 08:27 Labs: Laboratory Results - last 48 hr 04/05/24 04/07/24 15:53 08:27 WBC 6.8 RBC 5.02 Hgb 15.6 Hct 46.9 MCV 93.4 MCH 31.1 MCHC 33.3 RDW 13.2 Plt Count 217 MPV 9.5 Absolute Nucleated RBC 0.000 Nucleated RBC % (auto) 0.0 Sodium 143 Potassium 4.3 Chloride 104 Carbon Dioxide 28 Anion Gap 15 BUN 13 Creatinine 0.87 Estim Creat Clear Calc 96.5 Estimated GFR > 60 Random Glucose 92 Calcium 9.9 Stl C. cayetanensis PCR Not Detected Stool Rotavirus A PCR Not Detected Stl Adenov F 40/41 PCR Not Detected Stool Astrovirus (PCR) Not Detected Stool Campylobacter PCR Not Detected Stool Cryptosporidium PCR Not Detected Stl Sh Tox Pr E STEC PCR Not Detected Stool E coli O157 PCR Not applicable Stl Enterotoxigenic E PCR Not Detected Stool EPEC (PCR) Detected A Stool EAEC (PCR) Not Detected Stl E. histolytica PCR Not Detected Stool Giardia Lamblia PCR Not Detected Stl P. shigelloides PCR Not Detected Stool Salmonella PCR Not Detected Stool Sapovirus (PCR) Not Detected Stl Shigella/EIEC PCR Not Detected St Y.enterocolitica PCR Not Detected Stool Vibrio (PCR) Not Detected Stl Vibrio cholerae PCR Not Detected Stl Norovirus GI/GII PCR Not Detected Imaging Radiology Impressions: ITS Impressions Abdomen/Pelvis CT 03/28/24 20:18 IMPRESSION: 1. No demonstrated acute intra-abdominal abnormalities to explain the patient's symptoms. 2. Changes of prior anterior abdominal wall hernia repair. 3. Moderate multilevel degenerative spondyloarthropathy of the lumbar spine. Most notably, there appears to be moderate to severe neural foraminal stenoses at L5-S1. Electronically signed by: Rico Jansen DO 03/29/2024 01:04 PM EDT Medications Medications Current Medications Acetaminophen (Acetaminophen 325 Mg Tablet) 650 mg PO Q6H PRN PRN Reason: Headache/Pain Mild Scale (1-3) Last Admin: 04/02/24 12:48 Dose: 650 mg Al Hydroxide/Mg Hydroxide (Magnesium Hydrox/Alum Hydrox 30 Ml Oral.Susp) 30 ml PO Q6H PRN PRN Reason: Heartburn/Nausea Bupropion HCl (Bupropion Hcl Xl 300 Mg Tab.Er.24h) 300 mg PO DAILY [facility] Last Admin: 04/07/24 09:02 Dose: 300 mg Chlorpromazine HCl (Chlorpromazine Hcl 25 Mg Tablet) 50 mg PO QID PRN PRN Reason: agitation, irritability Last Admin: 04/03/24 13:19 Dose: 50 mg Clonidine HCl (Clonidine Hcl 0.1 Mg Tablet) 0.1 mg PO TID PRN; Protocol PRN Reason: anxiety, withdrawal sx Last Admin: 04/05/24 15:57 Dose: 0.1 mg Divalproex Sodium (Divalproex Sodium 250 Mg Tablet.Dr) 250 mg PO BID [facility] Folic Acid (Folic Acid 1 Mg Tablet) 1 mg PO DAILY [facility] Last Admin: 04/07/24 09:02 Dose: 1 mg Gabapentin (Gabapentin 400 Mg Capsule) 800 mg PO TID [facility] Last Admin: 04/07/24 15:55 Dose: 800 mg Hydroxyzine HCl (Hydroxyzine Hcl 25 Mg Tablet) 25 mg PO Q6H PRN PRN Reason: Anxiety Last Admin: 04/06/24 20:16 Dose: 25 mg Ibuprofen (Ibuprofen 600 Mg Tablet) 600 mg PO Q8H PRN PRN Reason: Pain, Moderate(Pain Scale 4-6) Last Admin: 04/02/24 12:51 Dose: 600 mg Lidocaine (Lidocaine 4 % Patch Adh..Patch) 1 patch TRANSDERMA DAILY [facility]; Protocol Last Admin: 04/07/24 09:02 Dose: 1 patch Loperamide HCl (Loperamide Hcl 2 Mg Capsule) 4 mg PO Q6H PRN PRN Reason: Diarrhea Last Admin: 04/06/24 08:46 Dose: 4 mg Lorazepam (Lorazepam 1 Mg Tablet) 1 mg PO TID PRN PRN Reason: anxiety, agitation Last Admin: 04/05/24 21:46 Dose: 1 mg Magnesium Hydroxide (Milk Of Magnesia 30 Ml Oral.Susp) 30 ml PO DAILY PRN PRN Reason: Constipation Methadone HCl (Methadone Hcl 20 Mg/2 Ml Oral.Conc) 80 mg PO DAILY [facility] Last Admin: 04/07/24 08:16 Dose: 80 mg Mirtazapine (Mirtazapine 7.5 Mg Tablet) 7.5 mg PO BEDTIME PRN PRN Reason: insomnia Last Admin: 04/05/24 21:46 Dose: 7.5 mg Multivitamins/Vitamin C (Multivitamin Tablet) 1 tab PO DAILY [facility] Last Admin: 04/07/24 09:01 Dose: 1 tab Nicotine (Nicotine 21 Mg Patch.Td24) 21 mg TRANSDERMA DAILY PRN PRN Reason: nicotine cravings Nicotine Polacrilex (Nicotine Polacrilex 2 Mg Gum) 4 mg BUCCAL Q2H PRN PRN Reason: Nicotine Cravings Quetiapine Fumarate (Quetiapine Fumarate 50 Mg Tablet) 50 mg PO TID PRN PRN Reason: agitation Last Admin: 04/07/24 15:55 Dose: 50 mg Quetiapine Fumarate (Quetiapine Fumarate 100 Mg Tablet) 100 mg PO BEDTIME [facility] Thiamine HCl (Thiamine Hcl 100 Mg Tablet) 100 mg PO DAILY [facility] Last Admin: 04/07/24 09:02 Dose: 100 mg Allergies Allergies Allergy/AdvReac Type Severity Reaction Status Date / Time trazodone Allergy Rash Verified 03/26/24 19:44 Assessment & Plan Assessment & Plan (1) Bipolar II disorder: Status: Acute Code(s): F31.81 - Bipolar II disorder (2) Chronic post-traumatic stress disorder (PTSD): Status: Chronic Code(s): F43.12 - Post-traumatic stress disorder, chronic (3) Polysubstance use disorder: Status: Acute Code(s): F19.90 - Other psychoactive substance use, unspecified, uncomplicated Plan PTSD, Bipolar Disorder, Polysubstance Use Disorder. Plan: Admit, CV 15 minute checks Collateral contact Addiction consult Clonidine prn, Gabapentin 200 mg tid, Remeron prn, Seroquel prn, Wellbutrin 75 mg a.m. to re-start regime. Hospitalist consult, LMQ pain 03/31/24: Increase Gabapentin to 800 mg tid Chlorpromazine 50 mg QID prn irritability, anxiety 04/01: Keeping to self. Guarded. Pt reports feeling anxious and depressed today; pt stated, every morning I wake up and I have thoughts to kill myself. Today I don't want to hurt anyone. Yesterday I did because he lied to me. He used me . Pt would not go into detail as to who he is referring to. Continue current tx plan. 04/02: Continue current tx plan. 04/04: Stool culture 04/05 keep same treatment 04/06 the patient is more delirious, his stool culture came up positive and hospitalist consult disorder. I am increasing Thorazine since the patient is more delirious. 04/07 DC Chlorpromazine scheduled dose Depakote 250 mg bid Increase HS Seroquel to 100 mg HS Pt will allow a return to previous regime which he reports was very effective. Reason for continued inpatient stay Substantial Risk for: med/psych decompensation Time Spent With Patient Time: Total time managing care of this patient today ____ minutes.
[2024-04-07] MEDS: hydrOXYzine HCL 25 MG TABLET PO (17:34)
[2024-04-07] MEDS: cloNIDine HCL 0.1 MG TABLET PO (17:34)
[2024-04-07 20:00] VITALS: BP 132/72; RESP 16; TEMP 36.7; O2SAT 98
[2024-04-07] MEDS: QUEtiapine Fumarate 100 MG TABLET PO (22:45)
[2024-04-07] MEDS: Divalproex Sodium 250 MG TABLET.DR PO (22:45)
[2024-04-08] MEDS: methADONE HCl 20 MG/2 ML ORAL.CONC 80 MG PO (07:59)
[2024-04-08 08:00] VITALS: BP 119/86; PULSE 97; RESP 18; TEMP 36.3; O2SAT 95
[2024-04-08] MEDS: buPROPion HCl XL 300 MG TAB.ER.24H PO (09:08)
[2024-04-08] MEDS: Multivitamin TABLET 1 TAB PO (09:08)
[2024-04-08] MEDS: Lidocaine 4 % Patch ADH..PATCH 1 PATCH TRANSDERMA (09:08)
[2024-04-08] MEDS: Gabapentin 400 MG CAPSULE 800 MG PO ×3 (09:09→21:47)
[2024-04-08] MEDS: Thiamine HCL 100 MG TABLET PO (09:09)
[2024-04-08] MEDS: Folic Acid 1 MG TABLET PO (09:09)
[2024-04-08] MEDS: Divalproex Sodium 250 MG TABLET.DR PO ×2 (09:09→21:49)
[2024-04-08] MEDS: chlorproMAZINE HCl 25 MG TABLET 50 MG PO (11:26)
[2024-04-08] MEDS: hydrOXYzine HCL 25 MG TABLET PO (11:26)
[2024-04-08] MEDS: QUEtiapine Fumarate 50 MG TABLET PO (15:12)
--- NOTE | 2024-04-08 15:59 | PM.EVENT ---
Event Note Date of Service: 04/08/24 Event Note: Pt reporting pain rt thigh, feels similar to prior DVT. No longer on ac- has been discontinued for months. Venous duplex negative for dvt, but shows bakers cyst about 3cm possibly causing patient's discomfort which is probably musculoskeletal in nature. Recommend pain management prn with ibuprofen and tylenol. Can also use ice on the knee. Can consider ortho consult but there is likely no indication for inpt intervention. Thank you for allowing me to participate in this consult. Signing off at this time. Please do not hesitate to call for further questions or for any acute medical issues Time Spent With Patient Time: Total time managing care of this patient today ____ minutes.
--- NOTE | 2024-04-08 17:44 | P.PNPSI_ITS ---
Subjective Subjective Date of Service: 04/08/24 Reason For Visit: PTSD, bipolar disorder, polysubstance use disorder Subjective Notes: Conditional Voluntary Interim History: Pt talked of feeling increasingly depressed, but with a decrease in AH. States he has been thinking about his reports of med SE. He believes he has confused admissions. Reports a recent admission for >90days to [facility] where he believes he took over 16 meds for his mood/thought sx and reports feeling disconnected from himself and his environment. WILDA signed for records. Reviewed regime, will return Seroquel to 200 mg HS/100 mg a.m. Pt reports R Leg Pain. Similiar pain to previous DVT. Hx of Eliquis which he stopped. Will ask hospitalist team to assess for intervention. Medication Compliance: Yes Side effects from medications: No Attending Groups: No Review of Systems Acute medical concerns: No Review of Systems Review of Systems R Leg pain, hx of DVT, Eliquis use. Mental Status Exam Mental Status Exam Patient Appearance: Appropriate Patient Orientation: Person, Place, Time and Situation Patient Behavior: Talkative and Good Eye Contact Mood Description: Depressed Affect Description: Flat Patient Cognition Impaired: No Ability to Follow Directions: Good Speech Pattern: Spontaneous Speech Memory Description: Intact Hallucinations: Auditory Perceptual Disturbances: Derealization Thought Process: Rumination Thought Content: positive for Perseveration Depressive Symptoms: Increased Anxiety, Hopelessness and Difficulty Concentrating Judgement: Fair Diagnostics Vital Signs (24Hr): Vital Signs - 24 hr 04/07/24 20:00 04/08/24 08:00 Temperature 98.0 F 97.3 F Pulse Rate 97 Respiratory Rate 16 18 Blood Pressure 132/72 119/86 Pulse Oximetry 98 95 Oxygen Delivery Method Room Air Room Air BMI result Body Mass Index 22.7 Labs 04/07/24 08:27 04/07/24 08:27 Labs: Laboratory Results - last 48 hr 04/07/24 08:27 WBC 6.8 RBC 5.02 Hgb 15.6 Hct 46.9 MCV 93.4 MCH 31.1 MCHC 33.3 RDW 13.2 Plt Count 217 MPV 9.5 Absolute Nucleated RBC 0.000 Nucleated RBC % (auto) 0.0 Sodium 143 Potassium 4.3 Chloride 104 Carbon Dioxide 28 Anion Gap 15 BUN 13 Creatinine 0.87 Estim Creat Clear Calc 96.5 Estimated GFR > 60 Random Glucose 92 Calcium 9.9 Imaging Radiology Impressions: ITS Impressions Abdomen/Pelvis CT 03/28/24 20:18 IMPRESSION: 1. No demonstrated acute intra-abdominal abnormalities to explain the patient's symptoms. 2. Changes of prior anterior abdominal wall hernia repair. 3. Moderate multilevel degenerative spondyloarthropathy of the lumbar spine. Most notably, there appears to be moderate to severe neural foraminal stenoses at L5-S1. Electronically signed by: Rico Jansen DO 03/29/2024 01:04 PM EDT RP Venous Duplex 04/08/24 16:55 IMPRESSION: 1. No evidence of deep venous thrombosis involving the right lower extremity. 2. Clarke's cyst 3.1 x 1.1 x 2.1 cm. Electronically signed by: Jules Sanchez DO 04/08/2024 05:14 PM EDT RP Medications Medications Current Medications Acetaminophen (Acetaminophen 325 Mg Tablet) 650 mg PO Q6H PRN PRN Reason: Headache/Pain Mild Scale (1-3) Last Admin: 04/02/24 12:48 Dose: 650 mg Al Hydroxide/Mg Hydroxide (Magnesium Hydrox/Alum Hydrox 30 Ml Oral.Susp) 30 ml PO Q6H PRN PRN Reason: Heartburn/Nausea Bupropion HCl (Bupropion Hcl Xl 150 Mg Tab.Er.24h) 150 mg PO DAILY [facility] Chlorpromazine HCl (Chlorpromazine Hcl 25 Mg Tablet) 50 mg PO QID PRN PRN Reason: agitation, irritability Last Admin: 04/08/24 11:26 Dose: 50 mg Clonidine HCl (Clonidine Hcl 0.1 Mg Tablet) 0.1 mg PO TID PRN; Protocol PRN Reason: anxiety, withdrawal sx Last Admin: 04/07/24 17:34 Dose: 0.1 mg Divalproex Sodium (Divalproex Sodium 250 Mg Tablet.Dr) 250 mg PO BID [facility] Last Admin: 04/08/24 09:09 Dose: 250 mg Folic Acid (Folic Acid 1 Mg Tablet) 1 mg PO DAILY [facility] Last Admin: 04/08/24 09:09 Dose: 1 mg Gabapentin (Gabapentin 400 Mg Capsule) 800 mg PO TID [facility] Last Admin: 04/08/24 15:12 Dose: 800 mg Hydroxyzine HCl (Hydroxyzine Hcl 25 Mg Tablet) 25 mg PO Q6H PRN PRN Reason: Anxiety Last Admin: 04/08/24 11:26 Dose: 25 mg Ibuprofen (Ibuprofen 600 Mg Tablet) 600 mg PO Q8H PRN PRN Reason: Pain, Moderate(Pain Scale 4-6) Last Admin: 04/02/24 12:51 Dose: 600 mg Lidocaine (Lidocaine 4 % Patch Adh..Patch) 1 patch TRANSDERMA DAILY [facility]; Protocol Last Admin: 04/08/24 09:08 Dose: 1 patch Loperamide HCl (Loperamide Hcl 2 Mg Capsule) 4 mg PO Q6H PRN PRN Reason: Diarrhea Last Admin: 04/06/24 08:46 Dose: 4 mg Lorazepam (Lorazepam 1 Mg Tablet) 1 mg PO TID PRN PRN Reason: anxiety, agitation Last Admin: 04/05/24 21:46 Dose: 1 mg Magnesium Hydroxide (Milk Of Magnesia 30 Ml Oral.Susp) 30 ml PO DAILY PRN PRN Reason: Constipation Methadone HCl (Methadone Hcl 20 Mg/2 Ml Oral.Conc) 80 mg PO DAILY [facility] Last Admin: 04/08/24 07:59 Dose: 80 mg Mirtazapine (Mirtazapine 7.5 Mg Tablet) 7.5 mg PO BEDTIME PRN PRN Reason: insomnia Last Admin: 04/05/24 21:46 Dose: 7.5 mg Multivitamins/Vitamin C (Multivitamin Tablet) 1 tab PO DAILY [facility] Last Admin: 04/08/24 09:08 Dose: 1 tab Nicotine (Nicotine 21 Mg Patch.Td24) 21 mg TRANSDERMA DAILY PRN PRN Reason: nicotine cravings Nicotine Polacrilex (Nicotine Polacrilex 2 Mg Gum) 4 mg BUCCAL Q2H PRN PRN Reason: Nicotine Cravings Quetiapine Fumarate (Quetiapine Fumarate 50 Mg Tablet) 50 mg PO TID PRN PRN Reason: agitation Last Admin: 04/08/24 15:12 Dose: 50 mg Quetiapine Fumarate (Quetiapine Fumarate 200 Mg Tablet) 200 mg PO BEDTIME [facility] Quetiapine Fumarate (Quetiapine Fumarate 100 Mg Tablet) 100 mg PO DAILY [facility] Thiamine HCl (Thiamine Hcl 100 Mg Tablet) 100 mg PO DAILY [facility] Last Admin: 04/08/24 09:09 Dose: 100 mg Allergies Allergies Allergy/AdvReac Type Severity Reaction Status Date / Time trazodone Allergy Rash Verified 03/26/24 19:44 Assessment & Plan Assessment & Plan (1) Bipolar II disorder: Status: Acute Code(s): F31.81 - Bipolar II disorder (2) Chronic post-traumatic stress disorder (PTSD): Status: Chronic Code(s): F43.12 - Post-traumatic stress disorder, chronic (3) Polysubstance use disorder: Status: Acute Code(s): F19.90 - Other psychoactive substance use, unspecified, uncomplicated Plan PTSD, Bipolar Disorder, Polysubstance Use Disorder. Plan: Admit, CV 15 minute checks Collateral contact Addiction consult Clonidine prn, Gabapentin 200 mg tid, Remeron prn, Seroquel prn, Wellbutrin 75 mg a.m. to re-start regime. Hospitalist consult, LMQ pain 03/31/24: Increase Gabapentin to 800 mg tid Chlorpromazine 50 mg QID prn irritability, anxiety 04/01: Keeping to self. Guarded. Pt reports feeling anxious and depressed today; pt stated, every morning I wake up and I have thoughts to kill myself. Today I don't want to hurt anyone. Yesterday I did because he lied to me. He used me . Pt would not go into detail as to who he is referring to. Continue current tx plan. 04/02: Continue current tx plan. 04/04: Stool culture 04/05 keep same treatment 04/06 the patient is more delirious, his stool culture came up positive and hospitalist consult disorder. I am increasing Thorazine since the patient is more delirious. 04/07 DC Chlorpromazine scheduled dose Depakote 250 mg bid Increase HS Seroquel to 100 mg HS Pt will allow a return to previous regime which he reports was very effective. 04/08 Increase Seroquel to 200 mg HS/100 mg a.m. per pt request Reason for continued inpatient stay Substantial Risk for: med/psych decompensation Time Spent With Patient Time: Total time managing care of this patient today ____ minutes.
[2024-04-08 20:00] VITALS: BP 145/78; PULSE 88; TEMP 36.6; O2SAT 96
[2024-04-08 21:47] VITALS: BP 132/83
[2024-04-08] MEDS: QUEtiapine Fumarate 200 MG TABLET PO (21:47)
[2024-04-08] MEDS: cloNIDine HCL 0.1 MG TABLET PO (21:47)
[2024-04-09] MEDS: methADONE HCl 20 MG/2 ML ORAL.CONC 80 MG PO (07:55)
[2024-04-09 08:12] VITALS: BP 123/72; PULSE 75; RESP 16; TEMP 36.3; O2SAT 98
[2024-04-09] MEDS: Thiamine HCL 100 MG TABLET PO (08:50)
[2024-04-09] MEDS: buPROPion HCl XL 150 MG TAB.ER.24H PO (08:50)
[2024-04-09] MEDS: Folic Acid 1 MG TABLET PO (08:50)
[2024-04-09] MEDS: Gabapentin 400 MG CAPSULE 800 MG PO ×3 (08:50→22:01)
[2024-04-09] MEDS: Divalproex Sodium 250 MG TABLET.DR PO (08:50)
[2024-04-09] MEDS: QUEtiapine Fumarate 100 MG TABLET PO (08:51)
[2024-04-09] MEDS: Multivitamin TABLET 1 TAB PO (08:51)
--- NOTE | 2024-04-09 10:32 | HO.PSYCHPN ---
Subjective Subjective Date of Service: 04/09/24 Reason For Visit: PTSD, bipolar disorder, polysubstance use disorder Subjective Notes: Conditional Voluntary Interim History: Venous Duplex negative for DVT, however pt has a 3cm Clarke's Cyst. Pt reports today I am always thinking Reports a maintenance team member knows his sister, went to school with her and is telling team bad things about him, I heard it . Reports he sees a deamon who follows him, who is in the room with us while we meet and it consistently follows him and offers feedback. Reports ongoing response to internal stimuli and finds this overwhelming. Medication Compliance: Yes Side effects from medications: No Attending Groups: No Review of Systems Acute medical concerns: No Review of Systems Review of Systems Clarke's Cyst identified on R Leg Mental Status Exam Mental Status Exam Patient Appearance: Appropriate Patient Orientation: Person, Place, Time and Situation Patient Behavior: Talkative and Good Eye Contact Mood Description: Depressed Affect Description: Flat Patient Cognition Impaired: No Ability to Follow Directions: Good Speech Pattern: Spontaneous Speech Memory Description: Intact Hallucinations: Auditory and Visual Perceptual Disturbances: Derealization Thought Process: Rumination Thought Content: positive for Perseveration Depressive Symptoms: Increased Anxiety, Hopelessness and Difficulty Concentrating Judgement: Fair Diagnostics Vital Signs (24Hr): Vital Signs - 24 hr 04/08/24 20:00 04/08/24 21:47 Temperature 97.9 F Pulse Rate 88 Blood Pressure 145/78 H 132/83 Pulse Oximetry 96 Oxygen Delivery Method Room Air BMI result Body Mass Index 22.7 Labs 04/07/24 08:27 04/07/24 08:27 Imaging Radiology Impressions: ITS Impressions Abdomen/Pelvis CT 03/28/24 20:18 IMPRESSION: 1. No demonstrated acute intra-abdominal abnormalities to explain the patient's symptoms. 2. Changes of prior anterior abdominal wall hernia repair. 3. Moderate multilevel degenerative spondyloarthropathy of the lumbar spine. Most notably, there appears to be moderate to severe neural foraminal stenoses at L5-S1. Electronically signed by: Rico Jansen DO 03/29/2024 01:04 PM EDT Venous Duplex 04/08/24 16:55 IMPRESSION: 1. No evidence of deep venous thrombosis involving the right lower extremity. 2. Clarke's cyst 3.1 x 1.1 x 2.1 cm. Electronically signed by: Jules Sanchez DO 04/08/2024 05:14 PM EDT RP Medications Medications Current Medications Acetaminophen (Acetaminophen 325 Mg Tablet) 650 mg PO Q6H PRN PRN Reason: Headache/Pain Mild Scale (1-3) Last Admin: 04/02/24 12:48 Dose: 650 mg Al Hydroxide/Mg Hydroxide (Magnesium Hydrox/Alum Hydrox 30 Ml Oral.Susp) 30 ml PO Q6H PRN PRN Reason: Heartburn/Nausea Bupropion HCl (Bupropion Hcl Xl 150 Mg Tab.Er.24h) 150 mg PO DAILY [facility] Last Admin: 04/09/24 08:50 Dose: 150 mg Chlorpromazine HCl (Chlorpromazine Hcl 25 Mg Tablet) 50 mg PO QID PRN PRN Reason: agitation, irritability Last Admin: 04/08/24 11:26 Dose: 50 mg Clonidine HCl (Clonidine Hcl 0.1 Mg Tablet) 0.1 mg PO TID PRN; Protocol PRN Reason: anxiety, withdrawal sx Last Admin: 04/08/24 21:47 Dose: 0.1 mg Divalproex Sodium (Divalproex Sodium 250 Mg Tablet.Dr) 250 mg PO BID [facility] Last Admin: 04/09/24 08:50 Dose: 250 mg Folic Acid (Folic Acid 1 Mg Tablet) 1 mg PO DAILY [facility] Last Admin: 04/09/24 08:50 Dose: 1 mg Gabapentin (Gabapentin 400 Mg Capsule) 800 mg PO TID [facility] Last Admin: 04/09/24 08:50 Dose: 800 mg Hydroxyzine HCl (Hydroxyzine Hcl 25 Mg Tablet) 25 mg PO Q6H PRN PRN Reason: Anxiety Last Admin: 04/08/24 11:26 Dose: 25 mg Ibuprofen (Ibuprofen 600 Mg Tablet) 600 mg PO Q8H PRN PRN Reason: Pain, Moderate(Pain Scale 4-6) Last Admin: 04/02/24 12:51 Dose: 600 mg Lidocaine (Lidocaine 4 % Patch Adh..Patch) 1 patch TRANSDERMA DAILY [facility]; Protocol Last Admin: 04/08/24 09:08 Dose: 1 patch Loperamide HCl (Loperamide Hcl 2 Mg Capsule) 4 mg PO Q6H PRN PRN Reason: Diarrhea Last Admin: 04/06/24 08:46 Dose: 4 mg Lorazepam (Lorazepam 1 Mg Tablet) 1 mg PO TID PRN PRN Reason: anxiety, agitation Last Admin: 04/05/24 21:46 Dose: 1 mg Magnesium Hydroxide (Milk Of Magnesia 30 Ml Oral.Susp) 30 ml PO DAILY PRN PRN Reason: Constipation Methadone HCl (Methadone Hcl 20 Mg/2 Ml Oral.Conc) 80 mg PO DAILY [facility] Last Admin: 04/09/24 07:55 Dose: 80 mg Mirtazapine (Mirtazapine 7.5 Mg Tablet) 7.5 mg PO BEDTIME PRN PRN Reason: insomnia Last Admin: 04/05/24 21:46 Dose: 7.5 mg Multivitamins/Vitamin C (Multivitamin Tablet) 1 tab PO DAILY [facility] Last Admin: 04/09/24 08:51 Dose: 1 tab Nicotine (Nicotine 21 Mg Patch.Td24) 21 mg TRANSDERMA DAILY PRN PRN Reason: nicotine cravings Nicotine Polacrilex (Nicotine Polacrilex 2 Mg Gum) 4 mg BUCCAL Q2H PRN PRN Reason: Nicotine Cravings Quetiapine Fumarate (Quetiapine Fumarate 50 Mg Tablet) 50 mg PO TID PRN PRN Reason: agitation Last Admin: 04/08/24 15:12 Dose: 50 mg Quetiapine Fumarate (Quetiapine Fumarate 200 Mg Tablet) 200 mg PO BEDTIME [facility] Last Admin: 04/08/24 21:47 Dose: 200 mg Quetiapine Fumarate (Quetiapine Fumarate 100 Mg Tablet) 100 mg PO DAILY [facility] Last Admin: 04/09/24 08:51 Dose: 100 mg Thiamine HCl (Thiamine Hcl 100 Mg Tablet) 100 mg PO DAILY [facility] Last Admin: 04/09/24 08:50 Dose: 100 mg Allergies Allergies Allergy/AdvReac Type Severity Reaction Status Date / Time trazodone Allergy Rash Verified 03/26/24 19:44 Assessment & Plan Assessment & Plan (1) Bipolar II disorder: Status: Acute Code(s): F31.81 - Bipolar II disorder (2) Chronic post-traumatic stress disorder (PTSD): Status: Chronic Code(s): F43.12 - Post-traumatic stress disorder, chronic (3) Polysubstance use disorder: Status: Acute Code(s): F19.90 - Other psychoactive substance use, unspecified, uncomplicated Plan PTSD, Bipolar Disorder, Polysubstance Use Disorder. Plan: Admit, CV 15 minute checks Collateral contact Addiction consult Clonidine prn, Gabapentin 200 mg tid, Remeron prn, Seroquel prn, Wellbutrin 75 mg a.m. to re-start regime. Hospitalist consult, ISIS pain 03/31/24: Increase Gabapentin to 800 mg tid Chlorpromazine 50 mg QID prn irritability, anxiety 04/01: Keeping to self. Guarded. Pt reports feeling anxious and depressed today; pt stated, every morning I wake up and I have thoughts to kill myself. Today I don't want to hurt anyone. Yesterday I did because he lied to me. He used me . Pt would not go into detail as to who he is referring to. Continue current tx plan. 04/02: Continue current tx plan. 04/04: Stool culture 04/05 keep same treatment 04/06 the patient is more delirious, his stool culture came up positive and hospitalist consult disorder. I am increasing Thorazine since the patient is more delirious. 04/07 DC Chlorpromazine scheduled dose Depakote 250 mg bid Increase HS Seroquel to 100 mg HS Pt will allow a return to previous regime which he reports was very effective. 04/09 Increase Depakote to 375 mg bid Haldol 5 mg bid Reason for continued inpatient stay Substantial Risk for: rapid decompensation Time Spent With Patient Time: Total time managing care of this patient today ____ minutes.
[2024-04-09] MEDS: QUEtiapine Fumarate 50 MG TABLET PO (16:40)
[2024-04-09 19:59] VITALS: BP 133/84; PULSE 92; RESP 18; TEMP 36.4; O2SAT 97
[2024-04-09] MEDS: Divalproex Sodium Sprinkles 125 MG CAP.DR.SPR 375 MG PO ×2 (22:00→22:03)
[2024-04-09] MEDS: LORazepam 1 MG TABLET PO (22:01)
[2024-04-09] MEDS: QUEtiapine Fumarate 200 MG TABLET PO (22:02)
[2024-04-09] MEDS: HaloperidoL 5 MG TABLET PO (22:03)
[2024-04-10 07:00] VITALS: BMI 28.5
[2024-04-10] MEDS: methADONE HCl 20 MG/2 ML ORAL.CONC 80 MG PO (07:52)
[2024-04-10 08:09] VITALS: BP 148/77; PULSE 87; RESP 16; TEMP 36.4; O2SAT 99
[2024-04-10] MEDS: Folic Acid 1 MG TABLET PO (09:09)
[2024-04-10] MEDS: Thiamine HCL 100 MG TABLET PO (09:10)
[2024-04-10] MEDS: QUEtiapine Fumarate 100 MG TABLET PO (09:10)
[2024-04-10] MEDS: buPROPion HCl XL 150 MG TAB.ER.24H PO (09:10)
[2024-04-10] MEDS: HaloperidoL 5 MG TABLET PO ×2 (09:10→20:57)
[2024-04-10] MEDS: Multivitamin TABLET 1 TAB PO (09:10)
[2024-04-10] MEDS: Gabapentin 400 MG CAPSULE 800 MG PO ×3 (09:10→20:56)
[2024-04-10] MEDS: Divalproex Sodium Sprinkles 125 MG CAP.DR.SPR 375 MG PO ×2 (09:11→20:56)
--- NOTE | 2024-04-10 11:38 | HO.PSYCHPN ---
Subjective Subjective Date of Service: 04/10/24 Reason For Visit: PTSD, bipolar disorder, polysubstance use disorder Subjective Notes: Conditional Voluntary Healthcare Proxy: No Guardianship: No Medical Problems Affecting Mental Status: No Interim History: Pt reports feeling some improvement, yet feeling tired, sedate. Discussed initial SE of increase in Valproate, Seroquel, addition of Haldol. States deamons are no longer deamons , voices have decreased. States he feels less threatened. Asks to rest. Medication Compliance: Yes Side effects from medications: Yes (sedation from initial changes today.) Attending Groups: Intermittent Review of Systems Acute medical concerns: No reports resolution of abdominal pain Medical Review of Systems: unchanged Review of Systems Review of Systems Yes all other systems are reviewed and are negative Mental Status Exam Mental Status Exam Patient Appearance: Appropriate Patient Orientation: Person, Place, Time and Situation Level of Consciousness: Sedated Patient Behavior: Talkative and Good Eye Contact Mood Description: Flat Affect Description: Flat Patient Cognition Impaired: No Ability to Follow Directions: Good Speech Pattern: Spontaneous Speech Memory Description: Intact Hallucinations: Auditory (decreased) and Visual (decreased) Delusions: Not Present Thought Process: Rumination Thought Content: positive for Circumstantial and positive for Suicidal Ideation (denies) Depressive Symptoms: Thoughts of /Suicide (denies) and Difficulty Concentrating Judgement: Fair Diagnostics Vital Signs (24Hr): Vital Signs - 24 hr 04/09/24 19:59 04/10/24 08:09 Temperature 97.6 F 97.6 F Pulse Rate 92 87 Respiratory Rate 18 16 Blood Pressure 133/84 148/77 H Pulse Oximetry 97 99 Oxygen Delivery Method Room Air Room Air BMI result Body Mass Index 22.7 Labs 04/07/24 08:27 04/07/24 08:27 Imaging Radiology Impressions: ITS Impressions Abdomen/Pelvis CT 03/28/24 20:18 IMPRESSION: 1. No demonstrated acute intra-abdominal abnormalities to explain the patient's symptoms. 2. Changes of prior anterior abdominal wall hernia repair. 3. Moderate multilevel degenerative spondyloarthropathy of the lumbar spine. Most notably, there appears to be moderate to severe neural foraminal stenoses at L5-S1. Electronically signed by: Rico Jansen DO 03/29/2024 01:04 PM EDT Venous Duplex 04/08/24 16:55 IMPRESSION: 1. No evidence of deep venous thrombosis involving the right lower extremity. 2. Clarke's cyst 3.1 x 1.1 x 2.1 cm. Electronically signed by: Jules Sanchez DO 04/08/2024 05:14 PM EDT Medications Medications Current Medications Acetaminophen (Acetaminophen 325 Mg Tablet) 650 mg PO Q6H PRN PRN Reason: Headache/Pain Mild Scale (1-3) Last Admin: 04/02/24 12:48 Dose: 650 mg Al Hydroxide/Mg Hydroxide (Magnesium Hydrox/Alum Hydrox 30 Ml Oral.Susp) 30 ml PO Q6H PRN PRN Reason: Heartburn/Nausea Bupropion HCl (Bupropion Hcl Xl 150 Mg Tab.Er.24h) 150 mg PO DAILY [facility] Last Admin: 04/10/24 09:10 Dose: 150 mg Chlorpromazine HCl (Chlorpromazine Hcl 25 Mg Tablet) 50 mg PO QID PRN PRN Reason: agitation, irritability Last Admin: 04/08/24 11:26 Dose: 50 mg Clonidine HCl (Clonidine Hcl 0.1 Mg Tablet) 0.1 mg PO TID PRN; Protocol PRN Reason: anxiety, withdrawal sx Last Admin: 04/08/24 21:47 Dose: 0.1 mg Divalproex Sodium (Divalproex Sodium Sprinkles 125 Mg ) 375 mg PO BID [facility] Last Admin: 04/10/24 09:11 Dose: 375 mg Folic Acid (Folic Acid 1 Mg Tablet) 1 mg PO DAILY [facility] Last Admin: 04/10/24 09:09 Dose: 1 mg Gabapentin (Gabapentin 400 Mg Capsule) 800 mg PO TID [facility] Last Admin: 04/10/24 09:10 Dose: 800 mg Haloperidol (Haloperidol 5 Mg Tablet) 5 mg PO BID [facility] Last Admin: 04/10/24 09:10 Dose: 5 mg Hydroxyzine HCl (Hydroxyzine Hcl 25 Mg Tablet) 25 mg PO Q6H PRN PRN Reason: Anxiety Last Admin: 04/08/24 11:26 Dose: 25 mg Ibuprofen (Ibuprofen 600 Mg Tablet) 600 mg PO Q8H PRN PRN Reason: Pain, Moderate(Pain Scale 4-6) Last Admin: 04/02/24 12:51 Dose: 600 mg Lidocaine (Lidocaine 4 % Patch Adh..Patch) 1 patch TRANSDERMA DAILY [facility]; Protocol Last Admin: 04/10/24 09:15 Dose: Not Given Loperamide HCl (Loperamide Hcl 2 Mg Capsule) 4 mg PO Q6H PRN PRN Reason: Diarrhea Last Admin: 04/06/24 08:46 Dose: 4 mg Lorazepam (Lorazepam 1 Mg Tablet) 1 mg PO TID PRN PRN Reason: anxiety, agitation Last Admin: 04/09/24 22:01 Dose: 1 mg Magnesium Hydroxide (Milk Of Magnesia 30 Ml Oral.Susp) 30 ml PO DAILY PRN PRN Reason: Constipation Methadone HCl (Methadone Hcl 20 Mg/2 Ml Oral.Conc) 80 mg PO DAILY [facility] Last Admin: 04/10/24 07:52 Dose: 80 mg Mirtazapine (Mirtazapine 7.5 Mg Tablet) 7.5 mg PO BEDTIME PRN PRN Reason: insomnia Last Admin: 04/05/24 21:46 Dose: 7.5 mg Multivitamins/Vitamin C (Multivitamin Tablet) 1 tab PO DAILY [facility] Last Admin: 04/10/24 09:10 Dose: 1 tab Nicotine (Nicotine 21 Mg Patch.Td24) 21 mg TRANSDERMA DAILY PRN PRN Reason: nicotine cravings Nicotine Polacrilex (Nicotine Polacrilex 2 Mg Gum) 4 mg BUCCAL Q2H PRN PRN Reason: Nicotine Cravings Quetiapine Fumarate (Quetiapine Fumarate 50 Mg Tablet) 50 mg PO TID PRN PRN Reason: agitation Last Admin: 04/09/24 16:40 Dose: 50 mg Quetiapine Fumarate (Quetiapine Fumarate 200 Mg Tablet) 200 mg PO BEDTIME [facility] Last Admin: 04/09/24 22:02 Dose: 200 mg Quetiapine Fumarate (Quetiapine Fumarate 100 Mg Tablet) 100 mg PO DAILY [facility] Last Admin: 04/10/24 09:10 Dose: 100 mg Thiamine HCl (Thiamine Hcl 100 Mg Tablet) 100 mg PO DAILY [facility] Last Admin: 04/10/24 09:10 Dose: 100 mg Allergies Allergies Allergy/AdvReac Type Severity Reaction Status Date / Time trazodone Allergy Rash Verified 03/26/24 19:44 Assessment & Plan Assessment & Plan (1) Bipolar II disorder: Status: Acute Code(s): F31.81 - Bipolar II disorder (2) Chronic post-traumatic stress disorder (PTSD): Status: Chronic Code(s): F43.12 - Post-traumatic stress disorder, chronic (3) Polysubstance use disorder: Status: Acute Code(s): F19.90 - Other psychoactive substance use, unspecified, uncomplicated Plan PTSD, Bipolar Disorder, Polysubstance Use Disorder. Plan: Admit, CV 15 minute checks Collateral contact Addiction consult Clonidine prn, Gabapentin 200 mg tid, Remeron prn, Seroquel prn, Wellbutrin 75 mg a.m. to re-start regime. Hospitalist consult, LMQ pain 03/31/24: Increase Gabapentin to 800 mg tid Chlorpromazine 50 mg QID prn irritability, anxiety 04/01: Keeping to self. Guarded. Pt reports feeling anxious and depressed today; pt stated, every morning I wake up and I have thoughts to kill myself. Today I don't want to hurt anyone. Yesterday I did because he lied to me. He used me . Pt would not go into detail as to who he is referring to. Continue current tx plan. 04/02: Continue current tx plan. 04/04: Stool culture 04/05 keep same treatment 04/06 the patient is more delirious, his stool culture came up positive and hospitalist consult disorder. I am increasing Thorazine since the patient is more delirious. 04/07 DC Chlorpromazine scheduled dose Depakote 250 mg bid Increase HS Seroquel to 100 mg HS Pt will allow a return to previous regime which he reports was very effective. 04/09 Increase Depakote to 375 mg bid Haldol 5 mg bid 04/10 Continue tx Reason for continued inpatient stay Substantial Risk for: rapid decompensation Time Spent With Patient Time: Total time managing care of this patient today ____ minutes.
[2024-04-10 19:48] VITALS: BP 123/74; PULSE 89; RESP 18; TEMP 36.4; O2SAT 97
[2024-04-10] MEDS: QUEtiapine Fumarate 200 MG TABLET PO (20:56)
[2024-04-10] MEDS: LORazepam 1 MG TABLET PO (20:56)
[2024-04-11] MEDS: methADONE HCl 20 MG/2 ML ORAL.CONC 80 MG PO (07:40)
[2024-04-11 07:53] VITALS: BP 104/67; PULSE 81; RESP 18; TEMP 36.4; O2SAT 96
[2024-04-11] MEDS: QUEtiapine Fumarate 100 MG TABLET PO (08:02)
[2024-04-11] MEDS: HaloperidoL 5 MG TABLET PO ×2 (08:02→21:24)
[2024-04-11] MEDS: Multivitamin TABLET 1 TAB PO (08:02)
[2024-04-11] MEDS: Divalproex Sodium Sprinkles 125 MG CAP.DR.SPR 375 MG PO ×2 (08:02→21:22)
[2024-04-11] MEDS: buPROPion HCl XL 150 MG TAB.ER.24H PO (08:02)
[2024-04-11] MEDS: Gabapentin 400 MG CAPSULE 800 MG PO ×3 (08:02→21:23)
[2024-04-11] MEDS: Thiamine HCL 100 MG TABLET PO (08:02)
[2024-04-11] MEDS: Folic Acid 1 MG TABLET PO (08:03)
--- NOTE | 2024-04-11 09:46 | P.PNPSI_ITS ---
Subjective Subjective Date of Service: 04/11/24 Reason For Visit: PTSD, bipolar disorder, polysubstance use disorder Subjective Notes: Conditional Voluntary Healthcare Proxy: No Guardianship: No Medical Problems Affecting Mental Status: No Interim History: Reports improvement Attended group Reports he slept well last night, better than the night before Room change due to room-mate conflicts with pt Pt pleased with how he feels today and plan of care. Medication Compliance: Yes Side effects from medications: No Attending Groups: Yes Review of Systems Acute medical concerns: No Medical Review of Systems: unchanged Review of Systems Review of Systems Yes all other systems are reviewed and are negative Mental Status Exam Mental Status Exam Patient Appearance: Appropriate Patient Orientation: Person, Place, Time and Situation Level of Consciousness: Alert Patient Behavior: Talkative and Good Eye Contact Mood Description: Flat Affect Description: Flat Patient Cognition Impaired: No Ability to Follow Directions: Good Speech Pattern: Spontaneous Speech Memory Description: Intact Hallucinations: Auditory (decreased) and Visual (decreased) Delusions: Not Present Thought Process: Rumination Thought Content: positive for Circumstantial and positive for Suicidal Ideation (denies) Depressive Symptoms: Thoughts of /Suicide (denies) Judgement: Fair Diagnostics Vital Signs (24Hr): Vital Signs - 24 hr 04/10/24 19:48 04/11/24 07:53 Temperature 97.6 F 97.5 F Pulse Rate 89 81 Respiratory Rate 18 18 Blood Pressure 123/74 104/67 Pulse Oximetry 97 96 Oxygen Delivery Method Room Air Room Air BMI result Body Mass Index 28.5 Labs 04/07/24 08:27 04/07/24 08:27 Imaging Radiology Impressions: ITS Impressions Abdomen/Pelvis CT 03/28/24 20:18 IMPRESSION: 1. No demonstrated acute intra-abdominal abnormalities to explain the patient's symptoms. 2. Changes of prior anterior abdominal wall hernia repair. 3. Moderate multilevel degenerative spondyloarthropathy of the lumbar spine. Most notably, there appears to be moderate to severe neural foraminal stenoses at L5-S1. Electronically signed by: Rico Jansen DO 03/29/2024 01:04 PM EDT Venous Duplex 04/08/24 16:55 IMPRESSION: 1. No evidence of deep venous thrombosis involving the right lower extremity. 2. Clarke's cyst 3.1 x 1.1 x 2.1 cm. Electronically signed by: Jules Sanchez DO 04/08/2024 05:14 PM EDT RP Medications Medications Current Medications Acetaminophen (Acetaminophen 325 Mg Tablet) 650 mg PO Q6H PRN PRN Reason: Headache/Pain Mild Scale (1-3) Last Admin: 04/02/24 12:48 Dose: 650 mg Al Hydroxide/Mg Hydroxide (Magnesium Hydrox/Alum Hydrox 30 Ml Oral.Susp) 30 ml PO Q6H PRN PRN Reason: Heartburn/Nausea Bupropion HCl (Bupropion Hcl Xl 150 Mg Tab.Er.24h) 150 mg PO DAILY [facility] Last Admin: 04/11/24 08:02 Dose: 150 mg Chlorpromazine HCl (Chlorpromazine Hcl 25 Mg Tablet) 50 mg PO QID PRN PRN Reason: agitation, irritability Last Admin: 04/08/24 11:26 Dose: 50 mg Clonidine HCl (Clonidine Hcl 0.1 Mg Tablet) 0.1 mg PO TID PRN; Protocol PRN Reason: anxiety, withdrawal sx Last Admin: 04/08/24 21:47 Dose: 0.1 mg Divalproex Sodium (Divalproex Sodium Sprinkles 125 Mg ) 375 mg PO BID [facility] Last Admin: 04/11/24 08:02 Dose: 375 mg Folic Acid (Folic Acid 1 Mg Tablet) 1 mg PO DAILY [facility] Last Admin: 04/11/24 08:03 Dose: 1 mg Gabapentin (Gabapentin 400 Mg Capsule) 800 mg PO TID [facility] Last Admin: 04/11/24 08:02 Dose: 800 mg Haloperidol (Haloperidol 5 Mg Tablet) 5 mg PO BID [facility] Last Admin: 04/11/24 08:02 Dose: 5 mg Hydroxyzine HCl (Hydroxyzine Hcl 25 Mg Tablet) 25 mg PO Q6H PRN PRN Reason: Anxiety Last Admin: 04/08/24 11:26 Dose: 25 mg Ibuprofen (Ibuprofen 600 Mg Tablet) 600 mg PO Q8H PRN PRN Reason: Pain, Moderate(Pain Scale 4-6) Last Admin: 04/02/24 12:51 Dose: 600 mg Lidocaine (Lidocaine 4 % Patch Adh..Patch) 1 patch TRANSDERMA DAILY [facility]; Protocol Last Admin: 04/11/24 08:05 Dose: Not Given Loperamide HCl (Loperamide Hcl 2 Mg Capsule) 4 mg PO Q6H PRN PRN Reason: Diarrhea Last Admin: 04/06/24 08:46 Dose: 4 mg Lorazepam (Lorazepam 1 Mg Tablet) 1 mg PO TID PRN PRN Reason: anxiety, agitation Last Admin: 04/10/24 20:56 Dose: 1 mg Magnesium Hydroxide (Milk Of Magnesia 30 Ml Oral.Susp) 30 ml PO DAILY PRN PRN Reason: Constipation Methadone HCl (Methadone Hcl 20 Mg/2 Ml Oral.Conc) 80 mg PO DAILY [facility] Last Admin: 04/11/24 07:40 Dose: 80 mg Mirtazapine (Mirtazapine 7.5 Mg Tablet) 7.5 mg PO BEDTIME PRN PRN Reason: insomnia Last Admin: 04/05/24 21:46 Dose: 7.5 mg Multivitamins/Vitamin C (Multivitamin Tablet) 1 tab PO DAILY [facility] Last Admin: 04/11/24 08:02 Dose: 1 tab Nicotine (Nicotine 21 Mg Patch.Td24) 21 mg TRANSDERMA DAILY PRN PRN Reason: nicotine cravings Nicotine Polacrilex (Nicotine Polacrilex 2 Mg Gum) 4 mg BUCCAL Q2H PRN PRN Reason: Nicotine Cravings Quetiapine Fumarate (Quetiapine Fumarate 50 Mg Tablet) 50 mg PO TID PRN PRN Reason: agitation Last Admin: 04/09/24 16:40 Dose: 50 mg Quetiapine Fumarate (Quetiapine Fumarate 200 Mg Tablet) 200 mg PO BEDTIME [facility] Last Admin: 04/10/24 20:56 Dose: 200 mg Quetiapine Fumarate (Quetiapine Fumarate 100 Mg Tablet) 100 mg PO DAILY [facility] Last Admin: 04/11/24 08:02 Dose: 100 mg Thiamine HCl (Thiamine Hcl 100 Mg Tablet) 100 mg PO DAILY [facility] Last Admin: 04/11/24 08:02 Dose: 100 mg Allergies Allergies Allergy/AdvReac Type Severity Reaction Status Date / Time trazodone Allergy Rash Verified 03/26/24 19:44 Assessment & Plan Assessment & Plan (1) Bipolar II disorder: Status: Acute Code(s): F31.81 - Bipolar II disorder (2) Chronic post-traumatic stress disorder (PTSD): Status: Chronic Code(s): F43.12 - Post-traumatic stress disorder, chronic (3) Polysubstance use disorder: Status: Acute Code(s): F19.90 - Other psychoactive substance use, unspecified, uncomplicated Plan PTSD, Bipolar Disorder, Polysubstance Use Disorder. Plan: Admit, CV 15 minute checks Collateral contact Addiction consult Clonidine prn, Gabapentin 200 mg tid, Remeron prn, Seroquel prn, Wellbutrin 75 mg a.m. to re-start regime. Hospitalist consult, LMQ pain 03/31/24: Increase Gabapentin to 800 mg tid Chlorpromazine 50 mg QID prn irritability, anxiety 04/01: Keeping to self. Guarded. Pt reports feeling anxious and depressed today; pt stated, every morning I wake up and I have thoughts to kill myself. Today I don't want to hurt anyone. Yesterday I did because he lied to me. He used me . Pt would not go into detail as to who he is referring to. Continue current tx plan. 04/02: Continue current tx plan. 04/04: Stool culture 04/05 keep same treatment 04/06 the patient is more delirious, his stool culture came up positive and hospitalist consult disorder. I am increasing Thorazine since the patient is more delirious. 04/07 DC Chlorpromazine scheduled dose Depakote 250 mg bid Increase HS Seroquel to 100 mg HS Pt will allow a return to previous regime which he reports was very effective. 04/09 Increase Depakote to 375 mg bid Haldol 5 mg bid 04/11 Continue current regime Reason for continued inpatient stay Substantial Risk for: rapid decompensation Time Spent With Patient Time: Total time managing care of this patient today ____ minutes.
[2024-04-11 20:00] VITALS: BP 141/77; PULSE 83; TEMP 36.7; O2SAT 98
[2024-04-11] MEDS: QUEtiapine Fumarate 200 MG TABLET PO (21:21)
[2024-04-12] MEDS: methADONE HCl 20 MG/2 ML ORAL.CONC 80 MG PO (07:50)
[2024-04-12 08:00] VITALS: BP 132/73; PULSE 69; RESP 18; TEMP 36.3; O2SAT 96
[2024-04-12] MEDS: Multivitamin TABLET 1 TAB PO (09:18)
[2024-04-12] MEDS: Divalproex Sodium Sprinkles 125 MG CAP.DR.SPR 375 MG PO ×2 (09:18→20:35)
[2024-04-12] MEDS: QUEtiapine Fumarate 100 MG TABLET PO (09:18)
[2024-04-12] MEDS: buPROPion HCl XL 150 MG TAB.ER.24H PO (09:18)
[2024-04-12] MEDS: HaloperidoL 5 MG TABLET PO ×2 (09:18→20:35)
[2024-04-12] MEDS: Gabapentin 400 MG CAPSULE 800 MG PO ×3 (09:18→20:34)
[2024-04-12] MEDS: Thiamine HCL 100 MG TABLET PO (09:18)
[2024-04-12] MEDS: Folic Acid 1 MG TABLET PO (09:18)
--- NOTE | 2024-04-12 09:54 | P.PNPSI_ITS ---
Subjective Subjective Date of Service: 04/12/24 Reason For Visit: PTSD, bipolar disorder, polysubstance use disorder Subjective Notes: Conditional Voluntary Healthcare Proxy: No Guardianship: No Medical Problems Affecting Mental Status: No Interim History: 49 yo reported to be self stim and talking to self in nursing report- pt reports I have to keep going - haldol some improvement sleeping ok tired from med - adjusting though he says- Discussed constipation pt hesitant about laxative or stool softners as he once had prune juice and ended up with cdiff! he doesn't know that it caused it but is concerned - discussed maybe metamucil type thing- as natural alternative Medication Compliance: Yes Side effects from medications: Yes (constipation goes every 3-4 days) Attending Groups: Intermittent Review of Systems Acute medical concerns: No Medical Review of Systems: unchanged Mental Status Exam Mental Status Exam Patient Appearance: Unkempt Patient Orientation: Person, Place and Situation Level of Consciousness: Drowsy Patient Behavior: Appropriate, Cooperative and Passive Mood Description: Apathetic Affect Description: Blunted Patient Cognition Impaired: No Ability to Follow Directions: Fair Speech Pattern: Clear Thought Process: Intact and Goal Oriented Thought Content: positive for Poverty of Content Abnormal Motor Activity Signs and Symptoms: Restlessness Judgement: Fair Diagnostics Vital Signs (24Hr): Vital Signs - 24 hr 04/11/24 20:00 04/12/24 08:00 Temperature 98.1 F 97.4 F Pulse Rate 83 69 Respiratory Rate 18 Blood Pressure 141/77 H 132/73 Pulse Oximetry 98 96 Oxygen Delivery Method Room Air Room Air BMI result Body Mass Index 28.5 Labs 04/07/24 08:27 04/07/24 08:27 Imaging Radiology Impressions: ITS Impressions Abdomen/Pelvis CT 03/28/24 20:18 IMPRESSION: 1. No demonstrated acute intra-abdominal abnormalities to explain the patient's symptoms. 2. Changes of prior anterior abdominal wall hernia repair. 3. Moderate multilevel degenerative spondyloarthropathy of the lumbar spine. Most notably, there appears to be moderate to severe neural foraminal stenoses at L5-S1. Electronically signed by: Rico Jansen DO 03/29/2024 01:04 PM EDT RP Venous Duplex 04/08/24 16:55 IMPRESSION: 1. No evidence of deep venous thrombosis involving the right lower extremity. 2. Clarke's cyst 3.1 x 1.1 x 2.1 cm. Electronically signed by: Jules Sanchez DO 04/08/2024 05:14 PM EDT Medications Medications Current Medications Acetaminophen (Acetaminophen 325 Mg Tablet) 650 mg PO Q6H PRN PRN Reason: Headache/Pain Mild Scale (1-3) Last Admin: 04/02/24 12:48 Dose: 650 mg Al Hydroxide/Mg Hydroxide (Magnesium Hydrox/Alum Hydrox 30 Ml Oral.Susp) 30 ml PO Q6H PRN PRN Reason: Heartburn/Nausea Bupropion HCl (Bupropion Hcl Xl 150 Mg Tab.Er.24h) 150 mg PO DAILY [facility] Last Admin: 04/12/24 09:18 Dose: 150 mg Chlorpromazine HCl (Chlorpromazine Hcl 25 Mg Tablet) 50 mg PO QID PRN PRN Reason: agitation, irritability Last Admin: 04/08/24 11:26 Dose: 50 mg Clonidine HCl (Clonidine Hcl 0.1 Mg Tablet) 0.1 mg PO TID PRN; Protocol PRN Reason: anxiety, withdrawal sx Last Admin: 04/08/24 21:47 Dose: 0.1 mg Divalproex Sodium (Divalproex Sodium Sprinkles 125 Mg ) 375 mg PO BID [facility] Last Admin: 04/12/24 09:18 Dose: 375 mg Folic Acid (Folic Acid 1 Mg Tablet) 1 mg PO DAILY [facility] Last Admin: 04/12/24 09:18 Dose: 1 mg Gabapentin (Gabapentin 400 Mg Capsule) 800 mg PO TID [facility] Last Admin: 04/12/24 09:18 Dose: 800 mg Haloperidol (Haloperidol 5 Mg Tablet) 5 mg PO BID [facility] Last Admin: 04/12/24 09:18 Dose: 5 mg Hydroxyzine HCl (Hydroxyzine Hcl 25 Mg Tablet) 25 mg PO Q6H PRN PRN Reason: Anxiety Last Admin: 04/08/24 11:26 Dose: 25 mg Ibuprofen (Ibuprofen 600 Mg Tablet) 600 mg PO Q8H PRN PRN Reason: Pain, Moderate(Pain Scale 4-6) Last Admin: 04/02/24 12:51 Dose: 600 mg Lidocaine (Lidocaine 4 % Patch Adh..Patch) 1 patch TRANSDERMA DAILY [facility]; Protocol Last Admin: 04/12/24 09:21 Dose: Not Given Loperamide HCl (Loperamide Hcl 2 Mg Capsule) 4 mg PO Q6H PRN PRN Reason: Diarrhea Last Admin: 04/06/24 08:46 Dose: 4 mg Lorazepam (Lorazepam 1 Mg Tablet) 1 mg PO TID PRN PRN Reason: anxiety, agitation Last Admin: 04/10/24 20:56 Dose: 1 mg Magnesium Hydroxide (Milk Of Magnesia 30 Ml Oral.Susp) 30 ml PO DAILY PRN PRN Reason: Constipation Methadone HCl (Methadone Hcl 20 Mg/2 Ml Oral.Conc) 80 mg PO DAILY [facility] Last Admin: 04/12/24 07:50 Dose: 80 mg Mirtazapine (Mirtazapine 7.5 Mg Tablet) 7.5 mg PO BEDTIME PRN PRN Reason: insomnia Last Admin: 04/05/24 21:46 Dose: 7.5 mg Multivitamins/Vitamin C (Multivitamin Tablet) 1 tab PO DAILY [facility] Last Admin: 04/12/24 09:18 Dose: 1 tab Nicotine (Nicotine 21 Mg Patch.Td24) 21 mg TRANSDERMA DAILY PRN PRN Reason: nicotine cravings Nicotine Polacrilex (Nicotine Polacrilex 2 Mg Gum) 4 mg BUCCAL Q2H PRN PRN Reason: Nicotine Cravings Quetiapine Fumarate (Quetiapine Fumarate 50 Mg Tablet) 50 mg PO TID PRN PRN Reason: agitation Last Admin: 04/09/24 16:40 Dose: 50 mg Quetiapine Fumarate (Quetiapine Fumarate 200 Mg Tablet) 200 mg PO BEDTIME [facility] Last Admin: 04/11/24 21:21 Dose: 200 mg Quetiapine Fumarate (Quetiapine Fumarate 100 Mg Tablet) 100 mg PO DAILY [facility] Last Admin: 04/12/24 09:18 Dose: 100 mg Thiamine HCl (Thiamine Hcl 100 Mg Tablet) 100 mg PO DAILY [facility] Last Admin: 04/12/24 09:18 Dose: 100 mg Allergies Allergies Allergy/AdvReac Type Severity Reaction Status Date / Time trazodone Allergy Rash Verified 03/26/24 19:44 Assessment & Plan Assessment & Plan (1) Bipolar II disorder: Status: Acute Code(s): F31.81 - Bipolar II disorder (2) Chronic post-traumatic stress disorder (PTSD): Status: Chronic Code(s): F43.12 - Post-traumatic stress disorder, chronic (3) Polysubstance use disorder: Status: Acute Code(s): F19.90 - Other psychoactive substance use, unspecified, uncomplicated Plan PTSD, Bipolar Disorder, Polysubstance Use Disorder. Plan: Admit, CV 15 minute checks Collateral contact Addiction consult Clonidine prn, Gabapentin 200 mg tid, Remeron prn, Seroquel prn, Wellbutrin 75 mg a.m. to re-start regime. Hospitalist consult, LMQ pain 03/31/24: Increase Gabapentin to 800 mg tid Chlorpromazine 50 mg QID prn irritability, anxiety 04/01: Keeping to self. Guarded. Pt reports feeling anxious and depressed today; pt stated, every morning I wake up and I have thoughts to kill myself. Today I don't want to hurt anyone. Yesterday I did because he lied to me. He used me . Pt would not go into detail as to who he is referring to. Continue current tx plan. 04/02: Continue current tx plan. 04/04: Stool culture 04/05 keep same treatment 04/06 the patient is more delirious, his stool culture came up positive and hospitalist consult disorder. I am increasing Thorazine since the patient is more delirious. 04/07 DC Chlorpromazine scheduled dose Depakote 250 mg bid Increase HS Seroquel to 100 mg HS Pt will allow a return to previous regime which he reports was very effective. 04/09 Increase Depakote to 375 mg bid Haldol 5 mg bid 04/11 Continue current regime 04/12 consider adding metamucil -CTP Patient educated on: medication risk/benefits and medical condition Informed Consent: understands Reason for continued inpatient stay Substantial Risk for: rapid decompensation Time Spent With Patient Time: Total time managing care of this patient today ____ minutes.
[2024-04-12] MEDS: QUEtiapine Fumarate 50 MG TABLET PO (14:56)
[2024-04-12 20:00] VITALS: BP 128/70; PULSE 83; TEMP 36.4; O2SAT 96
[2024-04-12] MEDS: QUEtiapine Fumarate 200 MG TABLET PO (20:32)
[2024-04-13] MEDS: methADONE HCl 20 MG/2 ML ORAL.CONC 80 MG PO (07:51)
[2024-04-13] MEDS: buPROPion HCl XL 150 MG TAB.ER.24H PO (09:05)
[2024-04-13] MEDS: Multivitamin TABLET 1 TAB PO (09:05)
[2024-04-13] MEDS: Folic Acid 1 MG TABLET PO (09:05)
[2024-04-13] MEDS: Divalproex Sodium Sprinkles 125 MG CAP.DR.SPR 375 MG PO ×2 (09:05→20:56)
[2024-04-13] MEDS: Gabapentin 400 MG CAPSULE 800 MG PO ×3 (09:05→20:56)
[2024-04-13] MEDS: Thiamine HCL 100 MG TABLET PO (09:05)
[2024-04-13] MEDS: Lidocaine 4 % Patch ADH..PATCH 1 PATCH TRANSDERMA (09:06)
[2024-04-13] MEDS: QUEtiapine Fumarate 100 MG TABLET PO (09:06)
[2024-04-13] MEDS: HaloperidoL 5 MG TABLET PO ×2 (09:06→20:56)
[2024-04-13] MEDS: Psyllium seed 3.7 GM PACKET PO (09:45)
[2024-04-13 09:47] VITALS: BP 119/77; PULSE 77; RESP 18; TEMP 36.4; O2SAT 96
--- NOTE | 2024-04-13 11:10 | HO.PSYCHPN ---
Subjective Subjective Date of Service: 04/13/24 Reason For Visit: PTSD, bipolar disorder, polysubstance use disorder Subjective Notes: Conditional Voluntary Healthcare Proxy: No Guardianship: No Medical Problems Affecting Mental Status: No Interim History: 49 yo reports he is sad today, poor eye contact, denies si - ongoing ah but better on haldol - some fatigue from meds- but doesn't mind- Isolating today in room- Medication Compliance: Yes Side effects from medications: No Attending Groups: Intermittent Review of Systems Acute medical concerns: No Medical Review of Systems: unchanged (ongoing constipation- ) Review of Systems: did 1 x psyllium husk - pt very anxious about diarrhea around past things taken for constipation- Mental Status Exam Mental Status Exam Patient Appearance: Unkempt Patient Orientation: Person, Place, Time and Situation Level of Consciousness: Drowsy and Alert Patient Behavior: Cooperative, Passive and Poor Eye Contact Mood Description: Sad Affect Description: Constricted Patient Cognition Impaired: No Ability to Follow Directions: Fair Speech Pattern: Clear Thought Process: Intact and Goal Oriented Thought Content: positive for Intact Depressive Symptoms: Unhappiness Judgement: Fair Diagnostics Vital Signs (24Hr): Vital Signs - 24 hr 04/12/24 20:00 04/13/24 09:47 Temperature 97.6 F 97.6 F Pulse Rate 83 77 Respiratory Rate 18 Blood Pressure 128/70 119/77 Pulse Oximetry 96 96 Oxygen Delivery Method Room Air Room Air BMI result Body Mass Index 28.5 Labs 04/07/24 08:27 04/07/24 08:27 Imaging Radiology Impressions: ITS Impressions Abdomen/Pelvis CT 03/28/24 20:18 IMPRESSION: 1. No demonstrated acute intra-abdominal abnormalities to explain the patient's symptoms. 2. Changes of prior anterior abdominal wall hernia repair. 3. Moderate multilevel degenerative spondyloarthropathy of the lumbar spine. Most notably, there appears to be moderate to severe neural foraminal stenoses at L5-S1. Electronically signed by: Rico Jansen DO 03/29/2024 01:04 PM EDT Venous Duplex 04/08/24 16:55 IMPRESSION: 1. No evidence of deep venous thrombosis involving the right lower extremity. 2. Clarke's cyst 3.1 x 1.1 x 2.1 cm. Electronically signed by: Jules Sanchez DO 04/08/2024 05:14 PM EDT RP Medications Medications Current Medications Acetaminophen (Acetaminophen 325 Mg Tablet) 650 mg PO Q6H PRN PRN Reason: Headache/Pain Mild Scale (1-3) Last Admin: 04/02/24 12:48 Dose: 650 mg Al Hydroxide/Mg Hydroxide (Magnesium Hydrox/Alum Hydrox 30 Ml Oral.Susp) 30 ml PO Q6H PRN PRN Reason: Heartburn/Nausea Bupropion HCl (Bupropion Hcl Xl 150 Mg Tab.Er.24h) 150 mg PO DAILY [facility] Last Admin: 04/13/24 09:05 Dose: 150 mg Chlorpromazine HCl (Chlorpromazine Hcl 25 Mg Tablet) 50 mg PO QID PRN PRN Reason: agitation, irritability Last Admin: 04/08/24 11:26 Dose: 50 mg Clonidine HCl (Clonidine Hcl 0.1 Mg Tablet) 0.1 mg PO TID PRN; Protocol PRN Reason: anxiety, withdrawal sx Last Admin: 04/08/24 21:47 Dose: 0.1 mg Divalproex Sodium (Divalproex Sodium Sprinkles 125 Mg [place].) 375 mg PO BID [facility] Last Admin: 04/13/24 09:05 Dose: 375 mg Folic Acid (Folic Acid 1 Mg Tablet) 1 mg PO DAILY [facility] Last Admin: 04/13/24 09:05 Dose: 1 mg Gabapentin (Gabapentin 400 Mg Capsule) 800 mg PO TID [facility] Last Admin: 04/13/24 09:05 Dose: 800 mg Haloperidol (Haloperidol 5 Mg Tablet) 5 mg PO BID [facility] Last Admin: 04/13/24 09:06 Dose: 5 mg Hydroxyzine HCl (Hydroxyzine Hcl 25 Mg Tablet) 25 mg PO Q6H PRN PRN Reason: Anxiety Last Admin: 04/08/24 11:26 Dose: 25 mg Ibuprofen (Ibuprofen 600 Mg Tablet) 600 mg PO Q8H PRN PRN Reason: Pain, Moderate(Pain Scale 4-6) Last Admin: 04/02/24 12:51 Dose: 600 mg Lidocaine (Lidocaine 4 % Patch Adh..Patch) 1 patch TRANSDERMA DAILY [facility]; Protocol Last Admin: 04/13/24 09:06 Dose: 1 patch Loperamide HCl (Loperamide Hcl 2 Mg Capsule) 4 mg PO Q6H PRN PRN Reason: Diarrhea Last Admin: 04/06/24 08:46 Dose: 4 mg Lorazepam (Lorazepam 1 Mg Tablet) 1 mg PO TID PRN PRN Reason: anxiety, agitation Last Admin: 04/10/24 20:56 Dose: 1 mg Magnesium Hydroxide (Milk Of Magnesia 30 Ml Oral.Susp) 30 ml PO DAILY PRN PRN Reason: Constipation Methadone HCl (Methadone Hcl 20 Mg/2 Ml Oral.Conc) 80 mg PO DAILY [facility] Last Admin: 04/13/24 07:51 Dose: 80 mg Mirtazapine (Mirtazapine 7.5 Mg Tablet) 7.5 mg PO BEDTIME PRN PRN Reason: insomnia Last Admin: 04/05/24 21:46 Dose: 7.5 mg Multivitamins/Vitamin C (Multivitamin Tablet) 1 tab PO DAILY [facility] Last Admin: 04/13/24 09:05 Dose: 1 tab Nicotine (Nicotine 21 Mg Patch.Td24) 21 mg TRANSDERMA DAILY PRN PRN Reason: nicotine cravings Nicotine Polacrilex (Nicotine Polacrilex 2 Mg Gum) 4 mg BUCCAL Q2H PRN PRN Reason: Nicotine Cravings Quetiapine Fumarate (Quetiapine Fumarate 50 Mg Tablet) 50 mg PO TID PRN PRN Reason: agitation Last Admin: 04/12/24 14:56 Dose: 50 mg Quetiapine Fumarate (Quetiapine Fumarate 200 Mg Tablet) 200 mg PO BEDTIME [facility] Last Admin: 04/12/24 20:32 Dose: 200 mg Quetiapine Fumarate (Quetiapine Fumarate 100 Mg Tablet) 100 mg PO DAILY [facility] Last Admin: 04/13/24 09:06 Dose: 100 mg Thiamine HCl (Thiamine Hcl 100 Mg Tablet) 100 mg PO DAILY [facility] Last Admin: 04/13/24 09:05 Dose: 100 mg Allergies Allergies Allergy/AdvReac Type Severity Reaction Status Date / Time trazodone Allergy Rash Verified 03/26/24 19:44 Assessment & Plan Assessment & Plan (1) Bipolar II disorder: Status: Acute Code(s): F31.81 - Bipolar II disorder (2) Chronic post-traumatic stress disorder (PTSD): Status: Chronic Code(s): F43.12 - Post-traumatic stress disorder, chronic (3) Polysubstance use disorder: Status: Acute Code(s): F19.90 - Other psychoactive substance use, unspecified, uncomplicated Plan PTSD, Bipolar Disorder, Polysubstance Use Disorder. Plan: Admit, CV 15 minute checks Collateral contact Addiction consult Clonidine prn, Gabapentin 200 mg tid, Remeron prn, Seroquel prn, Wellbutrin 75 mg a.m. to re-start regime. Hospitalist consult, LMQ pain 03/31/24: Increase Gabapentin to 800 mg tid Chlorpromazine 50 mg QID prn irritability, anxiety 04/01: Keeping to self. Guarded. Pt reports feeling anxious and depressed today; pt stated, every morning I wake up and I have thoughts to kill myself. Today I don't want to hurt anyone. Yesterday I did because he lied to me. He used me . Pt would not go into detail as to who he is referring to. Continue current tx plan. 04/02: Continue current tx plan. 04/04: Stool culture 04/05 keep same treatment 04/06 the patient is more delirious, his stool culture came up positive and hospitalist consult disorder. I am increasing Thorazine since the patient is more delirious. 04/07 DC Chlorpromazine scheduled dose Depakote 250 mg bid Increase HS Seroquel to 100 mg HS Pt will allow a return to previous regime which he reports was very effective. 04/09 Increase Depakote to 375 mg bid Haldol 5 mg bid 04/11 Continue current regime 04/12 consider adding metamucil -CTP 04/13 quite sad today- CTP Patient educated on: therapeutic strategies and medical condition Informed Consent: understands Reason for continued inpatient stay Substantial Risk for: rapid decompensation Time Spent With Patient Time: Total time managing care of this patient today ____ minutes.
[2024-04-13] MEDS: cloNIDine HCL 0.1 MG TABLET PO (18:12)
[2024-04-13] MEDS: LORazepam 1 MG TABLET PO (18:12)
[2024-04-13 18:13] VITALS: BP 129/81; PULSE 91
[2024-04-13 19:40] VITALS: BP 132/82; PULSE 84; RESP 14; TEMP 36.8; O2SAT 97
[2024-04-13] MEDS: QUEtiapine Fumarate 200 MG TABLET PO (20:56)
[2024-04-14] MEDS: methADONE HCl 20 MG/2 ML ORAL.CONC 80 MG PO (08:04)
[2024-04-14] MEDS: Gabapentin 400 MG CAPSULE 800 MG PO ×3 (09:16→20:57)
[2024-04-14] MEDS: Folic Acid 1 MG TABLET PO (09:17)
[2024-04-14] MEDS: Thiamine HCL 100 MG TABLET PO (09:17)
[2024-04-14] MEDS: Multivitamin TABLET 1 TAB PO (09:17)
[2024-04-14] MEDS: HaloperidoL 5 MG TABLET PO ×2 (09:17→20:57)
[2024-04-14] MEDS: buPROPion HCl XL 150 MG TAB.ER.24H PO (09:17)
[2024-04-14] MEDS: QUEtiapine Fumarate 100 MG TABLET PO (09:17)
[2024-04-14] MEDS: Lidocaine 4 % Patch ADH..PATCH 1 PATCH TRANSDERMA (09:17)
[2024-04-14] MEDS: Divalproex Sodium Sprinkles 125 MG CAP.DR.SPR 375 MG PO ×2 (09:17→20:57)
[2024-04-14 09:22] VITALS: BP 105/55; PULSE 75; RESP 16; TEMP 36.3; O2SAT 97
--- NOTE | 2024-04-14 15:19 | P.PNPSI_ITS ---
Subjective Subjective Date of Service: 04/14/24 Reason For Visit: PTSD, bipolar disorder, polysubstance use disorder Subjective Notes: Conditional Voluntary Healthcare Proxy: No Guardianship: No Interim History: Denies SI, HI, AH, VH No sx of psychosis, maine I feel better . I am going to the program tomorrow Completed interview with [facility] and reports he is accepted for 04/15. States he will need to participate in seven groups for 10 hours per day and has some anxiety about this but I am going to try . Review of medications and dosages with pt. Medication Compliance: Yes Side effects from medications: No Attending Groups: Intermittent Review of Systems Acute medical concerns: No Medical Review of Systems: unchanged Review of Systems Review of Systems Yes all other systems are reviewed and are negative (denies) Mental Status Exam Mental Status Exam Patient Appearance: Appropriate Patient Orientation: Person, Place, Time and Situation Level of Consciousness: Alert Patient Behavior: Cooperative, Passive and Good Eye Contact Mood Description: Blunted Affect Description: Blunted Patient Cognition Impaired: No Ability to Follow Directions: Fair Speech Pattern: Clear Hallucinations: None Delusions: Not Present Thought Process: Intact and Goal Oriented Thought Content: positive for Intact Depressive Symptoms: Low Self Esteem Judgement: Good Diagnostics Vital Signs (24Hr): Vital Signs - 24 hr 04/13/24 18:13 04/13/24 19:40 04/14/24 09:22 Temperature 98.3 F 97.3 F Pulse Rate 91 84 75 Respiratory Rate 14 16 Blood Pressure 129/81 132/82 105/55 L Pulse Oximetry 97 97 Oxygen Delivery Method Room Air Room Air BMI result Body Mass Index 28.5 Labs 04/07/24 08:27 04/07/24 08:27 Imaging Radiology Impressions: ITS Impressions Abdomen/Pelvis CT 03/28/24 20:18 IMPRESSION: 1. No demonstrated acute intra-abdominal abnormalities to explain the patient's symptoms. 2. Changes of prior anterior abdominal wall hernia repair. 3. Moderate multilevel degenerative spondyloarthropathy of the lumbar spine. Most notably, there appears to be moderate to severe neural foraminal stenoses at L5-S1. Electronically signed by: Rico Jansen DO 03/29/2024 01:04 PM EDT Venous Duplex 04/08/24 16:55 IMPRESSION: 1. No evidence of deep venous thrombosis involving the right lower extremity. 2. Clarke's cyst 3.1 x 1.1 x 2.1 cm. Electronically signed by: Jules Sanchez DO 04/08/2024 05:14 PM EDT Medications Medications Current Medications Acetaminophen (Acetaminophen 325 Mg Tablet) 650 mg PO Q6H PRN PRN Reason: Headache/Pain Mild Scale (1-3) Last Admin: 04/02/24 12:48 Dose: 650 mg Al Hydroxide/Mg Hydroxide (Magnesium Hydrox/Alum Hydrox 30 Ml Oral.Susp) 30 ml PO Q6H PRN PRN Reason: Heartburn/Nausea Bupropion HCl (Bupropion Hcl Xl 150 Mg Tab.Er.24h) 150 mg PO DAILY [facility] Last Admin: 04/14/24 09:17 Dose: 150 mg Chlorpromazine HCl (Chlorpromazine Hcl 25 Mg Tablet) 50 mg PO QID PRN PRN Reason: agitation, irritability Last Admin: 04/08/24 11:26 Dose: 50 mg Clonidine HCl (Clonidine Hcl 0.1 Mg Tablet) 0.1 mg PO TID PRN; Protocol PRN Reason: anxiety, withdrawal sx Last Admin: 04/13/24 18:12 Dose: 0.1 mg Divalproex Sodium (Divalproex Sodium Sprinkles 125 Mg ) 375 mg PO BID [facility] Last Admin: 04/14/24 09:17 Dose: 375 mg Folic Acid (Folic Acid 1 Mg Tablet) 1 mg PO DAILY [facility] Last Admin: 04/14/24 09:17 Dose: 1 mg Gabapentin (Gabapentin 400 Mg Capsule) 800 mg PO TID [facility] Last Admin: 04/14/24 14:30 Dose: 800 mg Haloperidol (Haloperidol 5 Mg Tablet) 5 mg PO BID [facility] Hydroxyzine HCl (Hydroxyzine Hcl 25 Mg Tablet) 25 mg PO Q6H PRN PRN Reason: Anxiety Last Admin: 04/08/24 11:26 Dose: 25 mg Ibuprofen (Ibuprofen 600 Mg Tablet) 600 mg PO Q8H PRN PRN Reason: Pain, Moderate(Pain Scale 4-6) Last Admin: 04/02/24 12:51 Dose: 600 mg Lidocaine (Lidocaine 4 % Patch Adh..Patch) 1 patch TRANSDERMA DAILY [facility]; Protocol Last Admin: 04/14/24 09:17 Dose: 1 patch Loperamide HCl (Loperamide Hcl 2 Mg Capsule) 4 mg PO Q6H PRN PRN Reason: Diarrhea Last Admin: 04/06/24 08:46 Dose: 4 mg Lorazepam (Lorazepam 1 Mg Tablet) 1 mg PO TID PRN PRN Reason: anxiety, agitation Last Admin: 04/13/24 18:12 Dose: 1 mg Magnesium Hydroxide (Milk Of Magnesia 30 Ml Oral.Susp) 30 ml PO DAILY PRN PRN Reason: Constipation Methadone HCl (Methadone Hcl 20 Mg/2 Ml Oral.Conc) 80 mg PO DAILY [facility] Last Admin: 04/14/24 08:04 Dose: 80 mg Mirtazapine (Mirtazapine 7.5 Mg Tablet) 7.5 mg PO BEDTIME PRN PRN Reason: insomnia Last Admin: 04/05/24 21:46 Dose: 7.5 mg Multivitamins/Vitamin C (Multivitamin Tablet) 1 tab PO DAILY [facility] Last Admin: 04/14/24 09:17 Dose: 1 tab Nicotine (Nicotine 21 Mg Patch.Td24) 21 mg TRANSDERMA DAILY PRN PRN Reason: nicotine cravings Nicotine Polacrilex (Nicotine Polacrilex 2 Mg Gum) 4 mg BUCCAL Q2H PRN PRN Reason: Nicotine Cravings Quetiapine Fumarate (Quetiapine Fumarate 50 Mg Tablet) 50 mg PO TID PRN PRN Reason: agitation Last Admin: 04/12/24 14:56 Dose: 50 mg Quetiapine Fumarate (Quetiapine Fumarate 200 Mg Tablet) 200 mg PO BEDTIME [facility] Last Admin: 04/13/24 20:56 Dose: 200 mg Quetiapine Fumarate (Quetiapine Fumarate 100 Mg Tablet) 100 mg PO DAILY [facility] Last Admin: 04/14/24 09:17 Dose: 100 mg Thiamine HCl (Thiamine Hcl 100 Mg Tablet) 100 mg PO DAILY [facility] Last Admin: 04/14/24 09:17 Dose: 100 mg Allergies Allergies Allergy/AdvReac Type Severity Reaction Status Date / Time trazodone Allergy Rash Verified 03/26/24 19:44 Assessment & Plan Assessment & Plan (1) Bipolar II disorder: Status: Acute Code(s): F31.81 - Bipolar II disorder (2) Chronic post-traumatic stress disorder (PTSD): Status: Chronic Code(s): F43.12 - Post-traumatic stress disorder, chronic (3) Polysubstance use disorder: Status: Acute Code(s): F19.90 - Other psychoactive substance use, unspecified, uncomplicated Plan PTSD, Bipolar Disorder, Polysubstance Use Disorder. Plan: Admit, CV 15 minute checks Collateral contact Addiction consult Clonidine prn, Gabapentin 200 mg tid, Remeron prn, Seroquel prn, Wellbutrin 75 mg a.m. to re-start regime. Hospitalist consult, LMQ pain 03/31/24: Increase Gabapentin to 800 mg tid Chlorpromazine 50 mg QID prn irritability, anxiety 04/01: Keeping to self. Guarded. Pt reports feeling anxious and depressed today; pt stated, every morning I wake up and I have thoughts to kill myself. Today I don't want to hurt anyone. Yesterday I did because he lied to me. He used me . Pt would not go into detail as to who he is referring to. Continue current tx plan. 04/02: Continue current tx plan. 04/04: Stool culture 04/05 keep same treatment 04/06 the patient is more delirious, his stool culture came up positive and hospitalist consult disorder. I am increasing Thorazine since the patient is more delirious. 04/07 DC Chlorpromazine scheduled dose Depakote 250 mg bid Increase HS Seroquel to 100 mg HS Pt will allow a return to previous regime which he reports was very effective. 04/09 Increase Depakote to 375 mg bid Haldol 5 mg bid 04/11 Continue current regime 04/12 consider adding metamucil -CTP 04/13 quite sad today- CTP 04/14 Reports he has been accepted into [facility] and is feeling ready to attend this program Discharge 04/15. Reason for continued inpatient stay Substantial Risk for: stable for discharge Time Spent With Patient Time: Total time managing care of this patient today ____ minutes.
[2024-04-14 20:00] VITALS: BP 141/76; PULSE 85; RESP 14; TEMP 36; O2SAT 95
[2024-04-14] MEDS: QUEtiapine Fumarate 200 MG TABLET PO (20:57)
[2024-04-15] MEDS: methADONE HCl 20 MG/2 ML ORAL.CONC 80 MG PO (07:49)
[2024-04-15 08:07] VITALS: BP 130/62; PULSE 86; RESP 16; TEMP 36.4; O2SAT 96
--- NOTE | 2024-04-15 08:42 | P.DS_ITS ---
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 [employer] 03/28/24 12:33 Consult to Hospitalist Routine Comment: hx hernia repair 2002 per pt report Consulting Provider: Hospitalist Reason For Exam: LMQ pain approx 1 month, reports spasm like, 03/28/24 12:36 Addiction Medicine Routine Consulting Provider: Addiction Covering Reason for consultation: Methadone pt since 07/2022, asks to discuss return to suboxone Has provider been notified: No 04/06/24 10:58 Consult to Hospitalist Routine Comment: Consulting Provider: Hospitalist Reason For Exam: Positive E.Coli diarrhea 04/08/24 15:45 Consult to Hospitalist Routine Comment: hx Eliquis-pt stopped months ago Consulting Provider: Hospitalist Reason For Exam: Hx DVT R Leg, reports similiar pain upper R thigh Attending physician on discharge: Sunday Toro Discharging clinician: Rena Morales DS: Diagnosis Discharge Diagnosis (1) Bipolar II disorder: Status: Acute (2) Chronic post-traumatic stress disorder (PTSD): Status: Chronic (3) Polysubstance use disorder: Status: Acute DS: Medications Discharge Medications Home Medications: Home Medications ?Medication ?Instructions ?Recorded ?Confirmed methadone 10 mg/5 mL oral solution 80 mg PO DAILY 03/27/24 03/27/24 Mental Status Exam Mental Status Exam Patient Appearance: Appropriate Patient Orientation: Person, Place, Time and Situation Level of Consciousness: Alert Patient Behavior: Cooperative, Passive and Good Eye Contact Mood Description: Blunted Affect Description: Blunted Patient Cognition Impaired: No Ability to Follow Directions: Fair Speech Pattern: Clear Hallucinations: None Delusions: Not Present Thought Process: Intact and Goal Oriented Thought Content: positive for Intact Depressive Symptoms: Low Self Esteem Judgement: Good Data Data Completed and Pending Completed studies during hospitalization [Text1]: 04/02/24 14:41 Urine clean catch - Clean Catch Midstream Urine Culture - Final No growth. 03/28/24 14:05 Urine clean catch - Clean Catch Midstream Urine Culture - Final No growth. Imaging Diagnostic Imaging Impressions Abdomen/Pelvis CT 03/28/24 20:18 IMPRESSION: 1. No demonstrated acute intra-abdominal abnormalities to explain the patient's symptoms. 2. Changes of prior anterior abdominal wall hernia repair. 3. Moderate multilevel degenerative spondyloarthropathy of the lumbar spine. Most notably, there appears to be moderate to severe neural foraminal stenoses at L5-S1. Electronically signed by: Rico Jansen DO 03/29/2024 01:04 PM EDT RP Venous Duplex 04/08/24 16:55 IMPRESSION: 1. No evidence of deep venous thrombosis involving the right lower extremity. 2. Clarke's cyst 3.1 x 1.1 x 2.1 cm. Electronically signed by: Jules Sancehz DO 04/08/2024 05:14 PM EDT RP DS: Summary Hospital Course Hospital Course: Admission to adult psychiatry for exacerbation of PTSD, Bipolar Disorder II, Opiate Use Disorder, currently on Methadone and Polysubstance Use Disorder. Pt reports an increase in depressive sx with SI. He has not been followed he reports in several months and has stopped all medications except Methadone. His presentation was profoundly depressed with psychotic features on admission. Medications were evaluated and initiated. Pt had initial hesitation as he has a history of side effects. Gradually, with titration and time, he was able to recompensate and participate in treatment planning. Medically he experienced LMQ pain with diarrhea, was treated and was evaluated for DVT by the hospitalist team. He participated in some milieu groups and in discharge planning for ongoing OP care, MAT ongoing care and [facility] commitment with [facility]. Status at Discharge Functional status at discharge: independent ambulation Overall status at discharge: patient is progressing back to baseline Time Spent with Patient Time attestation: Total time managing care of this patient today ____ minutes. Time spent: Less than 30 minutes Discharge Plan Discharge Anticipated Discharge Date/Time: 04/15/24 12:00 Patient Disposition: Xfer Inpatient Rehab Fac Discharge Diagnosis: PTSD Bipolar Disorder, II Polysubstance Use Disorder Opiate Use Disorder Referrals: [facility] [Other] - 04/15/24 11:00 am (Patient accepted to [facility] for substance use treatment) [facility] ([facility]): [facility] [Other] - 1 Week (Patient referred to [facility] for substance use treatment ) [facility] [Other] - 04/16/24 (Patient referred to [facility] for Guest dosing while attending [facility] program.) [facility] [Other] - 1 Week (Patient will self present to [facility] after discharge from [facility] to be connected with outpatient mental health services.) Physician,Unknown J [Primary Care Provider] - 1 Week (Please contact you PCP to schedule follow-up care or you may contact [facility] [phone] [address] [place] [address] ) Discharge Medications: New multivitamin [Daily-Renato] Tablet 1 tab PO DAILY Qty: 30 0RF clonidine HCl 0.1 mg Tablet 0.1 mg PO TID PRN (Reason: anxiety, withdrawal sx) Qty: 30 0RF Protocol: Hold for SBP< HOLD for SBP < : 90 haloperidol 5 mg Tablet 5 mg PO BID Qty: 60 0RF lidocaine [Lidocaine Pain Relief] 4 % Adhesive Patch,Medicated 1 patch transdermal DAILY Qty: 30 0RF Protocol: Apply to: Apply to: Left lower side at site of pain gabapentin 400 mg Capsule 800 mg PO TID Qty: 180 0RF quetiapine 200 mg Tablet 200 mg PO BEDTIME Qty: 30 0RF quetiapine 100 mg Tablet 100 mg PO DAILY Qty: 30 0RF folic acid 1 mg Tablet 1 mg PO DAILY Qty: 30 0RF divalproex 125 mg Capsule, Delayed Rel Sprinkle 375 mg PO BID Qty: 180 0RF bupropion HCl 150 mg Tablet Extended Release 24 Hr 150 mg PO DAILY Qty: 30 0RF mirtazapine 7.5 mg Tablet 7.5 mg PO BEDTIME PRN (Reason: insomnia) Qty: 30 0RF thiamine mononitrate (vit B1) 100 mg Tablet 100 mg PO DAILY Qty: 30 0RF naloxone [Narcan] 4 mg/actuation spray,non-aerosol 4 mg intranasal Q2M PRN (Reason: opioid overdose) Qty: 2 0RF Rx Instructions: spray 1 dose into ONE nostril; alternate nostrils w each dose until help a rrives Continued methadone 10 mg/5 mL Solution 80 mg PO DAILY Rx Instructions: Dose verified by Jessika Cabello LPN from [facility] Discharge Orders: Discharge Order (Routine); Ordered 04/15/24 Ordered By: Rena Morales Diet: Advance to usual diet Activity on Discharge: As tolerated Stand Alone Forms: Patient Portal Discharge page, Community Support Print Language: Ugandan Care Plan Goals: Abstinence Mood and Behavioral Stabilization Health Concerns: Abstinence Mood and Behavioral Stabilization Plan of Treatment: Attend scheduled appointments Admit to [facility] today for ongoing treatment Take medications as directed Assessment: No SI, HI, AH, VH No sx of maine or psychosis Scheduled transfer to [facility] Discharge Date/Time: 04/15/24 10:40
[2024-04-15] MEDS: Folic Acid 1 MG TABLET PO (08:48)
[2024-04-15] MEDS: QUEtiapine Fumarate 100 MG TABLET PO (08:48)
[2024-04-15] MEDS: buPROPion HCl XL 150 MG TAB.ER.24H PO (08:48)
[2024-04-15] MEDS: Divalproex Sodium Sprinkles 125 MG CAP.DR.SPR 375 MG PO (08:48)
[2024-04-15] MEDS: Thiamine HCL 100 MG TABLET PO (08:48)
[2024-04-15] MEDS: Gabapentin 400 MG CAPSULE 800 MG PO (08:48)
[2024-04-15] MEDS: Multivitamin TABLET 1 TAB PO (08:48)
[2024-04-15] MEDS: HaloperidoL 5 MG TABLET PO (08:49)
== END 2024-04-15 10:40 | DRG 753 ==
LOC: HO.ED 03-27 08:28 → HO.PM5 03-27 22:06
PROVIDERS: Physician Assistant; Student in an Organized Health Care Education/Training Program; Admitting Provider Clinical Nurse Specialist Psychiatric/Mental Health, Adult; Emergency Provider Emergency Medicine; Visit Provider Clinical Nurse Specialist Psychiatric/Mental Health, Adult
DX: F31.81 Bipolar II disorder (principal); R45.851 Suicidal ideations; Z91.148 Patient's other noncompliance with medication regimen for other reason; F11.20 Opioid dependence, uncomplicated; F17.210 Nicotine dependence, cigarettes, uncomplicated; M71.21 Synovial cyst of popliteal space [Baker], right knee; Z71.6 Tobacco abuse counseling; F43.12 Post-traumatic stress disorder, chronic; Z20.822 Contact with and (suspected) exposure to COVID-19; Z79.899 Other long term (current) drug therapy
CPT/HCPCS: 36415; 74176; 80048; 80053; 80164; 80307; 81001; 83735; 85025; 85027; 87086; 87491; 87507; 87591; 87635; 93005; 93971; 99285; S9485

== ENCOUNTER → 2024-03-27 15:10 | Outpatient (BNV) | payer MEDICAID, OTHER, SELFPAY | PROVIDERS: Admitting Provider Clinical Nurse Specialist Psychiatric/Mental Health, Adult; Emergency Provider Emergency Medicine; Visit Provider Clinical Nurse Specialist Psychiatric/Mental Health, Adult | DX: F31.81 Bipolar II disorder (principal); F43.12 Post-traumatic stress disorder, chronic; F19.90 Other psychoactive substance use, unspecified, uncomplicated | CPT/HCPCS: 99231; 99232 ==

== ENCOUNTER 2024-07-29 04:37 | Inpatient (IN) | payer OTHER, SELFPAY ==
[2024-07-29] VITALS (8 sets, daily range): BP systolic 107–136; BP diastolic 63–85; PULSE 54–81; RESP 14–18; TEMP 36.3–36.9; O2SAT 96–98; BMI 24.8
--- NOTE | 2024-07-29 06:47 | ED_ITS ---
HPI - General Adult General Chief complaint: Psychiatric Symptoms Stated complaint: crisis Time Seen by Provider: 07/29/24 06:39 Source: patient Mode of arrival: ambulatory Limitations: no limitations History of Present Illness ED Provider: Charito Avila PA-C HPI narrative: Patient is a 49 year old assigned male at with a history of PTSD, MDD, and polysubstance abuse presenting to the emergency department today with SI and medication non-compliance. Patient states that over the last 2 months he has been off all of his psychiatric medication and lately has been having suicidal ideation that he states is very strong . Patient denies any dizziness, lightheadedness, abdominal pain, nausea, vomiting, fever, chills, blurry vision, double vision, loss of vision, chest pain, difficulty breathing, shortness of breath, back pain, night sweats, pain with urination, increased urinary frequency, increased urinary urgency, blood in his urine or stool, syncope or a near syncopal episode, recent trauma or falls, bowel incontinence, bladder incontinence, or any other complaints at this time. Relieving factors: none Exacerbating factors: none Associated symptoms: denies other symptoms Treatments prior to arrival: none Related Data Home Medications ?Medication ?Instructions ?Recorded ?Confirmed methadone 10 mg/5 mL oral solution 80 mg PO DAILY 03/27/24 03/27/24 Previous Rx's ?Medication ?Instructions ?Recorded bupropion HCl 150 mg 24 hr tablet, 150 mg PO DAILY #30 tabs 04/15/24 extended release clonidine HCl 0.1 mg tablet 0.1 mg PO TID PRN anxiety, 04/15/24 withdrawal sx #30 tabs divalproex 125 mg capsule,delayed 375 mg (3 x 125 mg) PO BID #180 04/15/24 release sprinkle caps folic acid 1 mg tablet 1 mg PO DAILY #30 tabs 04/15/24 gabapentin 400 mg capsule 800 mg (2 x 400 mg) PO TID #180 04/15/24 caps haloperidol 5 mg tablet 5 mg PO BID #60 tabs 04/15/24 lidocaine 4 % topical patch 1 patch transdermal DAILY #30 ea 04/15/24 (Lidocaine Pain Relief) mirtazapine 7.5 mg tablet 7.5 mg PO BEDTIME PRN insomnia #30 04/15/24 tabs multivitamin (Daily-Renato tablet) 1 tab PO DAILY #30 tabs 04/15/24 naloxone 4 mg/actuation nasal 4 mg intranasal Q2M PRN opioid 04/15/24 spray (Narcan) overdose #2 ea quetiapine 100 mg tablet 100 mg PO DAILY #30 tabs 04/15/24 quetiapine 200 mg tablet 200 mg PO BEDTIME #30 tabs 04/15/24 thiamine mononitrate (vit B1) 100 100 mg PO DAILY #30 tabs 04/15/24 mg tablet Allergies Allergy/AdvReac Type Severity Reaction Status Date / Time trazodone Allergy Rash Verified 07/29/24 04:50 Review of Systems 2 Constitutional: Constitutional: Reports no additional constitutional complaints, Denies chills, Denies fever(s) and Denies night sweats Eyes: Eyes: Reports no additional eye complaints, Denies blurry vision, Denies change in vision, Denies diplopia, Denies eye discharge, Denies loss of vision and Denies eye pain ENT: Denies dizziness Cardiovascular: Cardiovascular: Reports no additional cardiovascular complaints, Denies chest pain, Denies lightheadedness, Denies Loss of Consciousness and Denies dyspnea Respiratory: Respiratory: Reports no additional respiratory complaints and Denies dyspnea Gastrointestinal: Gastrointestinal: Reports no additional gastrointestinal complaints, Denies abdominal pain, Denies melena, Denies hematochezia, Denies change in bowel habits and Denies change in stool character Genitourinary: Genitourinary: Reports no additional male genitourinary complaints, Denies hematuria, Denies oliguria, Denies difficulty urinating, Denies dysuria, Denies urinary frequency, Denies urinary hesitancy, Denies urinary incontinence and Denies urinary urgency Musculoskeletal: Musculoskeletal: Reports no additional musculoskeletal complaints, Denies numbness and Denies tingling Neurologic: Denies dizziness, Denies loss of vision, Denies numbness and Denies tingling Psychiatric: Psychiatric: Denies homicidal ideation and Reports suicidal ideation Endocrine: Endocrine: Reports no additional endocrine complaints Hematologic/Lymphatic: Hematologic/Lymphatic: Reports no additional hematologic/lymphatic complaints Allergic/Immunologic: Allergic/Immunologic: Reports no additional allergic/immunologic complaints PMFSH Past Medical History Attestation statement: The following information was validated with the patient. Source: old records reviewed and nursing notes reviewed Medical History Polysubstance use disorder Suicidal ideation Right inguinal hernia Opioid abuse Cocaine use disorder Alcohol use disorder, moderate, in early remission, dependence Opioid dependence on agonist therapy Chronic post-traumatic stress disorder (PTSD) MDD (major depressive disorder), recurrent severe, without psychosis Bipolar 1 disorder PTSD (post-traumatic stress disorder) Depression Surgical History S/P hernia surgery Social History Social History Household Members: Family Housing: Apartment Do you presently have visiting nurse or other home services: No Unable to assess alcohol history related to: Unknown Alcohol intake: current Alcohol intake frequency: 0-2 drinks per day Alcohol type: beer Patient Tobacco Use Status: Current everyday Tobacco user Tobacco use type: Smokeless Tobacco Cigarette Packs Per Day: 0.5 Cigarettes Per Day: 5 Years Smoked: 27 e-Cigarette/Vaping Use: Currently Using Second Hand Smoke Exposure: Yes Substance Use Type: Crack/Cocaine, Heroin, Marijuana and Opiates Advance Directives: No Advance Directives Information Provided: Yes Do you have a plan to hurt others: No Plan service: No Sexual orientation: Straight/Heterosexual Physical Exam ED Vital Signs: Vital Signs - 24 hr 07/29/24 04:48 07/29/24 05:43 07/29/24 08:22 Temperature 97.5 F 98.4 F 98.3 F Pulse Rate 59 56 54 Respiratory Rate 18 16 16 Blood Pressure 136/85 119/77 107/67 Pulse Oximetry 98 98 98 Oxygen Delivery Method Room Air Room Air Room Air BMI result Body Mass Index 24.8 Const General: cooperative, no acute distress, alert and awake Nutritional Appearance: well nourished Orientation/consciousness: patient oriented x3 Limitations: no limitations HENMT Head: Yes normal to inspection and Yes atraumatic Ears: hearing grossly normal bilaterally and external ears normal General nose exam: Normal external nose present, no nasal discharge noted and no epistaxis Face and sinus: Yes normal facial exam, No abrasion and No laceration Mouth: Normal oral and palatal mucosa present, no drooling and no muffled voice Eyes General: appearance normal, both eyes and all related structures Periorbital: periorbital findings normal Eyelids: Yes eyelids normal Conjunctivae: conjunctivae normal Pupils: Equal, round and reactive pupils present EOM: EOMs intact bilaterally Neck Neck: Yes normal visual inspection, Yes full ROM and Yes no lymphadenopathy Chest Chest palpation & inspection: normal inspection of the chest Resp Effort & Inspection: normal respiratory effort and able to speak in complete sentences GI Inspection: Yes normal to inspection Neuro General: patient oriented x3 and moves all extremities Cranial nerves: Yes Equal, round and reactive pupils present Cognition (Neuro): normal cognition Extrem General: Yes normal to inspection, Yes full ROM and Yes capillary refill normal Psych Appearance: grossly normal Mental Status: mental status grossly normal Attitude: Guarded attititude/behavior present Thought content: Suicidality present Medical Decision Making Medical Decision Making [facility] Narrative: Patient is a 49 year old assigned male at with a history of PTSD, MDD, and polysubstance abuse presenting to the emergency department today with SI and medication non-compliance. Patient's physical exam was as noted in the physical exam portion of this note. Patient's blood work was unremarkable. Patient's EKG was unremarkable. I explained my physical exam findings as well as all test results to the patient. I answered all questions asked by the patient. Patient's disposition is pending CARE team evaluation. Differential Diagnosis Differential Diagnoses: The differential diagnosis associated with the presentation includes SI Medication non-compliance Admission/Observation Consideration of admission/observation: Escalation of care including admission/observation considered Patient's disposition will be determined after CARE team evaluation. Lab Data [facility] Lab Attestation statement: I reviewed the patient's lab results. My interpretation of these results are in the MDM Rationale portion of this note. 07/29/24 07:46 07/29/24 07:46 Labs: Lab Results 07/29/24 07/29/24 Range/Units 07:46 10:25 WBC 7.0 (4.8-10.8) X10*3/uL RBC 4.24 L (4.60-5.80) X10*6/uL Hgb 13.5 L (14.0-18.0) g/dl Hct 39.5 L (42.0-52.0) % MCV 93.2 (80.0-98.0) fL MCH 31.8 (27.0-33.0) pg MCHC 34.2 (31.0-36.0) g/dl RDW 13.3 (11.0-16.0) % Plt Count 220 (160-400) X10*3/uL MPV 9.5 (9.4-12.4) fL Immature Gran % (Auto) 0.3 (0.0-0.4) % Neut % (Auto) 56.3 (45-73) % Lymph % (Auto) 32.0 (20-40) % [place] % (Auto) 10.0 (2-11) % Eos % (Auto) 0.7 (0-4) % Baso % (Auto) 0.7 (0-2) % Lymph # (Auto) 2.3 (1.2-4.9) X10*3/uL [place] # (Auto) 0.7 (0.1-1.2) X10*3/uL Eos # (Auto) 0.1 (0.0-0.4) X10*3/uL Baso # (Auto) 0.1 (0.0-0.2) X10*3/uL Abs Immat Gran (auto) 0.02 (0.00-0.03) X10*3/uL Absolute Neuts (auto) 4.0 (2.0-8.3) x10*3/uL Absolute Nucleated RBC 0.000 (0.0-0.012) X10*3/uL Nucleated RBC % (auto) 0.0 (0.0-0.2) /100WBC Sodium 140 (135-145) mmol/L Potassium 3.4 D (3.3-5.1) mmol/L Chloride 108 (96-108) mmol/L Carbon Dioxide 26 (22-29) mmol/L Anion Gap 9 L (12-20) BUN 12 (9-16) mg/dL Creatinine 0.72 (0.5-1.4) mg/dL Estim Creat Clear Calc 125.4 Estimated GFR > 60 Random Glucose 109 (60-115) mg/dL Calcium 8.6 D (8.4-10.2) mg/dL Total Bilirubin 0.5 (0.0-1.0) mg/dL AST 34 (5-37) U/L ALT 32 (0-40) U/L Alkaline Phosphatase 56 (39-117) U/L Total Protein 6.6 (6.5-8.0) g/dL Albumin 3.8 (3.5-5.0) g/dL Urine Color Yellow Urine Appearance Clear Urine pH 5.5 (5.0-9.0) Ur Specific [employer] 1.025 (1.005-1.025) Urine Protein Negative (Neg-Trace) mg/dL Urine Glucose (UA) Negative (Negative) mg/dL Urine Ketones 15 (Negative) mg/dL Urine Blood Negative (Negative) Urine Nitrite Negative (Negative) Ur Leukocyte Esterase Negative (Negative) Salicylates < 5.0 L (15-30) mg/dL Urine Opiates Screen POSITIVE H (Not Detect) Ur Buprenorphine Scrn Not Detected (Not Detect) ng/mL Ur Oxycodone Screen Not Detected (Not Detect) ng/mL Urine Methadone Screen Positive H (Not Detect) ng/mL Urine Fentanyl Screen POSITIVE H (Not Detect) Acetaminophen < 3 (<30) mcg/mL Ur Barbiturates Screen Not Detected (Not Detect) Ur Phencyclidine Scrn Not Detected (Not Detect) Ur Amphetamines Screen Not Detected (Not Detect) U Benzodiazepines Scrn Not Detected (Not Detect) Urine Cocaine Screen POSITIVE H (Not Detect) U Marijuana (THC) Screen POSITIVE H (Not Detect) Ethyl Alcohol < 10 mg/dL COVID-19 (WILL) Negative (Negative) COVID-19 Clin Com See Note Independent Interpretation I performed an independent interpretation of an: EKG Interpretation: Vent. Rate: 058 BPM Atrial Rate: 058 BPM P-R Int: 142 ms QRS Dur: 090 ms QT Int: 446 ms P-R-T Axes: 077 063 068 degrees QTc Int: 437 ms Sinus bradycardia Otherwise normal ECG When compared with ECG of 27-MAR-2024 10:35, No significant change was found Referred By: Charito Avila Electronically Signed By:CHICO PARNELL MD Dictated By: Chico Parnell MD Signed By: Electronically signed by Chico Parnell MD 07/29/24 1231 Discharge Plan Discharge Clinical Impression: Suicidal ideation, Non compliance w medication regimen Patient Disposition: Still a Patient Prescriptions: No Action methadone 10 mg/5 mL Solution 80 mg PO DAILY Rx Instructions: Dose verified by Jessika Cabello LPN from [facility] multivitamin [Daily-Renato] Tablet 1 tab PO DAILY Qty: 30 0RF clonidine HCl 0.1 mg Tablet 0.1 mg PO TID PRN (Reason: anxiety, withdrawal sx) Qty: 30 0RF Protocol: Hold for SBP< HOLD for SBP < : 90 haloperidol 5 mg Tablet 5 mg PO BID Qty: 60 0RF lidocaine [Lidocaine Pain Relief] 4 % Adhesive Patch,Medicated 1 patch transdermal DAILY Qty: 30 0RF Protocol: Apply to: Apply to: Left lower side at site of pain gabapentin 400 mg Capsule 800 mg PO TID Qty: 180 0RF quetiapine 200 mg Tablet 200 mg PO BEDTIME Qty: 30 0RF quetiapine 100 mg Tablet 100 mg PO DAILY Qty: 30 0RF folic acid 1 mg Tablet 1 mg PO DAILY Qty: 30 0RF divalproex 125 mg Capsule, Delayed Rel Sprinkle 375 mg PO BID Qty: 180 0RF bupropion HCl 150 mg Tablet Extended Release 24 Hr 150 mg PO DAILY Qty: 30 0RF mirtazapine 7.5 mg Tablet 7.5 mg PO BEDTIME PRN (Reason: insomnia) Qty: 30 0RF thiamine mononitrate (vit B1) 100 mg Tablet 100 mg PO DAILY Qty: 30 0RF naloxone [Narcan] 4 mg/actuation spray,non-aerosol 4 mg intranasal Q2M PRN (Reason: opioid overdose) Qty: 2 0RF Rx Instructions: spray 1 dose into ONE nostril; alternate nostrils w each dose until help arrives Print Language: Moroccan
[2024-07-29 07:51] LABS: MANUAL DIFF FLAG NO
[2024-07-29 07:52] LABS: Basophils Absolute Auto 0.1 X10*3/uL (0.0-0.2); Basophils Percent Auto 0.7 % (0-2); Eosinophils Absolute Auto 0.1 X10*3/uL (0.0-0.4); Eosinophils Percent Auto 0.7 % (0-4); Hematocrit 39.5 % (42.0-52.0); Hemoglobin 13.5 g/dl (14.0-18.0); Imm Gran Abs Auto 0.02 X10*3/uL (0.00-0.03); Imm Gran Pct Auto 0.3 % (0.0-0.4); Lymphocytes Absolute Auto 2.3 X10*3/uL (1.2-4.9); Mean Corpuscular HGB Conc 34.2 g/dl (31.0-36.0); Mean Corpuscular Hemoglobin 31.8 pg (27.0-33.0); Mean Corpuscular Volume 93.2 fL (80.0-98.0); Mean Platelet Volume 9.5 fL (9.4-12.4); Monocytes Absolute Auto 0.7 X10*3/uL (0.1-1.2); Neutrophils Percent Auto 56.3 % (45-73); Platelet Count 220 X10*3/uL (160-400); Red Blood Count 4.24 X10*6/uL (4.60-5.80); Red Cell Distribution Width 13.3 % (11.0-16.0)
--- OUTSIDE RECORDS SUMMARY | 2024-07-29 08:03 | XMS_ITS | Continuity of Care Document ---
Author Organization [facility] Address [address] [place] [address] Phone Care Team Providers Care Transmission System Operator Name Role Phone Miguel Salazar BA Unavailable Unavailable Advance Directives Directive Yes / No Effective Date File Name No Information Encounters Encounter Description Practice Location Reason(s) For Visit Diagnoses Date Provider [facility], [address] [place] [address], [facility] [place] [facility] [place], tel:[phone] OP [address] [place] No Information 2021 Marie Novakdalin. [address] [place] [address], [id number], . tel:[phone] Family History Family Member Type Diagnosis Age At Onset No Information Payers Payer name Insurance type Covered constitution party ID Authoriza tion(s) No Information Social History Type Description Quantity Date Captured Comments Sex Male Smoking Status No Information Sexual Orientation Unknown Gender Identity Male Chief Complaint And Reason For Visit No Information History Of Present Illness Encounter Date Complaint History Of Prese nt Illness No Information Instructions Date Instruction Additional Infor mation No Information Assessments Type Assessment Date No Information
[2024-07-29 08:10] LABS: COVID-19 Test Negative (Negative); IDNOW Serial# 6674DD1D
[2024-07-29 08:13] LABS: Alanine Aminotransferase 32 U/L (0-40); Albumin Level 3.8 g/dL (3.5-5.0); Alkaline Phosphatase 56 U/L (39-117); Anion Gap 9 (12-20); Aspartate Amino Transferase 34 U/L (5-37); Bilirubin Total 0.5 mg/dL (0.0-1.0); Blood Urea Nitrogen 12 mg/dL (9-16); Calcium 8.6 mg/dL (8.4-10.2); Carbon Dioxide 26 mmol/L (22-29); Chloride 108 mmol/L (96-108); Creatinine Clr Calc Pharmacy 125.4; Estimated Glomerular Filt Rate > 60; Ethanol < 10 mg/dL; Glucose Random 109 mg/dL (60-115); Potassium 3.4 mmol/L (3.3-5.1); Sodium 140 mmol/L (135-145); Total Protein 6.6 g/dL (6.5-8.0)
[2024-07-29 08:14] LABS: Acetaminophen LAB < 3 mcg/mL (<30); Salicylate < 5.0 mg/dL (15-30)
--- NOTE | 2024-07-29 08:20 | ECG_ITS ---
Test Reason : COCAINE USE Blood Pressure : / mmHG Vent. Rate : 058 BPM Atrial Rate : 058 BPM P-R Int : 142 ms QRS Dur : 090 ms QT Int : 446 ms P-R-T Axes : 077 063 068 degrees QTc Int : 437 ms Sinus bradycardia Otherwise normal ECG When compared with ECG of 27-MAR-2024 10:35, No significant change was found Referred By: Charito Avila Electronically Signed By:JOSEE PARNELL MD
--- NOTE | 2024-07-29 10:00 | PC.NURSE ---
patient asked to give urine sample and still states can't right now
[2024-07-29 10:32] LABS: Appearance Urine Clear; Color Urine Yellow; Glucose Urine UA Negative (Negative); Leukocyte Esterase Urine Negative (Negative); Nitrite Urine Negative (Negative); PH 5.5 (5.0-9.0); Specific Gravity - Urine 1.025 (1.005-1.025); Urine Blood Negative (Negative); Urine Ketones 15 mg/dL (Negative); Urine Protein Negative (Neg-Trace)
[2024-07-29 10:40] LABS: Amphetamine Screen Urine Not Detected (Not Detect); Barbiturates, Urine Not Detected (Not Detect); Benzodiazepines Screen Urine Not Detected (Not Detect); Buprenorphine Scr Not Detected (Not Detect); Cannabinoid Screen Urine POSITIVE (Not Detect); Cocaine Screen Urine POSITIVE (Not Detect); Fentanyl, urine POSITIVE (Not Detect); Methadone Screen, Urine Positive (Not Detect); Opiate Screen Urine POSITIVE (Not Detect); Oxycodone Screen Urine Not Detected (Not Detect); Phencyclidine Screen Urine Not Detected (Not Detect)
--- NOTE | 2024-07-29 11:23 | MHC.RECOVSUP ---
Grid Molder Note Patient seen in ED Consult requested for?Recovery Supports Current substance use reported by patient: Opiates Currently on AMBROSE or MOUD Yes. but was asking me to communicate that he'd like to come off MATS once he's stabilized on his psyche meds. Plan:? Grid Molder referral placed to Matt Odom at [facility].
--- NOTE | 2024-07-29 14:39 | PC.NURSE ---
Report received from Bella López
--- NOTE | 2024-07-29 15:26 | PHA.MEDREC ---
Pharmacy Consult ? Medication Reconciliation Pharmacy has completed the medication reconciliation. Pt's last fill history was at [place] 04/15/2024. Pt's nurse in ED pod notified
--- NOTE | 2024-07-29 17:03 | PC.NURSE ---
Pt has been sleeping soundly since this RN arrival at 3:45
--- NOTE | 2024-07-29 17:13 | PC.NURSE ---
Pt is awake, ambulatory with steady gait. SKin pwd. still endorses SI. Is aware of plan for transfer to [facility]. Taking PO lfuids.
[2024-07-29] MEDS: LORazepam 1 MG TABLET 2 MG PO (19:58)
[2024-07-29] MEDS: Mirtazapine 7.5 MG TABLET PO (20:26)
[2024-07-29] MEDS: cloNIDine HCL 0.1 MG TABLET PO (20:27)
[2024-07-29] MEDS: QUEtiapine Fumarate 200 MG TABLET PO (20:27)
[2024-07-29] MEDS: HaloperidoL 5 MG TABLET PO (20:28)
--- NOTE | 2024-07-30 06:25 | PC.ADMIT ---
Pt is a 49 year old male admitted to the unit after referral by the CARE Team at [facility]. Arrived on the unit at 2144, legal status CV. Pt has a history of multiple inpatient admissions, most recently on [facility] from 03/27-04/15/24. Pt reports that since being discharged he has been increasingly depressed and not properly caring for himself, as well as not taking his medications for 2 months. He endorsed SI with a plan to OD. Pt reported poor sleep and appetite, as well as lack of energy and difficulty getting out of bed in the morning. He acknowledged AH, though did not elaborate, denied VH. Pt is currently homeless, but has been staying with his sister.? Per crisis assessment pt had been sober since discharge from [facility] in March, however relapsed 3 weeks ago. LOVE was positive for opiates, methadone, fentanyl, cocaine and marijuana. Last use was 07/28/24. Pt was on methadone, however he reports he recently stopped taking it.? Pt was unable/declined to participate in admission assessment, as he was medicated in the ED and arrived to the unit asleep in the wheelchair, somewhat difficult to arouse. When approached and assisted to perform skin check, pt became irritable, though remained cooperative, keeping his eyes closed the entire time. Skin check was unremarkable. Pt placed on 15 min safety checks.?
[2024-07-30 09:00] VITALS: BP 120/73; PULSE 65; RESP 16; TEMP 36.6; O2SAT 99
[2024-07-30] MEDS: Multivitamin TABLET 1 TAB PO (09:28)
[2024-07-30] MEDS: HaloperidoL 5 MG TABLET PO ×2 (09:28→20:32)
[2024-07-30] MEDS: QUEtiapine Fumarate 100 MG TABLET PO (09:28)
[2024-07-30] MEDS: Thiamine HCL 100 MG TABLET PO (09:28)
[2024-07-30] MEDS: Folic Acid 1 MG TABLET PO (09:28)
[2024-07-30] MEDS: Acetaminophen 325 MG TABLET 650 MG PO (09:28)
[2024-07-30 09:29] VITALS: BP 120/73
[2024-07-30] MEDS: cloNIDine HCL 0.1 MG TABLET PO (09:29)
[2024-07-30] MEDS: hydrOXYzine HCL 25 MG TABLET PO (09:29)
[2024-07-30] MEDS: methADONE HCl 20 MG/2 ML ORAL.CONC 40 MG PO (11:18)
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
[2024-07-30 19:57] VITALS: BP 103/55; PULSE 63; RESP 16; TEMP 37.6; O2SAT 98
[2024-07-30] MEDS: QUEtiapine Fumarate 200 MG TABLET PO (20:32)
[2024-07-30] MEDS: Mirtazapine 7.5 MG TABLET PO (20:32)
[2024-07-31 07:00] VITALS: BMI 24.2
[2024-07-31 07:40] VITALS: BP 110/62; PULSE 62; RESP 12; TEMP 37.1; O2SAT 98
[2024-07-31] MEDS: methADONE HCl 20 MG/2 ML ORAL.CONC 40 MG PO (07:58)
[2024-07-31] MEDS: HaloperidoL 5 MG TABLET PO (09:07)
[2024-07-31] MEDS: Thiamine HCL 100 MG TABLET PO (09:07)
[2024-07-31] MEDS: Folic Acid 1 MG TABLET PO (09:07)
[2024-07-31] MEDS: QUEtiapine Fumarate 100 MG TABLET PO (09:07)
[2024-07-31] MEDS: Multivitamin TABLET 1 TAB PO (09:07)
--- NOTE | 2024-07-31 11:01 | HO.ADDICT_ITS ---
History of Present Illness Date of Service: 07/31/2024 Chief Complaint: crisis Reason for Consult: OUD --acute withdrawal Sources of Information: patient interviewed and chart reviewed HPI Narrative: Patient is a 49 year old male admitted to [facility] with worsening depression and suicidal ideation. Chart review shows that he was recently admitted to [facility] and discharged mid March. At that time his methadone was 80mg and he was placed at [facility] Today patient reports he did not stay long at the [facility] because he did not like it. He continue with methadone and states that he has been tapering dose. Last dose reported to be on 07/21 25mg. Since then he started using fentanyl again. Last use prior to presenting in ED. He was ordered and adminitered 40mg methadone yesterday (07/30) and today. He reports that he does not wish to remain on methadone and is requesting that dose be reduced. He feels that his substance use is worsened by/caused by psychiatric symptoms. T/W shared concern for risk of ongoing use and possible overdose without MOUD, patient verbalized understanding, but states he does not wish to continue. He shared that his brother offered to have him live with him in [place], but he could not come with any attachments which he explained to be methadone or ongoing substance use. Patient appears comfortable, no diaphoresis or restlessness. Denies body aches, loose stools, nausea, etc He did appear overall anxious. Labs reviewed, last HIV and Hepatitis screen in 2021. Past Psychiatric History: -Hx of IPLOC at [facility] M5 03/23/21 due to SI with a plan to overdose, increasing depression. Hx of IPLOC in 2012 for severe depression. -Recent crisis eval 09/03/2021 due to depression, SI with plan to OD on heroin, superficially cutting himself with a knife. Precipitating factors include that his left him, lost his job in 06/2021, has not been able to see his kids since break up with . IP: [place] 02/08/19, hx of IPLOC in [place] no documented h/o suicide attempt Out Pt: No current alliances Trials: Pt is unsure Review of Systems Constitutional: Reports as per HPI Diagnostics Vital Signs (24Hr): Vital Signs - 24 hr 07/30/24 19:57 07/31/24 07:40 Temperature 99.6 F 98.7 F Pulse Rate 63 62 Respiratory Rate 16 12 Blood Pressure 103/55 L 110/62 Pulse Oximetry 98 98 Oxygen Delivery Method Room Air Room Air BMI result Body Mass Index 24.8 Labs 07/29/24 07:46 07/29/24 07:46 Mental Status Exam Mental Status Exam Patient Appearance: Disheveled Level of Consciousness: Awake, Appropriate and Alert Patient Behavior: Appropriate and Anxious Mood Description: Anxious Affect Description: Anxious Speech Pattern: Clear Medications Medications Current Medications Acetaminophen (Acetaminophen 325 Mg Tablet) 650 mg PO Q6H PRN PRN Reason: Headache/Pain Mild Scale (1-3) Last Admin: 07/30/24 09:28 Dose: 650 mg Al Hydroxide/Mg Hydroxide (Magnesium Hydrox/Alum Hydrox 30 Ml Oral.Susp) 30 ml PO Q6H PRN PRN Reason: Heartburn/Nausea Clonidine HCl (Clonidine Hcl 0.1 Mg Tablet) 0.1 mg PO TID PRN; Protocol PRN Reason: anxiety, withdrawal sx Last Admin: 07/30/24 09:29 Dose: 0.1 mg Folic Acid (Folic Acid 1 Mg Tablet) 1 mg PO DAILY YI Last Admin: 07/31/24 09:07 Dose: 1 mg Haloperidol (Haloperidol 5 Mg Tablet) 5 mg PO BID YI Last Admin: 07/31/24 09:07 Dose: 5 mg Hydroxyzine HCl (Hydroxyzine Hcl 25 Mg Tablet) 25 mg PO Q6H PRN PRN Reason: Anxiety Last Admin: 07/30/24 09:29 Dose: 25 mg Lidocaine (Lidocaine 4 % Patch Adh..Patch) 1 patch TRANSDERMA DAILY [facility]I; Protocol Last Admin: 07/31/24 09:06 Dose: Not Given Magnesium Hydroxide (Milk Of Magnesia 30 Ml Oral.Susp) 30 ml PO DAILY PRN PRN Reason: Constipation Methadone HCl (Methadone Hcl 20 Mg/2 Ml Oral.Conc) 30 mg PO ONCE ONE Stop: 08/01/24 08:01 Methadone HCl (Methadone Hcl 20 Mg/2 Ml Oral.Conc) 25 mg PO ONCE ONE Stop: 08/02/24 08:01 Methadone HCl (Methadone Hcl 20 Mg/2 Ml Oral.Conc) 20 mg PO ONCE ONE Stop: 08/03/24 08:01 Mirtazapine (Mirtazapine 7.5 Mg Tablet) 7.5 mg PO BEDTIME PRN PRN Reason: insomnia Last Admin: 07/30/24 20:32 Dose: 7.5 mg Multivitamins/Vitamin C (Multivitamin Tablet) 1 tab PO DAILY [facility] Last Admin: 07/31/24 09:07 Dose: 1 tab Nicotine (Nicotine 21 Mg Patch.Td24) 21 mg TRANSDERMA DAILY [facility] Last Admin: 07/31/24 09:10 Dose: Not Given Nicotine Polacrilex (Nicotine Polacrilex 2 Mg Gum) 4 mg BUCCAL Q2H PRN PRN Reason: Nicotine Cravings Quetiapine Fumarate (Quetiapine Fumarate 200 Mg Tablet) 200 mg PO BEDTIME [facility] Last Admin: 07/30/24 20:32 Dose: 200 mg Quetiapine Fumarate (Quetiapine Fumarate 100 Mg Tablet) 100 mg PO DAILY [facility] Last Admin: 07/31/24 09:07 Dose: 100 mg Thiamine HCl (Thiamine Hcl 100 Mg Tablet) 100 mg PO DAILY [facility] Last Admin: 07/31/24 09:07 Dose: 100 mg Allergies Allergies Allergy/AdvReac Type Severity Reaction Status Date / Time trazodone Allergy Rash Verified 07/29/24 04:50 Assessment & Plan Assessment & Plan (1) Opioid use disorder: Status: Acute Code(s): F11.90 - Opioid use, unspecified, uncomplicated Assessment and Plan: * per patient request, will continue to taper methadone dose --orders entered through 08/04/24 * overdose prevention discussion, including increased risk with d/c of MOUD. Discussed tolerance and importance of not using the same amount if he does use again the future * asian studies professor to check in during admission--will continue to reinforce risk reduction and provide recovery resources as appropriate * should have updated HIV and hepatitis screens Total time managing care of this patient today _35___ minutes. [facility] Past Medical History Medical History Polysubstance use disorder Suicidal ideation Right inguinal hernia Opioid abuse Cocaine use disorder Alcohol use disorder, moderate, in early remission, dependence Opioid dependence on agonist therapy Chronic post-traumatic stress disorder (PTSD) MDD (major depressive disorder), recurrent severe, without psychosis Bipolar 1 disorder PTSD (post-traumatic stress disorder) Depression Surgical History Surgical History S/P hernia surgery Social History Social History Household Members: Other Household Members Other:: homeless, staying with sister Housing: Homeless Do you presently have visiting nurse or other home services: No Unable to assess alcohol history related to: Unknown Alcohol intake: current Alcohol intake frequency: 0-2 drinks per day Alcohol type: beer Patient Tobacco Use Status: Current everyday Tobacco user Tobacco use type: Smokeless Tobacco Cigarette Packs Per Day: 0.5 Cigarettes Per Day: 5 Years Smoked: 27 e-Cigarette/Vaping Use: Currently Using Second Hand Smoke Exposure: Yes Use of substances other than those prescribed or required for medical reasons: Yes Substance Use Type: Crack/Cocaine, Marijuana and Opiates Last Used Substance: Just Prior to Admission Currently Displaying Signs/Symptoms of Drug Intoxication Withdrawal: No Spiritual Healthcare Practices: unknown at this time Quaker Healthcare Practices: unknown at this time Cultural Healthcare Practices: unknown at this time Advance Directives: No Advance Directives Information Provided: Yes Do you have thoughts of harming others: None Do you have a plan to hurt others: No Plan Poor oral hygiene: No service: No Sexual orientation: Straight/Heterosexual
[2024-07-31] MEDS: buPROPion HCl XL 150 MG TAB.ER.24H PO (13:01)
[2024-07-31] MEDS: Divalproex Sodium Sprinkles 125 MG CAP.DR.SPR 375 MG PO ×2 (13:01→20:26)
[2024-07-31] MEDS: Gabapentin 300 MG CAPSULE PO ×2 (14:56→20:26)
--- NOTE | 2024-07-31 15:42 | HO.PSYCHPN ---
Subjective Subjective Date of Service: 07/31/24 Reason For Visit: crisis Interim History: irritable, tired. depressed. mood swings when in withdrawal. recently referred to [facility] but not had appointment yet. was taking methadone 30 mg daily as of a week ago but wants to taper and DC methadone. asking to start wellbutrin, seroquel 50 PRNs, and gabapentin. also agrees to restart VPA. per staff, irritable, agitated. taking meds. started methadone. med-seeking. slept 8 hours. Mental Status Exam Mental Status Exam Narrative: calm and cooperative. adequately dressed and groomed. no PMA/PMR. speech incr in rate, decr latency. nml prosody. incr amount. thoughts linear and logical. affect normo-intense, non-labile. mood depressed. no SI/HI/AVH expressed. Diagnostics Vital Signs (24Hr): Vital Signs - 24 hr 07/30/24 19:57 07/31/24 07:40 Temperature 99.6 F 98.7 F Pulse Rate 63 62 Respiratory Rate 16 12 Blood Pressure 103/55 L 110/62 Pulse Oximetry 98 98 Oxygen Delivery Method Room Air Room Air BMI result Body Mass Index 24.8 Labs 07/29/24 07:46 07/29/24 07:46 Medications Medications Current Medications Acetaminophen (Acetaminophen 325 Mg Tablet) 650 mg PO Q6H PRN PRN Reason: Headache/Pain Mild Scale (1-3) Last Admin: 07/30/24 09:28 Dose: 650 mg Al Hydroxide/Mg Hydroxide (Magnesium Hydrox/Alum Hydrox 30 Ml Oral.Susp) 30 ml PO Q6H PRN PRN Reason: Heartburn/Nausea Bupropion HCl (Bupropion Hcl Xl 150 Mg Tab.Er.24h) 150 mg PO DAILY [facility] Last Admin: 07/31/24 13:01 Dose: 150 mg Clonidine HCl (Clonidine Hcl 0.1 Mg Tablet) 0.1 mg PO TID PRN; Protocol PRN Reason: anxiety, withdrawal sx Last Admin: 07/30/24 09:29 Dose: 0.1 mg Divalproex Sodium (Divalproex Sodium Sprinkles 125 Mg ) 375 mg PO BID [facility] Last Admin: 07/31/24 13:01 Dose: 375 mg Folic Acid (Folic Acid 1 Mg Tablet) 1 mg PO DAILY [facility] Last Admin: 07/31/24 09:07 Dose: 1 mg Gabapentin (Gabapentin 300 Mg Capsule) 300 mg PO TID [facility] Last Admin: 07/31/24 14:56 Dose: 300 mg Hydroxyzine HCl (Hydroxyzine Hcl 25 Mg Tablet) 25 mg PO Q6H PRN PRN Reason: Anxiety Last Admin: 07/30/24 09:29 Dose: 25 mg Lidocaine (Lidocaine 4 % Patch Adh..Patch) 1 patch TRANSDERMA DAILY [facility]; Protocol Last Admin: 07/31/24 09:06 Dose: Not Given Magnesium Hydroxide (Milk Of Magnesia 30 Ml Oral.Susp) 30 ml PO DAILY PRN PRN Reason: Constipation Methadone HCl (Methadone Hcl 20 Mg/2 Ml Oral.Conc) 30 mg PO ONCE ONE Stop: 08/01/24 08:01 Methadone HCl (Methadone Hcl 20 Mg/2 Ml Oral.Conc) 25 mg PO ONCE ONE Stop: 08/02/24 08:01 Methadone HCl (Methadone Hcl 20 Mg/2 Ml Oral.Conc) 20 mg PO ONCE ONE Stop: 08/03/24 08:01 Methadone HCl (Methadone Hcl 20 Mg/2 Ml Oral.Conc) 15 mg PO ONCE ONE Stop: 08/04/24 08:01 Mirtazapine (Mirtazapine 7.5 Mg Tablet) 7.5 mg PO BEDTIME PRN PRN Reason: insomnia Last Admin: 07/30/24 20:32 Dose: 7.5 mg Multivitamins/Vitamin C (Multivitamin Tablet) 1 tab PO DAILY [facility] Last Admin: 07/31/24 09:07 Dose: 1 tab Nicotine (Nicotine 21 Mg Patch.Td24) 21 mg TRANSDERMA DAILY [facility] Last Admin: 07/31/24 09:10 Dose: Not Given Nicotine Polacrilex (Nicotine Polacrilex 2 Mg Gum) 4 mg BUCCAL Q2H PRN PRN Reason: Nicotine Cravings Quetiapine Fumarate (Quetiapine Fumarate 200 Mg Tablet) 200 mg PO BEDTIME [facility] Last Admin: 07/30/24 20:32 Dose: 200 mg Quetiapine Fumarate (Quetiapine Fumarate 100 Mg Tablet) 100 mg PO DAILY [facility] Last Admin: 07/31/24 09:07 Dose: 100 mg Quetiapine Fumarate (Quetiapine Fumarate 50 Mg Tablet) 50 mg PO TID PRN PRN Reason: agitation Thiamine HCl (Thiamine Hcl 100 Mg Tablet) 100 mg PO DAILY [facility] Last Admin: 07/31/24 09:07 Dose: 100 mg Allergies Allergies Allergy/AdvReac Type Severity Reaction Status Date / Time trazodone Allergy Rash Verified 07/29/24 04:50 Assessment & Plan Assessment & Plan (1) Opioid use disorder: Status: Acute Code(s): F11.90 - Opioid use, unspecified, uncomplicated Assessment and Plan: per patient request, will continue to taper methadone dose --orders entered through 08/04/24 overdose prevention discussion, including increased risk with d/c of MOUD. Discussed tolerance and importance of not using the same amount if he does use again the future rail engineer to check in during admission--will continue to reinforce risk reduction and provide recovery resources as appropriate (2) Chronic post-traumatic stress disorder (PTSD): Status: Chronic Code(s): F43.12 - Post-traumatic stress disorder, chronic (3) Bipolar II disorder: Status: Acute Code(s): F31.81 - Bipolar II disorder (4) Cocaine use disorder: Status: Chronic Code(s): F14.10 - Cocaine abuse, uncomplicated Plan 07/30/24 - patient uncooperative as yet with provider/nursing on engaging on history or treatment- monitor for withdrawal and medication assisted treatment- further assessment and observation needed 1/2: per pt request, restart wellbutrin XL 150 mg daily, seroquel 50 mg TID PRN, and gabapentin 400 TID. pt also agreeable to restart VPA 375 BID for mood stabilization. pt wants to be tapered from methadone; continue methadone taper. Reason for continued inpatient stay Substantial Risk for: inability to function and rapid decompensation Time Spent With Patient Time: Total time managing care of this patient today __35__ minutes.
[2024-07-31] MEDS: Mirtazapine 7.5 MG TABLET PO (20:25)
[2024-07-31] MEDS: cloNIDine HCL 0.1 MG TABLET PO (20:25)
[2024-07-31] MEDS: QUEtiapine Fumarate 200 MG TABLET PO (20:26)
[2024-07-31] MEDS: hydrOXYzine HCL 25 MG TABLET PO (20:26)
[2024-08-01] MEDS: methADONE HCl 20 MG/2 ML ORAL.CONC 30 MG PO (07:46)
[2024-08-01 08:00] VITALS: BP 100/59; PULSE 59; RESP 18; TEMP 36.8; O2SAT 95
[2024-08-01] MEDS: Thiamine HCL 100 MG TABLET PO (09:52)
[2024-08-01] MEDS: Gabapentin 300 MG CAPSULE PO (09:52)
[2024-08-01] MEDS: Folic Acid 1 MG TABLET PO (09:52)
[2024-08-01] MEDS: Multivitamin TABLET 1 TAB PO (09:52)
[2024-08-01] MEDS: QUEtiapine Fumarate 100 MG TABLET PO (09:52)
[2024-08-01] MEDS: Divalproex Sodium Sprinkles 125 MG CAP.DR.SPR 375 MG PO ×2 (09:52→21:34)
[2024-08-01] MEDS: buPROPion HCl XL 150 MG TAB.ER.24H PO (09:52)
--- NOTE | 2024-08-01 14:26 | MHC.RECOVRN ---
Briefly saw pt around lunchtime today. Pt awake, alert, easily engages in conversation. Currently tapering methadone, received 30 mg this morning. Pt reports taper is going well, denies withdrawal symptoms. Denies questions or concerns at this time.
[2024-08-01] MEDS: Gabapentin 300 MG CAPSULE 600 MG PO ×2 (15:51→21:34)
--- NOTE | 2024-08-01 15:51 | HO.PSYCHPN ---
Subjective Subjective Date of Service: 08/01/24 Reason For Visit: crisis Interim History: sleeping in afternoon, rousable. calm and cooperative. c/o anxiety, asking to increase gabapentin, which is agreed to. reporting ongoing depression as well. per staff, +dep/anx. no AVH. +meds. not attending groups. no SI/HI. Mental Status Exam Mental Status Exam Narrative: calm and cooperative. adequately dressed and groomed. no PMA/PMR. speech incr in rate, decr latency. nml prosody. incr amount. thoughts linear and logical. affect normo-intense, non-labile. mood depressed and anxious. no SI/HI/AVH expressed. Diagnostics Vital Signs (24Hr): Vital Signs - 24 hr 08/01/24 08:00 Temperature 98.2 F Pulse Rate 59 Respiratory Rate 18 Blood Pressure 100/59 L Pulse Oximetry 95 Oxygen Delivery Method Room Air BMI result Body Mass Index 24.2 Labs 07/29/24 07:46 07/29/24 07:46 Medications Medications Current Medications Acetaminophen (Acetaminophen 325 Mg Tablet) 650 mg PO Q6H PRN PRN Reason: Headache/Pain Mild Scale (1-3) Last Admin: 07/30/24 09:28 Dose: 650 mg Al Hydroxide/Mg Hydroxide (Magnesium Hydrox/Alum Hydrox 30 Ml Oral.Susp) 30 ml PO Q6H PRN PRN Reason: Heartburn/Nausea Bupropion HCl (Bupropion Hcl Xl 150 Mg Tab.Er.24h) 150 mg PO DAILY [facility] Last Admin: 08/01/24 09:52 Dose: 150 mg Clonidine HCl (Clonidine Hcl 0.1 Mg Tablet) 0.1 mg PO TID PRN; Protocol PRN Reason: anxiety, withdrawal sx Last Admin: 07/31/24 20:25 Dose: 0.1 mg Divalproex Sodium (Divalproex Sodium Sprinkles 125 Mg ) 375 mg PO BID [facility] Last Admin: 08/01/24 09:52 Dose: 375 mg Folic Acid (Folic Acid 1 Mg Tablet) 1 mg PO DAILY [facility] Last Admin: 08/01/24 09:52 Dose: 1 mg Gabapentin (Gabapentin 300 Mg Capsule) 600 mg PO TID [facility] Hydroxyzine HCl (Hydroxyzine Hcl 25 Mg Tablet) 25 mg PO Q6H PRN PRN Reason: Anxiety Last Admin: 07/31/24 20:26 Dose: 25 mg Lidocaine (Lidocaine 4 % Patch Adh..Patch) 1 patch TRANSDERMA DAILY [facility]; Protocol Last Admin: 08/01/24 10:07 Dose: Not Given Magnesium Hydroxide (Milk Of Magnesia 30 Ml Oral.Susp) 30 ml PO DAILY PRN PRN Reason: Constipation Methadone HCl (Methadone Hcl 20 Mg/2 Ml Oral.Conc) 25 mg PO ONCE ONE Stop: 08/02/24 08:01 Methadone HCl (Methadone Hcl 20 Mg/2 Ml Oral.Conc) 20 mg PO ONCE ONE Stop: 08/03/24 08:01 Methadone HCl (Methadone Hcl 20 Mg/2 Ml Oral.Conc) 15 mg PO ONCE ONE Stop: 08/04/24 08:01 Mirtazapine (Mirtazapine 7.5 Mg Tablet) 7.5 mg PO BEDTIME PRN PRN Reason: insomnia Last Admin: 07/31/24 20:25 Dose: 7.5 mg Multivitamins/Vitamin C (Multivitamin Tablet) 1 tab PO DAILY [facility] Last Admin: 08/01/24 09:52 Dose: 1 tab Nicotine (Nicotine 21 Mg Patch.Td24) 21 mg TRANSDERMA DAILY [facility] Last Admin: 08/01/24 10:07 Dose: Not Given Nicotine Polacrilex (Nicotine Polacrilex 2 Mg Gum) 4 mg BUCCAL Q2H PRN PRN Reason: Nicotine Cravings Quetiapine Fumarate (Quetiapine Fumarate 200 Mg Tablet) 200 mg PO BEDTIME [facility] Last Admin: 07/31/24 20:26 Dose: 200 mg Quetiapine Fumarate (Quetiapine Fumarate 100 Mg Tablet) 100 mg PO DAILY [facility] Last Admin: 08/01/24 09:52 Dose: 100 mg Quetiapine Fumarate (Quetiapine Fumarate 50 Mg Tablet) 50 mg PO TID PRN PRN Reason: agitation Thiamine HCl (Thiamine Hcl 100 Mg Tablet) 100 mg PO DAILY [facility] Last Admin: 08/01/24 09:52 Dose: 100 mg Allergies Allergies Allergy/AdvReac Type Severity Reaction Status Date / Time trazodone Allergy Rash Verified 07/29/24 04:50 Assessment & Plan Assessment & Plan (1) Opioid use disorder: Status: Acute Code(s): F11.90 - Opioid use, unspecified, uncomplicated Assessment and Plan: per patient request, will continue to taper methadone dose --orders entered through 08/04/24 overdose prevention discussion, including increased risk with d/c of MOUD. Discussed tolerance and importance of not using the same amount if he does use again the future landscape account manager to check in during admission--will continue to reinforce risk reduction and provide recovery resources as appropriate should have updated HIV and hepatitis screens (2) Chronic post-traumatic stress disorder (PTSD): Status: Chronic Code(s): F43.12 - Post-traumatic stress disorder, chronic (3) Cocaine use disorder: Status: Chronic Code(s): F14.10 - Cocaine abuse, uncomplicated (4) Alcohol use disorder, moderate, in early remission, dependence: Status: Chronic Code(s): F10.21 - Alcohol dependence, in remission Plan 07/30/24 - patient uncooperative as yet with provider/nursing on engaging on history or treatment- monitor for withdrawal and medication assisted treatment- further assessment and observation needed 1/2: per pt request, restart wellbutrin XL 150 mg daily, seroquel 50 mg TID PRN, and gabapentin 400 TID. pt also agreeable to restart VPA 375 BID for mood stabilization. pt wants to be tapered from methadone; continue methadone taper. 1: feeling well, denies w/drawal Sx. asking for gabapentin increase, accommodated to 600 TID. otherwise continue current mgmt, including methadone taper. Reason for continued inpatient stay Substantial Risk for: inability to function and rapid decompensation Time Spent With Patient Time: Total time managing care of this patient today __25__ minutes.
[2024-08-01 19:19] VITALS: BP 124/69; PULSE 80; RESP 18; TEMP 37; O2SAT 96
[2024-08-01] MEDS: hydrOXYzine HCL 25 MG TABLET PO (21:33)
[2024-08-01] MEDS: Mirtazapine 7.5 MG TABLET PO (21:33)
[2024-08-01] MEDS: QUEtiapine Fumarate 200 MG TABLET PO (21:33)
[2024-08-02 07:49] VITALS: BP 124/76; PULSE 59; RESP 16; TEMP 36.8; O2SAT 98
[2024-08-02] MEDS: methADONE HCl 20 MG/2 ML ORAL.CONC 25 MG PO (08:19)
[2024-08-02] MEDS: Thiamine HCL 100 MG TABLET PO (08:40)
[2024-08-02] MEDS: Gabapentin 300 MG CAPSULE 600 MG PO ×3 (08:41→22:41)
[2024-08-02] MEDS: QUEtiapine Fumarate 100 MG TABLET PO (08:41)
[2024-08-02] MEDS: Folic Acid 1 MG TABLET PO (08:41)
[2024-08-02] MEDS: buPROPion HCl XL 150 MG TAB.ER.24H PO (08:41)
[2024-08-02] MEDS: Multivitamin TABLET 1 TAB PO (08:41)
[2024-08-02] MEDS: Divalproex Sodium Sprinkles 125 MG CAP.DR.SPR 375 MG PO ×2 (08:42→22:41)
--- NOTE | 2024-08-02 08:49 | P.PNPSI_ITS ---
Subjective Subjective Reason For Visit: crisis Diagnostics Vital Signs (24Hr): Vital Signs - 24 hr 08/01/24 19:19 08/02/24 07:49 Temperature 98.6 F 98.2 F Pulse Rate 80 59 Respiratory Rate 18 16 Blood Pressure 124/69 124/76 Pulse Oximetry 96 98 Oxygen Delivery Method Room Air Room Air BMI result Body Mass Index 24.2 Labs 07/29/24 07:46 07/29/24 07:46 Medications Medications Current Medications Acetaminophen (Acetaminophen 325 Mg Tablet) 650 mg PO Q6H PRN PRN Reason: Headache/Pain Mild Scale (1-3) Last Admin: 07/30/24 09:28 Dose: 650 mg Al Hydroxide/Mg Hydroxide (Magnesium Hydrox/Alum Hydrox 30 Ml Oral.Susp) 30 ml PO Q6H PRN PRN Reason: Heartburn/Nausea Bupropion HCl (Bupropion Hcl Xl 150 Mg Tab.Er.24h) 150 mg PO DAILY [facility] Last Admin: 08/02/24 08:41 Dose: 150 mg Clonidine HCl (Clonidine Hcl 0.1 Mg Tablet) 0.1 mg PO TID PRN; Protocol PRN Reason: anxiety, withdrawal sx Last Admin: 07/31/24 20:25 Dose: 0.1 mg Divalproex Sodium (Divalproex Sodium Sprinkles 125 Mg [place].Spr) 375 mg PO BID [facility] Last Admin: 08/02/24 08:42 Dose: 375 mg Folic Acid (Folic Acid 1 Mg Tablet) 1 mg PO DAILY [facility] Last Admin: 08/02/24 08:41 Dose: 1 mg Gabapentin (Gabapentin 300 Mg Capsule) 600 mg PO TID [facility] Last Admin: 08/02/24 08:41 Dose: 600 mg Hydroxyzine HCl (Hydroxyzine Hcl 25 Mg Tablet) 25 mg PO Q6H PRN PRN Reason: Anxiety Last Admin: 08/01/24 21:33 Dose: 25 mg Lidocaine (Lidocaine 4 % Patch Adh..Patch) 1 patch TRANSDERMA DAILY [facility]; Protocol Last Admin: 08/02/24 08:42 Dose: Not Given Magnesium Hydroxide (Milk Of Magnesia 30 Ml Oral.Susp) 30 ml PO DAILY PRN PRN Reason: Constipation Methadone HCl (Methadone Hcl 20 Mg/2 Ml Oral.Conc) 20 mg PO ONCE ONE Stop: 08/03/24 08:01 Methadone HCl (Methadone Hcl 20 Mg/2 Ml Oral.Conc) 15 mg PO ONCE ONE Stop: 08/04/24 08:01 Mirtazapine (Mirtazapine 7.5 Mg Tablet) 7.5 mg PO BEDTIME PRN PRN Reason: insomnia Last Admin: 08/01/24 21:33 Dose: 7.5 mg Multivitamins/Vitamin C (Multivitamin Tablet) 1 tab PO DAILY [facility] Last Admin: 08/02/24 08:41 Dose: 1 tab Nicotine (Nicotine 21 Mg Patch.Td24) 21 mg TRANSDERMA DAILY [facility] Last Admin: 08/02/24 08:42 Dose: Not Given Nicotine Polacrilex (Nicotine Polacrilex 2 Mg Gum) 4 mg BUCCAL Q2H PRN PRN Reason: Nicotine Cravings Quetiapine Fumarate (Quetiapine Fumarate 200 Mg Tablet) 200 mg PO BEDTIME [facility] Last Admin: 08/01/24 21:33 Dose: 200 mg Quetiapine Fumarate (Quetiapine Fumarate 100 Mg Tablet) 100 mg PO DAILY [facility] Last Admin: 08/02/24 08:41 Dose: 100 mg Quetiapine Fumarate (Quetiapine Fumarate 50 Mg Tablet) 50 mg PO TID PRN PRN Reason: agitation Thiamine HCl (Thiamine Hcl 100 Mg Tablet) 100 mg PO DAILY [facility] Last Admin: 08/02/24 08:40 Dose: 100 mg Allergies Allergies Allergy/AdvReac Type Severity Reaction Status Date / Time trazodone Allergy Rash Verified 07/29/24 04:50 Assessment & Plan Assessment & Plan (1) Opioid use disorder: Status: Acute Code(s): F11.90 - Opioid use, unspecified, uncomplicated Assessment and Plan: * per patient request, will continue to taper methadone dose --orders entered through 08/04/24 * overdose prevention discussion, including increased risk with d/c of MOUD. Discussed tolerance and importance of not using the same amount if he does use again the future * credit negotiator to check in during admission--will continue to reinforce risk reduction and provide recovery resources as appropriate * should have updated HIV and hepatitis screens (2) Chronic post-traumatic stress disorder (PTSD): Status: Chronic Code(s): F43.12 - Post-traumatic stress disorder, chronic (3) Cocaine use disorder: Status: Chronic Code(s): F14.10 - Cocaine abuse, uncomplicated (4) Alcohol use disorder, moderate, in early remission, dependence: Status: Chronic Code(s): F10.21 - Alcohol dependence, in remission Plan 07/30/24 - patient uncooperative as yet with provider/nursing on engaging on history or treatment- monitor for withdrawal and medication assisted treatment- further assessment and observation needed 07/31: per pt request, restart wellbutrin XL 150 mg daily, seroquel 50 mg TID PRN, and gabapentin 400 TID. pt also agreeable to restart VPA 375 BID for mood stabilization. pt wants to be tapered from methadone; continue methadone taper. 08/01: feeling well, denies w/drawal Sx. asking for gabapentin increase, accommodated to 600 TID. otherwise continue current mgmt, including methadone taper. Time Spent With Patient Time: Total time managing care of this patient today ____ minutes.
--- NOTE | 2024-08-02 10:03 | P.PNPSI_ITS ---
Subjective Subjective Date of Service: 08/02/24 Reason For Visit: crisis Subjective Notes: Conditional Voluntary Healthcare Proxy: No Guardianship: No Medical Problems Affecting Mental Status: No Interim History: 49 yo HM who says he had been stable last dc but then had trouble connecting with outpatient care- and then relapsed under stress and not being on meds- He hopes this time will be different, and is realizing going to [place] for good paying job may not be best plan- Discussed with patient prioritzing his health care for transition to make it more sucessful- Denies current si, and says when on psych meds no urge to use elicit drugs- tapering off methadone- denies cravings Medication Compliance: Yes Side effects from medications: No Attending Groups: Intermittent Review of Systems Acute medical concerns: No Medical Review of Systems: unchanged Mental Status Exam Mental Status Exam Patient Appearance: Appropriate and Unkempt Patient Orientation: Person, Place and Time Level of Consciousness: Awake Patient Behavior: Appropriate and Cooperative Mood Description: Sad and Apprehensive Affect Description: Constricted Patient Cognition Impaired: No Ability to Follow Directions: Fair Speech Pattern: Clear Hallucinations: None Delusions: Not Present Thought Process: Intact and Goal Oriented Depressive Symptoms: Muscle Tension and Isolating-Friends/Family (reports no friends, only family) Judgement: Fair Diagnostics Vital Signs (24Hr): Vital Signs - 24 hr 08/01/24 19:19 08/02/24 07:49 Temperature 98.6 F 98.2 F Pulse Rate 80 59 Respiratory Rate 18 16 Blood Pressure 124/69 124/76 Pulse Oximetry 96 98 Oxygen Delivery Method Room Air Room Air BMI result Body Mass Index 24.2 Labs 07/29/24 07:46 07/29/24 07:46 Medications Medications Current Medications Acetaminophen (Acetaminophen 325 Mg Tablet) 650 mg PO Q6H PRN PRN Reason: Headache/Pain Mild Scale (1-3) Last Admin: 07/30/24 09:28 Dose: 650 mg Al Hydroxide/Mg Hydroxide (Magnesium Hydrox/Alum Hydrox 30 Ml Oral.Susp) 30 ml PO Q6H PRN PRN Reason: Heartburn/Nausea Bupropion HCl (Bupropion Hcl Xl 150 Mg Tab.Er.24h) 150 mg PO DAILY YI Last Admin: 08/02/24 08:41 Dose: 150 mg Clonidine HCl (Clonidine Hcl 0.1 Mg Tablet) 0.1 mg PO TID PRN; Protocol PRN Reason: anxiety, withdrawal sx Last Admin: 07/31/24 20:25 Dose: 0.1 mg Divalproex Sodium (Divalproex Sodium Sprinkles 125 Mg ) 375 mg PO BID [facility] Last Admin: 08/02/24 08:42 Dose: 375 mg Folic Acid (Folic Acid 1 Mg Tablet) 1 mg PO DAILY [facility] Last Admin: 08/02/24 08:41 Dose: 1 mg Gabapentin (Gabapentin 300 Mg Capsule) 600 mg PO TID [facility] Last Admin: 08/02/24 08:41 Dose: 600 mg Hydroxyzine HCl (Hydroxyzine Hcl 25 Mg Tablet) 25 mg PO Q6H PRN PRN Reason: Anxiety Last Admin: 08/01/24 21:33 Dose: 25 mg Lidocaine (Lidocaine 4 % Patch Adh..Patch) 1 patch TRANSDERMA DAILY [facility]; Protocol Last Admin: 08/02/24 08:42 Dose: Not Given Magnesium Hydroxide (Milk Of Magnesia 30 Ml Oral.Susp) 30 ml PO DAILY PRN PRN Reason: Constipation Methadone HCl (Methadone Hcl 20 Mg/2 Ml Oral.Conc) 20 mg PO ONCE ONE Stop: 08/03/24 08:01 Methadone HCl (Methadone Hcl 20 Mg/2 Ml Oral.Conc) 15 mg PO ONCE ONE Stop: 08/04/24 08:01 Mirtazapine (Mirtazapine 7.5 Mg Tablet) 7.5 mg PO BEDTIME PRN PRN Reason: insomnia Last Admin: 08/01/24 21:33 Dose: 7.5 mg Multivitamins/Vitamin C (Multivitamin Tablet) 1 tab PO DAILY [facility] Last Admin: 08/02/24 08:41 Dose: 1 tab Nicotine (Nicotine 21 Mg Patch.Td24) 21 mg TRANSDERMA DAILY [facility] Last Admin: 08/02/24 08:42 Dose: Not Given Nicotine Polacrilex (Nicotine Polacrilex 2 Mg Gum) 4 mg BUCCAL Q2H PRN PRN Reason: Nicotine Cravings Quetiapine Fumarate (Quetiapine Fumarate 200 Mg Tablet) 200 mg PO BEDTIME [facility] Last Admin: 08/01/24 21:33 Dose: 200 mg Quetiapine Fumarate (Quetiapine Fumarate 100 Mg Tablet) 100 mg PO DAILY [facility] Last Admin: 08/02/24 08:41 Dose: 100 mg Quetiapine Fumarate (Quetiapine Fumarate 50 Mg Tablet) 50 mg PO TID PRN PRN Reason: agitation Thiamine HCl (Thiamine Hcl 100 Mg Tablet) 100 mg PO DAILY YI Last Admin: 08/02/24 08:40 Dose: 100 mg Allergies Allergies Allergy/AdvReac Type Severity Reaction Status Date / Time trazodone Allergy Rash Verified 07/29/24 04:50 Assessment & Plan Assessment & Plan (1) Opioid use disorder: Status: Acute Code(s): F11.90 - Opioid use, unspecified, uncomplicated (2) Chronic post-traumatic stress disorder (PTSD): Status: Chronic Code(s): F43.12 - Post-traumatic stress disorder, chronic (3) Cocaine use disorder: Status: Chronic Code(s): F14.10 - Cocaine abuse, uncomplicated (4) Alcohol use disorder, moderate, in early remission, dependence: Status: Chronic Code(s): F10.21 - Alcohol dependence, in remission Plan 08/02/24- continue with disposition planning or risk of rapid decompensation and re hospitalization- as happened after last hospitalization summer 2023. Patient educated on: medication risk/benefits and other (transition to outpatient ) Informed Consent: understands Reason for continued inpatient stay Substantial Risk for: rapid decompensation Time Spent With Patient Time: Total time managing care of this patient today ____ minutes.
[2024-08-02] MEDS: Acetaminophen 325 MG TABLET 650 MG PO (14:16)
[2024-08-02] MEDS: QUEtiapine Fumarate 50 MG TABLET PO (14:16)
--- NOTE | 2024-08-02 14:16 | MHC.RECOVRN ---
Met with pt on M3 to follow up regarding methadone taper. Pt received 25 mg methadone this morning. Pt denies withdrawal symptoms. Reports upper back pain but believes it is from the bed. Reports feeling sad thinking about his children, tearful throughout conversation. Denies other questions or concerns at this time.
[2024-08-02 22:14] VITALS: BP 134/69; PULSE 79; TEMP 36.6; O2SAT 96
[2024-08-02] MEDS: hydrOXYzine HCL 25 MG TABLET PO (22:41)
[2024-08-02] MEDS: Mirtazapine 7.5 MG TABLET PO (22:41)
[2024-08-02] MEDS: QUEtiapine Fumarate 200 MG TABLET PO (22:41)
[2024-08-02] MEDS: Miconazole 2 % Extra Thick Cr 56.7 Gm Tube 1 APPL TOPICAL (22:43)
[2024-08-03 07:59] VITALS: BP 114/78; PULSE 66; RESP 16; TEMP 36.7; O2SAT 97
[2024-08-03] MEDS: methADONE HCl 20 MG/2 ML ORAL.CONC PO (08:05)
[2024-08-03] MEDS: Divalproex Sodium Sprinkles 125 MG CAP.DR.SPR 375 MG PO ×2 (08:49→20:46)
[2024-08-03] MEDS: Multivitamin TABLET 1 TAB PO (08:50)
[2024-08-03] MEDS: buPROPion HCl XL 150 MG TAB.ER.24H PO (08:50)
[2024-08-03] MEDS: Gabapentin 300 MG CAPSULE 600 MG PO ×3 (08:50→20:46)
[2024-08-03] MEDS: QUEtiapine Fumarate 100 MG TABLET PO (08:51)
[2024-08-03] MEDS: Thiamine HCL 100 MG TABLET PO (08:51)
[2024-08-03] MEDS: Folic Acid 1 MG TABLET PO (08:51)
[2024-08-03] MEDS: Miconazole 2 % Extra Thick Cr 56.7 Gm Tube 1 APPL TOPICAL (08:53)
--- NOTE | 2024-08-03 12:11 | HO.PSYCHPN ---
Subjective Subjective Date of Service: 08/03/24 Reason For Visit: crisis Subjective Notes: Conditional Voluntary Healthcare Proxy: No Guardianship: No Medical Problems Affecting Mental Status: No Interim History: 49 yo HM feeling relieved he came in to hospital, does not remember refusing to meet with me the first- day- feeling more hopeful about prioritizing his mental health and therefor he feels he won't have issues with sobreity as when on his medications he is fine, -it is when he didn't have follow up and ran out of meds that he fell off on to relapse Medication Compliance: Yes Side effects from medications: No Review of Systems Medical Review of Systems: unchanged Mental Status Exam Mental Status Exam Patient Appearance: Appropriate Patient Orientation: Person, Place, Time and Situation Level of Consciousness: Awake Patient Behavior: Appropriate, Cooperative and Good Eye Contact Mood Description: Anxious Affect Description: Appropriate Patient Cognition Impaired: No Ability to Follow Directions: Good Speech Pattern: Clear Hallucinations: None Delusions: Not Present Thought Content: positive for Intact and positive for Goal Oriented Judgement: Fair Diagnostics Vital Signs (24Hr): Vital Signs - 24 hr 08/02/24 22:14 08/03/24 07:59 Temperature 97.8 F 98.1 F Pulse Rate 79 66 Respiratory Rate 16 Blood Pressure 134/69 114/78 Pulse Oximetry 96 97 Oxygen Delivery Method Room Air Room Air BMI result Body Mass Index 24.2 Labs 07/29/24 07:46 07/29/24 07:46 Medications Medications Current Medications Acetaminophen (Acetaminophen 325 Mg Tablet) 650 mg PO Q6H PRN PRN Reason: Headache/Pain Mild Scale (1-3) Last Admin: 08/02/24 14:16 Dose: 650 mg Al Hydroxide/Mg Hydroxide (Magnesium Hydrox/Alum Hydrox 30 Ml Oral.Susp) 30 ml PO Q6H PRN PRN Reason: Heartburn/Nausea Bupropion HCl (Bupropion Hcl Xl 150 Mg Tab.Er.24h) 150 mg PO DAILY [facility] Last Admin: 08/03/24 08:50 Dose: 150 mg Clonidine HCl (Clonidine Hcl 0.1 Mg Tablet) 0.1 mg PO TID PRN; Protocol PRN Reason: anxiety, withdrawal sx Last Admin: 07/31/24 20:25 Dose: 0.1 mg Divalproex Sodium (Divalproex Sodium Sprinkles 125 Mg Cap.Dr.Spr) 375 mg PO BID [facility] Last Admin: 08/03/24 08:49 Dose: 375 mg Folic Acid (Folic Acid 1 Mg Tablet) 1 mg PO DAILY [facility] Last Admin: 08/03/24 08:51 Dose: 1 mg Gabapentin (Gabapentin 300 Mg Capsule) 600 mg PO TID [facility] Last Admin: 08/03/24 08:50 Dose: 600 mg Hydroxyzine HCl (Hydroxyzine Hcl 25 Mg Tablet) 25 mg PO Q6H PRN PRN Reason: Anxiety Last Admin: 08/02/24 22:41 Dose: 25 mg Lidocaine (Lidocaine 4 % Patch Adh..Patch) 1 patch TRANSDERMA DAILY [facility]; Protocol Last Admin: 08/03/24 08:54 Dose: Not Given Magnesium Hydroxide (Milk Of Magnesia 30 Ml Oral.Susp) 30 ml PO DAILY PRN PRN Reason: Constipation Methadone HCl (Methadone Hcl 20 Mg/2 Ml Oral.Conc) 15 mg PO ONCE ONE Stop: 08/04/24 08:01 Miconazole Nitrate (Miconazole 2 % Extra Thick Cr 56.7 Gm Tube) 1 appl TOPICAL BID [facility]; Protocol Last Admin: 08/03/24 08:53 Dose: 1 appl Mirtazapine (Mirtazapine 7.5 Mg Tablet) 7.5 mg PO BEDTIME PRN PRN Reason: insomnia Last Admin: 08/02/24 22:41 Dose: 7.5 mg Multivitamins/Vitamin C (Multivitamin Tablet) 1 tab PO DAILY [facility] Last Admin: 08/03/24 08:50 Dose: 1 tab Nicotine (Nicotine 21 Mg Patch.Td24) 21 mg TRANSDERMA DAILY [facility] Last Admin: 08/03/24 08:54 Dose: Not Given Nicotine Polacrilex (Nicotine Polacrilex 2 Mg Gum) 4 mg BUCCAL Q2H PRN PRN Reason: Nicotine Cravings Quetiapine Fumarate (Quetiapine Fumarate 200 Mg Tablet) 200 mg PO BEDTIME [facility] Last Admin: 08/02/24 22:41 Dose: 200 mg Quetiapine Fumarate (Quetiapine Fumarate 100 Mg Tablet) 100 mg PO DAILY [facility] Last Admin: 08/03/24 08:51 Dose: 100 mg Quetiapine Fumarate (Quetiapine Fumarate 50 Mg Tablet) 50 mg PO TID PRN PRN Reason: agitation Last Admin: 08/02/24 14:16 Dose: 50 mg Thiamine HCl (Thiamine Hcl 100 Mg Tablet) 100 mg PO DAILY [facility] Last Admin: 08/03/24 08:51 Dose: 100 mg Allergies Allergies Allergy/AdvReac Type Severity Reaction Status Date / Time trazodone Allergy Rash Verified 07/29/24 04:50 Assessment & Plan Assessment & Plan (1) Opioid use disorder: Status: Acute Code(s): F11.90 - Opioid use, unspecified, uncomplicated (2) Chronic post-traumatic stress disorder (PTSD): Status: Chronic Code(s): F43.12 - Post-traumatic stress disorder, chronic (3) Cocaine use disorder: Status: Chronic Code(s): F14.10 - Cocaine abuse, uncomplicated (4) Alcohol use disorder, moderate, in early remission, dependence: Status: Chronic Code(s): F10.21 - Alcohol dependence, in remission Plan 08/02/24- continue with disposition planning or risk of rapid decompensation and re hospitalization- as happened after last hospitalization summer 2023. Patient educated on: other (dc planning) Informed Consent: understands Reason for continued inpatient stay Substantial Risk for: rapid decompensation Time Spent With Patient Time: Total time managing care of this patient today ____ minutes.
[2024-08-03] MEDS: QUEtiapine Fumarate 50 MG TABLET PO ×2 (14:52→20:46)
--- NOTE | 2024-08-03 14:53 | PC.NURSE ---
Patient reported feeling agitated, Seroquel 50 mg given at 1454 per request.
[2024-08-03 20:00] VITALS: BP 113/72; PULSE 99; RESP 16; TEMP 36.3; O2SAT 96
[2024-08-03 20:45] VITALS: BP 113/72
[2024-08-03] MEDS: QUEtiapine Fumarate 200 MG TABLET PO (20:45)
[2024-08-03] MEDS: cloNIDine HCL 0.1 MG TABLET PO (20:45)
[2024-08-03] MEDS: Mirtazapine 7.5 MG TABLET PO (20:46)
[2024-08-03] MEDS: hydrOXYzine HCL 25 MG TABLET PO (20:46)
[2024-08-04 07:50] VITALS: BP 111/67; PULSE 76; TEMP 36.9; O2SAT 98
[2024-08-04] MEDS: methADONE HCl 20 MG/2 ML ORAL.CONC 15 MG PO (08:15)
[2024-08-04] MEDS: Thiamine HCL 100 MG TABLET PO (09:08)
[2024-08-04] MEDS: Gabapentin 300 MG CAPSULE 600 MG PO (09:08)
[2024-08-04] MEDS: buPROPion HCl XL 150 MG TAB.ER.24H PO (09:08)
[2024-08-04] MEDS: Multivitamin TABLET 1 TAB PO (09:08)
[2024-08-04] MEDS: Folic Acid 1 MG TABLET PO (09:09)
[2024-08-04] MEDS: QUEtiapine Fumarate 100 MG TABLET PO (09:09)
[2024-08-04] MEDS: Divalproex Sodium Sprinkles 125 MG CAP.DR.SPR 375 MG PO ×2 (09:09→20:11)
[2024-08-04] MEDS: Miconazole 2 % Extra Thick Cr 56.7 Gm Tube 1 APPL TOPICAL (09:20)
--- NOTE | 2024-08-04 12:58 | MHC.RECOVRN ---
Met with pt to follow up after receiving 15 mg methadone this morning. Pt sitting on his bed, awake, alert, engages in conversation, appears depressed. Pt denies withdrawal symptoms, reports he won't feel withdrawal symptoms until 1-2 days after last methadone dose. Pt grateful for taper and looking forward to not being on MOUD. Denies questions or concerns for t/w.
[2024-08-04] MEDS: Gabapentin 400 MG CAPSULE 800 MG PO ×2 (15:13→20:10)
[2024-08-04] MEDS: QUEtiapine Fumarate 50 MG TABLET PO (15:16)
--- NOTE | 2024-08-04 15:45 | HO.PSYCHPN ---
Subjective Subjective Date of Service: 08/04/24 Reason For Visit: crisis Interim History: calm, cooperative. reports he has bupe program appointment on , asking to start bupe here prior to going to program. also asking to increase wellbutrin and gabapentin. per staff, taking meds. depressed, withdrawn. sullen eves. feeling better since starting medications, however. slept 8 hours. Mental Status Exam Mental Status Exam Narrative: calm and cooperative. adequately dressed and groomed. no PMA/PMR. speech nml in rate, latency, prosody. incr amount. thoughts linear and logical. affect normo-intense, non-labile. mood depressed. no SI/HI/AVH expressed. Diagnostics Vital Signs (24Hr): Vital Signs - 24 hr 08/03/24 20:00 08/03/24 20:45 08/04/24 07:50 Temperature 97.3 F 98.4 F Pulse Rate 99 76 Respiratory Rate 16 Blood Pressure 113/72 113/72 111/67 Pulse Oximetry 96 98 Oxygen Delivery Method Room Air Room Air BMI result Body Mass Index 24.2 Labs 07/29/24 07:46 07/29/24 07:46 Medications Medications Current Medications Acetaminophen (Acetaminophen 325 Mg Tablet) 650 mg PO Q6H PRN PRN Reason: Headache/Pain Mild Scale (1-3) Last Admin: 08/02/24 14:16 Dose: 650 mg Al Hydroxide/Mg Hydroxide (Magnesium Hydrox/Alum Hydrox 30 Ml Oral.Susp) 30 ml PO Q6H PRN PRN Reason: Heartburn/Nausea Buprenorphine/Naloxone (Buprenorphine/Naloxone 8/2 Mg Film) 1 film SUBLINGUAL DAILY [facility] Bupropion HCl (Bupropion Hcl Xl 300 Mg Tab.Er.24h) 300 mg PO DAILY [facility] Clonidine HCl (Clonidine Hcl 0.1 Mg Tablet) 0.1 mg PO TID PRN; Protocol PRN Reason: anxiety, withdrawal sx Last Admin: 08/03/24 20:45 Dose: 0.1 mg Divalproex Sodium (Divalproex Sodium Sprinkles 125 Mg ) 375 mg PO BID [facility] Last Admin: 08/04/24 09:09 Dose: 375 mg Folic Acid (Folic Acid 1 Mg Tablet) 1 mg PO DAILY [facility] Last Admin: 08/04/24 09:09 Dose: 1 mg Gabapentin (Gabapentin 400 Mg Capsule) 800 mg PO TID [facility] Last Admin: 08/04/24 15:13 Dose: 800 mg Hydroxyzine HCl (Hydroxyzine Hcl 25 Mg Tablet) 25 mg PO Q6H PRN PRN Reason: Anxiety Last Admin: 08/03/24 20:46 Dose: 25 mg Lidocaine (Lidocaine 4 % Patch Adh..Patch) 1 patch TRANSDERMA DAILY [facility]; Protocol Last Admin: 08/04/24 09:13 Dose: Not Given Magnesium Hydroxide (Milk Of Magnesia 30 Ml Oral.Susp) 30 ml PO DAILY PRN PRN Reason: Constipation Miconazole Nitrate (Miconazole 2 % Extra Thick Cr 56.7 Gm Tube) 1 appl TOPICAL BID [facility]; Protocol Last Admin: 08/04/24 09:20 Dose: 1 appl Mirtazapine (Mirtazapine 7.5 Mg Tablet) 7.5 mg PO BEDTIME PRN PRN Reason: insomnia Last Admin: 08/03/24 20:46 Dose: 7.5 mg Multivitamins/Vitamin C (Multivitamin Tablet) 1 tab PO DAILY [facility] Last Admin: 08/04/24 09:08 Dose: 1 tab Nicotine (Nicotine 21 Mg Patch.Td24) 21 mg TRANSDERMA DAILY [facility] Last Admin: 08/04/24 09:13 Dose: Not Given Nicotine Polacrilex (Nicotine Polacrilex 2 Mg Gum) 4 mg BUCCAL Q2H PRN PRN Reason: Nicotine Cravings Quetiapine Fumarate (Quetiapine Fumarate 200 Mg Tablet) 200 mg PO BEDTIME [facility] Last Admin: 08/03/24 20:45 Dose: 200 mg Quetiapine Fumarate (Quetiapine Fumarate 100 Mg Tablet) 100 mg PO DAILY [facility] Last Admin: 08/04/24 09:09 Dose: 100 mg Quetiapine Fumarate (Quetiapine Fumarate 50 Mg Tablet) 50 mg PO TID PRN PRN Reason: agitation Last Admin: 08/04/24 15:16 Dose: 50 mg Thiamine HCl (Thiamine Hcl 100 Mg Tablet) 100 mg PO DAILY [facility] Last Admin: 08/04/24 09:08 Dose: 100 mg Allergies Allergies Allergy/AdvReac Type Severity Reaction Status Date / Time trazodone Allergy Rash Verified 07/29/24 04:50 Assessment & Plan Assessment & Plan (1) Opioid use disorder: Status: Acute Code(s): F11.90 - Opioid use, unspecified, uncomplicated (2) Chronic post-traumatic stress disorder (PTSD): Status: Chronic Code(s): F43.12 - Post-traumatic stress disorder, chronic (3) Cocaine use disorder: Status: Chronic Code(s): F14.10 - Cocaine abuse, uncomplicated (4) Alcohol use disorder, moderate, in early remission, dependence: Status: Chronic Code(s): F10.21 - Alcohol dependence, in remission Plan 08/02/24- continue with disposition planning or risk of rapid decompensation and re hospitalization- as happened after last hospitalization summer 2023. 08/04: increase wellbutrin to 300 daily and samir to 800 TID per pt request. had last dose of methadone this morning, 15 mg. will give 8 mg suboxone tomorrow morning per pt request with repeat dose as indicated. planning to discharge to appointment at [facility] program, [facility]. Reason for continued inpatient stay Substantial Risk for: inability to function and rapid decompensation Time Spent With Patient Time: Total time managing care of this patient today __25__ minutes.
--- NOTE | 2024-08-04 16:21 | PM.IMCN ---
History of Present Illness Data of Consult Service Date: 08/04/24 Primary Care Provider: Unknown Physician HPI Reason for consult: sore throat, ear ache 49M complaining of several days runny nose, sore throat, earache, productive green cough. Denies fever or chills Review of Systems Review of Systems: Yes all other systems are reviewed and are negative [facility] Medical History Polysubstance use disorder Suicidal ideation Right inguinal hernia Opioid abuse Cocaine use disorder Alcohol use disorder, moderate, in early remission, dependence Opioid dependence on agonist therapy Chronic post-traumatic stress disorder (PTSD) MDD (major depressive disorder), recurrent severe, without psychosis Bipolar 1 disorder PTSD (post-traumatic stress disorder) Depression Surgical History S/P hernia surgery Social History Household Members: Other Household Members Other:: homeless, staying with sister Housing: Homeless Do you presently have visiting nurse or other home services: No Unable to assess alcohol history related to: Unknown Alcohol intake: current Alcohol intake frequency: 0-2 drinks per day Alcohol type: beer Patient Tobacco Use Status: Current everyday Tobacco user Tobacco use type: Smokeless Tobacco Cigarette Packs Per Day: 0.5 Cigarettes Per Day: 5 Years Smoked: 27 e-Cigarette/Vaping Use: Currently Using Second Hand Smoke Exposure: Yes Use of substances other than those prescribed or required for medical reasons: Yes Substance Use Type: Crack/Cocaine, Marijuana and Opiates Last Used Substance: Just Prior to Admission Currently Displaying Signs/Symptoms of Drug Intoxication Withdrawal: No Spiritual Healthcare Practices: unknown at this time [facility] Healthcare Practices: unknown at this time Cultural Healthcare Practices: unknown at this time Advance Directives: No Advance Directives Information Provided: Yes Do you have thoughts of harming others: None Do you have a plan to hurt others: No Plan Poor oral hygiene: No service: No Sexual orientation: Straight/Heterosexual Meds Allergies Allergy/AdvReac Type Severity Reaction Status Date / Time trazodone Allergy Rash Verified 07/29/24 04:50 Active Medications: Current Medications Acetaminophen (Acetaminophen 325 Mg Tablet) 650 mg PO Q6H PRN PRN Reason: Headache/Pain Mild Scale (1-3) Last Admin: 08/02/24 14:16 Dose: 650 mg Al Hydroxide/Mg Hydroxide (Magnesium Hydrox/Alum Hydrox 30 Ml Oral.Susp) 30 ml PO Q6H PRN PRN Reason: Heartburn/Nausea Buprenorphine/Naloxone (Buprenorphine/Naloxone 8/2 Mg Film) 1 film SUBLINGUAL DAILY [facility] Bupropion HCl (Bupropion Hcl Xl 300 Mg Tab.Er.24h) 300 mg PO DAILY [facility] Clonidine HCl (Clonidine Hcl 0.1 Mg Tablet) 0.1 mg PO TID PRN; Protocol PRN Reason: anxiety, withdrawal sx Last Admin: 08/03/24 20:45 Dose: 0.1 mg Divalproex Sodium (Divalproex Sodium Sprinkles 125 Mg [place].) 375 mg PO BID [facility] Last Admin: 08/04/24 09:09 Dose: 375 mg Folic Acid (Folic Acid 1 Mg Tablet) 1 mg PO DAILY [facility] Last Admin: 08/04/24 09:09 Dose: 1 mg Gabapentin (Gabapentin 400 Mg Capsule) 800 mg PO TID [facility] Last Admin: 08/04/24 15:13 Dose: 800 mg Hydroxyzine HCl (Hydroxyzine Hcl 25 Mg Tablet) 25 mg PO Q6H PRN PRN Reason: Anxiety Last Admin: 08/03/24 20:46 Dose: 25 mg Lidocaine (Lidocaine 4 % Patch Adh..Patch) 1 patch TRANSDERMA DAILY [facility]; Protocol Last Admin: 08/04/24 09:13 Dose: Not Given Magnesium Hydroxide (Milk Of Magnesia 30 Ml Oral.Susp) 30 ml PO DAILY PRN PRN Reason: Constipation Miconazole Nitrate (Miconazole 2 % Extra Thick Cr 56.7 Gm Tube) 1 appl TOPICAL BID [facility]; Protocol Last Admin: 08/04/24 09:20 Dose: 1 appl Mirtazapine (Mirtazapine 7.5 Mg Tablet) 7.5 mg PO BEDTIME PRN PRN Reason: insomnia Last Admin: 08/03/24 20:46 Dose: 7.5 mg Multivitamins/Vitamin C (Multivitamin Tablet) 1 tab PO DAILY [facility] Last Admin: 08/04/24 09:08 Dose: 1 tab Nicotine (Nicotine 21 Mg Patch.Td24) 21 mg TRANSDERMA DAILY [facility] Last Admin: 08/04/24 09:13 Dose: Not Given Nicotine Polacrilex (Nicotine Polacrilex 2 Mg Gum) 4 mg BUCCAL Q2H PRN PRN Reason: Nicotine Cravings Quetiapine Fumarate (Quetiapine Fumarate 200 Mg Tablet) 200 mg PO BEDTIME [facility] Last Admin: 08/03/24 20:45 Dose: 200 mg Quetiapine Fumarate (Quetiapine Fumarate 100 Mg Tablet) 100 mg PO DAILY [facility] Last Admin: 08/04/24 09:09 Dose: 100 mg Quetiapine Fumarate (Quetiapine Fumarate 50 Mg Tablet) 50 mg PO TID PRN PRN Reason: agitation Last Admin: 08/04/24 15:16 Dose: 50 mg Thiamine HCl (Thiamine Hcl 100 Mg Tablet) 100 mg PO DAILY [facility] Last Admin: 08/04/24 09:08 Dose: 100 mg Physical Exam Vital Signs and Narrative: Vital Signs: Last Vital Signs Temp 98.4 F 08/04/24 07:50 Pulse 76 08/04/24 07:50 Resp 16 08/03/24 20:00 BP 111/67 08/04/24 07:50 Pulse Ox 98 08/04/24 07:50 O2 Del Method Room Air 08/04/24 07:50 BMI result Body Mass Index 24.2 Mild erythema pharynx, no swollen lymph nodes appreciated Right tympanic membrane somewhat opaque Results Labs 07/29/24 07:46 07/29/24 07:46 Assessment and Plan (1) Cocaine use disorder: Status: Chronic Plan 41-year-old male complaining of sore throat and earache Likely acute otitis media Will empirically treat with 5 days of Augmentin
[2024-08-04] MEDS: Amoxicillin/Potassium Clav 875 MG TABLET PO (17:46)
[2024-08-04 20:00] VITALS: BP 119/66; PULSE 84; TEMP 36.6; O2SAT 96
[2024-08-04] MEDS: QUEtiapine Fumarate 200 MG TABLET PO (20:11)
[2024-08-05] MEDS: Amoxicillin/Potassium Clav 875 MG TABLET PO ×2 (06:18→20:37)
[2024-08-05 07:20] VITALS: BP 107/71; PULSE 77; RESP 14; TEMP 36.5; O2SAT 97
[2024-08-05] MEDS: Divalproex Sodium Sprinkles 125 MG CAP.DR.SPR 375 MG PO ×2 (08:28→20:38)
[2024-08-05] MEDS: Folic Acid 1 MG TABLET PO (08:29)
[2024-08-05] MEDS: Multivitamin TABLET 1 TAB PO (08:29)
[2024-08-05] MEDS: Thiamine HCL 100 MG TABLET PO (08:29)
[2024-08-05] MEDS: Gabapentin 400 MG CAPSULE 800 MG PO ×3 (08:29→20:37)
[2024-08-05] MEDS: Buprenorphine/Naloxone 8/2 mg FILM 1 FILM SUBLINGUAL ×3 (08:32→20:38)
[2024-08-05] MEDS: QUEtiapine Fumarate 100 MG TABLET PO (08:32)
[2024-08-05] MEDS: buPROPion HCl XL 300 MG TAB.ER.24H PO (08:32)
[2024-08-05] MEDS: Miconazole 2 % Extra Thick Cr 56.7 Gm Tube 1 APPL TOPICAL (08:36)
--- NOTE | 2024-08-05 14:22 | HO.PSYCHPN ---
Subjective Subjective Date of Service: 08/05/24 Reason For Visit: crisis Interim History: calm, cooperative. describing visitations by the apparition of a friend who tells him of things to come. last time that happened was about a month ago. took suboxone this morning, that went well. asking to take 8 TID, which is agreed to, tentatively. states he is able to banish negative thoughts from his awareness more easily than prior. still has dreams with negative content, however. per staff, dep 5 anx 3. asking about discharge. Mental Status Exam Mental Status Exam Narrative: calm and cooperative. adequately dressed and groomed. no PMA/PMR. speech nml in rate, latency, prosody. incr amount. thoughts linear and illogical. affect hyper-intense, non-labile. mood improved. no SI/HI/AVH expressed. Diagnostics Vital Signs (24Hr): Vital Signs - 24 hr 08/04/24 20:00 08/05/24 07:20 Temperature 98 F 97.7 F Pulse Rate 84 77 Respiratory Rate 14 Blood Pressure 119/66 107/71 Pulse Oximetry 96 97 Oxygen Delivery Method Room Air Room Air BMI result Body Mass Index 24.2 Labs 07/29/24 07:46 07/29/24 07:46 Medications Medications Current Medications Acetaminophen (Acetaminophen 325 Mg Tablet) 650 mg PO Q6H PRN PRN Reason: Headache/Pain Mild Scale (1-3) Last Admin: 08/02/24 14:16 Dose: 650 mg Al Hydroxide/Mg Hydroxide (Magnesium Hydrox/Alum Hydrox 30 Ml Oral.Susp) 30 ml PO Q6H PRN PRN Reason: Heartburn/Nausea Amoxicillin/Clavulanate Potassium (Amoxicillin/Potassium Clav 875 Mg Tablet) 875 mg PO Q12H [facility] Stop: 08/09/24 09:01 Buprenorphine/Naloxone (Buprenorphine/Naloxone 8/2 Mg Film) 1 film SUBLINGUAL TID YI Bupropion HCl (Bupropion Hcl Xl 300 Mg Tab.Er.24h) 300 mg PO DAILY [facility] Last Admin: 08/05/24 08:32 Dose: 300 mg Clonidine HCl (Clonidine Hcl 0.1 Mg Tablet) 0.1 mg PO TID PRN; Protocol PRN Reason: anxiety, withdrawal sx Last Admin: 08/03/24 20:45 Dose: 0.1 mg Divalproex Sodium (Divalproex Sodium Sprinkles 125 Mg ) 375 mg PO BID [facility] Last Admin: 08/05/24 08:28 Dose: 375 mg Folic Acid (Folic Acid 1 Mg Tablet) 1 mg PO DAILY [facility] Last Admin: 08/05/24 08:29 Dose: 1 mg Gabapentin (Gabapentin 400 Mg Capsule) 800 mg PO TID [facility] Last Admin: 08/05/24 08:29 Dose: 800 mg Hydroxyzine HCl (Hydroxyzine Hcl 25 Mg Tablet) 25 mg PO Q6H PRN PRN Reason: Anxiety Last Admin: 08/03/24 20:46 Dose: 25 mg Lidocaine (Lidocaine 4 % Patch Adh..Patch) 1 patch TRANSDERMA DAILY [facility]; Protocol Last Admin: 08/05/24 08:35 Dose: Not Given Magnesium Hydroxide (Milk Of Magnesia 30 Ml Oral.Susp) 30 ml PO DAILY PRN PRN Reason: Constipation Miconazole Nitrate (Miconazole 2 % Extra Thick Cr 56.7 Gm Tube) 1 appl TOPICAL BID [facility]; Protocol Last Admin: 08/05/24 08:36 Dose: 1 appl Mirtazapine (Mirtazapine 7.5 Mg Tablet) 7.5 mg PO BEDTIME PRN PRN Reason: insomnia Last Admin: 08/03/24 20:46 Dose: 7.5 mg Multivitamins/Vitamin C (Multivitamin Tablet) 1 tab PO DAILY [facility] Last Admin: 08/05/24 08:29 Dose: 1 tab Nicotine (Nicotine 21 Mg Patch.Td24) 21 mg TRANSDERMA DAILY [facility] Last Admin: 08/05/24 08:35 Dose: Not Given Nicotine Polacrilex (Nicotine Polacrilex 2 Mg Gum) 4 mg BUCCAL Q2H PRN PRN Reason: Nicotine Cravings Quetiapine Fumarate (Quetiapine Fumarate 200 Mg Tablet) 200 mg PO BEDTIME [facility] Last Admin: 08/04/24 20:11 Dose: 200 mg Quetiapine Fumarate (Quetiapine Fumarate 100 Mg Tablet) 100 mg PO DAILY [facility] Last Admin: 08/05/24 08:32 Dose: 100 mg Quetiapine Fumarate (Quetiapine Fumarate 50 Mg Tablet) 50 mg PO TID PRN PRN Reason: agitation Last Admin: 08/04/24 15:16 Dose: 50 mg Thiamine HCl (Thiamine Hcl 100 Mg Tablet) 100 mg PO DAILY [facility] Last Admin: 08/05/24 08:29 Dose: 100 mg Allergies Allergies Allergy/AdvReac Type Severity Reaction Status Date / Time trazodone Allergy Rash Verified 07/29/24 04:50 Assessment & Plan Assessment & Plan (1) Cocaine use disorder: Status: Chronic Code(s): F14.10 - Cocaine abuse, uncomplicated (2) Chronic post-traumatic stress disorder (PTSD): Status: Chronic Code(s): F43.12 - Post-traumatic stress disorder, chronic (3) Opioid use disorder: Status: Acute Code(s): F11.90 - Opioid use, unspecified, uncomplicated (4) Alcohol use disorder, moderate, in early remission, dependence: Status: Chronic Code(s): F10.21 - Alcohol dependence, in remission (5) Otitis media: Status: Acute Code(s): H66.90 - Otitis media, unspecified, unspecified ear Assessment and Plan: 41-year-old male complaining of sore throat and earache Likely acute otitis media Will empirically treat with 5 days of Augmentin Plan 08/02/24- continue with disposition planning or risk of rapid decompensation and re hospitalization- as happened after last hospitalization summer 2023. 08/04: increase wellbutrin to 300 daily and samir to 800 TID per pt request. had last dose of methadone this morning, 15 mg. will give 8 mg suboxone tomorrow morning per pt request with repeat dose as indicated. planning to discharge to appointment at [facility] program, [facility]. 08/05: remains improved. start suboxone 8 TID today. discharge to suboxone appointment. Reason for continued inpatient stay Substantial Risk for: rapid decompensation Time Spent With Patient Time: Total time managing care of this patient today __25__ minutes.
[2024-08-05 20:00] VITALS: BP 128/84; PULSE 94; RESP 16; TEMP 36.6; O2SAT 99
[2024-08-05] MEDS: QUEtiapine Fumarate 200 MG TABLET PO (20:37)
[2024-08-06 08:00] VITALS: BP 124/78; PULSE 96; RESP 16; TEMP 36.9; O2SAT 97
[2024-08-06] MEDS: Divalproex Sodium Sprinkles 125 MG CAP.DR.SPR 375 MG PO ×2 (08:40→20:49)
[2024-08-06] MEDS: QUEtiapine Fumarate 100 MG TABLET PO (08:40)
[2024-08-06] MEDS: Gabapentin 400 MG CAPSULE 800 MG PO ×3 (08:40→20:49)
[2024-08-06] MEDS: Folic Acid 1 MG TABLET PO (08:40)
[2024-08-06] MEDS: Amoxicillin/Potassium Clav 875 MG TABLET PO ×2 (08:40→20:49)
[2024-08-06] MEDS: Buprenorphine/Naloxone 8/2 mg FILM 1 FILM SUBLINGUAL ×3 (08:40→20:48)
[2024-08-06] MEDS: Thiamine HCL 100 MG TABLET PO (08:40)
[2024-08-06] MEDS: Multivitamin TABLET 1 TAB PO (08:40)
[2024-08-06] MEDS: buPROPion HCl XL 300 MG TAB.ER.24H PO (08:40)
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
--- NOTE | 2024-08-06 15:51 | MHC.RECOVRN ---
Met with pt in [id number] to follow up and provide support.? Pt awake, alert, easily engages in conversation,out in common area reading the newspaper. Pt reports feeling his OUD is well managed on 24mg of suboxone. He reports he is D/C tomorrow and is connected to [facility]..? Pt denies other concerns at this time.? T/w available as needed.
[2024-08-06 20:00] VITALS: BP 133/88; PULSE 90; RESP 16; TEMP 36.2; O2SAT 98
[2024-08-06] MEDS: QUEtiapine Fumarate 200 MG TABLET PO (20:49)
[2024-08-07 08:00] VITALS: BP 125/71; PULSE 83; RESP 14; TEMP 36.2; O2SAT 98
[2024-08-07] MEDS: Divalproex Sodium Sprinkles 125 MG CAP.DR.SPR 375 MG PO (09:24)
[2024-08-07] MEDS: QUEtiapine Fumarate 100 MG TABLET PO (09:24)
[2024-08-07] MEDS: Thiamine HCL 100 MG TABLET PO (09:25)
[2024-08-07] MEDS: buPROPion HCl XL 300 MG TAB.ER.24H PO (09:25)
[2024-08-07] MEDS: Gabapentin 400 MG CAPSULE 800 MG PO (09:25)
[2024-08-07] MEDS: Multivitamin TABLET 1 TAB PO (09:25)
[2024-08-07] MEDS: Folic Acid 1 MG TABLET PO (09:25)
[2024-08-07] MEDS: Amoxicillin/Potassium Clav 875 MG TABLET PO (09:25)
[2024-08-07] MEDS: Buprenorphine/Naloxone 8/2 mg FILM 1 FILM SUBLINGUAL (09:26)
== END 2024-08-07 10:59 | disposition home or self-care (01) | DRG 755 ==
LOC: HO.ED 14:21 → HO.PADLT16 18:02
PROVIDERS: Physician Assistant Medical; Admitting Provider Registered Nurse; Emergency Provider Emergency Medicine; Visit Provider Psychiatry & Neurology Psychiatry
DX: F43.12 Post-traumatic stress disorder, chronic (principal); R45.851 Suicidal ideations; F31.81 Bipolar II disorder; H66.91 Otitis media, unspecified, right ear; F11.20 Opioid dependence, uncomplicated; F17.210 Nicotine dependence, cigarettes, uncomplicated; Z59.01 Sheltered homelessness; F10.20 Alcohol dependence, uncomplicated; Z71.6 Tobacco abuse counseling; F14.10 Cocaine abuse, uncomplicated; Z20.822 Contact with and (suspected) exposure to COVID-19; Z79.899 Other long term (current) drug therapy
CPT/HCPCS: 80053; 80143; 80179; 80307; 81003; 85025; 87635; 93005; 99285; S9485

== ENCOUNTER → 2024-07-29 08:20 | Outpatient (BNV) | payer MEDICAID, SELFPAY | PROVIDERS: Emergency Provider Emergency Medicine; Visit Provider Internal Medicine Cardiovascular Disease | DX: R00.1 Bradycardia, unspecified (principal) | CPT/HCPCS: 93010 ==

== ENCOUNTER → 2024-07-29 16:32 | Outpatient (BNV) | payer OTHER, SELFPAY | PROVIDERS: Admitting Provider Registered Nurse; Emergency Provider Emergency Medicine; Visit Provider Nurse Practitioner Psychiatric/Mental Health | DX: F11.90 Opioid use, unspecified, uncomplicated (principal) | CPT/HCPCS: 99499 ==

== ENCOUNTER → 2024-07-29 16:32 | Outpatient (BNV) | payer MEDICAID, SELFPAY | PROVIDERS: Admitting Provider Registered Nurse; Emergency Provider Emergency Medicine; Visit Provider Internal Medicine | DX: F14.10 Cocaine abuse, uncomplicated (principal) | CPT/HCPCS: 99221 ==

== ENCOUNTER → 2024-07-29 16:32 | Outpatient (BNV) | payer OTHER, SELFPAY | PROVIDERS: Admitting Provider Registered Nurse; Emergency Provider Emergency Medicine; Visit Provider Psychiatry & Neurology Psychiatry | DX: F14.10 Cocaine abuse, uncomplicated (principal); F10.21 Alcohol dependence, in remission; F11.90 Opioid use, unspecified, uncomplicated; F43.12 Post-traumatic stress disorder, chronic | CPT/HCPCS: 99232 ==

== ENCOUNTER 2025-03-11 21:51 | Inpatient (IN) | payer OTHER, SELFPAY ==
[2025-03-11 21:58] VITALS: BP 148/86; PULSE 92; O2SAT 98
[2025-03-11 22:14] VITALS: BMI 23.0
[2025-03-11 22:17] VITALS: BP 137/87; PULSE 84; RESP 16; TEMP 37.1; O2SAT 96
--- NOTE | 2025-03-11 22:25 | ED.PSYCH ---
HPI - Psych General Chief Complaint: Psychiatric Symptoms Stated Complaint: CRISIS Time Seen by Provider: 03/11/25 22:17 Source: patient Mode of arrival: ambulatory Limitations: no limitations History of Present Illness ED Provider: HPI Narrative: Patient is 49 years old with history of polysubstance abuse cocaine abuse PTSD major depressive disorder apparently unable to get his medication for last 2 weeks comes here as he is not feeling good tearful in in emotional distress with vague SI statement without any plan no hallucination or delusion has used cocaine yesterday symptoms are getting worse for last 1 week Related Data Previous Rx's ?Medication ?Instructions ?Recorded buprenorphine 8 mg-naloxone 2 mg 1 film sublingual TID 7 days #21 ea 08/06/24 sublingual film (Suboxone) bupropion HCl 300 mg 24 hr tablet, 300 mg PO DAILY 30 days #30 tabs 08/06/24 extended release clonidine HCl 0.1 mg tablet 0.1 mg PO TID PRN anxiety, 08/06/24 withdrawal sx 30 days #30 tabs divalproex 125 mg capsule,delayed 375 mg (3 x 125 mg) PO BID 30 days 08/06/24 release sprinkle #180 caps folic acid 1 mg tablet 1 mg PO DAILY 30 days #30 tabs 08/06/24 gabapentin 400 mg capsule 800 mg (2 x 400 mg) PO TID 30 days 08/06/24 #180 caps mirtazapine 7.5 mg tablet 7.5 mg PO BEDTIME PRN insomnia 30 08/06/24 days #30 tabs multivitamin (Daily-Renato tablet) 1 tab PO DAILY 30 days #30 tabs 08/06/24 quetiapine 100 mg tablet 100 mg PO DAILY 30 days #30 tabs 08/06/24 quetiapine 200 mg tablet 200 mg PO BEDTIME #30 tabs 08/06/24 quetiapine 50 mg tablet 50 mg PO TID PRN agitation 30 days 08/06/24 #90 tabs thiamine mononitrate (vit B1) 100 100 mg PO DAILY 30 days #30 tabs 08/06/24 mg tablet Allergies Allergy/AdvReac Type Severity Reaction Status Date / Time trazodone Allergy Rash Verified 03/11/25 22:15 Review of Systems Review of Systems: Yes all other systems are reviewed and are negative PMFSH Past Medical History Medical History Non compliance w medication regimen Bipolar II disorder Polysubstance use disorder Suicidal ideation Right inguinal hernia Opioid abuse Cocaine use disorder Alcohol use disorder, moderate, in early remission, dependence Opioid dependence on agonist therapy Chronic post-traumatic stress disorder (PTSD) MDD (major depressive disorder), recurrent severe, without psychosis Bipolar 1 disorder PTSD (post-traumatic stress disorder) Depression Surgical History S/P hernia surgery Social History Social History Household Members: None Household Members Other:: homeless, staying with sister Housing: Homeless Do you presently have visiting nurse or other home services: No Unable to assess alcohol history related to: Unknown Alcohol intake: current Alcohol intake frequency: 0-2 drinks per day Alcohol type: beer Patient Tobacco Use Status: Current everyday Tobacco user Tobacco use type: Smokeless Tobacco Cigarette Packs Per Day: 0.5 Cigarettes Per Day: 5 Years Smoked: 27 Smoked in Last 30 Days: Yes e-Cigarette/Vaping Use: Currently Using Frequency of e-Cigarette/Vaping Use: daily Patient Interested in Nicotine Replacement: No Patient Given Instructions on How to Stop Smoking: No Second Hand Smoke Exposure: No Use of substances other than those prescribed or required for medical reasons: Yes Substance Use Type: Crack/Cocaine and Marijuana Substance Use Frequency: Daily Have you been hit, kicked, punched, or otherwise hurt by someone within the past year? If so, by whom?: No Do you feel safe in your current relationship?: No Current Relationship Is there a partner from a previous relationship who is making you feel unsafe now?: No Advance Directives: No Advance Directives Information Provided: Yes Do you have thoughts of harming others: None Do you have a plan to hurt others: No Plan Recently lost weight without trying: Yes How much weight loss: Unsure Eating poorly because of decreased appetite: No Nutrition screen score: 4 service: No Sexual orientation: Bisexual Physical Exam Vital Signs: Vital Signs: Last Vital Signs Temp 96.8 F 03/13/25 08:00 Pulse 56 03/13/25 08:00 Resp 18 03/13/25 08:00 BP 109/66 03/13/25 08:00 Pulse Ox 95 03/13/25 08:00 O2 Del Method Room Air 03/13/25 08:00 BMI result Body Mass Index 23.0 Appearance: Alert. Oriented X3. No acute distress. Anxious Eyes: PERRLA, No Nystagmus ENT: Pharynx normal. Oral Mucosa moist Neck: Normal inspection. Neck supple. CVS: Normal heart rate and rhythm. Pulses normal. Respiratory: No respiratory distress. Equal air entry bilateral, no wheezing/rales/rhonchi Abdomen: Soft and nontender. Bowel sounds are present, no mass palpable, no CVA tenderness Skin: Skin warm and dry. Normal skin color. Normal skin turgor. Extremities: No lower extremity edema. No calf tenderness psych: Anxious feel depressed denies any SI or HI at this time no hallucination or delusion Neuro: Oriented X 3. No motor deficit. No sensory deficit.No cerebellar signs , cranial nerves II-XII intact Course Course Course Narrative: Time: 07:00 Date: 03/12/25 Provider: Dilcia Montez DO Patient in physician observation for psychiatric evaluation.? No acute events reported overnight. No current complaints. VS stable.? Pending CARE team evaluation. Will continue to monitor. Reevaluation(s) Reevaluation #1: Time: 18:00 Date: 03/12/25 Provider: Dilcia Montez DO Physician observation ended at 1800 Patient to be admitted as inpatient to psychiatry Medications Administered Generic Name Dose Route Start Last Admin Trade Name Zarina PRN Reason Stop Dose Admin Buprenorphine/Naloxone 1 film 03/12/25 09:00 03/13/25 08:38 Buprenorphine/Naloxone 8/2 Mg Film SUBLINGUAL 1 film TID YI Administration Bupropion HCl 300 mg 03/12/25 09:00 03/13/25 08:38 Bupropion Hcl Xl 300 Mg Tab.Er.24h PO 300 mg DAILY YI Administration Divalproex Sodium 375 mg 03/12/25 09:00 03/13/25 08:35 Divalproex Sodium Sprinkles 125 Mg PO 375 mg BID YI Administration Folic Acid 1 mg 03/12/25 09:00 03/13/25 08:37 Folic Acid 1 Mg Tablet PO 1 mg DAILY YI Administration Gabapentin 800 mg 03/12/25 09:00 03/13/25 08:37 Gabapentin 400 Mg Capsule PO 800 mg TID YI Administration Mirtazapine 7.5 mg 03/12/25 00:33 03/12/25 21:33 Mirtazapine 7.5 Mg Tablet PO 7.5 mg BEDTIME PRN Administration Insomnia Multivitamins/Vitamin C 1 tab 03/12/25 09:00 03/13/25 08:36 Multivitamin Tablet PO 1 tab DAILY YI Administration Quetiapine Fumarate 100 mg 03/12/25 09:00 03/13/25 08:36 Quetiapine Fumarate 100 Mg Tablet PO 100 mg DAILY YI Administration Quetiapine Fumarate 200 mg 03/12/25 21:00 03/12/25 21:34 Quetiapine Fumarate 200 Mg Tablet PO 200 mg BEDTIME YI Administration Thiamine HCl 100 mg 03/12/25 09:00 03/13/25 08:38 Thiamine Hcl 100 Mg Tablet PO 100 mg DAILY YI Administration Discontinued Medications Generic Name Dose Route Start Last Admin Trade Name Freq PRN Reason Stop Dose Admin Clonidine HCl 0.1 mg 03/11/25 22:31 03/11/25 22:45 Clonidine Hcl 0.1 Mg Tablet PO 03/11/25 22:32 0.1 mg ONCE ONE Administration Protocol Mirtazapine 7.5 mg 03/11/25 22:31 03/11/25 22:57 Mirtazapine 7.5 Mg Tablet PO 03/11/25 22:32 7.5 mg ONCE ONE Administration Quetiapine Fumarate 200 mg 03/11/25 22:31 03/11/25 22:45 Quetiapine Fumarate 200 Mg Tablet PO 03/11/25 22:32 200 mg ONCE ONE Administration Medical Decision Making Medical Decision Making [facility] Narrative: Patient with cocaine abuse PTSD depression and anxiety comes here for increased stress feels suicidal without any plan, unable to get his medication for 2 weeks will consult care team for evaluation and disposition Lab Data [facility] Lab Attestation statement: I reviewed the patient's lab results. 03/11/25 22:49 03/11/25 22:49 Labs: Lab Results 03/11/25 03/12/25 Range/Units 22:49 12:42 WBC 11.5 H (4.8-10.8) X10*3/uL RBC 4.63 (4.60-5.80) X10*6/uL Hgb 15.0 (14.0-18.0) g/dl Hct 42.2 (42.0-52.0) % MCV 91.1 (80.0-98.0) fL MCH 32.4 (27.0-33.0) pg MCHC 35.5 (31.0-36.0) g/dl RDW 13.1 (11.0-16.0) % Plt Count 198 (160-400) X10*3/uL MPV 9.0 L (9.4-12.4) fL Immature Gran % (Auto) 0.3 (0.0-0.4) % Neut % (Auto) 76.1 H (45-73) % Lymph % (Auto) 15.9 L (20-40) % [place] % (Auto) 7.1 (2-11) % Eos % (Auto) 0.3 (0-4) % Baso % (Auto) 0.3 (0-2) % Lymph # (Auto) 1.8 (1.2-4.9) X10*3/uL [place] # (Auto) 0.8 (0.1-1.2) X10*3/uL Eos # (Auto) 0.0 (0.0-0.4) X10*3/uL Baso # (Auto) 0.0 (0.0-0.2) X10*3/uL Abs Immat Gran (auto) 0.03 (0.00-0.03) X10*3/uL Absolute Neuts (auto) 8.8 H (2.0-8.3) x10*3/uL Absolute Nucleated RBC 0.000 (0.0-0.012) X10*3/uL Nucleated RBC % (auto) 0.0 (0.0-0.2) /100WBC Sodium 140 (135-145) mmol/L Potassium 3.6 (3.3-5.1) mmol/L Chloride 102 (96-108) mmol/L Carbon Dioxide 28 (22-29) mmol/L Anion Gap 14 (12-20) BUN 20 H (9-16) mg/dL Creatinine 1.20 (0.5-1.4) mg/dL Estim Creat Clear Calc 77.2 Estimated GFR > 60 Random Glucose 135 H (60-115) mg/dL Calcium 9.2 D (8.4-10.2) mg/dL Total Bilirubin 0.6 (0.0-1.0) mg/dL AST 44 H (5-37) U/L ALT 39 (0-40) U/L Alkaline Phosphatase 70 (39-117) U/L Total Protein 7.8 (6.5-8.0) g/dL Albumin 4.8 (3.5-5.0) g/dL Urine Color Yellow Urine Appearance Clear Urine pH 6.0 (5.0-9.0) Ur Specific [place] 1.020 (1.005-1.025) Urine Protein Negative (Neg-Trace) mg/dL Urine Glucose (UA) Negative (Negative) mg/dL Urine Ketones Trace (Negative) mg/dL Urine Blood Small (1+) H (Negative) Urine Nitrite Negative (Negative) Ur Leukocyte Esterase Small (1+) H (Negative) Urine RBC 11-20 H (0-2) /HPF Urine WBC 6-10 H (0-5) /HPF Ur Squamous Epith Cells 0-2 (0-2) /HPF Urine Bacteria None Seen (None Seen) Hyaline Casts 0-2 (0-2) /LPF Salicylates < 5.0 L (15-30) mg/dL Urine Opiates Screen POSITIVE H (Not Detect) Ur Buprenorphine Scrn Positive H (Not Detect) ng/mL Ur Oxycodone Screen Not Detected (Not Detect) ng/mL Urine Methadone Screen Not Detected (Not Detect) ng/mL Urine Fentanyl Screen POSITIVE H (Not Detect) Acetaminophen < 3 (<30) mcg/mL Ur Barbiturates Screen Not Detected (Not Detect) Valproic Acid < 12.5 L (50.0-100.0) mcg/mL Ur Phencyclidine Scrn Not Detected (Not Detect) Ur Amphetamines Screen Not Detected (Not Detect) U Benzodiazepines Scrn Not Detected (Not Detect) Urine Cocaine Screen POSITIVE H (Not Detect) U Marijuana (THC) Screen POSITIVE H (Not Detect) Ethyl Alcohol < 10 mg/dL Independent Interpretation I performed an independent interpretation of an: EKG Discharge Plan Discharge Clinical Impression: Chronic post-traumatic stress disorder (PTSD), Cocaine use disorder, Suicidal ideation, Acute anxiety Patient Disposition: Admitted As Inpatient Interventions: Admission Worksheet (ED) Last Done: 03/12/25 18:28 Discharge Date/Time: 03/12/25 18:29
[2025-03-11 22:56] LABS: MANUAL DIFF FLAG NO
[2025-03-11 22:57] LABS: Hematocrit 42.2 % (42.0-52.0); Hemoglobin 15.0 g/dl (14.0-18.0); Imm Gran Abs Auto 0.03 X10*3/uL (0.00-0.03); Imm Gran Pct Auto 0.3 % (0.0-0.4); Lymphocytes Absolute Auto 1.8 X10*3/uL (1.2-4.9); Mean Corpuscular HGB Conc 35.5 g/dl (31.0-36.0); Mean Corpuscular Hemoglobin 32.4 pg (27.0-33.0); Mean Corpuscular Volume 91.1 fL (80.0-98.0); NRBC Abs Auto 0.000 X10*3/uL (0.0-0.012); NRBC Pct Auto 0.0 /100WBC (0.0-0.2); Platelet Count 198 X10*3/uL (160-400); Red Blood Count 4.63 X10*6/uL (4.60-5.80); White Blood Count 11.5 X10*3/uL (4.8-10.8)
[2025-03-11 23:15] LABS: Acetaminophen LAB < 3 mcg/mL (<30); Alanine Aminotransferase 39 U/L (0-40); Albumin Level 4.8 g/dL (3.5-5.0); Alkaline Phosphatase 70 U/L (39-117); Anion Gap 14 (12-20); Aspartate Amino Transferase 44 U/L (5-37); Blood Urea Nitrogen 20 mg/dL (9-16); Calcium 9.2 mg/dL (8.4-10.2); Carbon Dioxide 28 mmol/L (22-29); Chloride 102 mmol/L (96-108); Creatinine Clr Calc Pharmacy 77.2; Estimated Glomerular Filt Rate > 60; Potassium 3.6 mmol/L (3.3-5.1); Salicylate < 5.0 mg/dL (15-30); Sodium 140 mmol/L (135-145); Total Protein 7.8 g/dL (6.5-8.0)
--- NOTE | 2025-03-12 | ECG_ITS ---
Test Reason : CHECK QT INTERVAL Blood Pressure : */* mmHG Vent. Rate : 67 BPM Atrial Rate : 67 BPM P-R Int : 116 ms QRS Dur : 84 ms QT Int : 414 ms P-R-T Axes : 4 73 70 degrees QTcB Int : 437 ms Normal sinus rhythm Normal ECG When compared with ECG of 29-Jul-2024 08:31, No significant change was found Referred By: Osman Hemphill Electronically Signed By: Jacinto Blackwood
--- NOTE | 2025-03-12 00:50 | MHC.CARE ---
Inquired on urine collection for patient who EDT reports has been asleep and unarousable. Plan is to request urine when patient awakens and attempt to evaluate him if possible, by 6am.
--- NOTE | 2025-03-12 05:27 | MHC.CARE ---
Attempted to evaluate patient again who remains asleep and unarousable.
--- NOTE | 2025-03-12 06:47 | PC.NURSE ---
suboxone and miconazole sealed + delivered to pharmacy. patient copy of slip with belongings, facility copy with patient paper chart in pod
--- NOTE | 2025-03-12 07:49 | PC.NURSE ---
Assumed care of patient at 0650, patient appears to be in no apparent distress this am, sleeping, respirations are even and unlabored. Pt is currently pending a urine sample for med clearance then CARE team yusuf
[2025-03-12] MEDS: buPROPion HCl XL 300 MG TAB.ER.24H PO (09:08)
[2025-03-12] MEDS: Divalproex Sodium Sprinkles 125 MG CAP.DR.SPR 375 MG PO ×2 (09:08→21:34)
[2025-03-12 09:13] VITALS: BP 116/67; PULSE 56; RESP 12; TEMP 36.4; O2SAT 98
--- NOTE | 2025-03-12 12:06 | PC.NURSE ---
Assumed care of this patient at 11:00AM on 03/12/2025. Patient sleeping at this time. Per CARE team, attempted evaluation, but patient was sleepy throughout the evaluation and was difficult to determine disposition. Awaiting urine specimen collection at this time. CARE team to re-attempt evaluation at a later time (per Ida Norman). Care ongoing by this RN.
--- NOTE | 2025-03-12 12:39 | PC.NURSE ---
Patient out of bed, ambulating with steady gait. Urine specimen collected and sent for analysis. Awaiting results.
[2025-03-12 12:52] LABS: Appearance Urine Clear; Glucose Urine UA Negative (Negative); PH 6.0 (5.0-9.0); Specific Gravity - Urine 1.020 (1.005-1.025); UMIC TRIGGER UACC YES
[2025-03-12 12:55] LABS: UACC Culture Trigger YES
[2025-03-12 13:02] LABS: Cannabinoid Screen Urine POSITIVE (Not Detect)
[2025-03-12 16:31] VITALS: BP 106/56; PULSE 67; RESP 14; TEMP 36.8; O2SAT 97
[2025-03-12 18:30] VITALS: BP 110/60; PULSE 88; RESP 18; TEMP 36.3; O2SAT 97
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
[2025-03-12 19:30] VITALS: BMI 21.0
[2025-03-13 08:00] VITALS: BP 109/66; PULSE 56; RESP 18; TEMP 36; O2SAT 95
[2025-03-13] MEDS: Divalproex Sodium Sprinkles 125 MG CAP.DR.SPR 375 MG PO ×2 (08:35→20:14)
[2025-03-13] MEDS: buPROPion HCl XL 300 MG TAB.ER.24H PO (08:38)
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
[2025-03-13 19:43] VITALS: BP 122/59; PULSE 71; RESP 15; TEMP 36.8; O2SAT 92
[2025-03-14 08:00] VITALS: BP 121/74; PULSE 62; RESP 18; TEMP 36.1; O2SAT 97
[2025-03-14] MEDS: Divalproex Sodium Sprinkles 125 MG CAP.DR.SPR 375 MG PO ×2 (08:36→21:01)
[2025-03-14] MEDS: buPROPion HCl XL 300 MG TAB.ER.24H PO (08:36)
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
[2025-03-14 20:00] VITALS: BP 138/90; PULSE 82; RESP 15; TEMP 36.8; O2SAT 95
[2025-03-14 21:42] VITALS: BMI 21.5
[2025-03-15 08:30] VITALS: BP 160/59; PULSE 110; RESP 18; TEMP 36.8; O2SAT 98
[2025-03-15] MEDS: buPROPion HCl XL 300 MG TAB.ER.24H PO (08:44)
[2025-03-15] MEDS: Divalproex Sodium Sprinkles 125 MG CAP.DR.SPR 375 MG PO ×2 (08:44→20:42)
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
[2025-03-15 19:52] VITALS: BP 128/67; PULSE 97; RESP 16; TEMP 36.6; O2SAT 99
[2025-03-16 07:57] VITALS: BP 98/60; PULSE 62; RESP 16; TEMP 36.6; O2SAT 98
[2025-03-16] MEDS: buPROPion HCl XL 300 MG TAB.ER.24H PO (08:31)
[2025-03-16] MEDS: Divalproex Sodium Sprinkles 125 MG CAP.DR.SPR 375 MG PO ×2 (08:31→21:05)
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
[2025-03-16] MEDS: Miconazole 2 % Extra Thick Cr 56.7 Gm Tube 1 APPL TOPICAL ×2 (16:43→21:07)
[2025-03-16] MEDS: Hydrocortisone 1 % Cream 28.35 GM TUBE 1 APPL TOPICAL (16:43)
[2025-03-16 20:06] VITALS: BP 136/87; PULSE 91; RESP 16; TEMP 36.9; O2SAT 98
[2025-03-17 08:00] VITALS: BP 163/79; PULSE 108; RESP 16; TEMP 36.6; O2SAT 99
[2025-03-17] MEDS: Divalproex Sodium Sprinkles 125 MG CAP.DR.SPR 375 MG PO (08:30)
[2025-03-17] MEDS: buPROPion HCl XL 300 MG TAB.ER.24H PO (08:30)
[2025-03-17] MEDS: Hydrocortisone 1 % Cream 28.35 GM TUBE 1 APPL TOPICAL (08:31)
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
[2025-03-17 20:01] VITALS: BP 167/102; PULSE 92; RESP 16; TEMP 37; O2SAT 96
[2025-03-17] MEDS: Miconazole 2 % Extra Thick Cr 56.7 Gm Tube 1 APPL TOPICAL (21:47)
[2025-03-18 08:10] VITALS: BP 143/67; PULSE 110; TEMP 36.8; O2SAT 96
[2025-03-18] MEDS: Miconazole 2 % Extra Thick Cr 56.7 Gm Tube 1 APPL TOPICAL (08:48)
[2025-03-18] MEDS: buPROPion HCl XL 150 MG TAB.ER.24H 450 MG PO (08:49)
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
[2025-03-18 20:00] VITALS: BP 143/97; PULSE 84; RESP 16; TEMP 36.6; O2SAT 97
[2025-03-18 20:26] VITALS: BP 143/92
[2025-03-19 07:00] VITALS: BMI 22.3
[2025-03-19 08:00] VITALS: BP 110/79; PULSE 71; RESP 18; TEMP 36.7; O2SAT 98
[2025-03-19] MEDS: buPROPion HCl XL 150 MG TAB.ER.24H 450 MG PO (08:47)
[2025-03-19] MEDS: Miconazole 2 % Extra Thick Cr 56.7 Gm Tube 1 APPL TOPICAL (08:49)
[2025-03-19 09:21] LABS: Lithium 0.46 mmol/L (0.60-1.20)
[2025-03-19 09:28] LABS: Anion Gap 12 (12-20); Blood Urea Nitrogen 18 mg/dL (9-16); Calcium 9.4 mg/dL (8.4-10.2); Carbon Dioxide 33 mmol/L (22-29); Chloride 103 mmol/L (96-108); Cholesterol 185 mg/dL (<200); Creatinine Clr Calc Pharmacy 85.2; Estimated Glomerular Filt Rate > 60; HDL Cholesterol 62 mg/dL (>40); Potassium 4.6 mmol/L (3.3-5.1); Sodium 143 mmol/L (135-145); Triglycerides 133 mg/dL (<150)
[2025-03-19 09:34] LABS: Hemoglobin A1C 190.7620 umol/L; Total Hemoglobin (HGBA1C) 4305.8445 umol/L
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
[2025-03-19 10:57] LABS: Reflex LDLD? No
[2025-03-19 10:59] LABS: Free T4 (Free Thyroxine) 0.90 ng/dL (0.71-1.85)
[2025-03-19 20:00] VITALS: BP 130/78; PULSE 89; RESP 18; TEMP 36.3; O2SAT 100
[2025-03-20 08:00] VITALS: BP 115/58; PULSE 70; RESP 18; TEMP 36.4; O2SAT 98
[2025-03-20] MEDS: buPROPion HCl XL 150 MG TAB.ER.24H 450 MG PO (08:18)
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
[2025-03-20 19:52] VITALS: BP 136/84; PULSE 71; TEMP 36.1; O2SAT 99
[2025-03-21 08:19] VITALS: BP 110/72; PULSE 62; TEMP 35.9; O2SAT 98
[2025-03-21] MEDS: buPROPion HCl XL 150 MG TAB.ER.24H 450 MG PO (08:37)
[2025-03-21] MEDS: Miconazole 2 % Extra Thick Cr 56.7 Gm Tube 1 APPL TOPICAL (08:41)
[2025-03-21] MEDS: Hydrocortisone 1 % Cream 28.35 GM TUBE 1 APPL TOPICAL (08:41)
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
[2025-03-21 20:00] VITALS: BP 135/73; PULSE 83; TEMP 37.3; O2SAT 98
[2025-03-22] MEDS: buPROPion HCl XL 150 MG TAB.ER.24H 450 MG PO (08:43)
[2025-03-22 09:02] VITALS: BP 122/61; PULSE 71; TEMP 36.7; O2SAT 99
[2025-03-22] MEDS: Miconazole 2 % Extra Thick Cr 56.7 Gm Tube 1 APPL TOPICAL (10:05)
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
[2025-03-22 19:38] VITALS: BP 133/85; PULSE 95; TEMP 37.1; O2SAT 96
[2025-03-23 08:00] VITALS: BP 107/59; PULSE 66; RESP 18; TEMP 36.4; O2SAT 98
[2025-03-23] MEDS: buPROPion HCl XL 150 MG TAB.ER.24H 450 MG PO (08:31)
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
[2025-03-23 13:31] VITALS: BP 132/78
[2025-03-23 20:00] VITALS: BP 133/79; PULSE 90; TEMP 36.6; O2SAT 96
[2025-03-24 07:53] VITALS: BP 129/74; PULSE 68; TEMP 36.6; O2SAT 98
[2025-03-24] MEDS: buPROPion HCl XL 150 MG TAB.ER.24H 450 MG PO (09:05)
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
[2025-03-24 12:07] VITALS: BP 128/80
[2025-03-24 14:41] LABS: Lithium 0.44 mmol/L (0.60-1.20)
[2025-03-24 14:54] LABS: Anion Gap 13 (12-20); Blood Urea Nitrogen 17 mg/dL (9-16); Calcium 9.1 mg/dL (8.4-10.2); Carbon Dioxide 31 mmol/L (22-29); Chloride 103 mmol/L (96-108); Creatinine Clr Calc Pharmacy 74.8; Estimated Glomerular Filt Rate > 60; Potassium 4.3 mmol/L (3.3-5.1); Sodium 143 mmol/L (135-145)
[2025-03-24 15:55] LABS: Free T4 (Free Thyroxine) 0.71 ng/dL (0.71-1.85)
[2025-03-24 20:00] VITALS: BP 121/79; PULSE 82; TEMP 36.4; O2SAT 97
[2025-03-25 08:00] VITALS: BP 122/60; PULSE 70; RESP 16; TEMP 36.6; O2SAT 98
[2025-03-25] MEDS: buPROPion HCl XL 150 MG TAB.ER.24H 450 MG PO (09:04)
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
[2025-03-25 20:00] VITALS: BP 118/79; PULSE 88; RESP 16; TEMP 36.6; O2SAT 98
[2025-03-26 08:00] VITALS: BP 107/74; PULSE 78; RESP 16; TEMP 36.6; O2SAT 96
[2025-03-26] MEDS: buPROPion HCl XL 150 MG TAB.ER.24H 450 MG PO (08:25)
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
[2025-03-26 20:00] VITALS: BP 153/83; PULSE 102; RESP 16; TEMP 36.7; O2SAT 98
[2025-03-27 08:18] VITALS: BP 129/85; PULSE 68; O2SAT 98
[2025-03-27] MEDS: buPROPion HCl XL 150 MG TAB.ER.24H 450 MG PO (09:32)
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
[2025-03-27] MEDS: Miconazole 2 % Extra Thick Cr 56.7 Gm Tube 1 APPL TOPICAL (13:23)
[2025-03-27 20:00] VITALS: BP 147/82; PULSE 90; TEMP 37.1; O2SAT 98
[2025-03-28 08:00] VITALS: BP 119/84; PULSE 64; RESP 18; TEMP 36.4; O2SAT 95
[2025-03-28] MEDS: buPROPion HCl XL 150 MG TAB.ER.24H 450 MG PO (08:56)
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
[2025-03-28 20:00] VITALS: BP 126/89; PULSE 83; TEMP 37.2; O2SAT 98
[2025-03-29 08:00] VITALS: BP 122/73; PULSE 64; RESP 18; TEMP 36.6; O2SAT 99
[2025-03-29] MEDS: buPROPion HCl XL 150 MG TAB.ER.24H 450 MG PO (08:51)
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
[2025-03-29 19:48] VITALS: BP 138/84; PULSE 90; RESP 16; TEMP 37.1; O2SAT 98
[2025-03-30 08:00] VITALS: BP 122/75; PULSE 69; TEMP 36.4; O2SAT 100
[2025-03-30] MEDS: buPROPion HCl XL 150 MG TAB.ER.24H 450 MG PO (08:45)
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
[2025-03-30 20:00] VITALS: BP 132/78; PULSE 80; RESP 16; TEMP 36.7; O2SAT 98
[2025-03-30] MEDS: Miconazole 2 % Extra Thick Cr 56.7 Gm Tube 1 APPL TOPICAL (21:07)
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
[2025-03-31] MEDS: Naloxone HCl Nasal TAKE HOME 4 MG SPRAY 8 MG NOSTRILALT (06:50)
== END 2025-03-31 07:05 | disposition home or self-care (01) | DRG 751 ==
LOC: HO.ED 03-12 15:30 → HO.PM5 03-12 17:04
PROVIDERS: Admitting Provider Psychiatry & Neurology Psychiatry; Emergency Provider Internal Medicine; Visit Provider Psychiatry & Neurology Psychiatry
DX: F33.2 Major depressive disorder, recurrent severe without psychotic features (principal); R45.851 Suicidal ideations; F11.20 Opioid dependence, uncomplicated; F14.10 Cocaine abuse, uncomplicated; F43.12 Post-traumatic stress disorder, chronic; F17.210 Nicotine dependence, cigarettes, uncomplicated; Z71.6 Tobacco abuse counseling; Z59.01 Sheltered homelessness; Z79.899 Other long term (current) drug therapy
CPT/HCPCS: 36415; 80048; 80053; 80061; 80143; 80164; 80178; 80179; 80307; 81001; 83036; 84439; 84443; 85025; 87086; 93005; 99285; S9485

== ENCOUNTER → 2025-03-12 15:34 | Outpatient (BNV) | payer MEDICAID, SELFPAY | PROVIDERS: Admitting Provider Psychiatry & Neurology Psychiatry; Emergency Provider Internal Medicine; Visit Provider Internal Medicine Cardiovascular Disease | DX: Z13.6 Encounter for screening for cardiovascular disorders (principal) | CPT/HCPCS: 93010 ==

== ENCOUNTER → 2025-03-12 16:47 | Outpatient (BNV) | payer OTHER, SELFPAY | PROVIDERS: Admitting Provider Psychiatry & Neurology Psychiatry; Emergency Provider Internal Medicine; Visit Provider Psychiatry & Neurology Psychiatry | DX: F33.2 Major depressive disorder, recurrent severe without psychotic features (principal); F14.10 Cocaine abuse, uncomplicated; F11.90 Opioid use, unspecified, uncomplicated; F43.12 Post-traumatic stress disorder, chronic | CPT/HCPCS: 99231; 99232 ==